=== PATIENT | male | born 1965 | race Caucasian/White ===

== ENCOUNTER 2020-08-31 09:43 | Inpatient (IN) | payer OTHER, SELFPAY ==
[2020-08-31] VITALS (8 sets, daily range): BP systolic 122–130; BP diastolic 76–91; PULSE 72–85; RESP 19–32; TEMP 35.8–36.9; O2SAT 77–97; BMI 27.8
--- NOTE | ~2020-08-31 | CT_ITS ---
EXAMINATION: CT ANGIOGRAM OF THE CHEST WITH AND WITHOUT CONTRAST (CT PULMONARY ANGIOGRAM FOR PE) CLINICAL INFORMATION: Reason for Exam likely COVID with hypoxia and elevated ddimer COMPARISON: None TECHNIQUE: Prior to contrast administration, noncontrast localization images were obtained. Subsequently, multidetector volumetric imaging was performed from the thoracic inlet to below the diaphragms following the administration of 80 mL Omnipaque 350 intravenous contrast. No contrast reaction reported Sagittal, coronal, and MIP oblique sagittal reformatted images were obtained on the CT workstation, uploaded to PACS, and reviewed. This CT examination was performed using dose optimization techniques as appropriate, variously including the following: *Automated exposure control *Adjustment of mA and/or kV according to patient size (this includes techniques or standardized protocols for targeted exams where dose is matched to indication/reason for exam; i.e. extremities or head) *Use of iterative reconstruction technique Total exam dose-length product 352 mGy-cm FINDINGS: QUALITY OF STUDY/CONTRAST BOLUS: Satisfactory. PULMONARY ARTERIES: No central or segmental pulmonary emboli. THORACIC AORTA: No aneurysm or dissection. LUNG: There is diffuse subpleural patchy groundglass opacities seen in both upper, lower, right middle lobe and lingular segments. In addition there is patchy airspace opacity in both lower lobes dependent segments. PLEURA: No pleural effusion or pneumothorax. MEDIASTINUM: Normal heart size. No pericardial effusion. No hilar or mediastinal lymphadenopathy. No evidence of septal bowing or right heart strain. CHEST WALL/AXILLA: No axillary or internal mammary lymphadenopathy. OSSEOUS STRUCTURES: No lytic or sclerotic process seen. UPPER ABDOMEN: Unremarkable. No reflux of contrast into the hepatic veins to suggest elevated right heart pressures. CT/CT angio chest PE protocol IMPRESSION: No evidence of PE. No evidence of aortic dissection. Diffuse subpleural groundglass opacity scattered throughout both lungs and all segments suggestive of Covid related inflammatory process. VTE: negative
--- NOTE | ~2020-08-31 | XR_ITS ---
EXAMINATION: XR CHEST CLINICAL INFORMATION: Covid, shortness of breath. COMPARISON: None TECHNIQUE: Frontal view of the chest was obtained. FINDINGS: The lungs are well-expanded with bilateral lower lobe patchy opacity. The upper lungs are clear. The heart size and pulmonary vascularity is normal. XR/XR chest 1V IMPRESSION: Bibasilar patchy opacity suggestive of infiltrate/atelectasis.
--- NOTE | 2020-08-31 10:06 | ED_ITS ---
HPI - SOB/Dyspnea General Chief Complaint: Dyspnea Stated Complaint: coughing Dizzy sob Time Seen by Provider: 08/31/20 10:06 Source: patient Mode of arrival: ambulatory Limitations: no limitations History of Present Illness HPI Narrative: 9 days ago patient was exposed to neighbors with covid. Presented to the ED saturating in the 70's MD elicited complaint: shortness of breath and cough Onset (ago): day(s) (9) Context: recent illness Timing: constant Severity: severe Exacerbating factors: exertion Relieving factors: nothing Associated symptoms: fever and cough Related Data Allergies Allergy/AdvReac Type Severity Reaction Status Date / Time No Known Allergies Allergy Unverified 12/04/19 15:46 Review of Systems Constitutional: Constitutional: Reports no additional constitutional complaints Eyes: Eyes: Reports no additional eye complaints ENT: Denies dizziness Cardiovascular: Cardiovascular: Reports no additional cardiovascular complaints Respiratory: Respiratory: Reports as per HPI Gastrointestinal: Gastrointestinal: Reports no additional gastrointestinal complaints Musculoskeletal: Musculoskeletal: Reports no additional musculoskeletal complaints Integumentary/Breasts: Skin/Breast: Denies rash Neurologic: Reports system reviewed and no additional complaints, except as documented, Denies dizziness and Denies Sensory deficit (Neuro) Psychiatric: Psychiatric: Denies anxiety [facility] Past Medical History Medical History (Updated 08/31/20 @ 11:06 by Alvarez Cruz MD) No known health problems Social History Social History Patient Tobacco Use Status: Never used Tobacco Use of substances other than those prescribed or required for medical reasons: No Advance Directives: No Advance Directives Information Provided: Yes Physical Exam Vital Signs: Vital Signs: Last Vital Signs Temp 98.3 F 08/31/20 11:46 Pulse 85 08/31/20 11:46 Resp 32 H 08/31/20 11:46 BP 130/91 H 08/31/20 11:46 Pulse Ox 95 08/31/20 11:46 Oxygen Flow Rate 5 08/31/20 10:02 Body Mass Index 27.8 Const: Other: male appearing pale and short of breath Nutritional Appearance: average body habitus Orientation/consciousness: oriented to person and patient oriented x3 Limitations: no limitations HENMT: Head: Yes normal to inspection Ears: external ears normal General nose exam: Normal external nose present Mouth: Normal oral and palatal mucosa present and oropharynx normal Throat: Yes posterior oropharynx normal Eyes: General: appearance normal, both eyes and all related structures Neck: Other: supple Neck: Yes normal visual inspection Chest: Chest palpation & inspection: normal inspection of the chest Resp: Other: bilateral rales Cardio: Jugular venous distension: no JVD Rate: regular rate Rhythm: regular rhythm Heart sounds: S1 normal heart sound present and S2 normal heart sound present GI: Inspection: Yes normal to inspection Palpation (GI): Soft to palpation, nontender and No hepatosplenomegaly present Auscultation: normal bowel sounds : General: Yes no CVA tenderness Back/Spine/Pelvis: Back: no CVA tenderness Skin: General skin exam: no rashes or lesions noted Neuro: General: oriented to person and patient oriented x3 Cranial nerves: Yes CN's II-XII intact bilaterally Motor exam (neuro): 5/5 motor strength present throughout Sensory Exam: No Sensory deficit (Neuro) Extrem: General: Yes normal to inspection Psych: Appearance: grossly normal MDM - SOB/Dyspnea Lab Data Result diagrams: 08/31/20 10:21 08/31/20 10:21 Labs: Lab Results 08/31/20 08/31/20 08/31/20 Range/Units 10:21 10:21 10:21 WBC 4.9 (4.8-10.8) X10*3/uL RBC 4.98 (4.60-5.80) X10*6/uL Hgb 14.1 (14.0-18.0) g/dl Hct 42.0 (42-52) % MCV 84.3 (80-98) fL MCH 28.3 (27.0-33.0) pg MCHC 33.6 (31.0-36.0) g/dl RDW 12.0 (11.0-16.0) % Plt Count 247 (160-400) X10*3/uL MPV 9.2 L (9.4-12.4) fL Immature Gran % (Auto) 0.2 (0.0-0.4) % Neut % (Auto) 43.8 L (45-73) % Lymph % (Auto) 47.1 H (20-40) % [place] % (Auto) 8.1 (2-11) % Eos % (Auto) 0.6 (0-4) % Baso % (Auto) 0.2 (0-2) % Lymph # (Auto) 2.3 (1.2-4.9) X10*3/uL [place] # (Auto) 0.4 (0.1-1.2) X10*3/uL Eos # (Auto) 0.0 (0.0-0.4) X10*3/uL Baso # (Auto) 0.0 (0.0-0.2) X10*3/uL Abs Immat Gran (auto) 0.01 (0.00-0.03) X10*3/uL Absolute Neuts (auto) 2.2 (2.0-8.3) X10*3/uL Absolute Nucleated RBC 0.000 (0.0-0.012) X10*3/uL Nucleated RBC % (auto) 0.0 (0.0-0.2) /100WBC D-Dimer 636 NG/ML Sodium (135-145) mmol/L Potassium (3.3-5.1) mmol/L Chloride (96-108) mmol/L Carbon Dioxide (22-29) mmol/L Anion Gap (12-20) BUN (9-16) mg/dL Creatinine (0.5-1.4) mg/dL Estim Creat Clear Calc Estimated GFR Random Glucose (60-115) mg/dL Calcium (8.4-10.2) mg/dL Total Bilirubin (0.0-1.0) mg/dL Direct Bilirubin (0.0-0.5) mg/dL AST (5-37) U/L ALT (0-40) U/L Alkaline Phosphatase (39-117) U/L Troponin I High Sens 22.8 (<3.5-35.0) ng/L B-Natriuretic Peptide 28 (<100) pg/mL Total Protein (6.5-8.0) g/dL Albumin (3.5-5.0) g/dL Coronavirus (PCR) (Negative) Influenza Type A (PCR) (Negative) Influenza Type B (PCR) (Negative) RSV RNA Qual (PCR) (Negative) 08/31/20 08/31/20 08/31/20 Range/Units 10:21 10:30 11:53 WBC (4.8-10.8) X10*3/uL RBC (4.60-5.80) X10*6/uL Hgb (14.0-18.0) g/dl Hct (42-52) % MCV (80-98) fL MCH (27.0-33.0) pg MCHC (31.0-36.0) g/dl RDW (11.0-16.0) % Plt Count (160-400) X10*3/uL MPV (9.4-12.4) fL Immature Gran % (Auto) (0.0-0.4) % Neut % (Auto) (45-73) % Lymph % (Auto) (20-40) % [place] % (Auto) (2-11) % Eos % (Auto) (0-4) % Baso % (Auto) (0-2) % Lymph # (Auto) (1.2-4.9) X10*3/uL [place] # (Auto) (0.1-1.2) X10*3/uL Eos # (Auto) (0.0-0.4) X10*3/uL Baso # (Auto) (0.0-0.2) X10*3/uL Abs Immat Gran (auto) (0.00-0.03) X10*3/uL Absolute Neuts (auto) (2.0-8.3) X10*3/uL Absolute Nucleated RBC (0.0-0.012) X10*3/uL Nucleated RBC % (auto) (0.0-0.2) /100WBC D-Dimer NG/ML Sodium 138 (135-145) mmol/L Potassium 4.4 (3.3-5.1) mmol/L Chloride 104 (96-108) mmol/L Carbon Dioxide 21 L (22-29) mmol/L Anion Gap 17 (12-20) BUN 13 (9-16) mg/dL Creatinine 0.83 (0.5-1.4) mg/dL Estim Creat Clear Calc 113.1 Estimated GFR > 60 Random Glucose 275 H (60-115) mg/dL Calcium 8.9 (8.4-10.2) mg/dL Total Bilirubin 0.8 (0.0-1.0) mg/dL Direct Bilirubin 0.4 (0.0-0.5) mg/dL AST 50 H (5-37) U/L ALT 34 (0-40) U/L Alkaline Phosphatase 206 H (39-117) U/L Troponin I High Sens 24.8 (<3.5-35.0) ng/L B-Natriuretic Peptide (<100) pg/mL Total Protein 7.6 (6.5-8.0) g/dL Albumin 3.5 (3.5-5.0) g/dL Coronavirus (PCR) POSITIVE A (Negative) Influenza Type A (PCR) NEGATIVE (Negative) Influenza Type B (PCR) NEGATIVE (Negative) RSV RNA Qual (PCR) NEGATIVE (Negative) Imaging Data Chest x-ray: My impression: COVID lungs ECG Data Attestation: I personally reviewed and interpreted this ECG as follows: Interpretation: sinus 80, old septal Qs, flipped ts inferiorly Critical Care Time Critical Care Time Attestation: I spent 40 minutes of critical care, with interventions, assessments, speaking to patient, consultants, and family. Discharge Plan Discharge Clinical Impression: COVID-19, Hypoxia Patient Disposition: Admitted As Inpatient
--- NOTE | 2020-08-31 10:10 | ECG_ITS ---
Test Reason : SOB Blood Pressure : / mmHG Vent. Rate : 080 BPM Atrial Rate : 080 BPM P-R Int : 182 ms QRS Dur : 078 ms QT Int : 370 ms P-R-T Axes : 012 -27 -08 degrees QTc Int : 426 ms Normal sinus rhythm Moderate voltage criteria for LVH, may be normal variant Anteroseptal infarct , age undetermined Abnormal ECG No previous ECGs available Referred By: Alvarez Cruz Electronically Signed By:XIN TANG
[2020-08-31 10:26] LABS: MANUAL DIFF FLAG NO
--- NOTE | 2020-08-31 10:28 | PC.NURSE ---
pt comes in severely sob, sating at 77% on room air, but improved with o2, sating at 92% on 5l nasal cannual, pt states about 9 days had covid exposure and last 8 days not feeling well, sob/cough/fevers/general weakness/poor po intake/lightheadedness. ls expiratory rhonchi, ns on the monitor hr 84. pt denies chest pain
[2020-08-31 10:32] LABS: Basophils Percent Auto 0.2 % (0-2); Eosinophils Percent Auto 0.6 % (0-4); Hemoglobin 14.1 g/dl (14.0-18.0); Imm Gran Abs Auto 0.01 X10*3/uL (0.00-0.03); Imm Gran Pct Auto 0.2 % (0.0-0.4); Lymphocytes Absolute Auto 2.3 X10*3/uL (1.2-4.9); Lymphocytes Percent Auto 47.1 % (20-40); Mean Corpuscular HGB Conc 33.6 g/dl (31.0-36.0); Mean Corpuscular Hemoglobin 28.3 pg (27.0-33.0); Mean Corpuscular Volume 84.3 fL (80-98); Mean Platelet Volume 9.2 fL (9.4-12.4); Monocytes Absolute Auto 0.4 X10*3/uL (0.1-1.2); Monocytes Percent Auto 8.1 % (2-11); Neutrophils Absolute Auto 2.2 X10*3/uL (2.0-8.3); Neutrophils Percent Auto 43.8 % (45-73); Platelet Count 247 X10*3/uL (160-400); Red Blood Count 4.98 X10*6/uL (4.60-5.80); White Blood Count 4.9 X10*3/uL (4.8-10.8)
[2020-08-31] MEDS: dexAMETHasone sod phosphate 4 MG/ML VIAL 6 MG IVPUSH (10:40)
[2020-08-31 10:44] LABS: D Dimer 636 NG/ML
[2020-08-31 11:04] LABS: Alanine Aminotransferase 34 U/L (0-40); Albumin Level 3.5 g/dL (3.5-5.0); Alkaline Phosphatase 206 U/L (39-117); Anion Gap 17 (12-20); Aspartate Amino Transferase 50 U/L (5-37); B Type Natriuretic Peptide 28 pg/mL (<100); Bilirubin Direct 0.4 mg/dL (0.0-0.5); Bilirubin Total 0.8 mg/dL (0.0-1.0); Blood Urea Nitrogen 13 mg/dL (9-16); Calcium 8.9 mg/dL (8.4-10.2); Carbon Dioxide 21 mmol/L (22-29); Chloride 104 mmol/L (96-108); Creatinine Clr Calc Pharmacy 113.1; Estimated Glomerular Filt Rate > 60; Glucose Random 275 mg/dL (60-115); Potassium 4.4 mmol/L (3.3-5.1); Sodium 138 mmol/L (135-145); Total Protein 7.6 g/dL (6.5-8.0); Troponin-I High Sensitivity 22.8 ng/L (<3.5-35.0)
[2020-08-31 11:20] LABS: Influenza A PCR NEGATIVE (Negative); Influenza B PCR NEGATIVE (Negative); Resp Syncy Virus RNA Qual PCR NEGATIVE (Negative); SARS COV2 PCR INHOUSE POSITIVE (Negative)
[2020-08-31 12:23] LABS: Troponin-I High Sensitivity 24.8 ng/L (<3.5-35.0)
[2020-08-31] MEDS: iohexoL 350 MG/ML 100 ML INFUS..BTL 71 ML IV (12:38)
--- NOTE | 2020-08-31 14:02 | PC.NURSE ---
UPON ENTERING ROOM, PT OBSERVED TO HAVE SPO2 AT 87% ON 3L. INFORMED THIS PT WAS WALKED TO CT SCAN WITH NO SUPPLEMENTAL O2. PT CANNOT TOLERATE EXERTION, INSTRUCTED ON IMPORTANCE OF O2.
--- NOTE | 2020-08-31 14:30 | PM.IMHP ---
History of Present Illness Date of Service: 08/31/20 Chief Complaint: sob 55M presented with sob. about 10 days ptp he was in a car with a neighbor who ended up having covid. patient did not get vaccinated for no specific reason. he started feeling ill about 7 days ptp. sob, fatigue, myalgias.now coming to hospital for worsening sob. found to be hypoxic 77 on rrom air. covid positive, CTA negative for pe, lung paranchyma typical for covid. patient noted to be hyperglycemic, no known history of DM, mother had DM. Review of Systems Review of Systems: Constitutional: Chills Eyes: denies blurry vision ENT: denies sore throat CVS: denies chest pain Respiratory: dyspnea GI: no abdominal pain : denies dysuria MSK: denies neck pain Skin: denies rash Neuro: denies specific motor weakness Psych: denies suicidal ideation Endocrine: denies heat/cold intoleratnce Hematologic: denies easy bleeding Allergy: denies hives [facility] Medical History No known health problems Pertinent family history: DM Social History Patient Tobacco Use Status: Never used Tobacco Use of substances other than those prescribed or required for medical reasons: No Advance Directives: No Advance Directives Information Provided: Yes Meds Allergies Allergy/AdvReac Type Severity Reaction Status Date / Time No Known Allergies Allergy Unverified 12/04/19 15:46 Physical Exam Vital Signs and Narrative: Vital Signs: Last Vital Signs Temp 98.3 F 08/31/20 11:46 Pulse 72 08/31/20 14:01 Resp 24 H 08/31/20 14:01 BP 129/84 08/31/20 14:01 Pulse Ox 94 08/31/20 14:23 Oxygen Flow Rate 5 08/31/20 10:02 Body Mass Index 27.8 General: diaphoretic, dyspneic HEENT: atraumatic Neck: normal to visual inspection CVS: S1, S2, RRR Resp: crackles Chest: non tender GI: soft, non tender, non distended : no CVA tenderness Skin: no rashes Extremities: no edema Neuro: Oriented X3, grossly intact Psych: cooperative Results Labs CBC and Chem 7: 08/31/20 10:21 08/31/20 10:21 Labs: Laboratory Results - last 24 hr 08/31/20 08/31/20 08/31/20 10:21 10:21 10:21 MCV 84.3 MCH 28.3 MCHC 33.6 RDW 12.0 Plt Count 247 MPV 9.2 L Immature Gran % (Auto) 0.2 Neut % (Auto) 43.8 L Lymph % (Auto) 47.1 H [place] % (Auto) 8.1 Eos % (Auto) 0.6 Baso % (Auto) 0.2 Lymph # (Auto) 2.3 [place] # (Auto) 0.4 Eos # (Auto) 0.0 Baso # (Auto) 0.0 Abs Immat Gran (auto) 0.01 Absolute Neuts (auto) 2.2 Absolute Nucleated RBC 0.000 Nucleated RBC % (auto) 0.0 D-Dimer 636 Anion Gap Estim Creat Clear Calc Estimated GFR Random Glucose Calcium Total Bilirubin Direct Bilirubin AST ALT Alkaline Phosphatase Troponin I High Sens 22.8 B-Natriuretic Peptide 28 Total Protein Albumin Coronavirus (PCR) Influenza Type A (PCR) Influenza Type B (PCR) RSV RNA Qual (PCR) 08/31/20 08/31/20 08/31/20 10:21 10:30 11:53 MCV MCH MCHC RDW Plt Count MPV Immature Gran % (Auto) Neut % (Auto) Lymph % (Auto) [place] % (Auto) Eos % (Auto) Baso % (Auto) Lymph # (Auto) [place] # (Auto) Eos # (Auto) Baso # (Auto) Abs Immat Gran (auto) Absolute Neuts (auto) Absolute Nucleated RBC Nucleated RBC % (auto) D-Dimer Anion Gap 17 Estim Creat Clear Calc 113.1 Estimated GFR > 60 Random Glucose 275 H Calcium 8.9 Total Bilirubin 0.8 Direct Bilirubin 0.4 AST 50 H ALT 34 Alkaline Phosphatase 206 H Troponin I High Sens 24.8 B-Natriuretic Peptide Total Protein 7.6 Albumin 3.5 Coronavirus (PCR) POSITIVE A Influenza Type A (PCR) NEGATIVE Influenza Type B (PCR) NEGATIVE RSV RNA Qual (PCR) NEGATIVE Imaging Radiologist's Impressions: Impressions Chest X-Ray 08/31/20 10:10 IMPRESSION: Bibasilar patchy opacity suggestive of infiltrate/atelectasis. Chest CTA 08/31/20 11:03 IMPRESSION: No evidence of PE. No evidence of aortic dissection. Diffuse subpleural groundglass opacity scattered throughout both lungs and all segments suggestive of Covid related inflammatory process. VTE: negative Assessment and Plan (1) COVID-19: Status: Acute (2) Hypoxia: Status: Acute (3) Hyperglycemia: Status: Acute 55M presented with sob found to have covid acute hypoxic respiratory failure due to covid decadron o2 hyperglcyemia likely DM check a1c insulin dvt prophylaxis - xarelto full code
[2020-08-31 15:16] LABS: Estimated Average Glucose 306 mg/dL; Hemoglobin A1c % 12.3 %
[2020-08-31 17:14] LABS: Glucose, Whole Blood 298 mg/dL (60-115)
[2020-08-31] MEDS: Insulin Lispro 100 UNIT/ML 3 ML VIAL SUBCUT ×2 (17:37→21:20)
[2020-08-31] MEDS: 0.9 % Sodium Chloride Flush 3 ML SYRINGE IVFLUSH ×2 (17:40→21:20)
[2020-08-31 21:03] LABS: Glucose, Whole Blood 282 mg/dL (60-115)
[2020-09-01] VITALS (7 sets, daily range): BP systolic 112–148; BP diastolic 69–89; PULSE 69–75; RESP 16–20; TEMP 36.6–37.2; O2SAT 90–96
[2020-09-01 07:42] LABS: Glucose, Whole Blood 202 mg/dL (60-115)
[2020-09-01] MEDS: Rivaroxaban 10 MG TABLET PO (07:55)
[2020-09-01] MEDS: dexAMETHasone sod phosphate 4 MG/ML VIAL 6 MG IVPUSH (07:55)
[2020-09-01] MEDS: 0.9 % Sodium Chloride Flush 3 ML SYRINGE IVFLUSH ×2 (07:55→20:57)
[2020-09-01] MEDS: Insulin Lispro 100 UNIT/ML 3 ML VIAL SUBCUT ×4 (07:55→20:57)
--- NOTE | 2020-09-01 08:49 | MHC.CM.PN ---
Patient is Covid (+). CM attempted to reach Patient by cell phone [phone], listed as Patient's cell #, but instead reached Patient's Daughter/Oliverio. Patient lives in an apartment with his and Son and he is functionally independent. Patient has no insurance (referral has been made to [facility] has confirmed receipt of referral), and no PCP. Home/no services is the goal for dc and CM has initiated and will follow for dc planning.
[2020-09-01 10:14] LABS: Hematocrit 40.9 % (42-52); Hemoglobin 13.6 g/dl (14.0-18.0); Mean Corpuscular HGB Conc 33.3 g/dl (31.0-36.0); Mean Corpuscular Hemoglobin 28.2 pg (27.0-33.0); Mean Corpuscular Volume 84.7 fL (80-98); Mean Platelet Volume 9.3 fL (9.4-12.4); Platelet Count 266 X10*3/uL (160-400); Red Blood Count 4.83 X10*6/uL (4.60-5.80); Red Cell Distribution Width 11.9 % (11.0-16.0); White Blood Count 4.1 X10*3/uL (4.8-10.8)
[2020-09-01 10:43] LABS: Anion Gap 15 (12-20); Blood Urea Nitrogen 17 mg/dL (9-16); Calcium 8.7 mg/dL (8.4-10.2); Carbon Dioxide 24 mmol/L (22-29); Chloride 103 mmol/L (96-108); Creatinine Clr Calc Pharmacy 126.9; Estimated Glomerular Filt Rate > 60; Glucose Random 262 mg/dL (60-115); Potassium 4.5 mmol/L (3.3-5.1); Sodium 137 mmol/L (135-145)
[2020-09-01 11:35] LABS: Glucose, Whole Blood 261 mg/dL (60-115)
[2020-09-01] MEDS: Remdesivir 200 MG in 0.9 % Sodium Chloride 210 ML 105 MG IV (12:23)
--- NOTE | 2020-09-01 14:14 | MHC.CLN ---
RECOMMEND 2200DM DIET BASED ON ESTIMATED KCAL NEEDS
[2020-09-01 16:24] LABS: Glucose, Whole Blood 277 mg/dL (60-115)
--- NOTE | 2020-09-01 16:44 | P.PNIM_ITS ---
Subjective Subjective Date of Service: 09/01/20 Interval History: the patient was seen and evaluated this morning Laying in bed, feels comfortable overall on 5 L of oxygen Denies any fever, chills but complaining of dyspnea and exertional shortness of breath No reported other overnight events. Systemic review: No fever, chills but overall weakness No chest pain, palpitation Complaining of exertional shortness of breath or coughing No abdominal pain, nausea or vomiting No urinary symptoms No any rash or wounds Physical Exam Vital Signs: Vital Signs: Last Vital Signs Temp 98.3 F 09/01/20 15:53 Pulse 70 09/01/20 15:53 Resp 18 09/01/20 15:53 BP 115/76 09/01/20 15:53 Pulse Ox 92 09/01/20 15:53 Oxygen Flow Rate 5 08/31/20 10:02 Body Mass Index 27.8 Const: Other: Constitutional : Alert, oriented, in mild respiratory distress Neck : Normal inspection, Supple Cardiovascular : RRR, S1 S2, no lower extremity edema Respiratory : Decreased bilateral air entry, no crackles, no wheezes or rhonch i Gastrointestinal: soft, lax, Normal bowel sounds, Non tender Skin : Warm/Dry, No rash Neurological : Alert & oriented x3, No focal deficit Objective Data Current Medications Generic Name Dose Route Start Last Admin Trade Name Baltazarq PRN Reason Stop Dose Admin Dexamethasone Sodium Phosphate 6 mg 09/01/20 09:00 09/01/20 07:55 Dexamethasone Sod Phosphate 4 Mg/Ml Vial IVPUSH 6 mg DAILY QUYEN Administration Remdesivir 100 mg/ Sodium 230 mls @ 115 mls/hr 09/02/20 11:00 Chloride IV 09/05/20 12:59 Q24H [facility] Insulin Human Lispro 0 unit 08/31/20 16:30 09/01/20 12:25 Insulin Lispro 100 Unit/Ml 3 Ml Vial SUBCUT 6 unit QIDACHS [facility] Administration Protocol Rivaroxaban 10 mg 09/01/20 09:00 09/01/20 07:55 Rivaroxaban 10 Mg Tablet PO 10 mg DAILY QUYEN Administration Sodium Chloride 3 ml 08/31/20 16:00 09/01/20 07:55 0.9 % Sodium Chloride Flush 3 Ml Syringe IVFLUSH 3 ml QSHIFT [facility] Administration Labs CBC & Chem 7: 09/01/20 09:33 09/01/20 09:33 Labs: Laboratory Results - last 24 hr 08/31/20 08/31/20 09/01/20 17:10 20:55 07:21 WBC RBC Hgb Hct MCV MCH MCHC RDW Plt Count MPV Absolute Nucleated RBC Nucleated RBC % (auto) Sodium Potassium Chloride Carbon Dioxide Anion Gap BUN Creatinine Estim Creat Clear Calc Estimated GFR POC Glucose 298 H 282 H 202 H Random Glucose Calcium 09/01/20 09/01/20 09/01/20 09:33 09:33 11:25 WBC 4.1 L RBC 4.83 Hgb 13.6 L Hct 40.9 L MCV 84.7 MCH 28.2 MCHC 33.3 RDW 11.9 Plt Count 266 MPV 9.3 L Absolute Nucleated RBC 0.000 Nucleated RBC % (auto) 0.0 Sodium 137 Potassium 4.5 Chloride 103 Carbon Dioxide 24 Anion Gap 15 BUN 17 H Creatinine 0.74 Estim Creat Clear Calc 126.9 Estimated GFR > 60 POC Glucose 261 H Random Glucose 262 H Calcium 8.7 09/01/20 16:17 WBC RBC Hgb Hct MCV MCH MCHC RDW Plt Count MPV Absolute Nucleated RBC Nucleated RBC % (auto) Sodium Potassium Chloride Carbon Dioxide Anion Gap BUN Creatinine Estim Creat Clear Calc Estimated GFR POC Glucose 277 H Random Glucose Calcium Microbiology Microbiology Results: Microbiology 08/31/20 10:30 Blood Culture - Preliminary Blood - Venous No growth after 24 hours. 08/31/20 10:21 Blood Culture - Preliminary Blood - Venous No growth after 24 hours. Quality Stroke Does the patient have a stroke diagnosis?: No VTE Prior VTE?: No VTE Risk Level:: Medical - moderate - high VTE Device Contraindication: Patient Refused VTE Drug Contraindication: N/A - Med Ordered Assessment and Plan (1) COVID-19: Status: Acute (2) Hypoxia: Status: Acute (3) Hyperglycemia: Status: Acute Assessment and Plan: 55M presented with sob found to have covid Acute hypoxic respiratory failure due to covid Continue on decadron Continue o2 Get ID evaluation hyperglcyemia Secondary newly diagnosed DM HbA1c, 12.3 Continue insulin dvt prophylaxis xarelto
[2020-09-01 20:16] LABS: Glucose, Whole Blood 310 mg/dL (60-115)
[2020-09-02 03:12] VITALS: BP 109/69; PULSE 60; RESP 16; TEMP 36.6; O2SAT 92
[2020-09-02 06:59] LABS: MANUAL DIFF FLAG NO
[2020-09-02 07:06] LABS: Glucose, Whole Blood 234 mg/dL (60-115)
[2020-09-02 07:07] LABS: Basophils Percent Auto 0.1 % (0-2); Eosinophils Percent Auto 0.1 % (0-4); Hematocrit 39.3 % (42-52); Hemoglobin 13.2 g/dl (14.0-18.0); Imm Gran Abs Auto 0.03 X10*3/uL (0.00-0.03); Imm Gran Pct Auto 0.4 % (0.0-0.4); Lymphocytes Absolute Auto 1.8 X10*3/uL (1.2-4.9); Mean Corpuscular HGB Conc 33.6 g/dl (31.0-36.0); Mean Corpuscular Hemoglobin 28.3 pg (27.0-33.0); Mean Corpuscular Volume 84.2 fL (80-98); Mean Platelet Volume 9.4 fL (9.4-12.4); Monocytes Absolute Auto 0.7 X10*3/uL (0.1-1.2); Neutrophils Percent Auto 66.4 % (45-73); Platelet Count 336 X10*3/uL (160-400); Red Blood Count 4.67 X10*6/uL (4.60-5.80); Red Cell Distribution Width 11.9 % (11.0-16.0); White Blood Count 7.5 X10*3/uL (4.8-10.8)
[2020-09-02 07:11] VITALS: BP 117/75; PULSE 70; RESP 18; TEMP 36.7; O2SAT 93
[2020-09-02 07:27] LABS: C Reactive Protein 2.19 mg/dL (< or = 0.50); Lactate Dehydrogenase 257 U/L (118-273)
[2020-09-02 07:35] LABS: Anion Gap 13 (12-20); Blood Urea Nitrogen 25 mg/dL (9-16); Calcium 8.5 mg/dL (8.4-10.2); Carbon Dioxide 22 mmol/L (22-29); Chloride 106 mmol/L (96-108); Creatinine Clr Calc Pharmacy 128.6; Estimated Glomerular Filt Rate > 60; Glucose Random 250 mg/dL (60-115); Potassium 4.4 mmol/L (3.3-5.1); Sodium 137 mmol/L (135-145)
[2020-09-02] MEDS: dexAMETHasone sod phosphate 4 MG/ML VIAL 6 MG IVPUSH (07:53)
[2020-09-02] MEDS: Insulin Lispro 100 UNIT/ML 3 ML VIAL SUBCUT ×4 (07:53→20:16)
[2020-09-02] MEDS: Rivaroxaban 10 MG TABLET PO (07:53)
[2020-09-02] MEDS: 0.9 % Sodium Chloride Flush 3 ML SYRINGE IVFLUSH ×3 (07:54→20:17)
[2020-09-02] MEDS: Insulin Glargine,Hum.rec.anlog 100 UNIT/ML 10 ML VIAL SUBCUT (08:04)
[2020-09-02 10:58] LABS: Glucose, Whole Blood 316 mg/dL (60-115)
[2020-09-02] MEDS: Remdesivir 100 MG in 0.9 % Sodium Chloride 230 ML 115 MG IV (11:26)
--- NOTE | 2020-09-02 11:29 | W.PM.IDCN ---
History of Present Illness Data of Consult Service Date: 09/01/20 Requesting physician: Phi Prabhakar Primary Care Provider: None Physician HPI Reason for consult: COVID,hypoxia He presents to hospital with shortness of breath for a day and cough. He has dry cough. He did not get COVID vaccine,apathetic to it. He was in car with two persons with COVID 9 days ago and developed cough and fatigue 7 days ago He was 90 on room air Review of Systems Review of Systems: Yes all other systems are reviewed and are negative [facility] Past Medical History Medical History No known health problems Family History Family history: reviewed and not pertinent Social History Social History Household Members: Spouse and Children Housing: Apartment Do you presently have visiting nurse or other home services: No Patient Tobacco Use Status: Never used Tobacco Use of substances other than those prescribed or required for medical reasons: No Currently Displaying Signs/Symptoms of Drug Intoxication Withdrawal: No Have you been hit, kicked, punched, or otherwise hurt by someone within the past year? If so, by whom?: No Do you feel safe in your current relationship?: Yes Is there a partner from a previous relationship who is making you feel unsafe now?: No Are you made to feel afraid or neglected: No Advance Directives: No Advance Directives Information Provided: Yes Do you have thoughts of harming others: None Do you have a plan to hurt others: No Plan Recently lost weight without trying: No Nutrition Risks: No Nutritional Risk service: No Current occupational status: unemployed Meds Allergies Allergy/AdvReac Type Severity Reaction Status Date / Time No Known Allergies Allergy Unverified 12/04/19 15:46 Active Medications: Current Medications Generic Name Dose Route Start Last Admin Trade Name Freq PRN Reason Stop Dose Admin Dexamethasone Sodium Phosphate 6 mg 09/01/20 09:00 09/02/20 07:53 Dexamethasone Sod Phosphate 4 Mg/Ml Vial IVPUSH 6 mg DAILY QUYEN Administration Remdesivir 100 mg/ Sodium 230 mls @ 115 mls/hr 09/02/20 11:00 09/02/20 11:26 Chloride IV 09/05/20 12:59 115 mls/hr Q24H QUYEN Administration Insulin Glargine 5 unit 09/02/20 09:00 09/02/20 08:04 Insulin Glargine,Hum.Rec.Anlog 100 Unit/Ml 10 Ml Vial SUBCUT 5 unit DAILY QUYEN Administration Insulin Human Lispro 0 unit 08/31/20 16:30 09/02/20 11:26 Insulin Lispro 100 Unit/Ml 3 Ml Vial SUBCUT 8 unit QIDACHS QUYEN Administration Protocol Rivaroxaban 10 mg 09/01/20 09:00 09/02/20 07:53 Rivaroxaban 10 Mg Tablet PO 10 mg DAILY QUYEN Administration Sodium Chloride 3 ml 08/31/20 16:00 09/02/20 07:54 0.9 % Sodium Chloride Flush 3 Ml Syringe IVFLUSH 3 ml QSHIFT QUYEN Administration Physical Exam Vital Signs: Vital Signs: Last Vital Signs Temp 98.1 F 09/02/20 07:11 Pulse 70 09/02/20 07:11 Resp 18 09/02/20 07:11 BP 117/75 09/02/20 07:11 Pulse Ox 93 09/02/20 07:11 Oxygen Flow Rate 5 08/31/20 10:02 Body Mass Index 27.8 Const: General: cooperative Eyes: General: appearance normal, both eyes and all related structures Resp: Effort & Inspection: able to speak in complete sentences Cardio: Rate: regular rate Rhythm: regular rhythm GI: Palpation (GI): nontender Skin: General skin exam: no rashes or lesions noted Results Labs CBC & Chem 7: 09/02/20 06:07 09/02/20 06:07 Labs: Short CBC 09/02/20 Range/Units 06:07 WBC 7.5 (4.8-10.8) X10*3/uL Hgb 13.2 L (14.0-18.0) g/dl Hct 39.3 L (42-52) % Plt Count 336 D (160-400) X10*3/uL BMP 09/02/20 06:07 Sodium 137 Potassium 4.4 Chloride 106 Carbon Dioxide 22 BUN 25 H Creatinine 0.73 Calcium 8.5 Microbiology Microbiology Results: Microbiology 08/31/20 10:30 Blood - Venous Blood Culture - Preliminary No growth after 24 hours. 08/31/20 10:21 Blood - Venous Blood Culture - Preliminary No growth after 24 hours. Assessment and Plan (1) COVID-19: Status: Acute He has hypoxia He has no signs of secondary bacterial infection LFT slight elevation and creatinine unremarkable Would give Dexamethasone 6 mg IV daily,po on discharge for 10 days Remdesivir still indicated per protocol with normal creatinine and LFTs (2) Hypoxia: Status: Acute
[2020-09-02 11:42] VITALS: BP 119/73; PULSE 65; RESP 19; TEMP 36.6; O2SAT 94
--- NOTE | 2020-09-02 12:28 | HO.PM.IMPN ---
Subjective Subjective Date of Service: 09/02/20 Interval History: the patient was seen and evaluated this morning Laying in bed, feels comfortable overall on 4-5 L of oxygen Denies any fever, chills complaining of dyspnea and exertional shortness of breath No reported other overnight events. Systemic review: No fever, chills but overall weakness No chest pain, palpitation Complaining of exertional shortness of breath or coughing No abdominal pain, nausea or vomiting No urinary symptoms No any rash or wounds Physical Exam Vital Signs: Vital Signs: Last Vital Signs Temp 98 F 09/02/20 11:42 Pulse 65 09/02/20 11:42 Resp 19 09/02/20 11:42 BP 119/73 09/02/20 11:42 Pulse Ox 94 09/02/20 11:42 Oxygen Flow Rate 5 08/31/20 10:02 Body Mass Index 27.8 Const: Other: Constitutional : Alert, oriented, in mild respiratory distress Neck : Normal inspection, Supple Cardiovascular : RRR, S1 S2, no lower extremity edema Respiratory : Decreased bilateral air entry, no crackles, no wheezes or rhonchi Gastrointestinal: soft, lax, Normal bowel sounds, Non tender Skin : Warm/Dry, No rash Neurological : Alert & oriented x3, No focal deficit Objective Data Current Medications Generic Name Dose Route Start Last Admin Trade Name Baltazarq PRN Reason Stop Dose Admin Dexamethasone Sodium Phosphate 6 mg 09/01/20 09:00 09/02/20 07:53 Dexamethasone Sod Phosphate 4 Mg/Ml Vial IVPUSH 6 mg DAILY QUYEN Administration Remdesivir 100 mg/ Sodium 230 mls @ 115 mls/hr 09/02/20 11:00 09/02/20 11:26 Chloride IV 09/05/20 12:59 115 mls/hr Q24H QUYEN Administration Insulin Glargine 5 unit 09/02/20 09:00 09/02/20 08:04 Insulin Glargine,Hum.Rec.Anlog 100 Unit/Ml 10 Ml Vial SUBCUT 5 unit DAILY QUYEN Administration Insulin Human Lispro 0 unit 08/31/20 16:30 09/02/20 11:26 Insulin Lispro 100 Unit/Ml 3 Ml Vial SUBCUT 8 unit QIDACHS QUYEN Administration Protocol Rivaroxaban 10 mg 09/01/20 09:00 09/02/20 07:53 Rivaroxaban 10 Mg Tablet PO 10 mg DAILY QUYEN Administration Sodium Chloride 3 ml 08/31/20 16:00 09/02/20 07:54 0.9 % Sodium Chloride Flush 3 Ml Syringe IVFLUSH 3 ml QSHIFT QUYEN Administration Labs CBC & Chem 7: 09/02/20 06:07 09/02/20 06:07 Labs: Laboratory Results - last 24 hr 09/01/20 09/01/20 09/02/20 16:17 20:11 06:07 WBC 7.5 RBC 4.67 Hgb 13.2 L Hct 39.3 L MCV 84.2 MCH 28.3 MCHC 33.6 RDW 11.9 Plt Count 336 D MPV 9.4 Immature Gran % (Auto) 0.4 Neut % (Auto) 66.4 Lymph % (Auto) 24.0 [place] % (Auto) 9.0 Eos % (Auto) 0.1 Baso % (Auto) 0.1 Lymph # (Auto) 1.8 [place] # (Auto) 0.7 Eos # (Auto) 0.0 Baso # (Auto) 0.0 Abs Immat Gran (auto) 0.03 Absolute Neuts (auto) 5.0 Absolute Nucleated RBC 0.000 Nucleated RBC % (auto) 0.0 Sodium Potassium Chloride Carbon Dioxide Anion Gap BUN Creatinine Estim Creat Clear Calc Estimated GFR POC Glucose 277 H 310 H Random Glucose Calcium Lactate Dehydrogenase C-Reactive Protein 09/02/20 09/02/20 09/02/20 06:07 06:07 06:52 WBC RBC Hgb Hct MCV MCH MCHC RDW Plt Count MPV Immature Gran % (Auto) Neut % (Auto) Lymph % (Auto) [place] % (Auto) Eos % (Auto) Baso % (Auto) Lymph # (Auto) [place] # (Auto) Eos # (Auto) Baso # (Auto) Abs Immat Gran (auto) Absolute Neuts (auto) Absolute Nucleated RBC Nucleated RBC % (auto) Sodium 137 Potassium 4.4 Chloride 106 Carbon Dioxide 22 Anion Gap 13 BUN 25 H Creatinine 0.73 Estim Creat Clear Calc 128.6 Estimated GFR > 60 POC Glucose 234 H Random Glucose 250 H Calcium 8.5 Lactate Dehydrogenase 257 C-Reactive Protein 2.19 H 09/02/20 10:51 WBC RBC Hgb Hct MCV MCH MCHC RDW Plt Count MPV Immature Gran % (Auto) Neut % (Auto) Lymph % (Auto) [place] % (Auto) Eos % (Auto) Baso % (Auto) Lymph # (Auto) [place] # (Auto) Eos # (Auto) Baso # (Auto) Abs Immat Gran (auto) Absolute Neuts (auto) Absolute Nucleated RBC Nucleated RBC % (auto) Sodium Potassium Chloride Carbon Dioxide Anion Gap BUN Creatinine Estim Creat Clear Calc Estimated GFR POC Glucose 316 H Random Glucose Calcium Lactate Dehydrogenase C-Reactive Protein Microbiology Microbiology Results: Microbiology 08/31/20 10:21 Blood Culture - Preliminary Blood - Venous No growth after 48 hours. 08/31/20 10:30 Blood Culture - Preliminary Blood - Venous No growth after 24 hours. Quality Stroke Does the patient have a stroke diagnosis?: No VTE Prior VTE?: No VTE Risk Level:: Medical - moderate - high VTE Device Contraindication: Patient Refused VTE Drug Contraindication: N/A - Med Ordered Assessment and Plan (1) COVID-19: Status: Acute (2) Hypoxia: Status: Acute (3) Hyperglycemia: Status: Acute Assessment and Plan: 55M presented with sob found to have covid Acute hypoxic respiratory failure due to covid Continue on decadron day 3 Continue o2 Continue remdesivir day 2 Infectious Disease input appreciated hyperglcyemia Secondary newly diagnosed DM HbA1c, 12.3 Continue SSI Start Lantus Will need diabetes education dvt prophylaxis xarelto
[2020-09-02 16:00] VITALS: BP 134/82; PULSE 63; RESP 18; TEMP 36.6; O2SAT 96
[2020-09-02 17:23] LABS: Glucose, Whole Blood 275 mg/dL (60-115)
[2020-09-02 20:00] VITALS: BP 122/77; PULSE 60; RESP 18; TEMP 36.7; O2SAT 91
[2020-09-02 20:11] LABS: Glucose, Whole Blood 293 mg/dL (60-115)
[2020-09-02 23:07] VITALS: BP 109/72; PULSE 63; RESP 18; TEMP 37; O2SAT 95
[2020-09-03 03:38] VITALS: BP 110/70; PULSE 71; RESP 18; TEMP 36.8; O2SAT 96
[2020-09-03 07:05] VITALS: BP 111/72; PULSE 63; RESP 19; TEMP 37.2; O2SAT 94
[2020-09-03 07:07] LABS: Glucose, Whole Blood 215 mg/dL (60-115)
[2020-09-03] MEDS: Insulin Lispro 100 UNIT/ML 3 ML VIAL SUBCUT ×4 (07:38→21:41)
[2020-09-03] MEDS: Insulin Glargine,Hum.rec.anlog 100 UNIT/ML 10 ML VIAL SUBCUT (07:39)
[2020-09-03] MEDS: dexAMETHasone sod phosphate 4 MG/ML VIAL 6 MG IVPUSH (07:39)
[2020-09-03] MEDS: Rivaroxaban 10 MG TABLET PO (07:39)
[2020-09-03] MEDS: 0.9 % Sodium Chloride Flush 3 ML SYRINGE IVFLUSH ×3 (07:39→21:41)
[2020-09-03 09:08] LABS: MANUAL DIFF FLAG NO
[2020-09-03 09:10] LABS: Basophils Percent Auto 0.1 % (0-2); Eosinophils Percent Auto 0.2 % (0-4); Hematocrit 41.4 % (42-52); Hemoglobin 13.9 g/dl (14.0-18.0); Imm Gran Abs Auto 0.05 X10*3/uL (0.00-0.03); Imm Gran Pct Auto 0.5 % (0.0-0.4); Lymphocytes Absolute Auto 1.9 X10*3/uL (1.2-4.9); Lymphocytes Percent Auto 21.2 % (20-40); Mean Corpuscular HGB Conc 33.6 g/dl (31.0-36.0); Mean Corpuscular Hemoglobin 28.6 pg (27.0-33.0); Mean Corpuscular Volume 85.2 fL (80-98); Mean Platelet Volume 9.3 fL (9.4-12.4); Monocytes Absolute Auto 0.9 X10*3/uL (0.1-1.2); Monocytes Percent Auto 9.4 % (2-11); Neutrophils Absolute Auto 6.3 X10*3/uL (2.0-8.3); Neutrophils Percent Auto 68.6 % (45-73); Platelet Count 322 X10*3/uL (160-400); Red Blood Count 4.86 X10*6/uL (4.60-5.80); Red Cell Distribution Width 11.9 % (11.0-16.0); White Blood Count 9.1 X10*3/uL (4.8-10.8)
[2020-09-03 09:18] LABS: D Dimer 883 NG/ML
[2020-09-03 09:29] LABS: C Reactive Protein 0.76 mg/dL (< or = 0.50); Lactate Dehydrogenase 302 U/L (118-273)
[2020-09-03 09:30] LABS: Anion Gap 17 (12-20); Blood Urea Nitrogen 24 mg/dL (9-16); Calcium 8.8 mg/dL (8.4-10.2); Carbon Dioxide 21 mmol/L (22-29); Chloride 106 mmol/L (96-108); Creatinine Clr Calc Pharmacy 120.4; Estimated Glomerular Filt Rate > 60; Glucose Random 224 mg/dL (60-115); Potassium 4.5 mmol/L (3.3-5.1); Sodium 139 mmol/L (135-145)
[2020-09-03 11:05] LABS: Glucose, Whole Blood 282 mg/dL (60-115)
[2020-09-03 11:30] VITALS: BP 117/75; PULSE 64; RESP 20; TEMP 37.2; O2SAT 95
--- NOTE | 2020-09-03 11:48 | MHC.CM.PN ---
Per ROUNDS discussion, Patient is not yet medically cleared for dc (IV Remdesivir & IV Decadron). Home/no services is the goal for dc and CM will follow for possible need to adjust the dc plan.
[2020-09-03] MEDS: Remdesivir 100 MG in 0.9 % Sodium Chloride 230 ML 115 MG IV (12:27)
--- NOTE | 2020-09-03 13:57 | P.PNIM_ITS ---
Subjective Subjective Date of Service: 09/03/20 Interval History: the patient was seen and evaluated this morning Improving slowly Laying in bed, feels comfortable overall on 3-4 L of oxygen Denies any fever, chills complaining of dyspnea and exertional shortness of breath but overall better No reported other overnight events. Systemic review: No fever, chills but overall weakness No chest pain, palpitation Complaining of exertional shortness of breath or coughing No abdominal pain, nausea or vomiting No urinary symptoms No any rash or wounds Physical Exam Vital Signs: Vital Signs: Last Vital Signs Temp 98.9 F 09/03/20 11:30 Pulse 64 09/03/20 11:30 Resp 20 09/03/20 11:30 BP 117/75 09/03/20 11:30 Pulse Ox 95 09/03/20 11:30 Oxygen Flow Rate 5 08/31/20 10:02 Body Mass Index 27.8 Const: Other: Constitutional : Alert, oriented, in mild respiratory distress Neck : Normal inspection, Supple Cardiovascular : RRR, S1 S2, no lower extremity edema Respiratory : Decreased bilateral air entry, no crackles, no wheezes or rhonchi Gastrointestinal: soft, lax, Normal bowel sounds, Non tender Skin : Warm/Dry, No rash Neurological : Alert & oriented x3, No focal deficit Objective Data Current Medications Generic Name Dose Route Start Last Admin Trade Name Baltazarq PRN Reason Stop Dose Admin Dexamethasone Sodium Phosphate 6 mg 09/01/20 09:00 09/03/20 07:39 Dexamethasone Sod Phosphate 4 Mg/Ml Vial IVPUSH 6 mg DAILY QUYEN Administration Remdesivir 100 mg/ Sodium 230 mls @ 115 mls/hr 09/02/20 11:00 09/03/20 12:27 Chloride IV 09/05/20 12:59 115 mls/hr Q24H QUYEN Administration Insulin Glargine 5 unit 09/02/20 09:00 09/03/20 07:39 Insulin Glargine,Hum.Rec.Anlog 100 Unit/Ml 10 Ml Vial SUBCUT 5 unit DAILY QUYEN Administration Insulin Human Lispro 0 unit 08/31/20 16:30 09/03/20 11:47 Insulin Lispro 100 Unit/Ml 3 Ml Vial SUBCUT 6 unit QIDACHS QUYEN Administration Protocol Rivaroxaban 10 mg 09/01/20 09:00 09/03/20 07:39 Rivaroxaban 10 Mg Tablet PO 10 mg DAILY QUYEN Administration Sodium Chloride 3 ml 08/31/20 16:00 09/03/20 07:39 0.9 % Sodium Chloride Flush 3 Ml Syringe IVFLUSH 3 ml QSHIFT [facility] Administration Labs CBC & Chem 7: 09/03/20 09:01 09/03/20 08:37 Labs: Laboratory Results - last 24 hr 09/02/20 09/02/20 09/03/20 17:20 20:03 06:50 WBC RBC Hgb Hct MCV MCH MCHC RDW Plt Count MPV Immature Gran % (Auto) Neut % (Auto) Lymph % (Auto) [place] % (Auto) Eos % (Auto) Baso % (Auto) Lymph # (Auto) [place] # (Auto) Eos # (Auto) Baso # (Auto) Abs Immat Gran (auto) Absolute Neuts (auto) Absolute Nucleated RBC Nucleated RBC % (auto) D-Dimer Sodium Potassium Chloride Carbon Dioxide Anion Gap BUN Creatinine Estim Creat Clear Calc Estimated GFR POC Glucose 275 H 293 H 215 H Random Glucose Calcium Lactate Dehydrogenase C-Reactive Protein 09/03/20 09/03/20 09/03/20 08:37 08:37 09:01 WBC 9.1 RBC 4.86 Hgb 13.9 L Hct 41.4 L MCV 85.2 MCH 28.6 MCHC 33.6 RDW 11.9 Plt Count 322 MPV 9.3 L Immature Gran % (Auto) 0.5 H Neut % (Auto) 68.6 Lymph % (Auto) 21.2 [place] % (Auto) 9.4 Eos % (Auto) 0.2 Baso % (Auto) 0.1 Lymph # (Auto) 1.9 [place] # (Auto) 0.9 Eos # (Auto) 0.0 Baso # (Auto) 0.0 Abs Immat Gran (auto) 0.05 H Absolute Neuts (auto) 6.3 Absolute Nucleated RBC 0.000 Nucleated RBC % (auto) 0.0 D-Dimer Sodium 139 Potassium 4.5 Chloride 106 Carbon Dioxide 21 L Anion Gap 17 BUN 24 H Creatinine 0.78 Estim Creat Clear Calc 120.4 Estimated GFR > 60 POC Glucose Random Glucose 224 H Calcium 8.8 Lactate Dehydrogenase 302 H C-Reactive Protein 0.76 H 09/03/20 09/03/20 09:01 10:50 WBC RBC Hgb Hct MCV MCH MCHC RDW Plt Count MPV Immature Gran % (Auto) Neut % (Auto) Lymph % (Auto) [place] % (Auto) Eos % (Auto) Baso % (Auto) Lymph # (Auto) [place] # (Auto) Eos # (Auto) Baso # (Auto) Abs Immat Gran (auto) Absolute Neuts (auto) Absolute Nucleated RBC Nucleated RBC % (auto) D-Dimer 883 Sodium Potassium Chloride Carbon Dioxide Anion Gap BUN Creatinine Estim Creat Clear Calc Estimated GFR POC Glucose 282 H Random Glucose Calcium Lactate Dehydrogenase C-Reactive Protein Microbiology Microbiology Results: Microbiology 08/31/20 10:30 Blood Culture - Preliminary Blood - Venous No growth after 48 hours. 08/31/20 10:21 Blood Culture - Preliminary Blood - Venous No growth after 48 hours. Quality Stroke Does the patient have a stroke diagnosis?: No VTE Prior VTE?: No VTE Risk Level:: Medical - moderate - high VTE Device Contraindication: Patient Refused VTE Drug Contraindication: N/A - Med Ordered Assessment and Plan (1) COVID-19: Status: Acute (2) Hypoxia: Status: Acute (3) Hyperglycemia: Status: Acute Assessment and Plan: 55M presented with sob found to have covid Acute hypoxic respiratory failure due to covid Continue on decadron day 4 Continue o2 Continue remdesivir day 3 Infectious Disease input appreciated hyperglcyemia Secondary newly diagnosed DM HbA1c, 12.3 Continue SSI Increase Lantus to 10 units Will need diabetes education dvt prophylaxis xarelto
[2020-09-03 16:00] VITALS: BP 115/70; PULSE 62; RESP 14; TEMP 36.6; O2SAT 94
[2020-09-03 16:05] LABS: Glucose, Whole Blood 324 mg/dL (60-115)
[2020-09-03 19:43] VITALS: BP 124/75; PULSE 70; RESP 18; TEMP 37; O2SAT 91
[2020-09-03 20:17] LABS: Glucose, Whole Blood 340 mg/dL (60-115)
[2020-09-03 23:01] VITALS: BP 114/72; PULSE 59; RESP 18; TEMP 36.9; O2SAT 93
[2020-09-04 03:58] VITALS: BP 103/66; PULSE 49; RESP 20; TEMP 37; O2SAT 98
[2020-09-04 07:20] LABS: Glucose, Whole Blood 164 mg/dL (60-115)
[2020-09-04 07:31] VITALS: BP 142/74; PULSE 59; RESP 22; TEMP 36.6; O2SAT 92
--- NOTE | 2020-09-04 08:07 | PC.NURSE ---
no insulin given pt sleeping through breakfast.
[2020-09-04] MEDS: 0.9 % Sodium Chloride Flush 3 ML SYRINGE IVFLUSH ×3 (09:15→21:11)
[2020-09-04] MEDS: dexAMETHasone sod phosphate 4 MG/ML VIAL 6 MG IVPUSH (09:55)
[2020-09-04] MEDS: Insulin Glargine,Hum.rec.anlog 100 UNIT/ML 10 ML VIAL 10 UNIT SUBCUT (09:55)
[2020-09-04] MEDS: Rivaroxaban 10 MG TABLET PO (09:56)
[2020-09-04 11:17] VITALS: BP 111/69; PULSE 59; RESP 18; TEMP 36.6; O2SAT 96
[2020-09-04 11:22] LABS: Glucose, Whole Blood 276 mg/dL (60-115)
--- NOTE | 2020-09-04 11:35 | HO.PM.IMPN ---
Subjective Subjective Date of Service: 09/04/20 Interval History: the patient was seen and evaluated this morning Laying in bed, feels Better overall on 3-4 L of oxygen with sats late 80s and early 90s Denies any fever, chills complaining of dyspnea and exertional shortness of breath but overall better No reported other overnight events. Systemic review: No fever, chills but overall weakness No chest pain, palpitation Complaining of exertional shortness of breath or coughing No abdominal pain, nausea or vomiting No urinary symptoms No any rash or wounds Physical Exam Vital Signs: Vital Signs: Last Vital Signs Temp 98 F 09/04/20 11:17 Pulse 59 09/04/20 11:17 Resp 18 09/04/20 11:17 BP 111/69 09/04/20 11:17 Pulse Ox 96 09/04/20 11:17 Oxygen Flow Rate 5 08/31/20 10:02 Body Mass Index 27.8 Const: Other: Constitutional : Alert, oriented, in mild respiratory distress Neck : Normal inspection, Supple Cardiovascular : RRR, S1 S2, no lower extremity edema Respiratory : Decreased bilateral air entry, no crackles, no wheezes or rhonchi Gastrointestinal: soft, lax, Normal bowel sounds, Non tender Skin : Warm/Dry, No rash Neurological : Alert & oriented x3, No focal deficit Objective Data Current Medications Generic Name Dose Route Start Last Admin Trade Name Freq PRN Reason Stop Dose Admin Dexamethasone Sodium Phosphate 6 mg 09/01/20 09:00 09/04/20 09:55 Dexamethasone Sod Phosphate 4 Mg/Ml Vial IVPUSH 6 mg DAILY QUYEN Administration Remdesivir 100 mg/ Sodium 230 mls @ 115 mls/hr 09/02/20 11:00 09/03/20 15:12 Chloride IV 09/05/20 12:59 Infused Q24H QUYEN Infusion Insulin Glargine 10 unit 09/04/20 09:00 09/04/20 09:55 Insulin Glargine,Hum.Rec.Anlog 100 Unit/Ml 10 Ml Vial SUBCUT 10 unit DAILY QUYEN Administration Insulin Human Lispro 0 unit 08/31/20 16:30 09/04/20 08:06 Insulin Lispro 100 Unit/Ml 3 Ml Vial SUBCUT Not Given QIDACHS [facility] Protocol Rivaroxaban 10 mg 09/01/20 09:00 06/19/21 09:56 Rivaroxaban 10 Mg Tablet PO 10 mg DAILY QUYEN Administration Sodium Chloride 3 ml 08/31/20 16:00 09/04/20 09:15 0.9 % Sodium Chloride Flush 3 Ml Syringe IVFLUSH 3 ml QSHIFT QUYEN Administration Labs CBC & Chem 7: 09/03/20 09:01 09/03/20 08:37 Labs: Laboratory Results - last 24 hr 09/03/20 09/03/20 09/04/20 16:00 20:12 07:14 POC Glucose 324 H 340 H 164 H 09/04/20 11:16 POC Glucose 276 H Quality Stroke Does the patient have a stroke diagnosis?: No VTE Prior VTE?: No VTE Risk Level:: Medical - moderate - high VTE Device Contraindication: Patient Refused VTE Drug Contraindication: N/A - Med Ordered Assessment and Plan (1) COVID-19: Status: Acute (2) Hypoxia: Status: Acute (3) Hyperglycemia: Status: Acute Assessment and Plan: 55M presented with sob found to have covid Acute hypoxic respiratory failure due to covid Continue on decadron day 5 Continue o2 Continue remdesivir day 4 Infectious Disease input appreciated hyperglcyemia Secondary newly diagnosed DM HbA1c, 12.3 Continue SSI Increase Lantus to 15 units Will need diabetes education dvt prophylaxis xarelto
[2020-09-04] MEDS: Remdesivir 100 MG in 0.9 % Sodium Chloride 230 ML 115 MG IV (11:57)
[2020-09-04] MEDS: Insulin Lispro 100 UNIT/ML 3 ML VIAL SUBCUT ×3 (11:57→21:11)
[2020-09-04 15:33] VITALS: BP 107/64; PULSE 72; RESP 16; TEMP 36.2; O2SAT 93
[2020-09-04 15:56] LABS: Glucose, Whole Blood 301 mg/dL (60-115)
[2020-09-04 19:37] VITALS: BP 110/70; PULSE 70; RESP 18; TEMP 36.4; O2SAT 92
[2020-09-04 20:49] LABS: Glucose, Whole Blood 353 mg/dL (60-115)
[2020-09-04 23:11] VITALS: BP 117/70; PULSE 79; RESP 18; TEMP 36.6; O2SAT 97
[2020-09-05 02:52] VITALS: BP 106/65; PULSE 77; RESP 18; TEMP 36.6; O2SAT 96
[2020-09-05 06:30] LABS: Hematocrit 43.1 % (42-52); Hemoglobin 14.5 g/dl (14.0-18.0); Mean Corpuscular HGB Conc 33.6 g/dl (31.0-36.0); Mean Corpuscular Hemoglobin 28.5 pg (27.0-33.0); Mean Corpuscular Volume 84.7 fL (80-98); Mean Platelet Volume 9.5 fL (9.4-12.4); Platelet Count 336 X10*3/uL (160-400); Red Blood Count 5.09 X10*6/uL (4.60-5.80); Red Cell Distribution Width 11.7 % (11.0-16.0); White Blood Count 8.2 X10*3/uL (4.8-10.8)
[2020-09-05 06:44] LABS: D Dimer 718 NG/ML
[2020-09-05 06:57] LABS: C Reactive Protein 0.58 mg/dL (< or = 0.50)
[2020-09-05 07:00] LABS: Anion Gap 14 (12-20); Blood Urea Nitrogen 22 mg/dL (9-16); Calcium 8.7 mg/dL (8.4-10.2); Carbon Dioxide 25 mmol/L (22-29); Chloride 103 mmol/L (96-108); Creatinine Clr Calc Pharmacy 120.4; Estimated Glomerular Filt Rate > 60; Glucose Random 240 mg/dL (60-115); Potassium 4.7 mmol/L (3.3-5.1); Sodium 137 mmol/L (135-145)
[2020-09-05 07:35] LABS: Glucose, Whole Blood 203 mg/dL (60-115)
[2020-09-05 07:43] VITALS: BP 101/68; PULSE 62; RESP 23; TEMP 36.6; O2SAT 94
[2020-09-05] MEDS: dexAMETHasone sod phosphate 4 MG/ML VIAL 6 MG IVPUSH (07:43)
[2020-09-05] MEDS: Rivaroxaban 10 MG TABLET PO (07:44)
[2020-09-05] MEDS: Insulin Glargine,Hum.rec.anlog 100 UNIT/ML 10 ML VIAL 15 UNIT SUBCUT (07:44)
[2020-09-05] MEDS: Insulin Lispro 100 UNIT/ML 3 ML VIAL SUBCUT ×4 (07:44→20:46)
[2020-09-05] MEDS: 0.9 % Sodium Chloride Flush 3 ML SYRINGE IVFLUSH ×3 (07:44→20:46)
[2020-09-05 11:32] LABS: Glucose, Whole Blood 280 mg/dL (60-115)
[2020-09-05 11:33] VITALS: BP 108/66; PULSE 61; RESP 23; TEMP 36.9; O2SAT 96
[2020-09-05] MEDS: Remdesivir 100 MG in 0.9 % Sodium Chloride 230 ML 115 MG IV (12:07)
[2020-09-05 12:23] VITALS: O2SAT 93
--- NOTE | 2020-09-05 13:49 | P.PNIM_ITS ---
Subjective Subjective Date of Service: 09/05/20 Interval History: the patient was seen and evaluated this morning Laying in bed, improving steadily but slowly, decrease oxygen requirement to 2 L Denies any fever, chills No reported other overnight events. Systemic review: No fever, chills but overall weakness No chest pain, palpitation Complaining of exertional shortness of breath which is overall improving No abdominal pain, nausea or vomiting No urinary symptoms No any rash or wounds Physical Exam Vital Signs: Vital Signs: Last Vital Signs Temp 98.4 F 09/05/20 11:33 Pulse 61 09/05/20 11:33 Resp 23 H 09/05/20 11:33 BP 108/66 09/05/20 11:33 Pulse Ox 93 09/05/20 12:23 Oxygen Flow Rate 5 08/31/20 10:02 Body Mass Index 27.8 Const: Other: Constitutional : Alert, oriented, in mild respiratory distress Neck : Normal inspection, Supple Cardiovascular : RRR, S1 S2, no lower extremity edema Respiratory : Decreased bilateral air entry, no crackles, no wheezes or rhonchi Gastrointestinal: soft, lax, Normal bowel sounds, Non tender Skin : Warm/Dry, No rash Neurological : Alert & oriented x3, No focal deficit Objective Data Current Medications Generic Name Dose Route Start Last Admin Trade Name Freq PRN Reason Stop Dose Admin Dexamethasone Sodium Phosphate 6 mg 09/01/20 09:00 09/05/20 07:43 Dexamethasone Sod Phosphate 4 Mg/Ml Vial IVPUSH 6 mg DAILY QUYEN Administration Insulin Glargine 15 unit 09/05/20 09:00 09/05/20 07:44 Insulin Glargine,Hum.Rec.Anlog 100 Unit/Ml 10 Ml Vial SUBCUT 15 unit DAILY QUYEN Administration Insulin Human Lispro 0 unit 08/31/20 16:30 09/05/20 12:06 Insulin Lispro 100 Unit/Ml 3 Ml Vial SUBCUT 6 unit QIDACHS QUYEN Administration Protocol Rivaroxaban 10 mg 09/01/20 09:00 09/05/20 07:44 Rivaroxaban 10 Mg Tablet PO 10 mg DAILY QUYEN Administration Sodium Chloride 3 ml 08/31/20 16:00 09/05/20 12:06 0.9 % Sodium Chloride Flush 3 Ml Syringe IVFLUSH 3 ml QSHIFT [facility] Administration Labs CBC & Chem 7: 09/05/20 05:42 09/05/20 05:42 Labs: Laboratory Results - last 24 hr 09/04/20 09/04/20 09/05/20 15:44 20:41 05:42 WBC 8.2 RBC 5.09 Hgb 14.5 Hct 43.1 MCV 84.7 MCH 28.5 MCHC 33.6 RDW 11.7 Plt Count 336 MPV 9.5 Absolute Nucleated RBC 0.000 Nucleated RBC % (auto) 0.0 D-Dimer Sodium Potassium Chloride Carbon Dioxide Anion Gap BUN Creatinine Estim Creat Clear Calc Estimated GFR POC Glucose 301 H 353 H* Random Glucose Calcium C-Reactive Protein 09/05/20 09/05/20 09/05/20 05:42 05:42 05:42 WBC RBC Hgb Hct MCV MCH MCHC RDW Plt Count MPV Absolute Nucleated RBC Nucleated RBC % (auto) D-Dimer 718 Sodium 137 Potassium 4.7 Chloride 103 Carbon Dioxide 25 Anion Gap 14 BUN 22 H Creatinine 0.78 Estim Creat Clear Calc 120.4 Estimated GFR > 60 POC Glucose Random Glucose 240 H Calcium 8.7 C-Reactive Protein 0.58 H 09/05/20 09/05/20 07:25 11:17 WBC RBC Hgb Hct MCV MCH MCHC RDW Plt Count MPV Absolute Nucleated RBC Nucleated RBC % (auto) D-Dimer Sodium Potassium Chloride Carbon Dioxide Anion Gap BUN Creatinine Estim Creat Clear Calc Estimated GFR POC Glucose 203 H 280 H Random Glucose Calcium C-Reactive Protein Microbiology Microbiology Results: Microbiology 08/31/20 10:30 Blood Culture - Final Blood - Venous No growth after 5 days. 08/31/20 10:21 Blood Culture - Final Blood - Venous No growth after 5 days. Quality Stroke Does the patient have a stroke diagnosis?: No VTE Prior VTE?: No VTE Risk Level:: Medical - moderate - high VTE Device Contraindication: Patient Refused VTE Drug Contraindication: N/A - Med Ordered Assessment and Plan (1) COVID-19: Status: Acute (2) Hypoxia: Status: Acute (3) Hyperglycemia: Status: Acute Assessment and Plan: 55M presented with sob found to have covid Acute hypoxic respiratory failure due to covid Continue on decadron day 6 Wean oxygen down as tolerated Finished remdesivir 5 days Infectious Disease input appreciated hyperglcyemia Secondary newly diagnosed DM HbA1c, 12.3 Continue SSI Increase Lantus to 15 units Will need diabetes education dvt prophylaxis xarelto
[2020-09-05 16:00] VITALS: BP 111/69; PULSE 63; RESP 18; TEMP 37.2; O2SAT 94
[2020-09-05 16:08] LABS: Glucose, Whole Blood 359 mg/dL (60-115)
[2020-09-05 19:24] VITALS: BP 120/82; PULSE 65; RESP 18; TEMP 36.7; O2SAT 95
[2020-09-05 19:26] LABS: Glucose, Whole Blood 338 mg/dL (60-115)
[2020-09-06] VITALS: BP 107/69; PULSE 62; RESP 18; TEMP 36.8; O2SAT 95
[2020-09-06 03:24] VITALS: BP 105/61; PULSE 64; RESP 16; TEMP 36.7; O2SAT 95
[2020-09-06 07:44] LABS: Glucose, Whole Blood 166 mg/dL (60-115)
[2020-09-06 07:45] VITALS: BP 97/66; PULSE 61; RESP 20; TEMP 36.8; O2SAT 94
[2020-09-06] MEDS: Insulin Glargine,Hum.rec.anlog 100 UNIT/ML 10 ML VIAL 15 UNIT SUBCUT (08:00)
[2020-09-06] MEDS: Insulin Lispro 100 UNIT/ML 3 ML VIAL SUBCUT ×2 (08:00→12:16)
[2020-09-06] MEDS: dexAMETHasone sod phosphate 4 MG/ML VIAL 6 MG IVPUSH (08:00)
[2020-09-06] MEDS: Rivaroxaban 10 MG TABLET PO (08:00)
[2020-09-06] MEDS: 0.9 % Sodium Chloride Flush 3 ML SYRINGE IVFLUSH (08:01)
[2020-09-06 11:11] VITALS: BP 100/62; PULSE 66; RESP 20; TEMP 37.1; O2SAT 96
[2020-09-06 11:27] LABS: Glucose, Whole Blood 270 mg/dL (60-115)
--- NOTE | 2020-09-06 11:49 | MHC.CM.PN ---
Male 55 DX Covid. He is discharged to home today no services.
--- NOTE | 2020-09-06 12:07 | P.DS_ITS ---
DS: Providers Provider Date of Service: 09/06/20 Date of admission: 08/31/20 14:29 Primary care physician: None Physician Consults: 09/01/20 08:41 Consult to Infectious Diseases Routine Consulting Provider: Norma Holley Reason for consultation: Covid 19 infx w Hypoxia for your kind eval and rec. DS: Diagnosis Discharge Diagnosis (1) COVID-19: Status: Acute (2) Hypoxia: Status: Acute (3) Hyperglycemia: Status: Acute (4) Newly diagnosed diabetes: Status: Acute DS: Medications Discharge Medications Home Medications: Previous Rx's Medication Instructions Recorded dexamethasone 4 mg PO DAILY #4 tab 09/06/20 glipizide 5 mg PO DAILY #30 tab 09/06/20 metformin 500 mg PO BID #60 tab 09/06/20 DS: Summary Hospital Course Hospital Course: Admission note HPI 55M presented with sob. about 10 days ptp he was in a car with a neighbor who ended up having covid. patient did not get vaccinated for no specific reason. he started feeling ill about 7 days ptp. sob, fatigue, myalgias.now coming to hospital for worsening sob. found to be hypoxic 77 on rrom air. covid positive, CTA negative for pe, lung paranchyma typical for covid. patient noted to be hyperglycemic, no known history of DM, mother had DM. Hospital course The patient was admitted for treatment of Acute hypoxic respiratory failure due to covid 19 infection. The patient was treated with IV dexamethasone, oxygen supplement. Evaluated by infectious disease specialist and started on remdesivir for total 5 days . He was weaned off the oxygen and was able to ambulate freely on room air. Evaluated as well for hyperglcyemia which was noticed at time of admission. Believed to be Secondary to newly diagnosed DM as HbA1c 12.3. Controlled mainly with insulin during the hospital stay. To be discharged Hold metformin and glipizide with plan to follow-up with Endocrinology as a referral has been made for outpatient follow-up. He was asked to follow-up with his primary care for better monitoring and adjustments of the medications. Time Spent with Patient Time attestation: Total time spent providing and/or coordinating discharge services: Discharge coordination time: Greater than 30 minutes Quality: Stroke Does the patient have a stroke diagnosis?: No Physical Exam Vital Signs: Vital Signs: Last Vital Signs Temp 98.8 F 09/06/20 11:11 Pulse 66 09/06/20 11:11 Resp 20 09/06/20 11:11 BP 100/62 09/06/20 11:11 Pulse Ox 96 09/06/20 11:11 Oxygen Flow Rate 5 08/31/20 10:02 Body Mass Index 27.8 Const: Other: Constitutional : Alert, oriented, in mild respiratory distress Neck : Normal inspection, Supple Cardiovascular : RRR, S1 S2, no lower extremity edema Respiratory : Decreased bilateral air entry, no crackles, no wheezes or rhonchi Gastrointestinal: soft, lax, Normal bowel sounds, Non tender Skin : Warm/Dry, No rash Neurological : Alert & oriented x3, No focal deficit DS: Data Data Completed and Pending Labs on day of discharge: Laboratory Results - last 24 hr 09/05/20 09/05/20 09/06/20 16:01 19:18 07:19 POC Glucose 359 H* 338 H 166 H 09/06/20 11:05 POC Glucose 270 H Imaging Chest x-ray: Radiologist's impression: ITS Impressions Chest X-Ray 08/31/20 10:10 IMPRESSION: Bibasilar patchy opacity suggestive of infiltrate/atelectasis. Chest CTA 08/31/20 11:03 IMPRESSION: No evidence of PE. No evidence of aortic dissection. Diffuse subpleural groundglass opacity scattered throughout both lungs and all segments suggestive of Covid related inflammatory process. VTE: negative Discharge Plan Discharge Patient Disposition: Home, Self-Care Discharge Diagnosis: New onset Diabetes type 2 Covid 19 infection Referrals: Physician,None [Primary Care Provider] - 1 Week Dash Perez MD [Physician] - 2 Weeks (New diagnosed diabetes type 2. HbA1c of 12. for your kind eval. ) Discharge Medications: New metformin 500 mg tablet 500 mg PO BID Qty: 60 RF: 2 glipizide 5 mg tablet 5 mg PO DAILY Qty: 30 RF: 1 dexamethasone 4 mg tablet 4 mg PO DAILY Qty: 4 RF: 0 Discharge Orders: Discharge Order (Routine); Ordered 09/06/20 Ordered By: Phi Prabhakar Diet: advance to usual diet Activity on Discharge: As tolerated Stand Alone Forms: Patient Portal Discharge page Care Plan Goals: Read below Health Concerns: Read below Plan of Treatment: You were admitted to the hospital for treatment difficulty breathing. Found to have COVID-19 infection. Treated with IV steroids, antiviral medications and evaluated by infectious disease specialist. You have improved significantly during the hospital stay and weaned off the oxygen. You were noted to have significantly elevated blood sugar levels. Diagnosed as you diabetes mellitus type 2. Started on insulin with fair response. 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 please call to confirm appointment. You will need to sign up for primary care at follow-up with him as soon as possible.
== END 2020-09-06 14:43 | disposition home or self-care (01) | DRG 177 ==
LOC: HO.ED 11:06 → HO.EDOVER 14:42 → HO.IMC 15:45
PROVIDERS: Admitting Provider Internal Medicine; Emergency Provider Emergency Medicine; Visit Provider Student in an Organized Health Care Education/Training Program
DX: U07.1 COVID-19 (principal); J96.01 Acute respiratory failure with hypoxia; E11.65 Type 2 diabetes mellitus with hyperglycemia; Z79.899 Other long term (current) drug therapy
CPT/HCPCS: 0241U; 36415; 71045; 71275; 80048; 80076; 82947; 83036; 83615; 83880; 84484; 85025; 85027; 85379; 86140; 87040; 93005; 99285; J1100; J3490; Q9967

== ENCOUNTER 2021-06-06 07:52 | Emergency (ER) | payer MEDICAID, SELFPAY ==
--- NOTE | ~2021-06-06 | XR_ITS ---
EXAMINATION: LEFT FEMUR AND LEFT LOWER LEG X-RAY CLINICAL INFORMATION: Pain COMPARISON: None TECHNIQUE: 2 views of the left femur and 2 views of the left lower leg FINDINGS: Left femur: Bone alignment is normal. No fracture or dislocation is seen. Joint spaces are normal. Soft tissues are normal. Left lower leg: Bone alignment is normal. No fracture or dislocation is seen. Joint spaces are normal. There is a small calcaneal spur at the Achilles tendon insertion. Soft tissues are otherwise normal. XR/XR tibia fibula LT 2V IMPRESSION: Small calcaneal spur at the Achilles tendon insertion. Otherwise unremarkable exam.
--- NOTE | ~2021-06-06 | XR_ITS ---
EXAMINATION: XR CHEST CLINICAL INFORMATION: Weakness and cough COMPARISON: Previous chest x-ray and chest CTA August 2020 TECHNIQUE: 2 views of the chest were obtained. FINDINGS: The cardiac and mediastinal contours are stable. The previously identified bilateral infiltrates appear improved. There may be residual linear scarring seen in the left mid lung. There is a 9 mm nodular density at the left lung base. This may represent a nipple shadow. The lungs are otherwise clear. There is no pleural effusion or pneumothorax. Bony structures are unremarkable. XR/XR chest 2V IMPRESSION: Improved infiltrates from August 2020 exam. Increased markings in the left lateral midlung, question representing scarring. 9 mm nodule at the left lung base that may represent a nipple shadow. Follow-up chest x-ray with nipple markers recommended.
--- NOTE | ~2021-06-06 | XR_ITS ---
EXAMINATION: LEFT FEMUR AND LEFT LOWER LEG X-RAY CLINICAL INFORMATION: Pain COMPARISON: None TECHNIQUE: 2 views of the left femur and 2 views of the left lower leg FINDINGS: Left femur: Bone alignment is normal. No fracture or dislocation is seen. Joint spaces are normal. Soft tissues are normal. Left lower leg: Bone alignment is normal. No fracture or dislocation is seen. Joint spaces are normal. There is a small calcaneal spur at the Achilles tendon insertion. Soft tissues are otherwise normal. XR/XR femur LT 2V IMPRESSION: Small calcaneal spur at the Achilles tendon insertion. Otherwise unremarkable exam.
[2021-06-06 08:36] VITALS: BP 125/83; PULSE 88; RESP 16; TEMP 36.2; O2SAT 98; BMI 27.4
--- NOTE | 2021-06-06 15:42 | ED_ITS ---
HPI - General Adult General Chief complaint: Extremity Problem Stated complaint: Leg pain Time Seen by Provider: 06/06/21 10:16 Source: patient Mode of arrival: ambulatory Limitations: no limitations History of Present Illness HPI narrative: 56-year-old male who states that he was diagnosed with diabetes 6 months when he was admitted to the hospital with COVID-19 pneumonia, hypoxic and hyperglycemia. During the admission on 08/31/2020 , his glucose was in the 250- 350 range with a hemoglobin A1c of 12.3. The patient was supposed to follow-up an certified neurodiagnostic technologist and get started on oral medications however he states that he did not have insurance and was unable to get follow-up. He states that over the last 6 months he has lost approximately 55 lb. He states that he has increased thirst and has to drink water all day long. He also has urinary frequency and urinates every 10-15 minutes. He states that both of his lower extremities are numb from the knee down with the left leg leg and foot being worse than the right leg. He states that he has no energy, he feels weak, lightheaded and dizzy. He states that occasionally gets chest pain. He has had an occasional cough. He denied fever, chills, abdominal pain, nausea, vomiting or diarrhea. The patient states that he does have [facility] however he has not been able to see a provider to get any help. Patient states he has not been vaccinated for COVID-19. Related Data Previous Rx's Medication Instructions Recorded dexamethasone 4 mg tablet 4 mg PO DAILY #4 tab 09/06/20 glipizide 5 mg tablet 5 mg PO DAILY #30 tab 09/06/20 metformin 500 mg tablet 500 mg PO BID #60 tab 09/06/20 Allergies Allergy/AdvReac Type Severity Reaction Status Date / Time No Known Allergies Allergy Verified 06/06/21 08:35 Review of Systems Review of Systems: Yes all other systems are reviewed and are negative [facility] Past Medical History [facility] Narrative: Past medical history: Diabetes mellitus, untreated, COVID-19 pneumonia with hypoxia 08/31/2020. Past surgical history: None. Social history: He denies tobacco, alcohol and drug use. Medical History Hyperglycemia No known health problems Social History Social History Household Members: Spouse and Children Housing: Apartment Do you presently have visiting nurse or other home services: No Patient Tobacco Use Status: Never used Tobacco Advance Directives: No Advance Directives Information Provided: No service: No Current occupational status: unemployed Physical Exam ED Vital Signs: Vital Signs - 24 hr 06/06/21 08:36 Temperature 97.1 F Pulse Rate 88 Respiratory Rate 16 Blood Pressure 125/83 Pulse Oximetry 98 BMI result Body Mass Index 27.4 Const General: cooperative and no acute distress Orientation/consciousness: oriented to person and oriented to place Limitations: no limitations HENMT Head: Yes normal to inspection, Yes normocephalic and Yes atraumatic Ears: external ears normal General nose exam: Normal external nose present Face and sinus: Yes normal facial exam Mouth: Normal oral and palatal mucosa present Throat: Yes posterior oropharynx normal Eyes General: appearance normal, both eyes and all related structures Pupils: Equal, round and reactive pupils present Neck Neck: Yes normal visual inspection, Yes no lymphadenopathy, Yes trachea midline and Yes supple Chest Chest palpation & inspection: normal inspection of the chest and normal palpation of entire chest wall Resp Effort & Inspection: normal respiratory effort and able to speak in complete sentences Auscultation: clear to auscultation bilaterally Cardio Rate: regular rate Rhythm: regular rhythm Heart sounds: S1 normal heart sound present, S2 normal heart sound present and no murmurs GI Inspection: Yes normal to inspection Palpation (GI): Soft to palpation, nontender and no guarding Auscultation: normal bowel sounds General: Yes no CVA tenderness Back/Spine/Pelvis Back: no CVA tenderness Skin General skin exam: no rashes or lesions noted Neuro General: oriented to person and oriented to place Cranial nerves: Yes CN's II-XII intact bilaterally and Yes Equal, round and reactive pupils present Cognition (Neuro): normal cognition Motor exam (neuro): 5/5 motor strength present throughout Extrem General: Yes normal to inspection Psych Appearance: grossly normal Speech and movement: Normal speech and movement present Affect: normal affect Attitude: cooperative Thought process: Normal thought process present Thought content: Normal thought content present Course Course Course Narrative: 56-year-old male with a history of diabetes diagnosed 08/31/2020 when he was admitted to the hospital for COVID-19 pneumonia and hypoxia who states that he has not been able to get medications or care since he did not have health insurance therefore he does not take any medications for his diabetes. The patient presents with 6 months of increased thirst, urinary frequency, and numbness to his lower extremities. He states that he now has [facility] insurance but has not been able to get in to see a provider. He concerned about the numbness in his lower extremities therefore he came to the emergency department for evaluation. Initial vital signs were unremarkable. Physical examination was unremarkable. X-ray of the left lower extremity did not reveal any acute abnormality. I ordered CBC, CMP, lipase, troponin, urinalysis, venous blood gas, COVID-19, EKG and chest x-ray. Point of care glucose will also be checked. Patient was ordered to get normal saline IV x2 L. 16 16: At the end of my shift, the patient's workup still pending. The patient's care was turned over to my colleague, Dr. Dutton. Discharge Plan Discharge Clinical Impression: Diabetes, Acute dehydration, Diabetic neuropathy Patient Disposition: Still a Patient Prescriptions: No Action metformin 500 mg tablet 500 mg PO BID Qty: 60 2RF glipizide 5 mg tablet 5 mg PO DAILY Qty: 30 1RF dexamethasone 4 mg tablet 4 mg PO DAILY Qty: 4 0RF
--- NOTE | 2021-06-06 15:44 | ECG_ITS ---
Test Reason : chest pain Blood Pressure : / mmHG Vent. Rate : 080 BPM Atrial Rate : 080 BPM P-R Int : 202 ms QRS Dur : 084 ms QT Int : 364 ms P-R-T Axes : 032 -30 002 degrees QTc Int : 419 ms Normal sinus rhythm Left axis deviation Minimal voltage criteria for LVH, may be normal variant ( R in aVL ) Possible Anterior infarct (cited on or before 31-AUG-2020) Abnormal ECG When compared with ECG of 31-AUG-2020 10:29, No significant change was found Referred By: Kamran Smith Electronically Signed By:Conor Loera
[2021-06-06 16:23] LABS: Glucose, Whole Blood 492 mg/dL (60-115)
[2021-06-06] MEDS: 0.9 % Sodium Chloride 1,000 ML 999 ML IV ×2 (16:30)
[2021-06-06 16:36] LABS: MANUAL DIFF FLAG NO
[2021-06-06] MEDS: Insulin Lispro 100 UNIT/ML 3 ML VIAL 14 UNIT SUBCUT (16:37)
[2021-06-06 16:38] LABS: Basophils Percent Auto 0.6 % (0-2); Eosinophils Absolute Auto 0.2 X10*3/uL (0.0-0.4); Eosinophils Percent Auto 2.6 % (0-4); Hematocrit 41.9 % (42.0-52.0); Hemoglobin 14.5 g/dl (14.0-18.0); Imm Gran Abs Auto 0.01 X10*3/uL (0.00-0.03); Imm Gran Pct Auto 0.1 % (0.0-0.4); Lymphocytes Absolute Auto 3.7 X10*3/uL (1.2-4.9); Lymphocytes Percent Auto 51.5 % (20-40); Mean Corpuscular HGB Conc 34.6 g/dl (31.0-36.0); Mean Corpuscular Hemoglobin 29.4 pg (27.0-33.0); Monocytes Absolute Auto 0.6 X10*3/uL (0.1-1.2); Monocytes Percent Auto 7.8 % (2-11); Neutrophils Absolute Auto 2.7 x10*3/uL (2.0-8.3); Neutrophils Percent Auto 37.4 % (45-73); Platelet Count 178 X10*3/uL (160-400); Red Blood Count 4.93 X10*6/uL (4.60-5.80); Red Cell Distribution Width 11.8 % (11.0-16.0); White Blood Count 7.2 X10*3/uL (4.8-10.8)
[2021-06-06 16:39] LABS: Venous Blood Gas Refer to POC result
[2021-06-06 16:40] VITALS: BP 120/70; PULSE 80; RESP 16; O2SAT 98
[2021-06-06 16:40] LABS: VBG Base Excess -0.5 mmol/L; VBG HCO3 24 mmol/L (22-26); VBG pCO2 41 mmHg; VBG pH 7.37 (7.32-7.43); VBG pO2 61 mmHg
[2021-06-06 16:52] LABS: COVID-19 Test Negative (Negative); IDNOW Serial# 55D5AD1C
[2021-06-06 16:56] LABS: Troponin-I High Sensitivity 13.7 ng/L (<3.5-35.0)
[2021-06-06 18:42] LABS: Appearance Urine CLEAR; Color Urine STRAW; Glucose Urine UA >=1000 MG/DL (NEG); Leukocyte Esterase Urine NEG (NEG); Nitrite Urine NEG (NEG); PH 6.5 (5.0-8.0); Urine Blood NEG (NEG); Urine Ketones NEG (NEG); Urine Protein NEG (NEG-TRACE)
[2021-06-06 18:57] LABS: Mucus Urine TRACE /LPF; RBC Urine 0 /HPF (0); Squamous Epithelial Cell Urine TRACE /LPF; WBC Urine 0 /HPF (0-4)
[2021-06-06 18:59] LABS: Alanine Aminotransferase 34 U/L (0-40); Albumin Level 3.7 g/dL (3.5-5.0); Alkaline Phosphatase 86 U/L (39-117); Anion Gap 11 (12-20); Aspartate Amino Transferase 26 U/L (5-37); Bilirubin Total 0.4 mg/dL (0.0-1.0); Blood Urea Nitrogen 9 mg/dL (9-16); Calcium 8.8 mg/dL (8.4-10.2); Carbon Dioxide 25 mmol/L (22-29); Chloride 106 mmol/L (96-108); Creatinine Clr Calc Pharmacy 93.2; Estimated Glomerular Filt Rate > 60; Glucose Random 325 mg/dL (60-115); Lipase 45 U/L (8-78); Potassium 4.8 mmol/L (3.3-5.1); Sodium 137 mmol/L (135-145); Total Protein 7.2 g/dL (6.5-8.0)
[2021-06-06] MEDS: glipiZIDE 5 MG TABLET PO (20:48)
[2021-06-06] MEDS: metFORMIN HCl 850 MG TABLET PO (20:48)
[2021-06-07 00:38] LABS: Glucose, Whole Blood 341 mg/dL (60-115)
== END 2021-06-06 20:51 | disposition home or self-care (01) ==
PROVIDERS: Emergency Medicine Emergency Medical Services; Emergency Provider Internal Medicine
DX: E11.40 Type 2 diabetes mellitus with diabetic neuropathy, unspecified (principal); E86.0 Dehydration; Z20.822 Contact with and (suspected) exposure to COVID-19
CPT/HCPCS: 36415; 71046; 73552; 73590; 80053; 81001; 82803; 82947; 83690; 84484; 85025; 87635; 93005; 96360; 99284; 99285

== ENCOUNTER 2021-07-22 14:17 | Outpatient (REF) | payer OTHER, SELFPAY ==
[2021-07-22 15:59] LABS: Estimated Average Glucose 269 mg/dL
[2021-07-22 16:12] LABS: Appearance Urine CLEAR; Color Urine YELLOW; Glucose Urine UA 100 MG/DL (NEG); Leukocyte Esterase Urine NEG (NEG); Nitrite Urine NEG (NEG); Specific Gravity - Urine 1.025 (1.005-1.025); Urine Blood NEG (NEG); Urine Ketones NEG (NEG); Urine Protein NEG (NEG-TRACE)
[2021-07-22 16:23] LABS: Anion Gap 16 (12-20); Blood Urea Nitrogen 12 mg/dL (9-16); Carbon Dioxide 26 mmol/L (22-29); Chloride 102 mmol/L (96-108); Cholesterol 251 mg/dL; Estimated Glomerular Filt Rate > 60; Glucose Fasting 155 mg/dL (60-99); HDL Cholesterol 45 mg/dL; LDL Cholesterol Calculated 150 mg/dl; Potassium 4.7 mmol/L (3.3-5.1); Sodium 139 mmol/L (135-145); Triglycerides 284 mg/dL
[2021-07-22 16:30] LABS: Creatinine Urine 148.33 mg/dL; Microalbum/Creatinine Ratio Ur 48.5 ug/mg cr
[2021-07-22 16:45] LABS: Prostate Specific Antigen Scr 0.65 ng/mL (<0.05-4.0)
== END 2021-07-22 14:18 | disposition home or self-care (01) ==
LOC: HO.LAB 14:17
PROVIDERS: PCP Nurse Practitioner Family; Visit Provider Nurse Practitioner Family
DX: E11.40 Type 2 diabetes mellitus with diabetic neuropathy, unspecified (principal); I10 Essential (primary) hypertension; E78.00 Pure hypercholesterolemia, unspecified; Z12.5 Encounter for screening for malignant neoplasm of prostate; Z76.89 Persons encountering health services in other specified circumstances
CPT/HCPCS: 36415; 80048; 80061; 81003; 82043; 83036; 84153

== ENCOUNTER 2021-10-13 09:37 | Outpatient (REF) | payer OTHER, SELFPAY ==
--- NOTE | 2021-10-13 09:41 | EMG_ITS ---
Left tibial and peroneal motor studies were performed, left superficial peroneal and sural sensory studies were performed. Tibial H-reflex was obtained and paraspinal muscles were tested with a needle. IMPRESSION: Mild sensory and motor peripheral neuropathy, demyelination and axonal loss. MD MARIANN Miller/RACHELEL / [id number]
== END 2021-10-13 09:38 | disposition home or self-care (01) ==
LOC: HO.NEURO 09:37
PROVIDERS: PCP Nurse Practitioner Family; Visit Provider Nurse Practitioner Family
DX: M79.601 Pain in right arm (principal); M79.602 Pain in left arm; R20.2 Paresthesia of skin
CPT/HCPCS: 95886; 95909

== ENCOUNTER 2022-01-12 10:38 | Emergency (ER) | payer OTHER, SELFPAY ==
[2022-01-12 11:10] VITALS: BP 112/73; PULSE 85; RESP 18; TEMP 37.2; O2SAT 96; BMI 29.2
--- NOTE | 2022-01-12 11:37 | ED.SKABFB ---
HPI - Skin/Abscess/Foreign Bdy General Chief complaint: Skin/Abscess/Foreign Body Stated complaint: Lump near breast Time Seen by Provider: 01/12/22 11:24 Source: patient Mode of arrival: ambulatory Limitations: language barrier History of Present Illness HPI narrative: 56 year old male with a PMHx of type 2 diabetes and PAD, presents to the ED c/o painful, red lump to right breast that appeared 2 weeks ago. He reports tenderness with palpation. Denies drainage, fever, sick contact or recent infection, tick or insect bite. MD complaint: abscess/boil and lesion Onset (ago): week(s) (2) Location: chest (right breast) Severity: moderate Related Data Previous Rx's Medication Instructions Recorded blood-glucose meter (FreeStyle #1 ea 07/08/21 Leupp Lite kit) atorvastatin 10 mg tablet 10 mg PO BEDTIME #90 tabs 12/20/21 blood sugar diagnostic (FreeStyle #100 strips 12/20/21 Lite Strips) enalapril maleate 10 mg tablet 10 mg PO DAILY #90 tabs 12/20/21 gabapentin 300 mg capsule 300 mg PO BID #180 caps 12/20/21 glipizide 10 mg tablet 10 mg PO BID #180 tabs 12/20/21 insulin glargine 100 unit/mL (3 12 unit (0.12 mL) subcut QPM #15 mL 12/20/21 mL) subcutaneous pen (Lantus Solostar U-100 Insulin) lancets 28 gauge (FreeStyle #100 ea 12/20/21 Lancets) pen needle, diabetic 32 gauge x #100 ea 12/20/2103/22 (BD Ultra-Fine Micro Pen Needle) metformin 1,000 mg tablet 1,000 mg PO BID #180 tabs 12/23/21 cephalexin 500 mg capsule 500 mg PO QID 7 days #28 caps 01/12/22 doxycycline hyclate 100 mg tablet 100 mg PO BID 7 days #14 tabs 01/12/22 Allergies Allergy/AdvReac Type Severity Reaction Status Date / Time glipizide AdvReac Mild Dizziness Verified 01/12/22 11:12 metformin AdvReac Mild Dizziness Verified 01/12/22 11:12 Review of Systems Review of Systems: Constitutional: , No Fever, No Chills ENT/Mouth: No Ear Pain, No Nasal Congestion, No sore throat, No Rhinorrhea, No Swallowing Difficulty Cardiovascular: No Chest Pain, No SOB Respiratory: No Cough, No Sputum, No Wheezing Gastrointestinal: No Nausea, No Vomiting, No Diarrhea, No Constipation, No Abdominal pain Genitourinary: No Dysuria, No Urinary Frequency, No Hematuria, No Flank Pain Musculoskeletal: No joint pain, No Myalgias, No Joint Swelling Skin:+ Skin Lesions, No rash, No fluctuance, No drainage Neuro: No Weakness, No Numbness Yes all other systems are reviewed and are negative Constitutional: Constitutional: Reports as per [facility] Past Medical History Attestation statement: The following information was validated with the patient. Medical History Hyperglycemia Newly diagnosed diabetes No known health problems Peripheral vascular disease due to secondary diabetes Surgical History No pertinent past surgical history Social History Social History Household Members: Spouse and Children Housing: Apartment Do you presently have visiting nurse or other home services: No Alcohol intake: never Patient Tobacco Use Status: Never used Tobacco e-Cigarette/Vaping Use: Never Used Second Hand Smoke Exposure: No Advance Directives: No service: No Current occupational status: unemployed Cognitive needs: No Hearing needs: No Vision needs: Yes (reading reading) Physical Exam Vital Signs: Vital Signs: Last Vital Signs Temp 98.9 F 01/12/22 11:10 Pulse 85 01/12/22 11:10 Resp 18 01/12/22 11:10 BP 112/73 01/12/22 11:10 Pulse Ox 96 01/12/22 11:10 O2 Del Method 01/12/22 11:10 BMI result Body Mass Index 29.2 Const: General: cooperative, healthy appearing, comfortable, no acute distress, alert, awake and Physically active Orientation/consciousness: patient oriented x3 Limitations: no limitations HEENT: Head: Yes normal to inspection and Yes atraumatic Ears: hearing grossly normal bilaterally General nose exam: Normal external nose present Face and sinus: Yes normal facial exam Eyes: General: appearance normal, both eyes and all related structures EOM: EOMs intact bilaterally Neck: Neck: Yes normal visual inspection and Yes no meningeal signs Chest: Other: +superficial indurated erythematous abscess noted to 5 o' clock region of the right breast/chest wall. Small area of fluctuance centrally. no drainage, no streaking. No axillary lymphadenopathy. No breast skin changes/dimpling or nipple discharge Chest palpation & inspection: no crepitus and tenderness Resp: Effort & Inspection: normal respiratory effort, able to speak in complete sentences, no cough and respiratory distress Auscultation: clear to auscultation bilaterally, no crackles, no rales and no rhonchi Cardio: Rate: regular rate Rhythm: regular rhythm Heart sounds: S1 normal heart sound present and S2 normal heart sound present GI: Inspection: Yes normal to inspection Palpation (GI): Soft to palpation and nontender : General: Yes no CVA tenderness Back/Spine/Pelvis: Back: no CVA tenderness Skin: Rashes: no rashes Wounds: no wounds Neuro: General: patient oriented x3, tone normal and no meningeal signs Gait exam (Neuro): Normal gait present Extrem: General: Yes normal to inspection MDM - Skin/Abscess/Foreign Bdy MDM Narrative Medical decision making narrative: 56 year old male with a PMHx of type 2 diabetes and PAD, presents to the ED c/o painful, red lump to right breast that appeared 2 weeks ago. On examination VSS, + indurated abscess noted to right breast/chest wall with erythema and fluctuance. No drainage, no lymphadenopathy, no other skin changes/nipple discharge. Concern for abscess vs cyst. Low suspicion for mastitis/ breast cancer Plan: I&D , Antibiotics Differential Diagnosis Differential diagnosis: Likely abscess of skin or subcutaneous tissue Medical Records Attestation: I reviewed the patient's medical records. Lab Data Attestation: I reviewed the patient's lab results. Discharge Plan Discharge Clinical Impression: Abscess of skin or subcutaneous tissue, Cyst Patient Disposition: Home, Self-Care Instructions: Abscess Incision and Drainage (DC) Additional Instructions: You had a infected cyst in the 5 o' clock region of right breast. We did incision and drainage Take the Keflex and Doxycycline as prescribed. Please follow up with dermatology and PCP. If symptoms worsen or a white pimple appear , please call and come back. Ten?a un quiste infectado en la rosi?n de las 5 en punto del seno derecho. Hicimos incisi?n y drenaje. Fair Play el Keflex y la doxiciclina seg?n lo prescrito. Por favor, bhargavi un seguimiento con dermatolog?a y PCP. Si los s?ntomas empeoran o aparece un grano mckeon, llame y regrese Prescriptions: New cephalexin 500 mg capsule 500 mg PO QID 7 Days Qty: 28 0RF doxycycline hyclate 100 mg tablet 100 mg PO BID 7 Days Qty: 14 0RF No Action metformin 1,000 mg tablet 1,000 mg PO BID Qty: 180 1RF (DME) blood-glucose meter [FreeStyle Leupp Lite] Kit See Rx Instructions .Route Qty: 1 0RF Rx Instructions: check BS 1-2x/day gabapentin 300 mg capsule 300 mg PO BID Qty: 180 1RF (DME) FreeStyle Lite Strips Strip See Rx Instructions .ROUTE .COMPLEX Qty: 100 3RF Dose Instruction: CHECK BLOOD SUGAR 3-4X/DAY Rx Instructions: CHECK BLOOD SUGAR 3-4X/DAY glipizide 10 mg tablet 10 mg PO BID Qty: 180 0RF insulin glargine [Lantus Solostar U-100 Insulin] 100 unit/mL (3 mL) insulin pen 12 unit subcut QPM Qty: 15 0RF (DME) lancets [FreeStyle Lancets] 28 gauge misc See Rx Instructions .Route Qty: 100 0RF Rx Instructions: check BS 3-4x/day enalapril maleate 10 mg tablet 10 mg PO DAILY Qty: 90 1RF (DME) pen needle, diabetic [BD Ultra-Fine Micro Pen Needle] 32 gauge x 1/4 needle See Rx Instructions .Route Qty: 100 0RF Rx Instructions: As directed atorvastatin 10 mg tablet 10 mg PO BEDTIME Qty: 90 1RF Referrals: Dana Rush PA [Physician Compensation Analyst] - Claire Elaine PA [Physician Compensation Analyst] - Yuri Valenzuela MD [Physician] - Everardo Mohan MD [Primary Care Provider] - Interventions: ED Discharge Assessment Last Done: 01/12/22 13:53 Discharge Date/Time: 01/12/22 13:54 Print Language: Czech
[2022-01-12] MEDS: Lidocaine HCl 1 % MPF 2 ML VIAL INFILTRATI ×2 (12:57)
== END 2022-01-12 13:54 | disposition home or self-care (01) ==
PROVIDERS: Emergency Provider Emergency Medicine; PCP Internal Medicine
DX: N61.1 Abscess of the breast and nipple (principal); E11.9 Type 2 diabetes mellitus without complications; Z79.899 Other long term (current) drug therapy
CPT/HCPCS: 99282; 99284

== ENCOUNTER 2022-05-04 08:33 | Outpatient (REF) | payer OTHER, SELFPAY ==
[2022-05-04 09:25] LABS: Hematocrit 44.8 % (42.0-52.0); Hemoglobin 14.6 g/dl (14.0-18.0); Mean Corpuscular HGB Conc 32.6 g/dl (31.0-36.0); Mean Corpuscular Hemoglobin 28.6 pg (27.0-33.0); Mean Corpuscular Volume 87.8 fL (80.0-98.0); Mean Platelet Volume 9.8 fL (9.4-12.4); Platelet Count 237 X10*3/uL (160-400); Red Cell Distribution Width 12.1 % (11.0-16.0); White Blood Count 9.1 X10*3/uL (4.8-10.8)
[2022-05-04 09:58] LABS: Estimated Average Glucose 151 mg/dL; Hemoglobin A1c % 6.9 %
[2022-05-04 10:01] LABS: Alanine Aminotransferase 38 U/L (0-40); Albumin Level 4.2 g/dL (3.5-5.0); Alkaline Phosphatase 90 U/L (39-117); Anion Gap 16 (12-20); Aspartate Amino Transferase 42 U/L (5-37); Bilirubin Direct 0.2 mg/dL (0.0-0.5); Bilirubin Total 0.5 mg/dL (0.0-1.0); Blood Urea Nitrogen 15 mg/dL (9-16); Carbon Dioxide 25 mmol/L (22-29); Chloride 105 mmol/L (96-108); Cholesterol 166 mg/dL; Estimated Glomerular Filt Rate > 60; Glucose Random 153 mg/dL (60-115); HDL Cholesterol 39 mg/dL; LDL Cholesterol Calculated 93 mg/dl; Potassium 4.8 mmol/L (3.3-5.1); Sodium 141 mmol/L (135-145); Total Protein 8.1 g/dL (6.5-8.0); Triglycerides 172 mg/dL
[2022-05-04 10:17] LABS: Thyroid Stimulating Hormone 2.35 uIU/mL (0.32-4.0)
[2022-05-04 11:38] LABS: Appearance Urine Clear; Color Urine Yellow; Glucose Urine UA Negative (Negative); Leukocyte Esterase Urine Negative (Negative); Nitrite Urine Negative (Negative); PH 5.5 (5.0-9.0); Specific Gravity - Urine 1.025 (1.005-1.025); Urine Blood Negative (Negative); Urine Ketones Negative (Negative); Urine Protein Negative (Neg-Trace)
[2022-05-04 12:43] LABS: Creatinine Urine 214.02 mg/dL; Microalbum/Creatinine Ratio Ur 16.8 ug/mg cr
== END 2022-05-04 08:34 | disposition home or self-care (01) ==
LOC: HO.LAB 08:33
PROVIDERS: PCP Internal Medicine; Visit Provider Internal Medicine
DX: E11.40 Type 2 diabetes mellitus with diabetic neuropathy, unspecified (principal)
CPT/HCPCS: 36415; 80048; 80061; 80076; 81003; 82043; 83036; 84443; 85027

== ENCOUNTER 2022-11-02 13:09 | Outpatient (AMB) | payer OTHER, SELFPAY ==
--- NOTE | 2022-11-02 13:11 | A.OFFPC_ITS ---
Vital Signs 11/02/22 13:12 Height 5 ft 11 in Weight 200 lb BMI 27.9 BP 110/66 Blood Pressure Location Lt brachial Position Sitting Pulse 87 Pulse Source Pulse Oximeter Pulse Oximetry (%) 97 Oxygen Delivery Method Room Air Intake Visit Reasons: 3mth f/u DM Intake Note: Patient is here to follow up on DM. Complaint of numbness, pain and weakness in left foot and arm. Aleve sometimes help with the pain. 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 per policy Accompanied by: Self / Same As Patient Allergies glipizide Adverse Reaction (Mild, Verified 11/02/22 13:47) Dizziness Medication List - Last Reconciled 11/02/22 by Everardo Mohan MD atorvastatin 10 mg PO BEDTIME blood sugar diagnostic (FreeStyle Lite Strips) CHECK BLOOD SUGAR 3-4X/DAY blood-glucose meter (FreeStyle [place] Lite kit) check BS 1-2x/day enalapril maleate 10 mg PO DAILY gabapentin 300 mg PO BID insulin glargine (Lantus Solostar U-100 Insulin) 12 units (0.12 mL) subcut QPM lancets (FreeStyle Lancets) check BS 3-4x/day metformin 1,000 mg PO BID pen needle, diabetic (BD Ultra-Fine Micro Pen Needle) As directed Tobacco use date assessed: 11/02/22 Dental Screening Dental Screen Date: 11/02/22 Did you have a dental visit in the last 12 months?: Yes Did you have a dental problem in the last 6 months where you did not have access to dental care?: No Was dental information given to patient?: Patient has dentist HPI 3mth f/u DM HPI Details 57 yr old male presents to the office to discuss his chronic medical issues. Patient has been homeless for some time and recently is now staying in the basement of his ex-'s home. He had stopped taking medications and has just started taking them again. Not checking his blood sugars that often. Complaining of numbness in his feet and weakness in the left shoulder. Does not recall any fall or injury. Patient is not working currently. Has limitation in movements in the left arm. Unable to bring it up over his shoulder level. FORMERLY [facility], [facility] Medical History Endogenous depression Essential hypertension Hyperglycemia Newly diagnosed diabetes No known health problems Peripheral vascular disease due to secondary diabetes Surgical History No pertinent past surgical history Social History Household Members: Spouse and Children Housing: Apartment Do you presently have visiting nurse or other home services: No Alcohol intake: never Patient Tobacco Use Status: Never used Tobacco e-Cigarette/Vaping Use: Never Used Second Hand Smoke Exposure: No service: No Current occupational status: unemployed Cognitive needs: No Hearing needs: No Vision needs: Yes (reading reading) Questionnaire PHQ-9 Over the last 2 weeks, how often have you been bothered by any of the following problems? Depression Screening Interpretation: Positive Depression Screening Follow-up: Existing condition Source: Developed by Drs. Balaji Lockwood, Bere Mann, Nirmal Marin and colleagues, with an educational osmel from [employer]. Thrive Questionnaire Date Thrive assessed: 05/04/22 JOHN-7 AMB Questionnaire JOHN-7 Date JOHN - 7 assessed: 05/04/22 Source: Developed by Drs. Balaji Lockwood, Bere Mann, Nirmal Marin and colleagues, with an educational osmel from [employer]. Physical exam (Primary Care) Vital Signs: Last Vital Signs Pulse 87 11/02/22 13:12 BP 110/66 11/02/22 13:12 Pulse Ox 97 11/02/22 13:12 Oxygen Delivery Method Room Air 11/02/22 13:12 Care Plan Goal for BP management: Blood pressure is in range. BMI result Body Mass Index 27.9 Tobacco/Smoking Status: Tobacco use Status Tobacco use date assessed 11/02/22 11/02/22 13:23 Patient Tobacco Use Status Never used Tobacco 11/02/22 13:23 e-Cigarette/Vaping Use Never Used 11/02/22 13:23 Depression Screening Interpretation: Positive Depression Screening Follow-up: Existing condition Thrive Assessment: Date of Thrive Assessment Date Thrive assessed 05/04/22 11/02/22 13:23 Const General: cooperative, healthy appearing and comfortable HENMA Head: Yes normal to inspection and Yes atraumatic Eyes General: appearance normal, both eyes and all related structures Neck Neck: Yes normal visual inspection and Yes full ROM Chest Chest palpation & inspection: normal inspection of the chest Resp Effort & Inspection: normal respiratory effort Auscultation: clear to auscultation bilaterally Cardio Jugular venous distension: no JVD Palpation: normal PMI Rate: regular rate Heart sounds: S1 normal heart sound present and S2 normal heart sound present GI Palpation (GI): Soft to palpation and No hepatosplenomegaly present Extrem Other: Left shoulder: No AC joint tenderness. Unable to abduct the arm greater than 90 degrees. Full adduction. Full internal and external rotation. General: Yes normal to inspection and Yes full ROM Results AMB Hemoglobin A1c AMB Hemoglobin A1c 10.0 % Last Edit by ALIZE Marcus on 11/02/22 13:3 2 Results Reviewed Results Reviewed: Laboratory Last Values Hgb A1c (Clinic) 10.0 % (4.0-6.0) H 11/02/22 13:11 Assessment and Plan Assessment & Plan (1) Essential hypertension: Code(s): I10 - Essential (primary) hypertension Plan: Blood pressure is in range. Continue medications at same dosage. (2) Endogenous depression: Code(s): F33.2 - Major depressive disorder, recurrent severe without psychotic features Plan: Patient has not been compliant seeing the psychiatrist or mental health care. I am encouraging him to keep the appointments. (3) Diabetes mellitus with neuropathy: Code(s): E11.40 - Type 2 diabetes mellitus with diabetic neuropathy, unspecified Plan: A1c is 10.0. Lantus insulin was increased to 20 units a day. Patient was encouraged to be compliant with medications and check blood sugars regularly. Follow-up appointment in 3 weeks. (4) Injury of left rotator cuff: Code(s): S46.002A - Unspecified injury of muscle(s) and tendon(s) of the rotator cuff of left shoulder, initial encounter Plan: X-ray of the shoulder has been ordered. An orthopedic appointment has been requested. Orders: Orders AMB Hemoglobin A1c Today E11.40 - Type 2 diabetes mellitus with diabetic neuropathy, unspecified Coding Level of Care Code Est Pt Level 4 (76633) Diagnoses Essential hypertension I10 Endogenous depression F33.2 Diabetes mellitus with neuropathy E11.40 Injury of left rotator cuff S46.002A
[2022-11-02 13:12] VITALS: BP 110/66; PULSE 87; O2SAT 97; BMI 27.9
== END 2022-11-02 13:38 | disposition home or self-care (01) ==
PROVIDERS: PCP Internal Medicine; Visit Provider Internal Medicine
DX: I10 Essential (primary) hypertension (principal); F33.2 Major depressive disorder, recurrent severe without psychotic features; E11.40 Type 2 diabetes mellitus with diabetic neuropathy, unspecified; S46.002A Unspecified injury of muscle(s) and tendon(s) of the rotator cuff of left shoulder, initial encounter
CPT/HCPCS: 83036; 99214

== ENCOUNTER 2022-12-14 13:34 | Outpatient (AMB) | payer OTHER, SELFPAY ==
--- NOTE | 2022-12-14 13:39 | A.OFFPC_ITS ---
Vital Signs 12/14/22 13:41 Height 5 ft 11 in Weight 200 lb BMI 27.9 BP 110/70 Blood Pressure Location Lt brachial Position Sitting Pulse 105 H Pulse Source Pulse Oximeter Pulse Oximetry (%) 97 Oxygen Delivery Method Room Air Intake Visit Reasons: Follow Up Intake Note: Patient is here to follow up on HTN, DM. 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: Not Required per policy Accompanied by: Self / Same As Patient Allergies glipizide Adverse Reaction (Mild, Verified 12/15/22 15:54) Dizziness Medication List - Last Reconciled 12/15/22 by Everardo Mohan MD atorvastatin 10 mg PO BEDTIME blood sugar diagnostic (FreeStyle Lite Strips) CHECK BLOOD SUGAR 3-4X/DAY blood-glucose meter (FreeStyle [place] Lite kit) check BS 1-2x/day enalapril maleate 10 mg PO DAILY gabapentin 300 mg PO BID insulin glargine (Lantus Solostar U-100 Insulin) 30 units (0.3 mL) subcut QPM insulin lispro (Admelog SoloStar U-100 Insulin lispro) 10 units (0.1 mL) subcut TID lancets (FreeStyle Lancets) check BS 3-4x/day metformin 1,000 mg PO BID pen needle, diabetic (BD Ultra-Fine Micro Pen Needle) As directed Tobacco use date assessed: 12/14/22 HPI Follow Up HPI Details 57-year-old male presents to the office to discuss his chronic medical conditions. Patient continues to have elevated blood sugars. He is taking the Lantus at 20 units once a day. He brings in his blood sugar machine for review. Consistently his blood sugars are greater than 200. [facility] Medical History Endogenous depression Essential hypertension Hyperglycemia Newly diagnosed diabetes No known health problems Peripheral vascular disease due to secondary diabetes Surgical History No pertinent past surgical history Social History Household Members: Spouse and Children Housing: Apartment Do you presently have visiting nurse or other home services: No Alcohol intake: never Patient Tobacco Use Status: Never used Tobacco e-Cigarette/Vaping Use: Never Used Second Hand Smoke Exposure: No service: No Current occupational status: unemployed Cognitive needs: No Hearing needs: No Vision needs: Yes (reading reading) Questionnaire Thrive Questionnaire Date Thrive assessed: 05/04/22 JOHN-7 AMB Questionnaire JOHN-7 Date JOHN - 7 assessed: 05/04/22 Source: Developed by Drs. Balaji Lockwood, Bere Mann, Nirmal Marin and colleagues, with an educational osmel from [employer]. Physical exam (Primary Care) Vital Signs: Last Vital Signs Pulse 105 H 12/14/22 13:41 BP 110/70 12/14/22 13:41 Pulse Ox 97 12/14/22 13:41 Oxygen Delivery Method Room Air 12/14/22 13:41 BMI result Body Mass Index 27.9 Tobacco/Smoking Status: Tobacco use Status Tobacco use date assessed 12/14/22 12/14/22 13:44 Patient Tobacco Use Status Never used Tobacco 12/14/22 13:44 e-Cigarette/Vaping Use Never Used 12/14/22 13:44 Thrive Assessment: Date of Thrive Assessment Date Thrive assessed 05/04/22 12/14/22 13:44 Const General: cooperative and healthy appearing Nutritional Appearance: well nourished Orientation/consciousness: patient oriented x3 Limitations: no limitations HENMT Head: Yes normal to inspection Eyes General: appearance normal, both eyes and all related structures Neck Neck: Yes normal visual inspection Chest Chest palpation & inspection: normal palpation of entire chest wall Resp Effort & Inspection: normal respiratory effort Neuro General: patient oriented x3 Results AMB Hemoglobin A1c AMB Hemoglobin A1c 9.1 % Last Edit by ALIZE Marcus on 12/14/22 14:15 Results Reviewed Results Reviewed: Laboratory Last Values Hgb A1c (Clinic) 9.1 % (4.0-6.0) H 12/14/22 14:07 Assessment and Plan Assessment & Plan (1) Diabetes mellitus with neuropathy: Code(s): E11.40 - Type 2 diabetes mellitus with diabetic neuropathy, unspecified Plan: Short-acting insulin has been added to the regimen. I advised him to take it 3 times a day. Orders: Orders AMB Hemoglobin A1c 12/14/22 E11.40 - Type 2 diabetes mellitus with diabetic neuropathy, unspecified Medications: New insulin lispro (Admelog SoloStar U-100 Insulin lispro) 10 units (0.1 mL) subcut TID 15 mL 0RF Changed From insulin glargine (Lantus Solostar U-100 Insulin) 20 units (0.2 mL) subcut QPM 15 mL 3RF E11.40 - Type 2 diabetes mellitus with diabetic neuropathy, unspecified To insulin glargine (Lantus Solostar U-100 Insulin) 30 units (0.3 mL) subcut QPM 15 mL 3RF E11.40 - Type 2 diabetes mellitus with diabetic neuropathy, unspecified Refilled pen needle, diabetic (BD Ultra-Fine Micro Pen Needle) As directed 100 ea 0RF Coding Level of Care Code Est Pt Level 4 (38348) Diagnoses Diabetes mellitus with neuropathy E11.40
[2022-12-14 13:41] VITALS: BP 110/70; PULSE 105; O2SAT 97; BMI 27.9
== END 2022-12-14 14:41 | disposition home or self-care (01) ==
PROVIDERS: PCP Internal Medicine; Visit Provider Internal Medicine
DX: E11.40 Type 2 diabetes mellitus with diabetic neuropathy, unspecified (principal)
CPT/HCPCS: 83036; 99214

== ENCOUNTER 2022-12-18 09:45 | Outpatient (AMB) | payer OTHER, SELFPAY ==
--- NOTE | 2022-12-18 09:47 | A.OFFPC_ITS ---
Vital Signs 12/18/22 09:48 Height 5 ft 11 in Weight 198 lb 6 oz BMI 27.7 BP 120/62 Blood Pressure Location Lt brachial Position Sitting Pulse 91 Pulse Source Pulse Oximeter Pulse Oximetry (%) 97 Oxygen Delivery Method Room Air Intake Visit Reasons: PE/PPD Implant Intake Note: Patient is here today for a physical. 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: Present Accompanied by: Daughter Allergies glipizide Adverse Reaction (Mild, Verified 12/18/22 10:08) Dizziness Medication List - Last Reconciled 12/18/22 by AZAM Subramanian atorvastatin 10 mg PO BEDTIME blood sugar diagnostic (FreeStyle Lite Strips) CHECK BLOOD SUGAR 3-4X/DAY blood-glucose meter (FreeStyle [place] Lite kit) check BS 1-2x/day enalapril maleate 10 mg PO DAILY gabapentin 300 mg PO BID insulin glargine (Lantus Solostar U-100 Insulin) 30 units (0.3 mL) subcut QPM insulin lispro (Admelog SoloStar U-100 Insulin lispro) 10 units (0.1 mL) subcut TID lancets (FreeStyle Lancets) check BS 3-4x/day metformin 1,000 mg PO BID pen needle, diabetic (BD Ultra-Fine Micro Pen Needle) As directed Tobacco use date assessed: 12/14/22 HPI HPI Comments 2 History of Present Illness Details 57-year-old male past medical history si gnificant for type 2 diabetes mellitus with neuropathy, PVD, depression, hypertension. Patient of Dr. Gandhi presents today for physical exam and ppd implant completed. Denies chest pain palpitations, shortness of and syncope. Patient reports occasionally gets slightly dizzy when she changes positions quickly. Patient advised to change physicians slowly increase water intake and recommended to previously ordered labs completed to further evaluate. Last hemoglobin A1c 9 point 9.1%, insulin lispro 10 units t.i.d. was added at that time. Eye exam:November 2022 Colonoscopy: Patient declined. Cologuard screening discussed with patient: Patient declined Recommended: Tdap and flu shot, patient agreeable to get Tdap vaccine, declines flu vaccine at this time. [facility] Medical History Essential hypertension Endogenous depression Peripheral vascular disease due to secondary diabetes Newly diagnosed diabetes Hyperglycemia No known health problems Surgical History No pertinent past surgical history Social History Household Members: Spouse and Children Housing: Apartment Do you presently have visiting nurse or other home services: No Alcohol intake: never Patient Tobacco Use Status: Never used Tobacco e-Cigarette/Vaping Use: Never Used Second Hand Smoke Exposure: No service: No Current occupational status: unemployed Cognitive needs: No Hearing needs: No Vision needs: Yes (reading reading) Questionnaire Thrive Questionnaire Date Thrive assessed: 05/04/22 JOHN-7 AMB Questionnaire JOHN-7 Date JOHN - 7 assessed: 05/04/22 Source: Developed by Drs. Balaji Lockwood, Bere Mann, Nirmal Marin and colleagues, with an educational osmel from [employer] Review of Systems Const Denies chills, Denies fatigue, Denies fever(s) and Denies poor appetite Eyes Denies no additional complaints ENT Reports Normal hearing present Card Denies chest pain, Denies syncope, Denies rapid heart rate and Denies dyspnea Resp Denies cough and Denies dyspnea GI Denies change in stool character, Denies constipation, Denies diarrhea, Denies nausea and Denies vomiting Denies dysuria, Denies urinary frequency and Denies urinary urgency Neuro Reports Normal hearing present, Denies confusion and Denies syncope Psych Denies confusion Endo Denies fatigue Physical exam (Primary Care) Vital Signs: Last Vital Signs Pulse 91 12/18/22 09:48 BP 120/62 12/18/22 09:48 Pulse Ox 97 12/18/22 09:48 Oxygen Delivery Method Room Air 12/18/22 09:48 BMI result Body Mass Index 27.7 Tobacco/Smoking Status: Tobacco use Status Tobacco use date assessed 12/14/22 12/18/22 09:54 Patient Tobacco Use Status Never used Tobacco 12/18/22 09:54 e-Cigarette/Vaping Use Never Used 12/18/22 09:54 Thrive Assessment: Date of Thrive Assessment Date Thrive assessed 05/04/22 12/18/22 09:54 Const General: No confusion Orientation/consciousness: No confusion HENMT Head: Yes normocephalic and Yes atraumatic Ears: external ears normal and TM's normal bilaterally General nose exam: Normal external nose present and Normal nasal mucous membranes and turbinates present Face and sinus: Yes normal facial exam and Yes sinuses nontender Mouth: moist mucous membranes Throat: Yes tonsils normal Eyes Conjunctivae: conjunctivae normal Sclerae: sclerae normal Pupils: Equal, round and reactive pupils present and Pupils normal by confrontation EOM: EOMs intact bilaterally Direct Ophthalmoscopy: normal light reflex Neck Neck: Yes no lymphadenopathy and Yes supple Thyroid: Thyroid normal Chest Chest palpation & inspection: normal inspection of the chest Resp Effort & Inspection: normal respiratory effort Auscultation: clear to auscultation bilaterally, no crackles, no rhonchi and no wheezes Cardio Rate: regular rate Rhythm: regular rhythm Peripheral pulses: radial pulses present and dorsalis pedis present GI Inspection: Yes normal to inspection Palpation (GI): Soft to palpation, nontender and No hepatosplenomegaly present Auscultation: normoactive bowel sounds Skin General skin exam: no rashes or lesions noted Neuro General: No confusion Cranial nerves: Yes Equal, round and reactive pupils present and Yes Normal hearing present Cognition (Neuro): normal cognition Gait exam (Neuro): Normal gait present Motor exam (neuro): 5/5 motor strength present throughout Deep tendon reflexes (DTR's): Right brachioradialis reflex intensity grade: 2+, Left brachioradialis reflex intensity grade: 2+, Right patellar reflex intensity grade: 2+ and Left patellar reflex intensity grade: 2+ Extrem General: No edema Office Procedures Flu Questionnaire Does the patient have a severe egg allergy?: No Does the patient have severe life threatening allergies?: No Does the patient have a fever or illness today?: No Has the patient ever had Guillain-Stella Syndrome?: No Has the patient ever had any past reaction to a flu shot?: No Office Meds tuberculin PPD 5 tub. unit/0.1 mL intradermal injection solution Performing Provider: AZAM Subramanian Performing Location: [facility] Administered by: Grisel Bueno RN on 12/18/22 10:07 Dose Route Admin Location Dispensed Lot Number Expiration Date [facility] Reproduction Specialist 0.1 mL intradermal right forearm 0.1 mL [id number] 01/16/26 [id number] [employer] Immunizations flu vacc [id number] 6mos up(PF) 60 mcg(15 mcgx4)/0.5 mL IM syringe Performing Provider: AZAM Subramanian Performing Location: [facility] Documented (not given) by: ALIZE Marcus on 12/18/22 09:58 Reason Not Given: Patient Refused Adacel(Tdap Adolesn/Adult)(PF) 2 Lf-(2.5-5-3-5)-5 Lf/0.5 mL IM syringe Performing Provider: AZAM Subramanian Performing Location: [facility] Adult Primary [facility] Administered by: rGisel Bueno RN on 12/18/22 10:37 Dose Route Admin Location Dispensed Lot Number Expiration Date [employer] Reproduction Specialist 0.5 mL IM Right Deltoid 0.5 mL [id number] 02/21/25 [id number] [employer] VIS Given Date VIS Provided VIS Publication Date 12/18/22 Single Vaccine 20 Eligibility Eligibility Date Funding Source Not [facility] Eligible 12/18/22 Private Assessment and Plan Assessment & Plan (1) Endogenous depression: Code(s): F33.2 - Major depressive disorder, recurrent severe without psychotic features Plan: Referral entered to counseling. Patient requesting New Zealander-speaking counselor, noted in referral. (2) Diabetes mellitus with neuropathy: Code(s): E11.40 - Type 2 diabetes mellitus with diabetic neuropathy, unspecified Plan: Continue on insulin lispro Lantus and metformin a 1000 mg b.i.d.. Patient educated to decrease the amount of carbohydrate intake such as pasta, bread, rice and potatoes are all sugar in addition to the sweet stuff. Remember that fruits are good but they also have sugar. (3) Essential hypertension: Code(s): I10 - Essential (primary) hypertension Plan: Continue on enalapril 10 mg daily. Blood pressure below goal in office today. Follow low-salt diet exercise. (4) Injury of left rotator cuff: Code(s): S46.002A - Unspecified injury of muscle(s) and tendon(s) of the rotator cuff of left shoulder, initial encounter Plan: Patient has upcoming appointment scheduled with orthopedic this month. (5) Physical exam, annual: Code(s): Z00.00 - Encounter for general adult medical examination without abnormal findings Plan: Reminded to get previously ordered fasting blood work completed. Follow-up in 1 year. Plan Follow-up in 3 months. Orders: Orders Influenza [id number] Immunization Today Z23 - Encounter for immunization Prostate Specific Antigen Scr Today Z12.5 - Encounter for screening for malignant neoplasm of prostate AMB PPD Planted Today Z11.1 - Encounter for screening for respiratory tuberculosis TDaP State Immunization Today Z23 - Encounter for immunization Referrals Counseling Referral F33.2 - Major depressive disorder, recurrent severe without psychotic features Coding Level of Care Code Est Pt Prev Care 40-64y(93053) Diagnoses Endogenous depression F33.2 Diabetes mellitus with neuropathy E11.40 Essential hypertension I10 Injury of left rotator cuff S46.002A Physical exam, annual Z00.00
[2022-12-18 09:48] VITALS: BP 120/62; PULSE 91; O2SAT 97; BMI 27.7
== END 2022-12-18 10:37 | disposition home or self-care (01) ==
PROVIDERS: PCP Internal Medicine; Visit Provider Nurse Practitioner Family
DX: Z00.00 Encounter for general adult medical examination without abnormal findings (principal); F33.2 Major depressive disorder, recurrent severe without psychotic features; E11.40 Type 2 diabetes mellitus with diabetic neuropathy, unspecified; I10 Essential (primary) hypertension; Z23 Encounter for immunization; S46.002A Unspecified injury of muscle(s) and tendon(s) of the rotator cuff of left shoulder, initial encounter; Z11.1 Encounter for screening for respiratory tuberculosis
CPT/HCPCS: 86580; 90471; 90715; 99396

== ENCOUNTER 2022-12-21 08:53 | Outpatient (REF) | payer OTHER, SELFPAY | END 2022-12-21 08:54 | disposition home or self-care (01) | LOC: HO.HOSX 08:53 | PROVIDERS: Visit Provider Physician Assistant | DX: M25.512 Pain in left shoulder (principal); M75.82 Other shoulder lesions, left shoulder | CPT/HCPCS: 20610; 73030; J1020 ==

== ENCOUNTER 2022-12-21 10:07 | Outpatient (AMB) | payer OTHER, SELFPAY ==
--- NOTE | 2022-12-21 10:16 | MHC.OFFVIS ---
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 Patient reports pain came on suddenly about 3-4 months. Denies injury. He has occasional numbness and tingling in his palm. Limited ROM. No other tx. 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 He states he has intermittent pain and limited ROM in his shoulder which is aggravated with overhead reaching and lifting heavy objects. He also c/o occasional numbness and tingling in his palm. He takes Advil as needed at night for his pain but his pain comes back in the morning. He denies any recent injury and has not had any treatment in the past. He has a history of diabetes. His sugar level is 115 today. COUNT INCLUDES THE [facility] Medical History Essential hypertension Endogenous depression Peripheral vascular disease due to secondary diabetes Newly diagnosed diabetes Hyperglycemia No known health problems Surgical History No pertinent past surgical history Social History (Updated 12/21/22 @ 10:29 by ALIZE Trevino) Household Members: Spouse and Children Housing: Apartment Do you presently have visiting nurse or other home services: No Alcohol intake: never Patient Tobacco Use Status: Never used Tobacco e-Cigarette/Vaping Use: Never Used Second Hand Smoke Exposure: No service: No Current occupational status: unemployed Current occupation: right hand dominant Cognitive needs: No Hearing needs: No Vision needs: Yes (reading reading) Review of Systems Const All systems reviewed & are unremarkable except as noted in HPI and below Physical Exam Vital Signs: BMI result Body Mass Index 27.6 Const General: cooperative, healthy appearing, comfortable, no acute distress, well developed and alert Orientation/consciousness: patient oriented x3 HEENT Head: Yes normal to inspection, Yes normocephalic and Yes atraumatic Eyes General: appearance normal, both eyes and all related structures Resp Effort & Inspection: normal respiratory effort and able to speak in complete sentences Cardio Rate: regular rate Peripheral pulses: Peripheral pulses 2+ throughout GI Palpation (GI): Soft to palpation Skin Lesions: no lesions Rashes: no rashes Neuro General: patient oriented x3 Extrem Other: Left shoulder normal to inspection. Tenderness over the bicipital groove and along the deltoid region of the shoulder. Forward flexion to 175, external rotation to 90, internal rotation to S1. 5/5 RTC strength. Positive [place] and cross body abduction. NVI. Office Procedures Joint Injection/Drain Joint Injection/Drain Primary Site: left shoulder Prep: site was prepped using aseptic technique, ethochloride spray was applied and injection warnings given Injected: 40 mg of, DepoMedrol, with 8 mL of, 1% plain lidocaine and in the subcromial space Approach Used: posterolateral Procedure: The patient tolerated the procedure well and there was some relief with the local anesthesia Coding 48373 - Glenohumeral/Tronchanteric Bursa/Intraarticular Procedure code (CPT) selection complete Results Reviewed Results Reviewed: 12/21/22 10:55 Lidocaine HCl 2 % MPF [Xylocaine 2 % MPF] 5 ml .ROUTE .STK-MED ONE methylPREDNISolone acetate [DEPO-MedroL] 40 mg .ROUTE .STK-MED ONE Xrays were obtained in the office today and personally reviewed by me of the left shoulder show mild acj oa Assessment & Plan Assessment & Plan (1) Tendonitis of left rotator cuff: Code(s): M75.82 - Other shoulder lesions, left shoulder Plan We discussed options today which include steroid injection. They did consent to move forward with the injection, which was tolerated well. I did put in a referral for physical therapy in the office today. I also recommended rest, ice and elevation and OTC anti-inflammatories PRN for discomfort. We discussed their diabetes and the effect the steroid can have on their blood glucose levels; therefore, they will continue to monitor these very closely over the next 72 hours. If there are any concerns, they should report to the ED immediately. Orders: Orders XR shoulder LT min 2V Today M25.512 - Pain in left shoulder PT Evaluation and Treatment Today M75.82 - Other shoulder lesions, left shoulder Patient Instructions: Scribed for Ta-Pili Meuse, PA-C, by Devon Andrade medical lead, on 12/21/2022 at 10:15 AM ZARA. Angely Trotter PA-C, have personally reviewed and agree with the information entered by the scribe. Coding Level of Care Code New Pt Level 3 (84444) Diagnoses Tendonitis of left rotator cuff M75.82 CPT Codes Coding - Joint 7: 78765 - Glenohumeral/Tronchanteric Bursa/Intraarticular ([id number])
[2022-12-21 10:27] VITALS: BMI 27.6
== END 2022-12-21 11:14 | disposition home or self-care (01) ==
PROVIDERS: PCP Internal Medicine; Visit Provider Physician Assistant
DX: M75.82 Other shoulder lesions, left shoulder (principal)
CPT/HCPCS: 20610; 99204

== ENCOUNTER 2023-02-20 14:00 | Outpatient (RCR) | payer OTHER, SELFPAY ==
--- NOTE | 2023-01-24 10:19 | MHC.PT.EP ---
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 male with PMHx of DMT2 and HTN who is referred to PT by Angely Spicer PA-C, with Dx of LEFT shoulder other shoulder lesions. 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 Patient impairments include poor posture, limited ROM, and left shoulder weakness Patient current functional limitations are reaching overhead, behind back, difficulty sleeping on L side, lifting anything heavy. Patient will benefit from skilled PT to address aforementioned impairments and functional limitations to meet established goals. Frequency and Duration: The patient will be seen 2x/week for 4 weeks Short Term Goals: 2 weeks Patient demonstrates consistency and independence with HEP to self manage symptoms. Patient demonstrates neutral neck and shoulder posture in sitting without cues to correct. Ladle Watcher Goals: 4 weeks Patient presents with increased L shoulder flexion 150 degrees to be able to reach overhead to cabinet. Patient presents with increased L shoulder ER 50 degrees to be able to reach to back pocket to dress. Treatment Plan: Modalities to reduce pain, spasms and effusion. Manual therapy to restore motion and function. Therapeutic exercise to improve strength and flexibility. Neuromuscular re-education for posture and balance. Therapeutic activities to return to functional activities of daily living. Electronically signed by: Abisai Hernandez, PT, DPT Please sign and return to therapist. Thank you for your referral.
--- NOTE | 2023-04-24 12:52 | MHC.PT.DC ---
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 He demonstrated consistency with HEP as well. He ceased attending PT on his own accord, did not show to his last scheduled PT visit. Therefore he is discharged from PT at this time. Electronically signed by: Abisai Hernandez, PT, DPT Please sign and return to therapist. Thank you for your referral.
== END 2023-04-24 12:52 | disposition home or self-care (01) ==
LOC: HO.PT 14:00
PROVIDERS: PCP Internal Medicine; Visit Provider Physician Assistant
DX: M75.82 Other shoulder lesions, left shoulder (principal)
CPT/HCPCS: 97110; 97140; 97161

== ENCOUNTER 2023-03-22 10:11 | Outpatient (AMB) | payer OTHER, SELFPAY ==
--- NOTE | 2023-03-22 10:35 | MHC.PC.OV ---
Vital Signs 03/22/23 10:38 Height 5 ft 11 in Weight 201 lb 6 oz BMI 28.1 BP 130/70 Blood Pressure Location Lt brachial Position Sitting Pulse 113 H Pulse Source Pulse Oximeter Temp 98.6 F Temp Source Oral Pulse Oximetry (%) 94 Oxygen Delivery Method Room Air Intake Visit Reasons: DM, HTN,depression Intake Note: Patient is here to follow up on DM, HTN, Depression. Complaint of sore throat and possible fever. 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 Machine Operator: Not Required per policy Accompanied by: Self / Same As Patient Allergies glipizide Adverse Reaction (Mild, Verified 03/25/23 10:25) Dizziness Medication List - Last Reconciled 03/25/23 by Everardo Mohan MD atorvastatin 10 mg PO BEDTIME blood sugar diagnostic (FreeStyle Lite Strips) CHECK BLOOD SUGAR 3-4X/DAY blood-glucose meter (FreeStyle [place] Lite kit) check BS 1-2x/day enalapril maleate 10 mg PO DAILY gabapentin 300 mg PO BID insulin glargine (Lantus Solostar U-100 Insulin) 30 units (0.3 mL) subcut QPM insulin lispro (Humalog KwikPen (U-100) Insulin) 10 units (0.1 mL) subcut TID lancets (FreeStyle Lancets) check BS 3-4x/day metformin 1,000 mg PO BID pen needle, diabetic (BD Ultra-Fine Micro Pen Needle) As directed Tobacco use date assessed: 03/22/23 Dental Screening Dental Screen Date: 03/22/23 Did you have a dental visit in the last 12 months?: No Did you have a dental problem in the last 6 months where you did not have access to dental care?: No Was dental information given to patient?: No HPI DM, HTN,depression HPI Details 57-year-old male presents to the office for a follow-up visit. Since last office visit patient has been paying more attention to his blood sugars. He has been eating better and exercising. Compliant with his medications but is now ran out of a short-acting insulin. Continues to take the long-acting insulin at the dosage prescribed. Compliant with other medications. In the past few days, he has been developing symptoms of postnasal drip and congestion. No fevers or chills. No nausea or vomiting. [facility] Medical History Essential hypertension Endogenous depression Peripheral vascular disease due to secondary diabetes Newly diagnosed diabetes Hyperglycemia No known health problems Surgical History No pertinent past surgical history Social History Household Members: Spouse and Children Housing: Apartment Do you presently have visiting nurse or other home services: No Alcohol intake: never Patient Tobacco Use Status: Never used Tobacco e-Cigarette/Vaping Use: Never Used Second Hand Smoke Exposure: No service: No Current occupational status: unemployed Current occupation: right hand dominant Cognitive needs: No Hearing needs: No Vision needs: Yes (reading reading) Questionnaire PHQ-9 Over the last 2 weeks, how often have you been bothered by any of the following problems? 1. Little interest or pleasure in doing things: not at all 2. Feeling down, depressed, or hopeless: not at all 3. Trouble falling or staying asleep, or sleeping too much: not at all 4. Feeling tired or having little energy: not at all 5. Poor appetite or overeating: not at all 6. Feeling bad about yourself - or that you are a failure or have let yourself or your family down: not at all 7. Trouble concentrating on things, such as reading the newspaper or watching television: not at all 8. Moving or speaking so slowly that other people could have noticed. Or the opposite - being so fidgety or restless that you have been moving around a lot more than usual: not at all 9. Thoughts that you would be better off or of hurting yourself in some way: not at all Total score: 0 Source: Developed by Drs. Balaji Lockwood, Bere Mann, Nirmal Marin and colleagues, with an educational osmel from [employer]. Thrive Questionnaire Date Thrive assessed: 03/22/23 I am a: Patient What is your living situation today?: I have a steady place to live Within the past 12 months, did the food you bought not last and you didn't have the money to get more?: Never true Within the past 12 months, did you worry whether your food would run out before you got money to buy more?: Never true Do you have trouble paying for medicines?: No Do you have trouble getting transportation to medical appointments?: No Do you have trouble paying your heating and electricity bill?: No Do you have trouble taking care of your child, family member or friend?: No Do you have trouble with day-to-day activities such as bathing, preparing meals, shopping, managing finances, etc.?: No Are you currently unemployed and looking for a job?: No Are you interested in more education?: No AUDIT C Alcohol Use Questionnaire (AUDIT-C) 1. How often do you have a drink containing alcohol?: Never Total Score: 0 JOHN-7 AMB Questionnaire JOHN-7 Date JOHN - 7 assessed: 03/22/23 Feeling nervous, anxious, or on edge: 0 = Not at all Not being able to stop or control worryin = Not at all Worrying too much about different things: 0 = Not at all Trouble relaxin = Not at all Being so restless that it is hard to sit still: 0 = Not at all Becoming easily annoyed or irritable: 0 = Not at all Feeling afraid as if something awful might happen: 0 = Not at all Total JOHN-7 score (0-4 normal; 5-9 mild; 10-14 moderate; 15-21 severe): 0 Source: Developed by Drs. Balaji Lockwood, Bere Mann, Nirmal Marin and colleagues, with an educational osmel from [employer]. Physical exam (Primary Care) Vital Signs: Last Vital Signs Temp 98.6 F 03/22/23 10:38 Pulse 113 H 03/22/23 10:38 BP 130/70 03/22/23 10:38 Pulse Ox 94 03/22/23 10:38 Oxygen Delivery Method Room Air 03/22/23 10:38 BMI result Body Mass Index 28.1 Tobacco/Smoking Status: Tobacco use Status Tobacco use date assessed 03/22/23 03/22/23 10:39 Patient Tobacco Use Status Never used Tobacco 03/22/23 10:39 e-Cigarette/Vaping Use Never Used 03/22/23 10:39 PHQ-9: PHQ-9 Score PHQ-9: Total score 0 03/22/23 11:09 Thrive Assessment: Date of Thrive Assessment Date Thrive assessed 03/22/23 03/22/23 10:39 Const General: cooperative and healthy appearing Nutritional Appearance: well nourished Orientation/consciousness: patient oriented x3 Limitations: no limitations HENMT Head: Yes normal to inspection Eyes General: appearance normal, both eyes and all related structures Neck Neck: Yes normal visual inspection Chest Chest palpation & inspection: normal palpation of entire chest wall Resp Effort & Inspection: normal respiratory effort Neuro General: patient oriented x3 Results AMB Hemoglobin A1c AMB Hemoglobin A1c 7.2 % Last Edit by ALIZE Marcus on 03/22/23 11:09 Results Reviewed Results Reviewed: Laboratory Last Values Hgb A1c (Clinic) 7.2 % (4.0-6.0) H 03/22/23 10:39 Assessment and Plan Assessment & Plan (1) Diabetes mellitus with neuropathy: Code(s): E11.40 - Type 2 diabetes mellitus with diabetic neuropathy, unspecified Plan: His A1c has improved. I encouraged him to continue paying attention to his diabetes. Counseling done for 20 minutes. Short-acting insulin has been changed to a pen format. Most likely he has viral upper respiratory tract infection. No antibiotics are needed. If symptoms do not improve to follow-up here. Orders: Orders AMB Hemoglobin A1c 03/22/23 E11.40 - Type 2 diabetes mellitus with diabetic neuropathy, unspecified Medications: New insulin lispro (Humalog KwikPen (U-100) Insulin) 10 units (0.1 mL) subcut TID 15 mL 0RF Refilled lancets (FreeStyle Lancets) check BS 3-4x/day 100 ea 0RF E11.9 - Type 2 diabetes mellitus without complications Discontinued insulin lispro (Humalog U-100 Insulin) Discontinued Reason: Doctor's Order 10 units (0.1 mL) subcut TID 10 mL 1RF Coding Level of Care Code Est Pt Level 4 (59144) Diagnoses Diabetes mellitus with neuropathy E11.40
[2023-03-22 10:38] VITALS: BP 130/70; PULSE 113; TEMP 37; O2SAT 94; BMI 28.1
== END 2023-03-22 11:18 | disposition home or self-care (01) ==
PROVIDERS: PCP Internal Medicine; Visit Provider Internal Medicine
DX: E11.40 Type 2 diabetes mellitus with diabetic neuropathy, unspecified (principal)
CPT/HCPCS: 83036; 99214

== ENCOUNTER 2023-03-31 23:54 | Emergency (ER) | payer OTHER, SELFPAY ==
[2023-03-31 23:58] VITALS: BP 126/80; PULSE 86; RESP 18; TEMP 36.7; O2SAT 96; BMI 27.6
[2023-04-01 00:51] LABS: COVID-19 Test Negative (Negative); IDNOW Serial# 08D9AD1C; IDNOW Serial# 152EDE1D; Influenza A Negative (Negative); Influenza B2 Negative (Negative)
[2023-04-01 04:42] VITALS: BP 118/69; PULSE 82; RESP 18; TEMP 36.8; O2SAT 98
--- NOTE | 2023-04-01 04:44 | MHC.EDTECH ---
Hourly rounds and vitals completed, patient is resting comfortably at this time and call evans at bedside
[2023-04-01 06:00] VITALS: BP 122/70; PULSE 76; RESP 18; TEMP 36.9; O2SAT 98
--- NOTE | 2023-04-01 06:17 | MHC.EDTECH ---
Hourly rounds and vitals completed, patient is resting at this time and call evans at bedside.
== END 2023-04-01 08:05 | disposition left against medical advice (07) ==
PROVIDERS: Emergency Medicine; Emergency Provider Emergency Medicine; PCP Internal Medicine
DX: R06.02 Shortness of breath (principal); R05.9 Cough, unspecified; Z11.52 Encounter for screening for COVID-19
CPT/HCPCS: 87502; 87635; 99283

== ENCOUNTER 2023-06-28 09:44 | Outpatient (AMB) | payer OTHER, SELFPAY ==
--- NOTE | 2023-06-18 13:06 | A.OFFPC_ITS ---
Intake Visit Reasons: 3mth f/u Allergies glipizide Adverse Reaction (Mild, Verified 03/31/23 23:58) Dizziness Tobacco use date assessed: 03/22/23 Dental Screening Dental Screen Date: 03/22/23 [facility] Medical History Essential hypertension Endogenous depression Peripheral vascular disease due to secondary diabetes Newly diagnosed diabetes Hyperglycemia No known health problems Surgical History No pertinent past surgical history Social History Household Members: Spouse and Children Housing: Apartment Do you presently have visiting nurse or other home services: No Alcohol intake: never Patient Tobacco Use Status: Never used Tobacco e-Cigarette/Vaping Use: Never Used Second Hand Smoke Exposure: No service: No Current occupational status: unemployed Current occupation: right hand dominant Cognitive needs: No Hearing needs: No Vision needs: Yes (reading reading) Questionnaire Thrive Questionnaire Date Thrive assessed: 03/22/23 JOHN-7 AMB Questionnaire JOHN-7 Date JOHN - 7 assessed: 03/22/23 Source: Developed by Drs. Balaji Lockwood, Bere Mann, Nirmal Marin and colleagues, with an educational osmel from [employer]. Physical exam (Primary Care) Tobacco/Smoking Status: Tobacco use Status Tobacco use date assessed 03/22/23 03/22/23 10:39 Patient Tobacco Use Status Never used Tobacco 03/22/23 10:39 e-Cigarette/Vaping Use Never Used 03/22/23 10:39 Thrive Assessment: Date of Thrive Assessment Date Thrive assessed 03/22/23 03/22/23 10:39 Assessment and Plan Assessment & Plan Patient Instructions: Goals: Barriers: Coding
--- NOTE | 2023-06-28 09:48 | A.OFFPC_ITS ---
Vital Signs 06/28/23 09:49 Height 5 ft 11 in Weight 197 lb BMI 27.5 BP 100/70 Blood Pressure Location Lt brachial Position Sitting Pulse 109 H Pulse Source Pulse Oximeter Pulse Oximetry (%) 95 Oxygen Delivery Method Room Air Intake Visit Reasons: 3mth f/u Intake Note: Patient is here to follow up on DM, HTN. 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: Not Required per policy Accompanied by: Self / Same As Patient Allergies glipizide Adverse Reaction (Mild, Verified 07/01/23 07:45) Dizziness Medication List - Last Reconciled 07/01/23 by Everardo Mohan MD atorvastatin 10 mg PO BEDTIME blood sugar diagnostic (FreeStyle Lite Strips) CHECK BLOOD SUGAR 3-4X/DAY blood-glucose meter (FreeStyle [place] Lite kit) check BS 1-2x/day enalapril maleate 10 mg PO DAILY gabapentin 300 mg PO BID insulin glargine (Lantus Solostar U-100 Insulin) 30 units (0.3 mL) subcut QPM insulin lispro (Humalog KwikPen (U-100) Insulin) 10 units (0.1 mL) subcut TID lancets (FreeStyle Lancets) check BS 3-4x/day metformin 1,000 mg PO BID pen needle, diabetic (BD Ultra-Fine Micro Pen Needle) As directed Tobacco use date assessed: 06/28/23 Dental Screening Dental Screen Date: 03/22/23 HPI 3mth f/u HPI Details 58-year-old male presents to the office to discuss his chronic medical conditions. Patient's blood sugars have improved after the dose in the insulin was increased. Continues to have discomfort in both his feet. He is able to function and do activities of daily living. Patient reports he is disabled due to mental illness. However he is not on any medications for the same. Has been checking his blood sugars once to twice a week. [facility] Medical History Essential hypertension Endogenous depression Peripheral vascular disease due to secondary diabetes Newly diagnosed diabetes Hyperglycemia No known health problems Surgical History No pertinent past surgical history Social History Household Members: Spouse and Children Housing: Apartment Do you presently have visiting nurse or other home services: No Alcohol intake: never Patient Tobacco Use Status: Never used Tobacco e-Cigarette/Vaping Use: Never Used Second Hand Smoke Exposure: No service: No Current occupational status: unemployed Current occupation: right hand dominant Cognitive needs: No Hearing needs: No Vision needs: Yes (reading reading) Questionnaire Thrive Questionnaire Date Thrive assessed: 03/22/23 JOHN-7 AMB Questionnaire JOHN-7 Date JOHN - 7 assessed: 03/22/23 Source: Developed by Drs. Balaji Lockwood, Bere Mann, Nirmal Marin and colleagues, with an educational osmel from [employer]. Physical exam (Primary Care) Vital Signs: Last Vital Signs Pulse 109 H 06/28/23 09:49 BP 100/70 06/28/23 09:49 Pulse Ox 95 06/28/23 09:49 Oxygen Delivery Method Room Air 06/28/23 09:49 Care Plan Goal for BP management: Blood pressure is well controlled BMI result Body Mass Index 27.5 Tobacco/Smoking Status: Tobacco use Status Tobacco use date assessed 06/28/23 06/28/23 09:58 Patient Tobacco Use Status Never used Tobacco 06/28/23 09:58 e-Cigarette/Vaping Use Never Used 06/28/23 09:58 Thrive Assessment: Date of Thrive Assessment Date Thrive assessed 03/22/23 06/28/23 09:58 Const General: cooperative and healthy appearing Nutritional Appearance: well nourished Orientation/consciousness: patient oriented x3 Limitations: no limitations HENMT Head: Yes normal to inspection Eyes General: appearance normal, both eyes and all related structures Neck Neck: Yes normal visual inspection Chest Chest palpation & inspection: normal palpation of entire chest wall Resp Effort & Inspection: normal respiratory effort Neuro General: patient oriented x3 Results AMB Hemoglobin A1c AMB Hemoglobin A1c 6.7 % Last Edit by ALIZE Marcus on 06/28/23 10:06 Results Reviewed Results Reviewed: Laboratory Last Values Hgb A1c (Clinic) 6.7 % (4.0-6.0) H 06/28/23 09:48 Assessment and Plan Assessment & Plan (1) Endogenous depression: 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 Is currently not seeing any mental health worker (2) Diabetes mellitus with neuropathy: Code(s): E11.40 - Type 2 diabetes mellitus with diabetic neuropathy, unspecified Plan: Gabapentin dosage has been increased to twice a day. A1c is in range. Continue using insulin at the same dosage. Importance of diet and exercise explained to patient (3) Essential hypertension: Code(s): I10 - Essential (primary) hypertension Plan: Blood pressure is in range. Continue medications at same dosage Orders: Orders AMB Hemoglobin A1c 06/28/23 E11.40 - Type 2 diabetes mellitus with diabetic neuropathy, unspecified Coding Level of Care Code Est Pt Level 4 (69039) Diagnoses Endogenous depression F33.2 Diabetes mellitus with neuropathy E11.40 Essential hypertension I10
[2023-06-28 09:49] VITALS: BP 100/70; PULSE 109; O2SAT 95; BMI 27.5
== END 2023-06-28 12:20 | disposition home or self-care (01) ==
PROVIDERS: PCP Internal Medicine; Visit Provider Internal Medicine
DX: E11.40 Type 2 diabetes mellitus with diabetic neuropathy, unspecified (principal); F33.2 Major depressive disorder, recurrent severe without psychotic features; I10 Essential (primary) hypertension; Z79.4 Long term (current) use of insulin
CPT/HCPCS: 83036; 99214

== ENCOUNTER 2023-07-27 16:34 | Emergency (ER) | payer OTHER, SELFPAY ==
[2023-07-27] VITALS (7 sets, daily range): BP systolic 66–128; BP diastolic 36–105; PULSE 57–110; RESP 21–22; TEMP -17.7–36.5; O2SAT 95–96; BMI 32.9
--- NOTE | 2023-07-27 | ECG_ITS ---
Test Reason : chest pain Blood Pressure : / mmHG Vent. Rate : 121 BPM Atrial Rate : 121 BPM P-R Int : 216 ms QRS Dur : 094 ms QT Int : 264 ms P-R-T Axes : 053 -14 088 degrees QTc Int : 374 ms Sinus tachycardia with 1st degree A-V block Possible Left atrial enlargement Left ventricular hypertrophy with repolarization abnormality ( R in aVL , [place] product ) Inferior infarct , possibly acute Anterior infarct , age undetermined ACUTE DE / STEMI Consider right ventricular involvement in acute inferior infarct Abnormal ECG When compared to the previous EKG of inferior ST elevations present Referred By: Generic ED Physician Electronically Signed By:Conor Loera
--- NOTE | ~2023-07-27 | XR_ITS ---
EXAMINATION: PORTABLE CHEST 1 VIEW CLINICAL INFORMATION: chest pain. COMPARISON: 06/06/2021. TECHNIQUE: Portable frontal view of the chest was obtained. FINDINGS: Lungs are hypoexpanded with basilar markings more likely due to atelectasis with this degree of hypoexpansion. Overlying EKG leads and pacing pads are present. No significant effusion or pneumothorax. Cardiac and mediastinal silhouettes are within upper normal limits for size for this hypoexpanded portable technique. XR/XR chest 1V IMPRESSION: Hypoexpanded with basilar markings more likely due to atelectasis.
[2023-07-27 16:59] LABS: MANUAL DIFF FLAG NO
[2023-07-27] MEDS: Heparin Sodium,Porcine 5,000 UNIT/ML VIAL 4000 UNIT IVPUSH (17:01)
[2023-07-27 17:05] LABS: Basophils Percent Auto 0.3 % (0-2); Eosinophils Percent Auto 0.2 % (0-4); Hematocrit 37.8 % (42.0-52.0); Hemoglobin 12.8 g/dl (14.0-18.0); Imm Gran Abs Auto 0.04 X10*3/uL (0.00-0.03); Imm Gran Pct Auto 0.3 % (0.0-0.4); Lymphocytes Absolute Auto 2.5 X10*3/uL (1.2-4.9); Lymphocytes Percent Auto 21.8 % (20-40); Mean Corpuscular HGB Conc 33.9 g/dl (31.0-36.0); Mean Corpuscular Hemoglobin 28.8 pg (27.0-33.0); Mean Corpuscular Volume 85.1 fL (80.0-98.0); Mean Platelet Volume 9.9 fL (9.4-12.4); Monocytes Percent Auto 8.6 % (2-11); Neutrophils Absolute Auto 7.9 x10*3/uL (2.0-8.3); Neutrophils Percent Auto 68.8 % (45-73); Platelet Count 187 X10*3/uL (160-400); Red Blood Count 4.44 X10*6/uL (4.60-5.80); Red Cell Distribution Width 13.1 % (11.0-16.0); White Blood Count 11.5 X10*3/uL (4.8-10.8)
--- NOTE | 2023-07-27 17:12 | ED_ITS ---
HPI - Chest Pain General Chief Complaint: Chest Pain Stated Complaint: Chest pain Time Seen by Provider: 07/27/23 16:48 Source: patient, family and old records reviewed Mode of arrival: ambulatory Limitations: no limitations History of Present Illness HPI narrative: 58 yo male with PAD, HTN, DM here with daughter they note two days of intermittent chest pain and trouble breathing about 1 hour it worsened so he took his enalapril 10mg and an advil but no relief. Came to the ED. Has never had heart attack before. Daughter notes has had this before but not to this degree and they chalked it up to his history of anxiety MD complaint: chest pain Onset (ago): day(s) (2) Timing of current episode: episodic Prior episodes: Yes Onset: during rest Pain location: substernal Pain radiation: left arm Severity: moderate Quality: crushing Relieving factors: nothing Exacerbating factors: other (any exertion or movement) Associated symptoms: nausea, dyspnea and other (dizziness) Treatment prior to arrival: other (enalapril, advil) Related Data Previous Rx's ?Medication ?Instructions ?Recorded blood-glucose meter (FreeStyle #1 ea 07/08/21 [place] Lite kit) gabapentin 300 mg capsule 300 mg PO BID #180 caps 05/04/22 blood sugar diagnostic (FreeStyle #100 strips 11/08/22 Lite Strips) pen needle, diabetic 32 gauge x #100 ea 12/14/2203/22 (BD Ultra-Fine Micro Pen Needle) insulin lispro 100 unit/mL 10 unit (0.1 mL) subcut TID #15 mL 03/22/23 subcutaneous pen (Humalog KwikPen (U-100) Insulin) insulin glargine 100 unit/mL (3 30 unit (0.3 mL) subcut QPM #15 mL 03/29/23 mL) subcutaneous pen (Lantus Solostar U-100 Insulin) lancets 28 gauge (FreeStyle #100 ea 03/29/23 Lancets) atorvastatin 10 mg tablet 10 mg PO BEDTIME #90 tabs 06/25/23 metformin 1,000 mg tablet 1,000 mg PO BID #180 tabs 06/25/23 enalapril maleate 10 mg tablet 10 mg PO DAILY #90 tabs 06/30/23 Allergies Allergy/AdvReac Type Severity Reaction Status Date / Time glipizide AdvReac Mild Dizziness Verified 07/27/23 17:06 Review of Systems 2 Review of Systems: Constitutional : No Weight loss, No Fever, No Chills ENT/Mouth : No sore throat, No Rhinorrhea Eyes: No Eye Pain, No Swelling Cardiovascular : pos Chest Pain, pos SOB, no Dyspnea on Exertion, No Orthopnea, No Edema, No Palpitations Respiratory : No Cough, No Sputum Gastrointestinal : pos Nausea, No Vomiting, No Diarrhea, No abdominal Pain, No Hematochezia, No Melena Genitourinary : No Dysuria, No Urinary Frequency Musculoskeletal : No joint pain, No Myalgias, No Joint Swelling Skin : No Skin Lesions, No rash Neuro : No Weakness, No Numbness, pos Dizziness, No Headache Psych : No Anxiety/Panic, No Depression Heme/Lymph: No Bruising, No Lymphadenopathy Endocrine : No Polyuria, No Polydipsia All other systems reviewed and are negative [facility] Past Medical History Attestation statement: The following information was validated with the patient. Source: old records reviewed Medical History Essential hypertension Endogenous depression Peripheral vascular disease due to secondary diabetes Newly diagnosed diabetes Hyperglycemia No known health problems Surgical History No pertinent past surgical history Social History Social History Household Members: Spouse and Children Housing: Apartment Do you presently have visiting nurse or other home services: No Alcohol intake: never Patient Tobacco Use Status: Never used Tobacco e-Cigarette/Vaping Use: Never Used Second Hand Smoke Exposure: No Advance Directives: No Advance Directives Information Provided: No service: No Current occupational status: unemployed Current occupation: right hand dominant Cognitive needs: No Hearing needs: No Vision needs: Yes (reading reading) Physical Exam 2 Vital Signs: Vital Signs: Last Vital Signs Temp 97.7 F 07/27/23 17:04 Pulse 59 07/27/23 17:07 Resp 22 H 07/27/23 17:07 BP 66/36 L 07/27/23 17:07 Pulse Ox 95 07/27/23 17:07 O2 Del Method Nasal Cannula 07/27/23 17:07 O2 Flow Rate 2 07/27/23 17:07 Oxygen Flow Rate 2 07/27/23 16:59 BMI result Body Mass Index 32.9 Appearance: Alert. Oriented X3. moderate acute distress. anxious appears in pain Eyes: Pupils equal, round and reactive to light. ENT: Pharynx dry MM Neck: Normal inspection. Neck supple. CVS: Normal heart rate and rhythm. Pulses normal. Respiratory: No respiratory distress. Breath sounds normal. Abdomen: Soft and nontender. Skin: Skin warm and dry. pale skin color. Normal skin turgor. Extremities: No lower extremity edema. Neuro: Oriented X 3. No motor deficit. No sensory deficit. Course Course Course Narrative: transport has been called for since he arrived. repeat calls to [facility] for transport initial 1651 repeat call again 1714 patient remains hypotensive after 1st liter only see 1st degree block still pending repeat call back HR in 50s will consider adding levophed at this time if he does not bring his pressure up 516pm call to Dr. Loera to see if he is inspector clip on sunglasses or if he can reach someone. I am going to start pressors he is also going to try to reach interventionalist for me. 523pm I myself have called the STEMI transfer line to try to reach the interventionalist they are trying to patch me through to the seed analysis laboratory assistant no answer 525pm Dr. Rodriguez to call us on back line 528pm accepted by Dr. Rodriguez sent to ER out of ER at 1732 Medications Administered Discontinued Medications Generic Name Dose Route Start Last Admin Trade Name Freq PRN Reason Stop Dose Admin Heparin Sodium (Porcine) 4,000 unit 07/27/23 16:49 07/27/23 17:01 Heparin Sodium,Porcine 5,000 Unit/Ml Vial IVPUSH 07/27/23 16:50 4,000 unit ONCE ONE Administration Medical Decision Making Medical Decision Making MDM Narrative: 58 yo male with PAD, HTN, DM here with c/o chest pain on and off for 2 days now with worsening pain x 1 hour decided to take enalapril 10mg prior to coming in but that did not help he denies any risk factors for bleeding or GIB history at this time - EKG concerning for inf wall AL and hypotensive - IVF x 2L, aspirin, heparing, brilinta 180, atorvastatin ordered. STEMI transfer line and transport notified at 1651 on arrival to room. Will monitor pressure closely. Pads on patient on arrival. Plan to recheck EKG for any signs of heart block. Differential Diagnosis Differential Diagnoses: The differential diagnosis associated with the presentation includes has INF wall STEMI with likely R ventricular involvement and hypotension Admission/Observation Consideration of admission/observation: Escalation of care including admission/observation considered on arrival call STEMI transfer line for rapid transfer and le[place] transfer in our ED to transfer patient - pending repeat call back from [facility] - I involved our cardiology team started fluids and pressors to maintain pressure and considered lysis if we did not hear back from cardiology within the next 20 minutes given his presentation. repeat EKG done to make sure he was not in heart block and did not need pacer or atropine. Consult Healthcare Provider Management of the patient was discussed with: Head Of Talent Management (cardiology x 2 at [facility] and [facility]) Lab Data MDM Lab Attestation statement: I reviewed the patient's lab results. 07/27/23 16:56 07/27/23 16:56 Labs: Lab Results 07/27/23 07/27/23 Range/Units 16:56 16:58 WBC 11.5 H (4.8-10.8) X10*3/uL RBC 4.44 L (4.60-5.80) X10*6/uL Hgb 12.8 L (14.0-18.0) g/dl Hct 37.8 L (42.0-52.0) % MCV 85.1 (80.0-98.0) fL MCH 28.8 (27.0-33.0) pg MCHC 33.9 (31.0-36.0) g/dl RDW 13.1 (11.0-16.0) % Plt Count 187 (160-400) X10*3/uL MPV 9.9 (9.4-12.4) fL Immature Gran % (Auto) 0.3 (0.0-0.4) % Neut % (Auto) 68.8 (45-73) % Lymph % (Auto) 21.8 (20-40) % [place] % (Auto) 8.6 (2-11) % Eos % (Auto) 0.2 (0-4) % Baso % (Auto) 0.3 (0-2) % Lymph # (Auto) 2.5 (1.2-4.9) X10*3/uL [place] # (Auto) 1.0 (0.1-1.2) X10*3/uL Eos # (Auto) 0.0 (0.0-0.4) X10*3/uL Baso # (Auto) 0.0 (0.0-0.2) X10*3/uL Abs Immat Gran (auto) 0.04 H (0.00-0.03) X10*3/uL Absolute Neuts (auto) 7.9 (2.0-8.3) x10*3/uL Absolute Nucleated RBC 0.000 (0.0-0.012) X10*3/uL Nucleated RBC % (auto) 0.0 (0.0-0.2) /100WBC Hold Purple Top SEE NOTE Hold Blue Top SEE NOTE Independent Interpretation I performed an independent interpretation of an: EKG and Plain X-Ray Interpretation: Rate: 121 Rhythm: sinus tachycardia [place]: left Normal P waves. Normal TAB. Normal QRS complex. ST T wave : DEMETRIS inf leads, ST depression lateral leads qTC: 374 prior studies: acute inf STEMI The study has been interpreted contemporaneously by me. EKG #2 Rate: 59 Rhythm: sinus bradycardia [place]: normal Normal P waves. 1st degree AV block Normal QRS complex. ST T wave : DEMETRIS inf leads, ST depressions lateral leads, ST depressions V1-V2 qTC: 399 prior studies: inf wall STEMI with likely R ventricular involvement The study has been interpreted contemporaneously by me. . Radiology Impression Discussion of test interpretation with radiology: I have reviewed the radiologist's reading. Critical Care Time Critical Care Time Critical Care Time: Yes Total Critical Care Time: 60 Attestation: repeat EKG, consult x2, repeat assessments, 2L of IVF, STEMI transfer, family discussion I attest to this time spent taking care of the patient Discharge Plan Discharge Clinical Impression: Acute AL, inferior wall Patient Disposition: Xfer Acute Care Hospital Transfer Details: [facility] Prescriptions: No Action (DME) FreeStyle Lite Strips Strip See Rx Instructions .ROUTE .COMPLEX Qty: 100 3RF Dose Instruction: CHECK BLOOD SUGAR 3-4X/DAY Rx Instructions: CHECK BLOOD SUGAR 3-4X/DAY insulin glargine [Lantus Solostar U-100 Insulin] 100 unit/mL (3 mL) insulin pen 30 unit subcut QPM Qty: 15 3RF (DME) lancets [FreeStyle Lancets] 28 gauge misc See Rx Instructions .Route Qty: 100 0RF Rx Instructions: check BS 3-4x/day atorvastatin 10 mg tablet 10 mg PO BEDTIME Qty: 90 1RF metformin 1,000 mg tablet 1,000 mg PO BID Qty: 180 1RF enalapril maleate 10 mg tablet 10 mg PO DAILY Qty: 90 1RF (DME) pen needle, diabetic [BD Ultra-Fine Micro Pen Needle] 32 gauge x 1/4 needle See Rx Instructions .Route Qty: 100 0RF Rx Instructions: As directed insulin lispro [Humalog KwikPen Insulin] 100 unit/mL insulin pen 10 unit subcut TID Qty: 15 0RF (DME) blood-glucose meter [FreeStyle [place] Lite] Kit See Rx Instructions .Route Qty: 1 0RF Rx Instructions: check BS 1-2x/day gabapentin 300 mg capsule 300 mg PO BID Qty: 180 1RF Print Language: Amharic
--- NOTE | 2023-07-27 17:15 | MHC.EDTECH ---
repeat EKG performed 1709
[2023-07-27 17:16] LABS: Alanine Aminotransferase 60 U/L (0-40); Albumin Level 3.5 g/dL (3.5-5.0); Alkaline Phosphatase 72 U/L (39-117); Anion Gap 19 (12-20); Aspartate Amino Transferase 280 U/L (5-37); Bilirubin Direct 0.3 mg/dL (0.0-0.5); Bilirubin Total 0.9 mg/dL (0.0-1.0); Blood Urea Nitrogen 28 mg/dL (9-16); Calcium 9.8 mg/dL (8.4-10.2); Carbon Dioxide 16 mmol/L (22-29); Chloride 107 mmol/L (96-108); Creatinine Clr Calc Pharmacy 56.8; Estimated Glomerular Filt Rate 47; Glucose Random 185 mg/dL (60-115); Magnesium 1.7 mg/dL (1.6-2.6); Potassium 4.7 mmol/L (3.3-5.1); Sodium 137 mmol/L (135-145); Total Protein 7.6 g/dL (6.5-8.0)
[2023-07-27] MEDS: 0.9 % Sodium Chloride 1,000 ML 999 ML IV ×2 (17:21)
[2023-07-27 17:25] LABS: Glucose, Whole Blood 179 mg/dL (60-115)
--- NOTE | 2023-07-27 17:38 | PC.NURSE ---
pt brought in by daughter for chest pain x2 days. pt appears to be unresponsive needing sternal rub to stay awake. pt is pale, cool, clammy, with high respirations belly breathing. 2 IV accesses obtained, labs drawn and sent. repeat EKG obtained. 20G IV to RAC and 18G IV to L wrist/hand. pt hypotensive, given 2L fluid bolus, and placed in trendelenberg with little effect. both manual and automated BPs obtained and documented in worklist. pt medicated per mar with heparin. able to take 1 sip of water, however unable to stay awake/tolerate po medications. pt stating my mouth feels heavy . pt daughter at bedside stating pt took an unmeasured abount of liquid tylenol cold and flu, as he does this when he starts to feel unwell like this . STEMI line at [facility] called, EMS on standby outside pt room. levophed drip prepared for pt. EMS to administer on route to [facility]. pt en route to [facility] ED to be evaluated by cath team.
--- NOTE | 2023-07-30 07:52 | ECG_ITS ---
Test Reason : REPEAT/NSTEMI Blood Pressure : / mmHG Vent. Rate : 059 BPM Atrial Rate : 059 BPM P-R Int : 220 ms QRS Dur : 106 ms QT Int : 404 ms P-R-T Axes : 017 092 -09 degrees QTc Int : 399 ms Sinus bradycardia with 1st degree A-V block Rightward axis Inferior infarct , possibly acute Possible Anterior infarct , age undetermined ACUTE NV / STEMI Consider right ventricular involvement in acute inferior infarct Abnormal ECG Referred By: Susan Harrison Electronically Signed By:JACK BOWMAN MD
== END 2023-07-27 18:07 | disposition short-term general hospital (02) ==
PROVIDERS: Emergency Provider Emergency Medicine; PCP Internal Medicine
DX: R07.89 Other chest pain (principal); R11.2 Nausea with vomiting, unspecified; I10 Essential (primary) hypertension; M79.602 Pain in left arm; R06.02 Shortness of breath; R42 Dizziness and giddiness; Z79.899 Other long term (current) drug therapy
CPT/HCPCS: 36415; 71045; 80048; 80076; 82947; 83735; 84484; 85025; 93005; 96361; 96374; 99285; J1644

== ENCOUNTER → 2023-07-27 16:43 | Outpatient (BNV) | payer OTHER, SELFPAY | PROVIDERS: Emergency Provider Emergency Medicine; PCP Internal Medicine; Visit Provider Internal Medicine Cardiovascular Disease | DX: I44.0 Atrioventricular block, first degree (principal); R00.0 Tachycardia, unspecified | CPT/HCPCS: 93010 ==

== ENCOUNTER → 2023-07-30 07:52 | Outpatient (BNV) | payer OTHER, SELFPAY | PROVIDERS: Emergency Provider Emergency Medicine; PCP Internal Medicine; Visit Provider Internal Medicine Cardiovascular Disease | DX: I44.0 Atrioventricular block, first degree (principal) | CPT/HCPCS: 93010 ==

== ENCOUNTER 2023-08-29 15:26 | Outpatient (AMB) | payer OTHER, SELFPAY ==
--- NOTE | 2023-08-29 15:32 | MHC.PC.OV ---
Vital Signs 08/29/23 15:33 Height 5 ft 7 in Weight 201 lb 6 oz BMI 31.5 BP 90/50 L Blood Pressure Location Rt brachial Position Sitting Pulse 99 Pulse Source Pulse Oximeter Pulse Oximetry (%) 94 Oxygen Delivery Method Room Air Intake Visit Reasons: [facility] 08/06 heart attack Intake Note: Patient is here for hospital discharge follow up. Patient was discharged from [facility] ER to [facility] on 07/26 to 08/06. Rotary Surface Grinder Required: Yes Rotary Surface Grinder Language: Rubber Belt Splicer Name: Oliverio (daughter) Information Interpreted: non-clinical & clinical Legal Counsel: Present Accompanied by: Daughter Allergies glipizide Adverse Reaction (Mild, Verified 08/29/23 15:33) Dizziness Tobacco use date assessed: 08/29/23 Dental Screening Dental Screen Date: 03/22/23 HPI [facility] 08/06 heart attack HPI Details 58 yr old male presents to the office for a hospital discharge follow up. He is accompanied by his daughter. Pt had a STEMI event in July and was transferred to [facility]. He does not bring his discharge papers. Patient reports shortness of breath on exertion. Walking to the office from the parking lot made him breathless. Swelling in the lower extremity. Taking medications regularly. Gained 5 pounds in the past few days. [facility] Medical History (Updated 07/28/23 @ 00:01 by Sheryl Hubbard) Essential hypertension Endogenous depression Peripheral vascular disease due to secondary diabetes Newly diagnosed diabetes Hyperglycemia No known health problems Surgical History (Updated 08/29/23 @ 15:42 by ALIZE Marcus) History of heart artery stent Social History Household Members: Spouse and Children Housing: Apartment Do you presently have visiting nurse or other home services: No Alcohol intake: never Patient Tobacco Use Status: Never used Tobacco e-Cigarette/Vaping Use: Never Used Second Hand Smoke Exposure: No service: No Current occupational status: unemployed Current occupation: right hand dominant Cognitive needs: No Hearing needs: No Vision needs: Yes (reading reading) Questionnaire Thrive Questionnaire Date Thrive assessed: 03/22/23 JOHN-7 AMB Questionnaire JOHN-7 Date JOHN - 7 assessed: 03/22/23 Source: Developed by Drs. Balaji Lockwood, Bere Mann, Nirmal Marin and colleagues, with an educational somel from [employer] Physical exam (Primary Care) Vital Signs: Last Vital Signs Pulse 99 08/29/23 15:33 BP 90/50 L 08/29/23 15:33 Pulse Ox 94 08/29/23 15:33 Oxygen Delivery Method Room Air 08/29/23 15:33 BMI result Body Mass Index 31.5 Tobacco/Smoking Status: Tobacco use Status Tobacco use date assessed 08/29/23 08/29/23 15:43 Patient Tobacco Use Status Never used Tobacco 08/29/23 15:43 e-Cigarette/Vaping Use Never Used 08/29/23 15:43 Thrive Assessment: Date of Thrive Assessment Date Thrive assessed 03/22/23 08/29/23 15:43 Const General: cooperative and healthy appearing Nutritional Appearance: well nourished Orientation/consciousness: patient oriented x3 Limitations: no limitations HENMT Head: Yes normal to inspection Eyes Other: Pale sclera General: appearance normal, both eyes and all related structures Neck Other: JVD distention Neck: Yes normal visual inspection Chest Chest palpation & inspection: normal palpation of entire chest wall Resp Other: Diminished breath sounds in the bases Effort & Inspection: normal respiratory effort Cardio Rate: tachycardic Skin Other: Lower ext bilaterally: Pitting edema. Neuro General: patient oriented x3 Office Procedures EKG Details: Anteroseptal infarct, Sinus Tachycardia [id number], Complete Assessment and Plan Assessment & Plan (1) Congestive heart failure: Code(s): I50.9 - Heart failure, unspecified Plan: EKG shows anteroseptal infarct. Edema feet, hypotension and shortness of breath indicate right ventricular dysfunction. ER notified of patient's arrival via ambulance. Orders: Orders AMB EKG-In Office Today R07.9 - Chest pain, unspecified Coding Level of Care Code Est Pt Level 4 (86418) Complex EM visit Add On G2211 Diagnoses Congestive heart failure I50.9 CPT Codes EKG - CPT: 89576-[id number], Complete ([id number])
[2023-08-29 15:33] VITALS: BP 90/50; PULSE 99; O2SAT 94; BMI 31.5
== END 2023-08-29 16:51 | disposition home or self-care (01) ==
PROVIDERS: PCP Internal Medicine; Visit Provider Internal Medicine
DX: I50.9 Heart failure, unspecified (principal)
CPT/HCPCS: 93000; 99214; G2211

== ENCOUNTER 2023-08-29 16:51 | Inpatient (IN) | payer OTHER, SELFPAY ==
--- NOTE | 2023-08-29 | ECG_ITS ---
Test Reason : SOB Blood Pressure : / mmHG Vent. Rate : 095 BPM Atrial Rate : 095 BPM P-R Int : 196 ms QRS Dur : 084 ms QT Int : 346 ms P-R-T Axes : 042 -09 -50 degrees QTc Int : 434 ms Normal sinus rhythm Nonspecific T wave abnormality Abnormal ECG When compared with ECG of 27-JUL-2023 17:10, Vent. rate has increased BY 36 BPM Nonspecific T wave abnormality, worse in Lateral leads Referred By: Adrian Benson Electronically Signed By:XIN TANG
--- NOTE | 2023-08-29 | ECG_ITS ---
Test Reason : SOB Blood Pressure : / mmHG Vent. Rate : 101 BPM Atrial Rate : 101 BPM P-R Int : 182 ms QRS Dur : 082 ms QT Int : 334 ms P-R-T Axes : 034 -11 -11 degrees QTc Int : 433 ms Sinus tachycardia Inferior infarct (cited on or before 27-JUL-2023) Cannot rule out Anterior infarct (cited on or before 31-AUG-2020) Abnormal ECG When compared with ECG of 27-JUL-2023 17:10, NM interval has decreased Vent. rate has increased BY 42 BPM QRS duration has decreased Serial changes of Inferior infarct Present Referred By: Adrian Benson Electronically Signed By:XIN TANG
--- NOTE | ~2023-08-29 | XR_ITS ---
EXAMINATION: XR CHEST CLINICAL INFORMATION: Shortness of breath COMPARISON: Previous chest x-ray most recent 07/27/2023 TECHNIQUE: Frontal view of the chest was obtained. FINDINGS: The cardiac silhouette is is slightly enlarged but stable. The lung volumes are low. There are increased central bronchovascular markings and bilateral perihilar and lower lung airspace disease, left greater than right. No significant pleural effusion. No pneumothorax. Bony structures are unremarkable. XR/XR chest 1V IMPRESSION: Increased central bronchovascular markings and bilateral airspace disease. Differential would include pulmonary edema and pneumonia.
[2023-08-29 17:21] VITALS: BP 101/67; PULSE 108; O2SAT 98
--- NOTE | 2023-08-29 17:21 | ED_ITS ---
HPI - SOB/Dyspnea General Chief Complaint: Dyspnea Stated Complaint: sob Time Seen by Provider: 08/29/23 17:21 Source: patient Mode of arrival: EMS Limitations: no limitations History of Present Illness ED Provider: xin HPI Narrative: Patient's history of hypertension diabetes PAD recent inferior wall OK 07/27/23 comes here for increased shortness of breath for last 2 3 days got worse today with increased leg swelling no chest pain no palpitation no fever or chills no cough Related Data Home Medications ?Medication ?Instructions ?Recorded ?Confirmed aspirin 81 mg tablet,delayed 81 mg PO DAILY 08/29/23 08/29/23 release atorvastatin 80 mg tablet 80 mg PO BEDTIME 08/29/23 08/29/23 ferrous sulfate 325 mg (65 mg 325 mg PO DAILY 08/29/23 08/29/23 iron) tablet,delayed release insulin glargine 100 unit/mL (3 20 unit subcut QPM 08/29/23 08/29/23 mL) subcutaneous pen (Lantus Solostar U-100 Insulin) metformin 1,000 mg tablet 1,000 mg PO BID 08/29/23 08/29/23 metoprolol succinate 25 mg 25 mg PO DAILY 08/29/23 08/29/23 tablet,extended release 24 hr sacubitril 24 mg-valsartan 26 mg 1 tab PO BID 08/29/23 08/29/23 tablet (Entresto) ticagrelor 90 mg tablet (Brilinta) 90 mg PO BID 08/29/23 08/29/23 Previous Rx's ?Medication ?Instructions ?Recorded blood-glucose meter (FreeStyle #1 ea 07/08/21 [place] Lite kit) blood sugar diagnostic (FreeStyle #100 strips 11/08/22 Lite Strips) pen needle, diabetic 32 gauge x #100 ea 12/14/2203/22 (BD Ultra-Fine Micro Pen Needle) lancets 28 gauge (FreeStyle #100 ea 03/29/23 Lancets) Allergies Allergy/AdvReac Type Severity Reaction Status Date / Time glipizide AdvReac Mild Dizziness Verified 08/29/23 17:30 Review of Systems 2 Review of Systems: Yes all other systems are reviewed and are negative PMFSH Past Medical History Medical History (Updated 08/30/23 @ 01:27 by Edson Lilly MD) Essential hypertension Endogenous depression Peripheral vascular disease due to secondary diabetes Newly diagnosed diabetes Hyperglycemia No known health problems Surgical History (Updated 08/29/23 @ 15:42 by ALIZE Marcus) History of heart artery stent Social History Social History Household Members: Spouse and Children Housing: Apartment Do you presently have visiting nurse or other home services: No Alcohol intake: never Patient Tobacco Use Status: Never used Tobacco e-Cigarette/Vaping Use: Never Used Second Hand Smoke Exposure: No Advance Directives: Yes Advance Directives Information Provided: No Advance Directives on File: No Do you have a plan to hurt others: No Plan service: No Current occupational status: unemployed Current occupation: right hand dominant Cognitive needs: No Hearing needs: No Vision needs: Yes (reading reading) Physical Exam 2 Vital Signs: Vital Signs: Last Vital Signs Temp 98.8 F 08/29/23 23:04 Pulse 95 08/29/23 23:04 Resp 20 08/29/23 23:04 BP 92/47 L 08/29/23 23:04 Pulse Ox 97 08/29/23 23:04 O2 Del Method Nasal Cannula 08/29/23 23:04 O2 Flow Rate 3 08/29/23 23:04 Oxygen Flow Rate 3 08/29/23 17:28 BMI result Body Mass Index 31.5 Appearance: Alert. Oriented X3. In moderate distress Eyes: PERRLA, No Nystagmus ENT: Pharynx normal. Oral Mucosa moist Neck: Normal inspection. Neck supple. CVS: Normal heart rate and rhythm. Pulses normal. Respiratory: No respiratory distress. Equal air entry bilateral, bilateral crackles at bases Abdomen: Soft and nontender. Bowel sounds are present, no mass palpable, no CVA tenderness Skin: Skin warm and dry. Normal skin color. Normal skin turgor. Extremities: 2+lower extremity edema. No calf tenderness Neuro: Oriented X 3. No motor deficit. No sensory deficit.No cerebellar signs , cranial nerves II-XII intact Medications Administered Generic Name Dose Route Start Last Admin Trade Name Freq PRN Reason Stop Dose Admin Insulin Human Lispro 0 unit 08/29/23 22:25 08/30/23 00:37 Insulin Lispro 100 Unit/Ml 3 Ml Vial SUBCUT Not Given QIDACHS [facility] Protocol Discontinued Medications Generic Name Dose Route Start Last Admin Trade Name Freq PRN Reason Stop Dose Admin Furosemide 20 mg 08/29/23 17:33 08/29/23 18:21 Furosemide 20 Mg/2 Ml Vial IVPUSH 08/29/23 17:34 20 mg ONCE ONE Administration Protocol Medical Decision Making Medical Decision Making [facility] Narrative: Patient has acute shortness of breath with CHF admit patient for IV diuresis Differential Diagnosis Differential Diagnoses: The differential diagnosis associated with the presentation includes Admission/Observation Consideration of admission/observation: Escalation of care including admission/observation considered Consult Healthcare Provider Management of the patient was discussed with: Hospitalist Lab Data [facility] Lab Attestation statement: I reviewed the patient's lab results. 08/29/23 17:58 08/29/23 17:58 Labs: Lab Results 08/29/23 Range/Units 17:58 WBC 5.6 (4.8-10.8) X10*3/uL RBC 3.47 L D (4.60-5.80) X10*6/uL Hgb 9.5 L D (14.0-18.0) g/dl Hct 30.6 L (42.0-52.0) % MCV 88.2 (80.0-98.0) fL MCH 27.4 (27.0-33.0) pg MCHC 31.0 (31.0-36.0) g/dl RDW 15.6 (11.0-16.0) % Plt Count 221 (160-400) X10*3/uL MPV 9.4 (9.4-12.4) fL Immature Gran % (Auto) 0.2 (0.0-0.4) % Neut % (Auto) 48.0 (45-73) % Lymph % (Auto) 35.7 (20-40) % [place] % (Auto) 11.1 H (2-11) % Eos % (Auto) 4.3 H (0-4) % Baso % (Auto) 0.7 (0-2) % Lymph # (Auto) 2.0 (1.2-4.9) X10*3/uL [place] # (Auto) 0.6 (0.1-1.2) X10*3/uL Eos # (Auto) 0.2 (0.0-0.4) X10*3/uL Baso # (Auto) 0.0 (0.0-0.2) X10*3/uL Abs Immat Gran (auto) 0.01 (0.00-0.03) X10*3/uL Absolute Neuts (auto) 2.7 (2.0-8.3) x10*3/uL Absolute Nucleated RBC 0.000 (0.0-0.012) X10*3/uL Nucleated RBC % (auto) 0.0 (0.0-0.2) /100WBC PT 13.1 (11.1-13.3) SEC INR 1.1 (0.9-1.1) Sodium 141 (135-145) mmol/L Potassium 3.5 D (3.3-5.1) mmol/L Chloride 111 H (96-108) mmol/L Carbon Dioxide 23 (22-29) mmol/L Anion Gap 11 L (12-20) BUN 9 (9-16) mg/dL Creatinine 0.85 (0.5-1.4) mg/dL Estim Creat Clear Calc 99.5 Estimated GFR > 60 Random Glucose 123 H (60-115) mg/dL Calcium 9.0 D (8.4-10.2) mg/dL Total Bilirubin 0.4 (0.0-1.0) mg/dL AST 33 (5-37) U/L ALT 21 (0-40) U/L Alkaline Phosphatase 90 (39-117) U/L Troponin I High Sens 37.5 H D (<3.5-35.0) ng/L B-Natriuretic Peptide 808 H (<100) pg/mL Total Protein 6.9 (6.5-8.0) g/dL Albumin 3.2 L (3.5-5.0) g/dL Independent Interpretation I performed an independent interpretation of an: EKG and Plain X-Ray Interpretation: Normal sinus rhythm heart rate of 101 beats per minute normal interval normal axis Q-waves in inferior leads no acute ST elevation no acute ischemia Radiology Impression Discussion of test interpretation with radiology: I have reviewed the radiologist's reading. Discharge Plan Discharge Clinical Impression: Acute CHF (congestive heart failure) Patient Disposition: Admitted As Inpatient
[2023-08-29 17:28] VITALS: BP 97/65; PULSE 103; RESP 24; TEMP 36.8; O2SAT 98; BMI 31.5
[2023-08-29 18:14] LABS: MANUAL DIFF FLAG NO
[2023-08-29 18:21] VITALS: BP 99/59
[2023-08-29] MEDS: Furosemide 20 MG/2 ML VIAL IVPUSH (18:21)
[2023-08-29 18:23] LABS: Basophils Percent Auto 0.7 % (0-2); Eosinophils Absolute Auto 0.2 X10*3/uL (0.0-0.4); Eosinophils Percent Auto 4.3 % (0-4); Hematocrit 30.6 % (42.0-52.0); Hemoglobin 9.5 g/dl (14.0-18.0); Imm Gran Abs Auto 0.01 X10*3/uL (0.00-0.03); Imm Gran Pct Auto 0.2 % (0.0-0.4); Lymphocytes Percent Auto 35.7 % (20-40); Mean Corpuscular Hemoglobin 27.4 pg (27.0-33.0); Mean Corpuscular Volume 88.2 fL (80.0-98.0); Mean Platelet Volume 9.4 fL (9.4-12.4); Monocytes Absolute Auto 0.6 X10*3/uL (0.1-1.2); Monocytes Percent Auto 11.1 % (2-11); Neutrophils Absolute Auto 2.7 x10*3/uL (2.0-8.3); Platelet Count 221 X10*3/uL (160-400); Red Blood Count 3.47 X10*6/uL (4.60-5.80); Red Cell Distribution Width 15.6 % (11.0-16.0); White Blood Count 5.6 X10*3/uL (4.8-10.8)
[2023-08-29 18:25] LABS: INTERNATIONAL NORM RATIO 1.1 (0.9-1.1); Prothrombin Time 13.1 SEC (11.1-13.3)
[2023-08-29 18:31] VITALS: BP 99/59; PULSE 101; RESP 20; TEMP 36.7; O2SAT 100
[2023-08-29 18:41] LABS: Troponin-I High Sensitivity 37.5 ng/L (<3.5-35.0)
[2023-08-29 18:46] LABS: B Type Natriuretic Peptide 808 pg/mL (<100)
[2023-08-29 18:49] LABS: Alanine Aminotransferase 21 U/L (0-40); Albumin Level 3.2 g/dL (3.5-5.0); Alkaline Phosphatase 90 U/L (39-117); Anion Gap 11 (12-20); Aspartate Amino Transferase 33 U/L (5-37); Bilirubin Total 0.4 mg/dL (0.0-1.0); Blood Urea Nitrogen 9 mg/dL (9-16); Carbon Dioxide 23 mmol/L (22-29); Chloride 111 mmol/L (96-108); Creatinine Clr Calc Pharmacy 99.5; Estimated Glomerular Filt Rate > 60; Glucose Random 123 mg/dL (60-115); Potassium 3.5 mmol/L (3.3-5.1); Sodium 141 mmol/L (135-145); Total Protein 6.9 g/dL (6.5-8.0)
--- NOTE | 2023-08-29 21:42 | PHA.MEDREC ---
Pharmacy Consult ? Medication Reconciliation Pharmacy has completed the medication reconciliation. Spoke to patient daughter Olievrio to confirm med list. She states the Dr has discontinued a few meds. Farxiga 10 mg daily, Enalapril 10 mg daily, Fluoxetine 20 mg daily, Gabapentin 300 mg tid, Hydroxyzine [place] 25 mg tid, Trazadone 50 mg at bedtime, and Zolpidem 10 mg at bedtime have all been stopped. She also stated he hasn't started the Metoprolol succ 25 mg daily because caps aren't covered they are waiting on the Dr. to call in tablets.
[2023-08-29 23:04] VITALS: BP 92/47; PULSE 95; RESP 20; TEMP 37.1; O2SAT 97
--- NOTE | 2023-08-29 23:17 | P.HPHOSP_ITS ---
History of Present Illness Date of Service: 08/29/23 Attending physician on admission: Adrian Benson Chief Complaint: Shortness of breaths Jhoan Manriquez is a 58 years old man with past medical history significant for CHF (has not been started on beta peyman yet due to insurance issues), coronary artery disease (STEMI July 2023 s/p cardiac stenting on Brilinta), type 2 diabetes mellitus on insulin, essential hypertension and hyperlipidemia presents to the emergency department complaining of worsening shortness of breath over the last 3 days associated with significant edema to the lower extremities. He stated that his shortness on breath is worse with activity or lying down. He does have some occasional dry cough and denies chest pain. Denies headache, dizziness, nausea, vomiting, fevers or chills. He denies history of tobacco smoking, alcohol abuse or illicit drug use. He mentioned that he has been drinking lots of water recently. In the ED, he was found to have stable vital signs. His blood pressure is low normal 92/47. There is mild tachycardia. There is no fever. He was placed on nasal cannula, oxygen saturation is normal on room air. Blood workup showed no leukocytosis. Hemoglobin is 9.5 (it was 12.8 in July of this year). Platelets and INR are normal. There are no significant electrolyte imbalances. Creatinine is 0.85. LFTs are normal. Troponin is 37.5 and BNP 108. CXR is consistent with pulmonary edema. ED tx: Furosemide 20 mg IV Review of Systems 2 Review of Systems: All 12 systems were reviewed and normal except as noted in HPI. [facility] Medical History (Updated 08/29/23 @ 23:46 by Adrian Benson MD) Essential hypertension Endogenous depression Peripheral vascular disease due to secondary diabetes Newly diagnosed diabetes Hyperglycemia No known health problems Surgical History (Updated 08/29/23 @ 15:42 by ALIZE Marcus) History of heart artery stent Social History Household Members: Spouse and Children Housing: Apartment Do you presently have visiting nurse or other home services: No Alcohol intake: never Patient Tobacco Use Status: Never used Tobacco e-Cigarette/Vaping Use: Never Used Second Hand Smoke Exposure: No Advance Directives: Yes Advance Directives Information Provided: No Advance Directives on File: No Do you have a plan to hurt others: No Plan service: No Current occupational status: unemployed Current occupation: right hand dominant Cognitive needs: No Hearing needs: No Vision needs: Yes (reading reading) Meds Allergies Allergy/AdvReac Type Severity Reaction Status Date / Time glipizide AdvReac Mild Dizziness Verified 08/29/23 17:30 Active Medications: Current Medications Acetaminophen (Acetaminophen 325 Mg Tablet) 650 mg PO Q6H PRN PRN Reason: Pain, Mild (Pain Scale 1-3) Aspirin (Aspirin Enteric Coated 81 Mg Tablet.) 81 mg PO DAILY [facility] Atorvastatin Calcium (Atorvastatin Calcium 80 Mg Tablet) 80 mg PO BEDTIME QUYEN Ferrous Sulfate (Ferrous Sulfate 324 Mg Tablet.) 324 mg PO DAILY [facility] Furosemide (Furosemide 40 Mg/4 Ml Vial) 40 mg IVPUSH DAILY [facility]; Protocol Glucose (Glucose Gel 15 Gm Gel..Gram.) 15 gm PO Q15M PRN; Protocol PRN Reason: per Hypoglycemia Standing Ord. Dextrose (D10) 250 mls @ 750 mls/hr IV Q15M PRN; Protocol PRN Reason: per Hypoglycemia Standing Ord. Insulin Glargine (Insulin Glargine,Hum.Rec.Anlog 100 Unit/Ml 10 Ml Vial) 20 unit SUBCUT BEDTIME [facility] Insulin Human Lispro (Insulin Lispro 100 Unit/Ml 3 Ml Vial) 0 unit SUBCUT QIDACHS [facility]; Protocol Sacubitril/Valsartan (Sacubitril/Valsartan 1 Tab Tablet) 1 tab PO BID [facility]; Protocol Sodium Chloride (0.9 % Sodium Chloride Flush 3 Ml Syringe) 3 ml IVFLUSH QSHIFT [facility] Ticagrelor (Ticagrelor 90 Mg Tablet) 90 mg PO BID [facility] Home Medications ?Medication ?Instructions ?Recorded ?Confirmed ?Last Taken ?Type aspirin 81 mg tablet,delayed 81 mg PO DAILY 08/29/23 08/29/23 08/29/23 History release atorvastatin 80 mg tablet 80 mg PO BEDTIME 08/29/23 08/29/23 08/29/23 History ferrous sulfate 325 mg (65 mg 325 mg PO DAILY 08/29/23 08/29/23 08/29/23 History iron) tablet,delayed release insulin glargine 100 unit/mL (3 20 unit subcut QPM 08/29/23 08/29/2324 History mL) subcutaneous pen (Lantus Solostar U-100 Insulin) metformin 1,000 mg tablet 1,000 mg PO BID 08/29/23 08/29/23 08/29/23 History metoprolol succinate 25 mg 25 mg PO DAILY 08/29/23 08/29/23 08/29/23 History tablet,extended release 24 hr sacubitril 24 mg-valsartan 26 mg 1 tab PO BID 08/29/23 08/29/23 08/29/23 History tablet (Entresto) ticagrelor 90 mg tablet (Brilinta) 90 mg PO BID 08/29/23 08/29/23 08/29/23 History Physical Exam 2 Vital Signs and Narrative: Vital Signs: Last Vital Signs Temp 98.8 F 08/29/23 23:04 Pulse 95 08/29/23 23:04 Resp 20 08/29/23 23:04 BP 92/47 L 08/29/23 23:04 Pulse Ox 97 08/29/23 23:04 O2 Del Method Nasal Cannula 08/29/23 23:04 O2 Flow Rate 3 08/29/23 23:04 Oxygen Flow Rate 3 08/29/23 17:28 BMI result Body Mass Index 31.5 Constitutional - Awake and Alert, No apparent distress. Pleasant. Cooperative. Nasal cannula in place HEENT - Pupils equally round reactive to light. Normal sclerae. Dry oral mucosa. Heart - S1S2, RRR. Lungs- Normal lung expansion, Normal respiratory effort, No respiratory distress. Bibasilar crackles. No wheezing. No rhonchi Abdomen - NT / ND; +BS; No rebound or guarding Extremities - severe pitting edema to the lower extremities. No erythema on. No tenderness. Musculoskeletal - Normal inspection, normal ROM Skin - Warm/Dry Neurological - Alert & oriented x3. No focal weakness grossly noted. Normal speech. Psychological - Appropriate affect Results Labs 08/29/23 17:58 08/29/23 17:58 Labs: Laboratory Results - last 24 hr 08/29/23 17:58 MCV 88.2 MCH 27.4 MCHC 31.0 RDW 15.6 Plt Count 221 MPV 9.4 Immature Gran % (Auto) 0.2 Neut % (Auto) 48.0 Lymph % (Auto) 35.7 [place] % (Auto) 11.1 H Eos % (Auto) 4.3 H Baso % (Auto) 0.7 Lymph # (Auto) 2.0 [place] # (Auto) 0.6 Eos # (Auto) 0.2 Baso # (Auto) 0.0 Abs Immat Gran (auto) 0.01 Absolute Neuts (auto) 2.7 Absolute Nucleated RBC 0.000 Nucleated RBC % (auto) 0.0 PT 13.1 INR 1.1 Anion Gap 11 L Estim Creat Clear Calc 99.5 Estimated GFR > 60 Random Glucose 123 H Calcium 9.0 D Total Bilirubin 0.4 AST 33 ALT 21 Alkaline Phosphatase 90 Troponin I High Sens 37.5 H D B-Natriuretic Peptide 808 H Total Protein 6.9 Albumin 3.2 L Imaging Radiologist's Impressions: Impressions Chest X-Ray 08/29/23 17:50 IMPRESSION: Increased central bronchovascular markings and bilateral airspace disease. Differential would include pulmonary edema and pneumonia. Assessment and Plan (1) Acute on chronic congestive heart failure: Qualifiers: Heart failure type: systolic Qualified Code(s): I50.23 - Acute on chronic systolic (congestive) heart failure Status: Acute (2) Coronary artery disease: Qualifiers: Coronary Disease-Associated Artery/Lesion type: [place] artery [place] vs. transplanted heart: [place] heart Associated angina: without angina Q ualified Code(s): I25.10 - Atherosclerotic heart disease of [place] coronary artery without angina pectoris Status: Acute Plan Jhoan Manriquez is 58 y/o man admitted with: * Acute on chronic systolic congestive heart failure. Admit to hospitalist service. Telemetry. Pulse oximetry. Supplemental oxygen to keep O2 sats > 90%. Continue treatment with furosemide 40 mg IV daily. Patient is supposed to take metoprolol but he has not been taking it due to insurance issues. Continue Entresto. Check echocardiogram. Check ECG. Cardiology consult. * CAD. Continue aspirin, statin and Brilinta. * Type 2 diabetes mellitus. Hold metformin due to CHF. BG checks before midnight at bedtime. Continue treatment with Lantus and insulin sliding scale. Check AIc. * Essential hypertension. Continue home meds if BP allows. * Anemia (Hgb 12.8 --> 9.5 over the last mo). Continue ferrous sulfate. Continue to monitor H&H. Code status: Full. DVT prophylaxis: We will avoid heparin/Lovenox as patient takes Brilinta and aspirin. Patient will need hospitalization for at least 2 midnights acute on chronic systolic congestive failure treatment with IV diuresis, continuous cardiac monitoring and evaluation by subspecialty. Quality Stroke Does the patient have a stroke diagnosis?: No VTE Prior VTE?: No VTE Risk Level:: Medical - moderate - high VTE Device Contraindication: Treatment Not Indicated VTE Drug Contraindication: N/A - Med Ordered
[2023-08-29 23:43] LABS: Glucose, Whole Blood 105 mg/dL (60-115)
[2023-08-30] VITALS (7 sets, daily range): BP systolic 97–109; BP diastolic 54–67; PULSE 93–103; RESP 17–20; TEMP 36.2–37.3; O2SAT 96–99
[2023-08-30 04:34] LABS: MANUAL DIFF FLAG NO
[2023-08-30 04:35] LABS: Basophils Percent Auto 0.8 % (0-2); Eosinophils Absolute Auto 0.3 X10*3/uL (0.0-0.4); Eosinophils Percent Auto 6.4 % (0-4); Hematocrit 29.9 % (42.0-52.0); Hemoglobin 9.4 g/dl (14.0-18.0); Imm Gran Abs Auto 0.01 X10*3/uL (0.00-0.03); Imm Gran Pct Auto 0.2 % (0.0-0.4); Lymphocytes Absolute Auto 1.9 X10*3/uL (1.2-4.9); Lymphocytes Percent Auto 36.9 % (20-40); Mean Corpuscular HGB Conc 31.4 g/dl (31.0-36.0); Mean Corpuscular Hemoglobin 27.9 pg (27.0-33.0); Mean Corpuscular Volume 88.7 fL (80.0-98.0); Mean Platelet Volume 9.1 fL (9.4-12.4); Monocytes Absolute Auto 0.6 X10*3/uL (0.1-1.2); Monocytes Percent Auto 11.6 % (2-11); Neutrophils Absolute Auto 2.2 x10*3/uL (2.0-8.3); Neutrophils Percent Auto 44.1 % (45-73); Platelet Count 193 X10*3/uL (160-400); Red Blood Count 3.37 X10*6/uL (4.60-5.80); Red Cell Distribution Width 15.6 % (11.0-16.0)
[2023-08-30 04:48] LABS: Anion Gap 11 (12-20); Blood Urea Nitrogen 10 mg/dL (9-16); Calcium 8.5 mg/dL (8.4-10.2); Carbon Dioxide 25 mmol/L (22-29); Chloride 110 mmol/L (96-108); Creatinine Clr Calc Pharmacy 109.8; Estimated Glomerular Filt Rate > 60; Glucose Random 111 mg/dL (60-115); Potassium 3.7 mmol/L (3.3-5.1); Sodium 142 mmol/L (135-145)
[2023-08-30] MEDS: 0.9 % Sodium Chloride Flush 3 ML SYRINGE IVFLUSH ×3 (06:37→18:08)
[2023-08-30 07:12] LABS: Glucose, Whole Blood 81 mg/dL (60-115)
[2023-08-30 07:19] LABS: Estimated Average Glucose 108 mg/dL; Hemoglobin A1c % 5.4 % (<6.0)
[2023-08-30] MEDS: Ticagrelor 90 MG TABLET PO ×2 (08:58→21:37)
[2023-08-30] MEDS: Aspirin Enteric Coated 81 MG TABLET.DR PO (08:58)
[2023-08-30] MEDS: Furosemide 40 MG/4 ML VIAL IVPUSH (08:59)
[2023-08-30] MEDS: Ferrous Sulfate 324 MG TABLET.DR PO (08:59)
--- NOTE | 2023-08-30 10:04 | P.CONCA_ITS ---
History of Present Illness History of Present Illness Date of Service: 08/30/23 Chief complaint: Acute on chronic CHF exacerbation Narrative: This is a cardiology consultation regarding congestive heart failure. [facility] records reviewed. Patient apparently had inferior posterior STEMI about a month ago. Then had cardiac catheterization that showed triple-vessel disease with culprit in the circumflex. Status post PCI. Then apparently developed cardiogenic shock requiring hemodynamic support with IABP/Levophed. Right heart catheterization then showed severely elevated right-sided pressures and thought to be all from left-sided heart failure. On the echocardiogram, LVEF was 20 25%. Based on the last office note from [facility], it seems that he also has low blood pressure issues and hence titrating GDMT has been limited. Current admissions because of increasing shortness of breath over the last few days and he also has some leg swelling. No angina. Review of Systems 2 Review of Systems: Yes all other systems are reviewed and are negative Constitutional: Constitutional: Reports as per HPI and Reports no additional constitutional complaints Eyes: Eyes: Reports as per HPI and Denies no additional eye complaints ENT: Denies system reviewed and no additional complaints, except as documented and Reports as per HPI Cardiovascular: Cardiovascular: Reports as per HPI, Reports no additional cardiovascular complaints, Denies acrocyanosis, Denies cool extremities, Denies chest pain, Denies leg edema, Denies lightheadedness, Denies palpitations and Reports dyspnea Respiratory: Respiratory: Reports as per HPI, Denies no additional respiratory complaints and Reports dyspnea Gastrointestinal: Gastrointestinal: Reports as per HPI and Denies no additional gastrointestinal complaints Genitourinary: Genitourinary: Reports no additional male genitourinary complaints and Reports as per HPI Musculoskeletal: Musculoskeletal: Reports no additional musculoskeletal complaints and Reports as per HPI Integumentary/Breasts: Skin/Breast: Reports system reviewed and no additional complaints, except as docu Neurologic: Reports system reviewed and no additional complaints, except as documented and Reports as per HPI Psychiatric: Psychiatric: Reports no additional psychiatric complaints and Reports as per HPI Endocrine: Endocrine: Reports no additional endocrine complaints, Reports as per HPI and Denies palpitations Hematologic/Lymphatic: Hematologic/Lymphatic: Reports no additional hematologic/lymphatic complaints and Reports as per HPI Allergic/Immunologic: Allergic/Immunologic: Reports no additional allergic/immunologic complaints and Reports as per HPI [facility] Past Medical History Medical History (Updated 08/30/23 @ 10:12 by Erasmo Gilliam MD) Essential hypertension Endogenous depression Peripheral vascular disease due to secondary diabetes Newly diagnosed diabetes Hyperglycemia No known health problems Surgical History Surgical History (Updated 08/29/23 @ 15:42 by ALIZE Marcus) History of heart artery stent Social History Social History Household Members: Spouse and Children Housing: Apartment Do you presently have visiting nurse or other home services: No Alcohol intake: never Patient Tobacco Use Status: Never used Tobacco Smoked in Last 30 Days: No e-Cigarette/Vaping Use: Never Used Second Hand Smoke Exposure: No Use of substances other than those prescribed or required for medical reasons: No Advance Directives: Yes Advance Directives Information Provided: No Advance Directives on File: No Do you have a plan to hurt others: No Plan service: No Current occupational status: unemployed Current occupation: right hand dominant Cognitive needs: No Hearing needs: No Vision needs: Yes (reading reading) Meds Allergies Allergy/AdvReac Type Severity Reaction Status Date / Time glipizide AdvReac Mild Dizziness Verified 08/29/23 17:30 Active Medications: Current Medications Acetaminophen (Acetaminophen 325 Mg Tablet) 650 mg PO Q6H PRN PRN Reason: Pain, Mild (Pain Scale 1-3) Aspirin (Aspirin Enteric Coated 81 Mg Tablet.) 81 mg PO DAILY [facility] Last Admin: 08/30/23 08:58 Dose: 81 mg Atorvastatin Calcium (Atorvastatin Calcium 80 Mg Tablet) 80 mg PO BEDTIME [facility] Ferrous Sulfate (Ferrous Sulfate 324 Mg Tablet.) 324 mg PO DAILY [facility] Last Admin: 08/30/23 08:59 Dose: 324 mg Furosemide (Furosemide 40 Mg/4 Ml Vial) 40 mg IVPUSH DAILY [facility]; Protocol Last Admin: 08/30/23 08:59 Dose: 40 mg Glucose (Glucose Gel 15 Gm Gel..Gram.) 15 gm PO Q15M PRN; Protocol PRN Reason: per Hypoglycemia Standing Ord. Dextrose (D10) 250 mls @ 750 mls/hr IV Q15M PRN; Protocol PRN Reason: per Hypoglycemia Standing Ord. Insulin Human Lispro (Insulin Lispro 100 Unit/Ml 3 Ml Vial) 0 unit SUBCUT QIDACHS [facility]; Protocol Last Admin: 08/30/23 07:14 Dose: Not Given Sacubitril/Valsartan (Sacubitril/Valsartan 1 Tab Tablet) 1 tab PO BID [facility]; Protocol Sodium Chloride (0.9 % Sodium Chloride Flush 3 Ml Syringe) 3 ml IVFLUSH QSHIFT [facility] Last Admin: 08/30/23 08:59 Dose: 3 ml Ticagrelor (Ticagrelor 90 Mg Tablet) 90 mg PO BID [facility] Last Admin: 08/30/23 08:58 Dose: 90 mg Home Medications ?Medication ?Instructions ?Recorded ?Confirmed ?Last Taken ?Type aspirin 81 mg tablet,delayed 81 mg PO DAILY 08/29/23 08/29/23 08/29/23 History release atorvastatin 80 mg tablet 80 mg PO BEDTIME 08/29/23 08/29/23 08/29/23 History ferrous sulfate 325 mg (65 mg 325 mg PO DAILY 08/29/23 08/29/23 08/29/23 History iron) tablet,delayed release insulin glargine 100 unit/mL (3 20 unit subcut QPM 08/29/23 08/29/23 08/28/23 History mL) subcutaneous pen (Lantus Solostar U-100 Insulin) metformin 1,000 mg tablet 1,000 mg PO BID 08/29/23 08/29/23 08/29/23 History metoprolol succinate 25 mg 25 mg PO DAILY 08/29/23 08/29/23 08/29/23 History tablet,extended release 24 hr sacubitril 24 mg-valsartan 26 mg 1 tab PO BID 08/29/23 08/29/23 08/29/23 History tablet (Entresto) ticagrelor 90 mg tablet (Brilinta) 90 mg PO BID 08/29/23 08/29/23 08/29/23 History Physical Exam 2 Vital Signs: Vital Signs: Last Vital Signs Temp 98.1 F 08/30/23 02:56 Pulse 94 08/30/23 02:56 Resp 17 08/30/23 02:56 BP 97/61 08/30/23 02:56 Pulse Ox 97 08/30/23 02:56 O2 Del Method Nasal Cannula 08/30/23 02:56 O2 Flow Rate 3 08/30/23 02:56 Oxygen Flow Rate 3 08/29/23 17:28 BMI result Body Mass Index 31.5 Const: General: comfortable and no acute distress O rientation/consciousness: patient oriented x3 HEENT: Other: Unremarkable Head: Yes normal to inspection Neck: Neck: Yes normal visual inspection Chest: Chest palpation & inspection: normal inspection of the chest Resp: Other: lower zone crackles Cardio: Palpation: normal PMI Heart sounds: S1 normal heart sound present, S2 normal heart sound present, no gallops, no murmurs and no rubs GI: Palpation (GI): Soft to palpation Back/Spine/Pelvis: Other: unremarkable Skin: General skin exam: no rashes or lesions noted Neuro: General: patient oriented x3 Extrem: Other: 1+ edema, B/L General: Yes normal to inspection Psych: Mental Status: mental status grossly normal Objective Labs and Meds 08/30/23 04:22 08/30/23 04:22 Lab results: Laboratory Results - last 24 hr 08/29/23 08/29/23 08/30/23 17:58 23:39 04:22 WBC 5.6 5.0 RBC 3.47 L D 3.37 L Hgb 9.5 L D 9.4 L Hct 30.6 L 29.9 L MCV 88.2 88.7 MCH 27.4 27.9 MCHC 31.0 31.4 RDW 15.6 15.6 Plt Count 221 193 MPV 9.4 9.1 L Immature Gran % (Auto) 0.2 0.2 Neut % (Auto) 48.0 44.1 L Lymph % (Auto) 35.7 36.9 [place] % (Auto) 11.1 H 11.6 H Eos % (Auto) 4.3 H 6.4 H Baso % (Auto) 0.7 0.8 Lymph # (Auto) 2.0 1.9 [place] # (Auto) 0.6 0.6 Eos # (Auto) 0.2 0.3 Baso # (Auto) 0.0 0.0 Abs Immat Gran (auto) 0.01 0.01 Absolute Neuts (auto) 2.7 2.2 Absolute Nucleated RBC 0.000 0.000 Nucleated RBC % (auto) 0.0 0.0 PT 13.1 INR 1.1 Sodium 141 142 Potassium 3.5 D 3.7 Chloride 111 H 110 H Carbon Dioxide 23 25 Anion Gap 11 L 11 L BUN 9 10 Creatinine 0.85 0.77 Estim Creat Clear Calc 99.5 109.8 Estimated GFR > 60 > 60 POC Glucose 105 Random Glucose 123 H 111 Estimat Average Glucose 108 Hemoglobin A1c % 5.4 Calcium 9.0 D 8.5 Total Bilirubin 0.4 AST 33 ALT 21 Alkaline Phosphatase 90 Troponin I High Sens 37.5 H D B-Natriuretic Peptide 808 H Total Protein 6.9 Albumin 3.2 L 08/30/23 07:08 WBC RBC Hgb Hct MCV MCH MCHC RDW Plt Count MPV Immature Gran % (Auto) Neut % (Auto) Lymph % (Auto) [place] % (Auto) Eos % (Auto) Baso % (Auto) Lymph # (Auto) [place] # (Auto) Eos # (Auto) Baso # (Auto) Abs Immat Gran (auto) Absolute Neuts (auto) Absolute Nucleated RBC Nucleated RBC % (auto) PT INR Sodium Potassium Chloride Carbon Dioxide Anion Gap BUN Creatinine Estim Creat Clear Calc Estimated GFR POC Glucose 81 Random Glucose Estimat Average Glucose Hemoglobin A1c % Calcium Total Bilirubin AST ALT Alkaline Phosphatase Troponin I High Sens B-Natriuretic Peptide Total Protein Albumin ECG Interpretation: EKG with underlying sinus rhythm at 95/Min; old anteroseptal infarct and inferior infarct and lateral nonspecific ST-T changes. Imaging Radiologist's impression: Impressions Chest X-Ray 08/29/23 17:50 IMPRESSION: Increased central bronchovascular markings and bilateral airspace disease. Differential would include pulmonary edema and pneumonia. Assessment and Plan (1) Acute on chronic systolic (congestive) heart failure: Status: Acute (2) Ischemic cardiomyopathy: Status: Acute (3) Coronary artery disease: Qualifiers: Coronary Disease-Associated Artery/Lesion type: [place] artery [place] vs. transplanted heart: [place] heart Associated angina: without angina Q ualified Code(s): I25.10 - Atherosclerotic heart disease of [place] coronary artery without angina pectoris Status: Acute Plan Recent echocardiogram from [facility] [place] dilated; LVEF 20-25%; inferoseptal/anteroseptal/inferior/apical akinesis and mid to distal anterior hypokinesis. Mild diastolic dysfunction. No significant valvular findings. Per cardiac catheterization, PCI to mid circumflex. Otherwise, severe triple- vessel disease. Per office notes, it seems that low blood pressure has been an issue and hence could not get guideline based medical therapy optimally. At home, he is only on Entresto and do not see any diuretics listed. Clinically, he does look fluid overloaded hence IV diuretics for now. Will follow. Procedures Date of Service Date of Service: 08/30/23
[2023-08-30] MEDS: Sacubitril/Valsartan 24/26 1 TAB TABLET PO ×2 (10:33→21:47)
--- NOTE | 2023-08-30 12:27 | PC.NURSE ---
POC BGL 81, afternoon insulin held per sliding scale
[2023-08-30 12:28] LABS: Glucose, Whole Blood 81 mg/dL (60-115)
--- NOTE | 2023-08-30 13:24 | HO.PM.IMPN ---
Subjective Subjective Date of Service: 08/30/23 Interval History: dyspnea improving still edematous no chest pain negative 900mL thus far Review of Systems Review of Systems: Yes all other systems are reviewed and are negative Physical Exam Vital Signs: Vital Signs: Last Vital Signs Temp 98.1 F 08/30/23 02:56 Pulse 94 08/30/23 02:56 Resp 17 08/30/23 02:56 BP 109/67 08/30/23 10:33 Pulse Ox 97 08/30/23 02:56 O2 Del Method Nasal Cannula 08/30/23 02:56 O2 Flow Rate 3 08/30/23 02:56 Oxygen Flow Rate 3 08/29/23 17:28 BMI result Body Mass Index 31.5 Gen: in no acute distress HEENT: sclera anicteric, moist mucus membranes Neck: supple, JVD Lungs diminished bilaterally Heart: regular rate and rhythm, no murmurs Abd: soft, non-tender, non-distended Ext: bilateral 1+ leg edema Skin: warm/well-perfused Neuro: alert and oriented x3, no focal findings Psych: appropriate affect Objective Data Active Medications Acetaminophen (Acetaminophen 325 Mg Tablet) 650 mg PO Q6H PRN PRN Reason: Pain, Mild (Pain Scale 1-3) Aspirin (Aspirin Enteric Coated 81 Mg Tablet.) 81 mg PO DAILY [facility] Last Admin: 08/30/23 08:58 Dose: 81 mg Documented By: TAL Atorvastatin Calcium (Atorvastatin Calcium 80 Mg Tablet) 80 mg PO BEDTIME [facility] Ferrous Sulfate (Ferrous Sulfate 324 Mg Tablet.) 324 mg PO DAILY [facility] Last Admin: 08/30/23 08:59 Dose: 324 mg Documented By: TAL Furosemide (Furosemide 40 Mg/4 Ml Vial) 40 mg IVPUSH DAILY [facility]; Protocol Last Admin: 08/30/23 08:59 Dose: 40 mg Documented By: TAL Glucose (Glucose Gel 15 Gm Gel..Gram.) 15 gm PO Q15M PRN; Protocol PRN Reason: per Hypoglycemia Standing Ord. Dextrose (D10) 250 mls @ 750 mls/hr IV Q15M PRN; Protocol PRN Reason: per Hypoglycemia Standing Ord. Insulin Human Lispro (Insulin Lispro 100 Unit/Ml 3 Ml Vial) 0 unit SUBCUT QIDACHS [facility]; Protocol Last Admin: 06/13/24 12:25 Dose: Not Given Documented By: LAWRENCE Non-Admin Reason: See Note Comments: POC BGL 81 Sacubitril/Valsartan (Sacubitril/Valsartan 1 Tab Tablet) 1 tab PO BID [facility]; Protocol Last Admin: 08/30/23 10:33 Dose: 1 tab Documented By: TAL Sodium Chloride (0.9 % Sodium Chloride Flush 3 Ml Syringe) 3 ml IVFLUSH QSHIFT [facility] Last Admin: 08/30/23 08:59 Dose: 3 ml Documented By: TAL Ticagrelor (Ticagrelor 90 Mg Tablet) 90 mg PO BID [facility] Last Admin: 08/30/23 08:58 Dose: 90 mg Documented By: TAL Labs 08/30/23 04:22 08/30/23 04:22 Labs: Laboratory Results - last 24 hr 08/29/23 08/29/23 08/30/23 17:58 23:39 04:22 MCV 88.2 88.7 MCH 27.4 27.9 MCHC 31.0 31.4 RDW 15.6 15.6 Plt Count 221 193 MPV 9.4 9.1 L Immature Gran % (Auto) 0.2 0.2 Neut % (Auto) 48.0 44.1 L Lymph % (Auto) 35.7 36.9 [place] % (Auto) 11.1 H 11.6 H Eos % (Auto) 4.3 H 6.4 H Baso % (Auto) 0.7 0.8 Lymph # (Auto) 2.0 1.9 [place] # (Auto) 0.6 0.6 Eos # (Auto) 0.2 0.3 Baso # (Auto) 0.0 0.0 Abs Immat Gran (auto) 0.01 0.01 Absolute Neuts (auto) 2.7 2.2 Absolute Nucleated RBC 0.000 0.000 Nucleated RBC % (auto) 0.0 0.0 PT 13.1 INR 1.1 Anion Gap 11 L 11 L Estim Creat Clear Calc 99.5 109.8 Estimated GFR > 60 > 60 POC Glucose 105 Random Glucose 123 H 111 Estimat Average Glucose 108 Hemoglobin A1c % 5.4 Calcium 9.0 D 8.5 Total Bilirubin 0.4 AST 33 ALT 21 Alkaline Phosphatase 90 Troponin I High Sens 37.5 H D B-Natriuretic Peptide 808 H Total Protein 6.9 Albumin 3.2 L 08/30/23 08/30/23 07:08 12:24 MCV MCH MCHC RDW Plt Count MPV Immature Gran % (Auto) Neut % (Auto) Lymph % (Auto) [place] % (Auto) Eos % (Auto) Baso % (Auto) Lymph # (Auto) [place] # (Auto) Eos # (Auto) Baso # (Auto) Abs Immat Gran (auto) Absolute Neuts (auto) Absolute Nucleated RBC Nucleated RBC % (auto) PT INR Anion Gap Estim Creat Clear Calc Estimated GFR POC Glucose 81 81 Random Glucose Estimat Average Glucose Hemoglobin A1c % Calcium Total Bilirubin AST ALT Alkaline Phosphatase Troponin I High Sens B-Natriuretic Peptide Total Protein Albumin Assessment and Plan (1) Acute on chronic systolic (congestive) heart failure: Status: Acute (2) Ischemic cardiomyopathy: Status: Acute Plan d2 58yo M with recent inferior/posterior STEMI in July, s/p cardiac cath and found to have 3V CAD with culprit LCX lesion s/p PCI; complicated by cardiogenic shock requiring pressors + IABP. Developed ischemic cardiomyopathy with LVEF 20-25%. Presenting with dyspnea/edema concerning for ADHF acute/chronic HFrEF - [place] [facility] [place]; LVEF 20-25%; inferoseptal/anteroseptal/inferior/apical akinesis and mid to distal anterior hypokinesis. Mild diastolic dysfunction. No significant valvular findings. - continue IV diuresis with furosemide, monitor I/O, daily weights, BNP, BMP, and Mg with diuresis; Cardiology consultation - continue Entresto. Try to add beta-peyman once euvolemic but apparently had low BP as outpt CAD - continue ASA, ticagrelor, atorvastatin DM2 - A1c only 5.4. Hold Lantus. Give correction-dose lispro normocytic anemia - could be ACD but check iron studies, B12/FA, LDH/retics VTE ppx - LMWH dispo - TBD In my clinical judgment, the patient requires continued inpatient hospitalization for the following reasons: IV diuresis Total time managing care of this patient today: 35 minutes. Quality Stroke Does the patient have a stroke diagnosis?: No VTE Prior VTE?: No VTE Risk Level:: Medical - moderate - high VTE Device Contraindication: Treatment Not Indicated VTE Drug Contraindication: N/A - Med Ordered
[2023-08-30 13:50] LABS: Immature Retic Fraction 16.7 % (2.3-13.4); Retic HGB Equivalent 26.2 pg (30.0-35.0); Reticulocyte Percent 1.8 % (0.5-1.8); Reticulocytes Absolute 0.062 X10*6/uL (0.026-0.095)
[2023-08-30 13:58] LABS: Iron 21 mcg/dL (45-160); Lactate Dehydrogenase 141 U/L (118-273); Percent Iron Saturation 9 % (15-50); Total Iron Binding Capacity 243 mcg/dL (228-428); Unsaturated Iron Binding 222 ug/dL
--- NOTE | 2023-08-30 14:08 | MHC.CM.PN ---
Pt lives with his dtr, she and his other dtr assist in his care, he does not have any home health services. CM spoke to pt.s dtr on the phone, asked about health insurance, she explained that the insurance would cover his Metroprolol, in capsule form, not tablet. She tried to reach pt.s PCP to ask him to change script, but was not able to reach him. Pt did have a visiting nurse, he said his last day on service was yesterday, he could not recall the agency. He does not use DME. Dtr will transport home at [place]. HCP was completed and added to chart, naming Radha Martinez. DCP: home with services, CM to follow and assist with DCP.
[2023-08-30 14:18] LABS: Ferritin 34 ng/mL (20-250)
[2023-08-30] MEDS: Insulin Lispro 100 UNIT/ML 3 ML VIAL SUBCUT (18:07)
[2023-08-30 18:16] LABS: Glucose, Whole Blood 223 mg/dL (60-115)
[2023-08-30 20:56] LABS: Glucose, Whole Blood 101 mg/dL (60-115)
[2023-08-30] MEDS: Atorvastatin Calcium 80 MG TABLET PO (21:37)
[2023-08-31] VITALS: BP 109/67; PULSE 100; RESP 20; TEMP 36.2; O2SAT 99
[2023-08-31 03:54] VITALS: BP 88/54; PULSE 84; RESP 20; TEMP 36.3; O2SAT 96
[2023-08-31 03:56] VITALS: BP 88/54; PULSE 84; RESP 20; TEMP 36.3; O2SAT 96
[2023-08-31] MEDS: 0.9 % Sodium Chloride Flush 3 ML SYRINGE IVFLUSH ×2 (06:14→09:54)
--- NOTE | 2023-08-31 06:17 | PC.NURSE ---
Patient arrived to the unit via wheel chair and was assisted to bed, student teaching coordinator utilized for admission. Patient is A/O x3 speech is clear patient follows all commands.Patient on 1 L nc lung sounds are clear , abdomen is soft non tender. Patient mmoves all extremities moderate strength equal he has +3 edema to his lower extremities pitting. Patient denies pain , neuro deficits and SOB at this time. Patient educated on using the call evans and safety while in the hospital .Overnight Patient BP was 88/50s MD made aware patient asymptomatic . No intervention at this time BP is being monitored.Patient in bed at this time , call evans present .
[2023-08-31 08:00] VITALS: BP 104/65; PULSE 87; RESP 18; TEMP 36.4; O2SAT 100
[2023-08-31 08:15] LABS: Glucose, Whole Blood 85 mg/dL (60-115)
[2023-08-31 08:27] LABS: B Type Natriuretic Peptide 724 pg/mL (<100)
[2023-08-31 08:36] LABS: Anion Gap 10 (12-20); Blood Urea Nitrogen 11 mg/dL (9-16); Carbon Dioxide 30 mmol/L (22-29); Chloride 106 mmol/L (96-108); Creatinine Clr Calc Pharmacy 122.5; Estimated Glomerular Filt Rate > 60; Glucose Random 96 mg/dL (60-115); Magnesium 1.6 mg/dL (1.6-2.6); Potassium 3.9 mmol/L (3.3-5.1); Sodium 142 mmol/L (135-145)
[2023-08-31 09:08] LABS: Folate 9.9 ng/mL (> or = 4.0); Vitamin B12 273 pg/mL (200-900)
--- NOTE | 2023-08-31 09:14 | P.PNCA_ITS ---
Subjective Subjective Date of Service: 08/31/23 Interval history: Seen and examined. He states he feels okay. He would like to go home. Review of Systems Review of Systems Yes all other systems are reviewed and are negative Constitutional: Reports as per HPI and Reports no additional constitutional complaints Eyes: Reports as per HPI and Denies no additional eye complaints Denies system reviewed and no additional complaints, except as documented and Reports as per HPI Cardiovascular: Reports as per HPI, Reports no additional cardiovascular complaints, Denies acrocyanosis, Denies cool extremities, Denies chest pain, Denies leg edema, Denies lightheadedness, Denies palpitations and Denies dyspnea Respiratory: Reports as per HPI, Denies no additional respiratory complaints and Denies dyspnea Gastrointestinal: Reports as per HPI and Denies no additional gastrointestinal complaints Genitourinary: Reports no additional male genitourinary complaints and Reports as per HPI Musculoskeletal: Reports no additional musculoskeletal complaints and Reports as per HPI Skin/Breast: Reports system reviewed and no additional complaints, except as docu Reports system reviewed and no additional complaints, except as documented and Reports as per HPI Psychiatric: Reports no additional psychiatric complaints and Reports as per HPI Endocrine: Reports no additional endocrine complaints, Reports as per HPI and Denies palpitations Hematologic/Lymphatic: Reports no additional hematologic/lymphatic complaints and Reports as per HPI Allergic/Immunologic: Reports no additional allergic/immunologic complaints and Reports as per HPI Physical Exam Vital Signs: Last Vital Signs Temp 97.6 F 08/31/23 08:00 Pulse 87 08/31/23 08:00 Resp 18 08/31/23 08:00 BP 104/65 08/31/23 08:00 Pulse Ox 100 08/31/23 08:00 O2 Del Method Nasal Cannula 08/31/23 08:00 O2 Flow Rate 2 08/31/23 08:00 Oxygen Flow Rate 3 08/29/23 17:28 BMI result Body Mass Index 31.5 Const General: comfortable and no acute distress Orientation/consciousness: patient oriented x3 HEENT Other: Unremarkable Head: Yes normal to inspection Neck Neck: Yes normal visual inspection Chest Chest palpation & inspection: normal inspection of the chest Resp Auscultation: clear to auscultation bilaterally Cardio Palpation: normal PMI Heart sounds: S1 normal heart sound present, S2 normal heart sound present, no gallops, no murmurs and no rubs GI Palpation (GI): Soft to palpation Back/Spine/Pelvis Other: unremarkable Skin General skin exam: no rashes or lesions noted Neuro General: patient oriented x3 Extrem Other: 1+ leg swelling General: Yes normal to inspection Psych Mental Status: mental status grossly normal Objective Labs and Meds 08/30/23 04:22 08/31/23 06:58 Lab results: Laboratory Results - last 24 hr 08/30/23 08/30/23 08/30/23 04:22 12:24 18:01 Absolute Retic 0.062 Percent Retic 1.8 Immature Retic Fraction 16.7 H Retic Hgb Equivalent 26.2 L Sodium Potassium Chloride Carbon Dioxide Anion Gap BUN Creatinine Estim Creat Clear Calc Estimated GFR POC Glucose 81 223 H Random Glucose Calcium Magnesium Iron 21 L TIBC 243 % Saturation 9 L Unsat Iron Binding 222 Ferritin 34 Lactate Dehydrogenase 141 B-Natriuretic Peptide Vitamin B12 Folate 08/30/23 08/31/23 08/31/23 20:53 06:58 08:03 Absolute Retic Percent Retic Immature Retic Fraction Retic Hgb Equivalent Sodium 142 Potassium 3.9 Chloride 106 Carbon Dioxide 30 H Anion Gap 10 L BUN 11 Creatinine 0.69 Estim Creat Clear Calc 122.5 Estimated GFR > 60 POC Glucose 101 85 Random Glucose 96 Calcium 9.0 Magnesium 1.6 Iron TIBC % Saturation Unsat Iron Binding Ferritin Lactate Dehydrogenase B-Natriuretic Peptide 724 H Vitamin B12 273 Folate 9.9 Progress Note: A&P Assessment and plan (1) Acute on chronic systolic (congestive) heart failure: Status: Acute (2) Ischemic cardiomyopathy: Status: Acute (3) Coronary artery disease: Status: Acute Plan Recent echocardiogram from [facility] [place]-LV dilated; LVEF 20-25%; inferoseptal/anteroseptal/inferior/apical akinesis and mid to distal anterior hypokinesis. Mild diastolic dysfunction. No significant valvular findings. Per cardiac catheterization, PCI to mid circumflex. Otherwise, severe triple- vessel disease. Per office notes, it seems that low blood pressure has been an issue and hence could not get guideline based medical therapy optimally. It seems that he is improved quite well since admission. However, low blood pressure continues to be an issue. Some blood pressures are in the 80s but most recently 104/65 mm Hg. He has mild ankle edema but otherwise improved. Keep him on oral diuretics. Med optimization as guided by his blood pressure and most likely will need to do as an outpatient. Discharge planning. Follow-up with congestive heart failure team at [facility]. Discussed with Dr. Jaimes. Time Spent With Patient Time: Total time managing care of this patient today ____ minutes. Progress Note: Quality Stroke Does the patient have a stroke diagnosis?: No Procedures Date of Service Date of Service: 08/31/23
[2023-08-31 09:55] VITALS: BP 104/65
[2023-08-31] MEDS: Aspirin Enteric Coated 81 MG TABLET.DR PO (09:55)
[2023-08-31] MEDS: Furosemide 40 MG/4 ML VIAL 20 MG IVPUSH (09:55)
[2023-08-31] MEDS: Ticagrelor 90 MG TABLET PO (09:55)
[2023-08-31] MEDS: Ferrous Sulfate 324 MG TABLET.DR PO (09:55)
--- NOTE | 2023-08-31 10:33 | MHC.CM.PN ---
Addendum entered by Neema Leonard RN 08/31/23 10:36: CM RECEIVED MESSAGE FROM [facility], PT IS ACTIVE WITH SN Original Note: PT MEDICALLY CLEARED FOR DC HOME W/[facility] FOR SN, CM MET W/PT AND DTR AT BEDSIDE, PT AGREEABLE TO DC AND DTR REPORTS HE WAS ACTIVE W/[facility] EARLIER IN WEEK AND THEY ARE PREFERRED [facility], DTR AT BEDSIDE AND WILL TRANSPORT.
--- NOTE | 2023-08-31 11:41 | P.DS_ITS ---
DS: Providers Provider Date of Service: 08/31/23 Date of admission: 08/29/23 21:46 Date of discharge: 08/31/23 Primary care physician: Everardo Mohan MD Consults: 08/29/23 23:40 Consult to Cardiology Routine Consulting Provider: [facility] Reason for consultation: Acute CHF Has provider been notified: Yes DS: Diagnosis Discharge Diagnosis (1) Acute on chronic systolic (congestive) heart failure: Status: Acute (2) Ischemic cardiomyopathy: Status: Acute DS: Summary Hospital Course Hospital Course: From the history and physical by the admitting hospitalist, Adrian Huang, 08/29/23: Jhoan Manriquez is a 58 years old man with past medical history significant for CHF (has not been started on beta peyman yet due to insurance issues), coronary artery disease (STEMI July 2023 s/p cardiac stenting on Brilinta), type 2 diabetes mellitus on insulin, essential hypertension and hyperlipidemia presents to the emergency department complaining of worsening shortness of breath over the last 3 days associated with significant edema to the lower extremities. He stated that his shortness on breath is worse with activity or lying down. He does have some occasional dry cough and denies chest pain. Denies headache, dizziness, nausea, vomiting, fevers or chills. He denies history of tobacco smoking, alcohol abuse or illicit drug use. He mentioned that he has been drinking lots of water recently. In the ED, he was found to have stable vital signs. His blood pressure is low normal 92/47. There is mild tachycardia. There is no fever. He was placed on nasal cannula, oxygen saturation is normal on room air. Blood workup showed no leukocytosis. Hemoglobin is 9.5 (it was 12.8 in July of this year). Platelets and INR are normal. There are no significant electrolyte imbalances. Creatinine is 0.85. LFTs are normal. Troponin is 37.5 and BNP 108. CXR is consistent with pulmonary edema. ED tx: Furosemide 20 mg IV 58yo M with recent inferior/posterior STEMI in July, s/p cardiac cath at [facility] and found to have 3V CAD with culprit LCX lesion s/p PCI; complicated by cardiogenic shock requiring pressors + IABP. Developed ischemic cardiomyopathy with LVEF 20-25%; TTE there also showed inferoseptal/anteroseptal/inferior/apical akinesis and mid to distal anterior hypokinesis; mild diastolic dysfunction; no significant valvular findings. He presented to the [facility] ED with dyspnea/edema concerning for ADHF. He was admitted to the telemetry unit and diuresed with IV furosemide, net negative 900 mL. Cardiology was consulted. Dyspnea and edema resolved. Due to hypotension, Entresto and metoprolol succinate were held. He was discharged home on furosemide 20 mg daily with CHF teaching/precautions and should follow up closely with his barrel bander at [facility] in 1-2 weeks. Time Attestation Discharge Coordination Time (in mins): 35 Quality: Safe Use of Opioids Does Pt have an Active Cancer Diagnosis on the Problem List?: No Quality: Stroke Does the patient have a stroke diagnosis?: No Physical Exam Vital Signs: Vital Signs: Last Vital Signs Temp 97.6 F 08/31/23 08:00 Pulse 87 08/31/23 08:00 Resp 18 08/31/23 08:00 BP 104/65 08/31/23 09:55 Pulse Ox 100 08/31/23 08:00 O2 Del Method Nasal Cannula 08/31/23 08:00 O2 Flow Rate 2 08/31/23 08:00 Oxygen Flow Rate 3 08/29/23 17:28 BMI result Body Mass Index 31.5 Gen: in no acute distress HEENT: sclera anicteric, moist mucus membranes Neck: supple Lungs: clear to auscultation bilaterally Heart: regular rate and rhythm, no murmurs Abd: soft, non-tender, non-distended Ext: trace BLE edema Skin: warm/well-perfused Neuro: alert and oriented x3, no focal findings Psych: appropriate affect DS: Data Data Completed and Pending Completed studies during hospitalization [Text1]: Laboratory Results WBC 5.0 X10*3/uL (4.8-10.8) 08/30/23 04:22 RBC 3.37 X10*6/uL (4.60-5.80) L 08/30/23 04:22 Hgb 9.4 g/dl (14.0-18.0) L 08/30/23 04:22 Hct 29.9 % (42.0-52.0) L 08/30/23 04:22 MCV 88.7 fL (80.0-98.0) 08/30/23 04:22 MCH 27.9 pg (27.0-33.0) 08/30/23 04:22 MCHC 31.4 g/dl (31.0-36.0) 08/30/23 04:22 RDW 15.6 % (11.0-16.0) 08/30/23 04:22 Plt Count 193 X10*3/uL (160-400) 08/30/23 04:22 MPV 9.1 fL (9.4-12.4) L 08/30/23 04:22 Immature Gran % (Auto) 0.2 % (0.0-0.4) 08/30/23 04:22 Neut % (Auto) 44.1 % (45-73) L 08/30/23 04:22 Lymph % (Auto) 36.9 % (20-40) 08/30/23 04:22 Stokes % (Auto) 11.6 % (2-11) H 08/30/23 04:22 Eos % (Auto) 6.4 % (0-4) H 08/30/23 04:22 Baso % (Auto) 0.8 % (0-2) 08/30/23 04:22 Lymph # (Auto) 1.9 X10*3/uL (1.2-4.9) 08/30/23 04:22 Stokes # (Auto) 0.6 X10*3/uL (0.1-1.2) 08/30/23 04:22 Eos # (Auto) 0.3 X10*3/uL (0.0-0.4) 08/30/23 04:22 Baso # (Auto) 0.0 X10*3/uL (0.0-0.2) 08/30/23 04:22 Abs Immat Gran (auto) 0.01 X10*3/uL (0.00-0.03) 08/30/23 04:22 Absolute Neuts (auto) 2.2 x10*3/uL (2.0-8.3) 08/30/23 04:22 Absolute Nucleated RBC 0.000 X10*3/uL (0.0-0.012) 08/30/23 04:22 Nucleated RBC % (auto) 0.0 /100WBC (0.0-0.2) 08/30/23 04:22 Absolute Retic 0.062 X10*6/uL (0.026-0.095) 08/30/23 04:22 Percent Retic 1.8 % (0.5-1.8) 08/30/23 04:22 Immature Retic Fraction 16.7 % (2.3-13.4) H 08/30/23 04:22 Retic Hgb Equivalent 26.2 pg (30.0-35.0) L 08/30/23 04:22 PT 13.1 SEC (11.1-13.3) 08/29/23 17:58 INR 1.1 (0.9-1.1) 08/29/23 17:58 Sodium 142 mmol/L (135-145) 08/31/23 06:58 Potassium 3.9 mmol/L (3.3-5.1) 08/31/23 06:58 Chloride 106 mmol/L (96-108) 08/31/23 06:58 Carbon Dioxide 30 mmol/L (22-29) H 08/31/23 06:58 Anion Gap 10 (12-20) L 08/31/23 06:58 BUN 11 mg/dL (9-16) 08/31/23 06:58 Creatinine 0.69 mg/dL (0.5-1.4) 08/31/23 06:58 Estim Creat Clear Calc 122.5 08/31/23 06:58 Estimated GFR > 60 08/31/23 06:58 POC Glucose 85 mg/dL (60-115) 08/31/23 08:03 Random Glucose 96 mg/dL (60-115) 08/31/23 06:58 Estimat Average Glucose 108 mg/dL 08/30/23 04:22 Hemoglobin A1c % 5.4 % (<6.0) 08/30/23 04:22 Calcium 9.0 mg/dL (8.4-10.2) 08/31/23 06:58 Magnesium 1.6 mg/dL (1.6-2.6) 08/31/23 06:58 Iron 21 mcg/dL (45-160) L 08/30/23 04:22 TIBC 243 mcg/dL (228-428) 08/30/23 04:22 % Saturation 9 % (15-50) L 08/30/23 04:22 Unsat Iron Binding 222 ug/dL 08/30/23 04:22 Ferritin 34 ng/mL (20-250) 08/30/23 04:22 Total Bilirubin 0.4 mg/dL (0.0-1.0) 08/29/23 17:58 AST 33 U/L (5-37) 08/29/23 17:58 ALT 21 U/L (0-40) 08/29/23 17:58 Alkaline Phosphatase 90 U/L (39-117) 08/29/23 17:58 Lactate Dehydrogenase 141 U/L (118-273) 08/30/23 04:22 Troponin I High Sens 37.5 ng/L (<3.5-35.0) H D 08/29/23 17:58 B-Natriuretic Peptide 724 pg/mL (<100) H 08/31/23 06:58 Total Protein 6.9 g/dL (6.5-8.0) 08/29/23 17:58 Albumin 3.2 g/dL (3.5-5.0) L 08/29/23 17:58 Vitamin B12 273 pg/mL (200-900) 08/31/23 06:58 Folate 9.9 ng/mL (> or = 4.0) 08/31/23 06:58 Impressions Chest X-Ray 08/29/23 17:50 IMPRESSION: Increased central bronchovascular markings and bilateral airspace disease. Differential would include pulmonary edema and pneumonia. Discharge Plan Discharge Anticipated Discharge Date/Time: 08/31/23 11:38 Patient Disposition: Home Health Service Discharge Diagnosis: CHF due to ischemic cardiomyopathy Referrals: [facility] [Outside] - 1 Day (RESUMPTION OF INTERMEDIATE) Everardo oMhan MD [Primary Care Provider] - 1 Week Discharge Medications: New furosemide 20 mg tablet 20 mg PO DAILY Qty: 30 0RF Continued (DME) FreeStyle Lite Strips Strip See Rx Instructions .ROUTE .COMPLEX Qty: 100 3RF Dose Instruction: CHECK BLOOD SUGAR 3-4X/DAY Rx Instructions: CHECK BLOOD SUGAR 3-4X/DAY (DME) lancets [FreeStyle Lancets] 28 gauge misc See Rx Instructions .Route Qty: 100 0RF Rx Instructions: check BS 3-4x/day metformin 1,000 mg tablet 1,000 mg PO BID insulin glargine [Lantus Solostar U-100 Insulin] 100 unit/mL (3 mL) insulin pen 20 unit subcut QPM (DME) pen needle, diabetic [BD Ultra-Fine Micro Pen Needle] 32 gauge x 1/4 needle See Rx Instructions .Route Qty: 100 0RF Rx Instructions: As directed Brilinta 90 mg tablet 90 mg PO BID ferrous sulfate 325 mg (65 mg iron) tablet,delayed release (DR/EC) 325 mg PO DAILY aspirin 81 mg tablet,delayed release (DR/EC) 81 mg PO DAILY atorvastatin 80 mg tablet 80 mg PO BEDTIME (DME) blood-glucose meter [FreeStyle [place] Lite] Kit See Rx Instructions .Route Qty: 1 0RF Rx Instructions: check BS 1-2x/day Held metoprolol succinate 25 mg tablet extended release 24 hr 25 mg PO DAILY Hold Instructions: Resume on 09/14/23. Entresto 24-26 mg tablet 1 tab PO BID Hold Instructions: Resume on 09/14/23. Discharge Orders: Discharge Order (Routine); Ordered 08/31/23 Ordered By: April Jaimes Diet: Low salt diet Activity on Discharge: As tolerated Stand Alone Forms: Patient Portal Discharge page Print Language: Danish Care Plan Goals: heart health Health Concerns: CHF due to ischemic cardiomyopathy Plan of Treatment: HOLD metoprolol succinate and Entresto due to low blood pressure; resume as directed by your barrel bander take furosemide 20 mg daily Low-sodium diet: less than 2000 mg of sodium daily. Weigh yourself daily and call your doctor if your weight goes up by more than 3 lb/day or 5 lb/week. follow up with [facility] in 1 week resume VNA services Please follow up with your primary care doctor within 1 week. Return to the hospital if you experience recurrent or worsening symptoms. Assessment: See Discharge Summary.
[2023-08-31 11:43] VITALS: BP 93/59; PULSE 91; RESP 17; TEMP 36.3; O2SAT 99
== END 2023-08-31 12:31 | disposition home health service (06) | DRG 194 ==
LOC: HO.ED 17:49 → HO.EDOVER 21:53 → HO.IMC 08-30 20:47
PROVIDERS: Admitting Provider Internal Medicine; Emergency Provider Internal Medicine; PCP Internal Medicine; Visit Provider Family Medicine
DX: I11.0 Hypertensive heart disease with heart failure (principal); E11.51 Type 2 diabetes mellitus with diabetic peripheral angiopathy without gangrene; I25.10 Atherosclerotic heart disease of native coronary artery without angina pectoris; E11.9 Type 2 diabetes mellitus without complications; D64.9 Anemia, unspecified; I50.23 Acute on chronic systolic (congestive) heart failure; I25.2 Old myocardial infarction; I25.5 Ischemic cardiomyopathy; Z95.5 Presence of coronary angioplasty implant and graft; Z79.4 Long term (current) use of insulin; Z79.82 Long term (current) use of aspirin; Z79.84 Long term (current) use of oral hypoglycemic drugs; Z79.899 Other long term (current) drug therapy
CPT/HCPCS: 36415; 71045; 80048; 80053; 82607; 82728; 82746; 82947; 83036; 83540; 83615; 83735; 83880; 84484; 85025; 85045; 85610; 93005; 99285; J1940

== ENCOUNTER → 2023-08-29 21:46 | Outpatient (BNV) | payer OTHER, SELFPAY | PROVIDERS: Admitting Provider Internal Medicine; Emergency Provider Internal Medicine; PCP Internal Medicine; Visit Provider Internal Medicine | DX: I50.23 Acute on chronic systolic (congestive) heart failure (principal); I25.5 Ischemic cardiomyopathy | CPT/HCPCS: 99223; 99232; 99239 ==

== ENCOUNTER → 2023-08-29 21:46 | Outpatient (BNV) | payer OTHER, SELFPAY | PROVIDERS: Admitting Provider Internal Medicine; Emergency Provider Internal Medicine; PCP Internal Medicine; Visit Provider Internal Medicine | DX: I50.23 Acute on chronic systolic (congestive) heart failure (principal); I25.5 Ischemic cardiomyopathy; I25.10 Atherosclerotic heart disease of native coronary artery without angina pectoris; R06.02 Shortness of breath; R00.0 Tachycardia, unspecified; R94.31 Abnormal electrocardiogram [ECG] [EKG] | CPT/HCPCS: 93010; 99223; 99233 ==

== ENCOUNTER 2023-09-05 08:39 | Outpatient (AMB) | payer OTHER, SELFPAY ==
--- NOTE | 2023-09-05 08:44 | MHC.PC.OV ---
Vital Signs 09/05/23 08:48 Height 5 ft 7 in Weight 196 lb 4 oz BMI 30.7 BP 110/70 Blood Pressure Location Lt brachial Position Sitting Pulse 9 L Pulse Source Pulse Oximeter Pulse Oximetry (%) 97 Oxygen Delivery Method Room Air Intake Visit Reasons: [facility] [place] [facility] 08/30 CHF Intake Note: Patient is here for hospital discharge follow up. Patient was discharged from [facility] on 08/31/23. Requesting for Cardiac Rehab and oxygen us eat home during night time. Dna Sequencing Associate Required: Yes Dna Sequencing Associate Language: [place] Information Interpreted: non-clinical & clinical Stock And Station Agent: Not Required per policy Accompanied by: Self / Same As Patient Allergies glipizide Adverse Reaction (Mild, Verified 09/05/23 09:06) Dizziness Medication List - Last Reconciled 09/05/23 by Everardo Mohan MD aspirin 81 mg PO DAILY atorvastatin 80 mg PO BEDTIME blood sugar diagnostic (FreeStyle Lite Strips) CHECK BLOOD SUGAR 3-4X/DAY blood-glucose meter (FreeStyle [place] Lite kit) check BS 1-2x/day ferrous sulfate 325 mg PO DAILY furosemide 40 mg PO DAILY insulin glargine (Lantus Solostar U-100 Insulin) 20 units subcut QPM lancets (FreeStyle Lancets) check BS 3-4x/day metformin 1,000 mg PO BID pen needle, diabetic (BD Ultra-Fine Micro Pen Needle) As directed ticagrelor (Brilinta) 90 mg PO BID Tobacco use date assessed: 09/05/23 Dental Screening Dental Screen Date: 03/22/23 HPI [facility] [place] 08/30 CHF HPI Details 58-year-old male presents to the office to discuss his medical condition. At the end of last visit, patient was transferred to the emergency room via ambulance for evaluation and treatment of his shortness of breath. He was found to be in pulmonary edema and was aggressively diuresed. Patient has been started on p.o. Lasix and the metoprolol has been discontinued. Patient has returned for a follow-up visit. Continues to have exertional shortness of breath and paroxysmal nocturnal dyspnea. Continues to have edema in feet. Has not started cardiac rehab yet. [facility]LY [facility] Medical History (Updated 09/05/23 @ 09:12 by Everardo Mohan MD) Acute CHF (congestive heart failure) Acute on chronic systolic (congestive) heart failure Essential hypertension Endogenous depression Peripheral vascular disease due to secondary diabetes Newly diagnosed diabetes Hyperglycemia No known health problems Surgical History History of heart artery stent Social History Household Members: Family Housing: House Do you presently have visiting nurse or other home services: No Alcohol intake: never Patient Tobacco Use Status: Never used Tobacco e-Cigarette/Vaping Use: Never Used Second Hand Smoke Exposure: No Advance Directives Date on File: 08/31/23 service: No Current occupational status: unemployed Current occupation: right hand dominant Cognitive needs: No Hearing needs: No Vision needs: Yes (reading reading) Questionnaire Thrive Questionnaire Date Thrive assessed: 08/30/23 JOHN-7 AMB Questionnaire JOHN-7 Date JOHN - 7 assessed: 03/22/23 Source: Developed by Drs. Balaji Lockwood, Bere Mann, Nirmal Marin and colleagues, with an educational osmel from [employer]. Physical exam (Primary Care) Vital Signs: Last Vital Signs Pulse 9 L 09/05/23 08:48 BP 110/70 09/05/23 08:48 Pulse Ox 97 09/05/23 08:48 Oxygen Delivery Method Room Air 09/05/23 08:48 BMI result Body Mass Index 30.7 Tobacco/Smoking Status: Tobacco use Status Tobacco use date assessed 09/05/23 09/05/23 08:49 Patient Tobacco Use Status Never used Tobacco 09/05/23 08:49 e-Cigarette/Vaping Use Never Used 09/05/23 08:49 Thrive Assessment: Date of Thrive Assessment Date Thrive assessed 08/30/23 09/05/23 08:49 Const General: cooperative, healthy appearing and comfortable Nutritional Appearance: average body habitus Orientation/consciousness: patient oriented x3 Limitations: no limitations HENMT Head: Yes normal to inspection Eyes General: appearance normal, both eyes and all related structures Neck Neck: Yes normal visual inspection Chest Chest palpation & inspection: normal inspection of the chest and normal palpation of entire chest wall Resp Effort & Inspection: normal respiratory effort Auscultation: crackles bilateral (More prominent in the right lower base.) Cardio Palpation: normal PMI Rate: regular rate Rhythm: regular rhythm Heart sounds: S1 normal heart sound present and S2 normal heart sound present GI Inspection: Yes normal to inspection Neuro General: patient oriented x3 Extrem Other: 2+ pitting edema. Assessment and Plan Assessment & Plan (1) Acute CHF (congestive heart failure): Code(s): I50.9 - Heart failure, unspecified Plan: Patient is having ischemic cardiomyopathy and the medications have not been optimized. Furosemide 40 mg has been started today. Enalapril 10 mg has been started today. Patient was set up with a spectrographic analyst at [facility] at the time of his discharge from [facility]. However he has still not seen him. Patient is now willing to see a spectrographic analyst from [place]. A referral for the same will be made. (2) Acute on chronic systolic (congestive) heart failure: Code(s): I50.23 - Acute on chronic systolic (congestive) heart failure (3) Essential hypertension: Code(s): I10 - Essential (primary) hypertension Coding Level of Care Code Est Pt Level 4 (93404) Complex EM visit Add On G2211 Diagnoses Acute CHF (congestive heart failure) I50.9 Acute on chronic systolic (congestive) heart failure I50.23 Essential hypertension I10
[2023-09-05 08:48] VITALS: BP 110/70; PULSE 9; O2SAT 97; BMI 30.7
== END 2023-09-05 09:01 | disposition home or self-care (01) ==
LOC: HO.HMGH 08:39
PROVIDERS: PCP Internal Medicine; Visit Provider Internal Medicine
DX: I11.0 Hypertensive heart disease with heart failure (principal); I50.23 Acute on chronic systolic (congestive) heart failure
CPT/HCPCS: 99214; G2211

== ENCOUNTER 2023-09-13 14:35 | Outpatient (AMB) | payer OTHER, SELFPAY ==
--- NOTE | 2023-09-13 14:58 | A.OFFPC_ITS ---
Vital Signs 09/13/23 14:59 Height 5 ft 7 in Weight 191 lb 8 oz BMI 30.0 BP 98/62 Blood Pressure Location Lt brachial Position Sitting Pulse 95 Pulse Source Pulse Oximeter Pulse Oximetry (%) 93 Oxygen Delivery Method Room Air Intake Visit Reasons: 1 week f/u Intake Note: Patient is here for one week follow up on CHF Casino Assistant Manager Required: Yes Casino Assistant Manager Language: Dutch Equine Manager: Present Accompanied by: Daughter Allergies glipizide Adverse Reaction (Mild, Verified 09/13/23 17:35) Dizziness Medication List - Last Reconciled 09/13/23 by Everardo Mohan MD aspirin 81 mg PO DAILY atorvastatin 80 mg PO BEDTIME blood sugar diagnostic (FreeStyle Lite Strips) CHECK BLOOD SUGAR 3-4X/DAY blood-glucose meter (FreeStyle [place] Lite kit) check BS 1-2x/day enalapril maleate 10 mg PO DAILY ferrous sulfate 325 mg PO DAILY furosemide 40 mg PO DAILY insulin glargine (Lantus Solostar U-100 Insulin) 20 units subcut QPM lancets (FreeStyle Lancets) check BS 3-4x/day metformin 1,000 mg PO BID pen needle, diabetic (BD Ultra-Fine Micro Pen Needle) As directed ticagrelor (Brilinta) 90 mg PO BID Tobacco use date assessed: 09/13/23 Dental Screening Dental Screen Date: 03/22/23 HPI 1 week f/u HPI Details 58-year-old male presents to the office to discuss his medical condition. He is accompanied by a female. The last office visit, an GÉNESIS-inhibitor was started. Patient reports improvement in symptoms. He is still unable to lie flat in bed. Wakes up with a dry cough. He has lost some weight. Able to function and do some activities of daily living. His cardiac rehab has not started. [facility] Medical History Acute CHF (congestive heart failure) Acute on chronic systolic (congestive) heart failure Essential hypertension Endogenous depression Peripheral vascular disease due to secondary diabetes Newly diagnosed diabetes Hyperglycemia No known health problems Surgical History History of heart artery stent Social History Household Members: Family Housing: House Do you presently have visiting nurse or other home services: No Alcohol intake: never Patient Tobacco Use Status: Never used Tobacco e-Cigarette/Vaping Use: Never Used Second Hand Smoke Exposure: No Advance Directives Date on File: 08/31/23 service: No Current occupational status: unemployed Current occupation: right hand dominant Cognitive needs: No Hearing needs: No Vision needs: Yes (reading reading) Questionnaire Thrive Questionnaire Date Thrive assessed: 08/30/23 JOHN-7 AMB Questionnaire JOHN-7 Date JOHN - 7 assessed: 03/22/23 Source: Developed by Drs. Balaji Lockwood, Bere Mann, Nirmal Marin and colleagues, with an educational osmel from [employer]. Physical exam (Primary Care) Vital Signs: Last Vital Signs Pulse 95 09/13/23 14:59 BP 98/62 09/13/23 14:59 Pulse Ox 93 09/13/23 14:59 Oxygen Delivery Method Room Air 09/13/23 14:59 BMI result Body Mass Index 30.0 Tobacco/Smoking Status: Tobacco use Status Tobacco use date assessed 09/13/23 09/13/23 14:59 Patient Tobacco Use Status Never used Tobacco 09/13/23 14:59 e-Cigarette/Vaping Use Never Used 09/13/23 14:59 Thrive Assessment: Date of Thrive Assessment Date Thrive assessed 08/30/23 09/13/23 14:59 Const General: cooperative and healthy appearing Nutritional Appearance: well nourished Orientation/consciousness: patient oriented x3 Limitations: no limitations HENMT Head: Yes normal to inspection Eyes General: appearance normal, both eyes and all related structures Neck Neck: Yes normal visual inspection Chest Chest palpation & inspection: normal palpation of entire chest wall Resp Effort & Inspection: normal respiratory effort Neuro General: patient oriented x3 Assessment and Plan Assessment & Plan (1) Ischemic cardiomyopathy: Code(s): I25.5 - Ischemic cardiomyopathy Plan: Cardiology appointment was made. Continue the GÉNESIS inhibitor at the same dosage. Will add Jardiance to the regimen soon. Medications: Refilled pen needle, diabetic (BD Ultra-Fine Micro Pen Needle) As directed 100 ea 0RF Coding Level of Care Code Est Pt Level 3 (49625) Complex EM visit Add On G2211 Diagnoses Ischemic cardiomyopathy I25.5
[2023-09-13 14:59] VITALS: BP 98/62; PULSE 95; O2SAT 93
== END 2023-09-13 16:26 | disposition home or self-care (01) ==
PROVIDERS: PCP Internal Medicine; Visit Provider Internal Medicine
DX: I25.5 Ischemic cardiomyopathy (principal)
CPT/HCPCS: 99213; G2211

== ENCOUNTER 2023-09-18 14:15 | Outpatient (AMB) | payer OTHER, SELFPAY ==
[2023-09-18 14:23] VITALS: BP 98/58; PULSE 96; BMI 29.6
--- NOTE | 2023-09-18 14:23 | A.OFFVIS_ITS ---
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 Having some SOB with walking. Per daughter pt had coughed up blood clots for 1 day. Sunday until Sunday. Head Insulation Board Saw Operator Services: Head Insulation Board Saw Operator Present Head Insulation Board Saw Operator Name: Radha (daughter) New Vehicle Sales Consultant: New Vehicle Sales Consultant Present Accompanied by: Daughter Allergies No Known Allergies Allergy (Verified 09/18/23 15:29) Medication List - Last Reconciled 09/18/23 by Toni Triana MD aspirin 81 mg PO DAILY atorvastatin 80 mg PO BEDTIME blood sugar diagnostic (FreeStyle Lite Strips) CHECK BLOOD SUGAR 3-4X/DAY blood-glucose meter (FreeStyle [place] Lite kit) check BS 1-2x/day enalapril maleate 10 mg PO DAILY ferrous sulfate 325 mg PO DAILY furosemide 40 mg PO DAILY insulin glargine (Lantus Solostar U-100 Insulin) 20 units subcut QPM lancets (FreeStyle Lancets) check BS 3-4x/day metformin 1,000 mg PO BID pen needle, diabetic (BD Ultra-Fine Micro Pen Needle) As directed ticagrelor (Brilinta) 90 mg PO BID HPI Comments Details: Thank you for referring Titus moctezuma in cardiology consultation today for management of recent myocardial infarction and ischemic cardiomyopathy with heart failure syndrome. Patient is 58-year-old male with prior history of diabetes and hypertension. Patient developed significant myocardial infarction event with inferoposterior STEMI in July and was emergently transferred to [facility] very underwent emergent cardiac catheterization. This revealed culprit stenosis in dominant circumflex artery with a 99% stenosis although was also noted to have chronic total occlusion of the LAD as well as the RCA with collaterals from the circumflex system. Patient post intervention developed cardiogenic shock and required intra-aortic balloon pump as well as vasopressor therapy. Patient pull through and subsequently had an echocardiogram which showed LVEF of 20-25% with predominantly wall motion abnormality in the LAD and RCA territory noted. Patient was then managed for heart failure and was followed up by [facility] for 1 post hospitalization visit although could not continue to follow with them due to his insurance. He was admitted here couple weeks ago with decompensated congestive heart failure was diuresed and discharged home. That is confusion about Entresto and add lisinopril therapy. Patient was on Entresto therapy as per the daughter who accompanied him and was present in the room however they were not able to acquire due to lack of insurance approval and was switch to enalapril therapy without any clear stopping Entresto therapy. Patient currently supposedly he is taking enalapril therapy. Beta-peyman therapy has been withheld due to low blood pressure. His Farxiga was withheld due to suspicion of low blood pressure and dehydration. Although patient has significant symptoms of orthopnea and can not lay flat. His short of breath even being at 60 degree angle. Patient also has very significant shortness of breath with minimal exertion and clinically appears to be short of breath talking to me. Denies any arm pain or chest pain. Says his arm pain went away after the stenting and has not recurred. Denies any lightheadedness, syncope. Last admission was noted to be significantly anemic although no repeats have been performed. His last BNP on 08/28 was 808 and on discharge was 724 without much reduction. He has been taking his Lasix on a regular basis. He complains of bilateral lower extremity swelling and also abdominal distension. No significant weight gain. Denies any overt bleeding issues since then [facility] Medical History Acute CHF (congestive heart failure) Acute on chronic systolic (congestive) heart failure Essential hypertension Endogenous depression Peripheral vascular disease due to secondary diabetes Newly diagnosed diabetes Hyperglycemia No known health problems Surgical History History of heart artery stent Family History Sister History of artificial heart valve Brother Myocardial infarct Social History Household Members: Family Housing: House Do you presently have visiting nurse or other home services: No Alcohol intake: never Patient Tobacco Use Status: Never used Tobacco e-Cigarette/Vaping Use: Never Used Second Hand Smoke Exposure: No Advance Directives Date on File: 08/31/23 Do you have a plan to hurt others: No Plan service: No Current occupational status: unemployed Current occupation: right hand dominant Cognitive needs: No Hearing needs: No Vision needs: Yes (reading reading) Review of Systems Const Denies chills, Denies daytime sleepiness, Denies fatigue, Denies fever(s), Denies lethargy, Denies snoring, Denies stops breathing during sleep, Denies weight gain, Denies weight loss and Denies other Eyes Denies loss of vision ENT Reports hearing loss Card Denies chest pain, Denies irregular heart rhythm, Denies claudication, Denies leg edema, Denies lightheadedness, Denies palpitations, Denies dyspnea, Denies dyspnea on exertion, Denies orthopnea and Reports other Resp Denies cough, Denies excessive phlegm production, Denies dyspnea, Denies dyspnea on exertion and Denies snoring GI Denies abdominal pain, Denies hematochezia, Denies change in bowel habits, Denies nausea and Denies vomiting Denies dysuria Musc Denies arthralgias, Denies muscle weakness and Denies numbness Skin/Breast Reports as per HPI, Denies nail changes and Denies rash Neuro Denies loss of vision, Denies memory loss and Denies numbness Psych Reports anxiety, Denies depression and Denies memory loss Endo Denies fatigue and Denies palpitations Hayder/Lymph Denies easy bruising Physical Exam Vital Signs: Last Vital Signs Pulse 96 09/18/23 14:23 BP 98/58 L 09/18/23 14:23 BMI result Body Mass Index 29.6 Const General: cooperative, alert, awake and in distress moderate and respiratory Nutritional Appearance: average body habitus Orientation/consciousness: patient oriented x3 Limitations: no limitations HEENT Head: Yes normocephalic and Yes atraumatic Neck Neck: Yes trachea midline, Yes supple and Yes JVD Resp Auscultation: no rales, no wheezes and breath sounds absent bilateral (bases) Cardio Jugular venous distension: JVD Palpation: abnormal PMI displaced PMI Rate: regular rate Rhythm: regular rhythm Heart sounds: S1 normal heart sound present, S2 normal heart sound present, no click, Gallop heart sound present S3 gallop, no murmurs and no rubs GI Auscultation: normal bowel sounds Skin General skin exam: no rashes or lesions noted and ecchymosis Neuro General: patient oriented x3 and no focal motor deficits Extrem General: No clubbing, No cyanosis and Yes edema Psych Appearance: grossly normal Office Procedures EKG Details: EKG shows sinus rhythm at 89 beats per minute with QS pattern in lead V1 V2 with diffuse ST T wave changes in inferior inferolateral leads [id number], Complete Assessment & Plan Assessment & Plan (1) Acute CHF (congestive heart failure): Code(s): I50.9 - Heart failure, unspecified Category: Medical Plan: Patient appears to be in acute decompensated congestive heart failure with significantly increased symptoms and symptoms at rest with evidence of mild fluid overload although it appears to be more related to LV failure and mostly pulmonary edema. I think he requires inpatient admission for IV diuresis. There has been difficulty up titrating his neurohormonal modulation due to blood pressure as well as of the liberty of medications. At this point time I would focus on diuresing him and start him on Lasix drip at 5 mg an hour. Advise to present himself to the ED and I have placed a call to the ED triage for the same. For now will hold off on enalapril therapy and maybe add valsartan therapy and try to get approval for Entresto therapy. Outpatient. Once he is more euvolemic will pursue beta-peyman therapy. Hold off on SGLT2 inhibitor therapy for now as well as mineral corticoid inhibitor therapy. Will add them once able tolerate other neurohormonal modulators. Given lack of Q-waves in anterior inferior leads, should pursue viability workup to see if he could be revascularized in those territories. Will need to follow-up closely. Will repeat echocardiogram while hospitalized to assess for LV systolic function. Overall prognosis is guarded. (2) Coronary artery disease: Code(s): I25.10 - Atherosclerotic heart disease of [place] coronary artery without angina pectoris Category: Medical Qualifiers: Coronary Disease-Associated Artery/Lesion type: [place] artery [place] vs. transplanted heart: [place] heart Associated angina: without angina Qualified Code(s): I25.10 - Atherosclerotic heart disease of [place] coronary artery without angina pectoris Plan: CAD with severe three-vessel disease with culprit in the circumflex which was stented but has chronic total occlusion of the LAD and RCA with collaterals dependent in the circumflex artery. Clinically currently not having any clear symptoms of angina. Continue dual antiplatelet therapy uninterrupted. Continue high-intensity statin therapy. His current significant issue appears to be related to heart failure and will manage that as inpatient. Greater than 40 minutes was spent in managing and coordinating his care. Coding Level of Care Code New Pt Level 5 (05090) Diagnoses Acute CHF (congestive heart failure) I50.9 Coronary artery disease involving [place] coronary artery of [place] heart without angina pectoris I25.10 Coronary Disease-Associated Artery/Lesion type: [place] artery [place] vs. transplanted heart: [place] heart Associated angina: without angina CPT Codes EKG - CPT: 90820-[id number], Complete ([id number])
== END 2023-09-18 15:42 | disposition home or self-care (01) ==
PROVIDERS: PCP Internal Medicine; Visit Provider Internal Medicine Cardiovascular Disease
DX: I50.9 Heart failure, unspecified (principal); I25.10 Atherosclerotic heart disease of native coronary artery without angina pectoris; R94.31 Abnormal electrocardiogram [ECG] [EKG]
CPT/HCPCS: 93010; 99215

== ENCOUNTER → 2023-09-18 14:15 | Outpatient (BNVA) | payer OTHER, SELFPAY | PROVIDERS: PCP Internal Medicine; Visit Provider Internal Medicine Cardiovascular Disease ==

== ENCOUNTER 2023-09-18 15:16 | Inpatient (IN) | payer OTHER, SELFPAY ==
--- NOTE | ~2023-09-18 | XR_ITS ---
EXAMINATION: XR CHEST CLINICAL INFORMATION: Shortness of breath. COMPARISON: 08/29/2023. TECHNIQUE: 2 views of the chest were obtained. FINDINGS: Heart size normal to borderline with slight distention of the pulmonary vessels. Aeration however is improved from 08/29/2023 thus the appearance may be chronic. High-resolution chest CT may be helpful in this case. There are no pleural effusions. XR/XR chest 2V IMPRESSION: Probable underlying chronic interstitial change.
--- NOTE | 2023-09-18 15:19 | ECG_ITS ---
Test Reason : chf Blood Pressure : / mmHG Vent. Rate : 097 BPM Atrial Rate : 097 BPM P-R Int : 186 ms QRS Dur : 084 ms QT Int : 344 ms P-R-T Axes : 024 -11 -30 degrees QTc Int : 436 ms Sinus rhythm with occasional Premature ventricular complexes Possible Left atrial enlargement Inferior infarct , age undetermined Abnormal ECG When compared with ECG of 30-AUG-2023 02:48, Premature ventricular complexes are now Present Referred By: Estrella Vilchis Electronically Signed By:XIN TANG
[2023-09-18 15:25] VITALS: BP 90/61; PULSE 89; RESP 19; TEMP 36.3; O2SAT 98; BMI 26.4
--- NOTE | 2023-09-18 15:25 | ED.GENADULT ---
HPI - General Adult General Chief complaint: Dyspnea Stated complaint: CHF Time Seen by Provider: 09/18/23 15:56 Source: patient Mode of arrival: ambulatory Limitations: no limitations History of Present Illness HPI narrative: This is a 58-year-old man with a past medical history of HFrEF, CAD (STEMI in July 2023 s/p stenting), T2DM, HTN and HLD who presents from Cardiology office for evaluation of dyspnea. History obtained with daughter providing interpretation at the bedside. Patient offered formal delimer, but declines. Patient reports dyspnea on exertion and orthopnea. He states no chest pain. He states seeing his rn informatics today and was recommended to come to the emergency room due to fluid accumulation in his lungs. He states taking his medications as prescribed. He states recently developing myalgias. He states no fevers, chills or cough. He states no abdominal pain, nausea or vomiting. He states no recent trauma or falls. Related Data Home Medications ?Medication ?Instructions ?Recorded ?Confirmed aspirin 81 mg tablet,delayed 81 mg PO DAILY 08/29/23 09/18/23 release atorvastatin 80 mg tablet 80 mg PO BEDTIME 08/29/23 09/18/23 ferrous sulfate 325 mg (65 mg 325 mg PO DAILY 08/29/23 09/18/23 iron) tablet,delayed release insulin glargine 100 unit/mL (3 20 unit subcut QPM 08/29/23 09/18/23 mL) subcutaneous pen (Lantus Solostar U-100 Insulin) metformin 1,000 mg tablet 1,000 mg PO BID 08/29/23 09/18/23 ticagrelor 90 mg tablet (Brilinta) 90 mg PO BID 08/29/23 09/18/23 furosemide 40 mg tablet 40 mg PO DAILY 09/05/23 09/18/23 Previous Rx's ?Medication ?Instructions ?Recorded blood-glucose meter (FreeStyle #1 ea 07/08/21 [place] Lite kit) blood sugar diagnostic (FreeStyle #100 strips 11/08/22 Lite Strips) lancets 28 gauge (FreeStyle #100 ea 03/29/23 Lancets) enalapril maleate 10 mg tablet 10 mg PO DAILY #90 tabs 09/05/23 pen needle, diabetic 32 gauge x #100 ea 09/13/2303/22 (BD Ultra-Fine Micro Pen Needle) Allergies Allergy/AdvReac Type Severity Reaction Status Date / Time No Known Allergies Allergy Verified 09/18/23 15:29 Review of Systems Review of Systems: ROS as per HPI PMFSH Past Medical History Medical History Acute CHF (congestive heart failure) Acute on chronic systolic (congestive) heart failure Essential hypertension Endogenous depression Peripheral vascular disease due to secondary diabetes Newly diagnosed diabetes Hyperglycemia No known health problems Surgical History History of heart artery stent Family History Family History Sister History of artificial heart valve Brother Myocardial infarct Social History Social History Household Members: Family Housing: House Do you presently have visiting nurse or other home services: No Alcohol intake: never Patient Tobacco Use Status: Never used Tobacco e-Cigarette/Vaping Use: Never Used Second Hand Smoke Exposure: No Advance Directives: Yes Advance Directives on File: Yes Advance Directives Date on File: 09/03/23 Do you have a plan to hurt others: No Plan service: No Current occupational status: unemployed Current occupation: right hand dominant Cognitive needs: No Hearing needs: No Vision needs: Yes (reading reading) Physical Exam ED Vital Signs: Vital Signs - 24 hr 09/18/23 15:25 09/18/23 17:55 09/18/23 18:19 Temperature 97.3 F 98.2 F Pulse Rate 89 60 Respiratory Rate 19 18 Blood Pressure 90/61 100/68 98/69 Pulse Oximetry 98 97 Oxygen Delivery Method Room Air Room Air BMI result Body Mass Index 26.4 Gen: NAD, AOx3 HEENT: NCAT, EOMI, normal conjunctiva CV: RRR, distal bilateral lower extremity pitting edema Pulm: + rales at bilateral posterior lower lung ang, no wheezes or rhonchi, no increased work of breathing at rest GI: Soft, NTND, no rebound, guarding or rigidity Neuro: Grossly non focal Course Course Course Narrative: This is a rapid medical exam performed by Helga Vilchis NP: Additional HPI, ROS, PE not included below will be deferred to primary provider. Patient is a 58-year-old male with recent DE 6 weeks ago, circumflex stent placed, recently admitted for decompensated HF, ischemic cardiomyopathy, CAD, HTN, DM presenting to ED from Dr. Triana's office. Dr. Triana called in expect, feels patient is again experiencing decompensated HF and would like patient admitted for IV diuresis. Patient complains of dyspnea and body aches. Plan: EKG, labs, CXR Medications Administered Discontinued Medications Generic Name Dose Route Start Last Admin Trade Name Charles PRN Reason Stop Dose Admin Furosemide 40 mg 09/18/23 17:35 09/18/23 17:55 Furosemide 40 Mg/4 Ml Vial IVPUSH 09/18/23 17:36 40 mg STAT STA Administration Protocol Medical Decision Making Medical Decision Making [facility] Narrative: Differential diagnosis includes, but is not limited to acute decompensated heart failure, electrolyte abnormalities, acute kidney injury, viral syndrome, rhabdomyolysis, anemia. Patient is afebrile and hemodynamically stable on room air. I reviewed and interpreted labs. Labs were notable for stable chronic anemia with hemoglobin 10.8 (previous 9.4). Venous blood gas is reassuring with no acute acid-base disturbance. Metabolic panel is reassuring. Creatinine kinase is not elevated. BNP elevated at 666 albeit improved previous 724. Troponin mildly elevated at 17.9 although patient does not complain of any chest pain or have any ischemic changes on EKG to suggest acute coronary syndrome and so this is thought to be less likely at this time. Urinalysis is noncontributory. Patient has negative for COVID-19, influenza and RSV. I reviewed and interpreted the patient's chest x-ray. Radiology interpretation reveals probable underlying chronic interstitial change. Reviewing Dr. Triana's note from the patient's cardiology visit today. There is concern for acute decompensated heart failure and need for inpateitn admission for IV diuresis and repeat echocardiogram. Patient is provided 40mg IV Lasix. Patient's case and management are discussed with admitting hospitalist Dr. Prabhakar. Patient is admitted in stable condition. Admission/Observation Consideration of admission/observation: Escalation of care including admission/observation considered Consult Healthcare Provider Management of the patient was discussed with: Hospitalist Lab Data [facility] Lab Attestation statement: I reviewed the patient's lab results. 09/18/23 15:48 09/18/23 16:30 Labs: Lab Results 09/18/23 09/18/23 09/18/23 Range/Units 15:48 15:56 16:30 WBC 7.1 (4.8-10.8) X10*3/uL RBC 4.05 L D (4.60-5.80) X10*6/uL Hgb 10.8 L (14.0-18.0) g/dl Hct 34.3 L (42.0-52.0) % MCV 84.7 (80.0-98.0) fL MCH 26.7 L (27.0-33.0) pg MCHC 31.5 (31.0-36.0) g/dl RDW 15.0 (11.0-16.0) % Plt Count 221 (160-400) X10*3/uL MPV 9.6 (9.4-12.4) fL Immature Gran % (Auto) 0.3 (0.0-0.4) % Neut % (Auto) 49.2 (45-73) % Lymph % (Auto) 34.1 (20-40) % Saline % (Auto) 12.3 H (2-11) % Eos % (Auto) 3.5 (0-4) % Baso % (Auto) 0.6 (0-2) % Lymph # (Auto) 2.4 (1.2-4.9) X10*3/uL Saline # (Auto) 0.9 (0.1-1.2) X10*3/uL Eos # (Auto) 0.3 (0.0-0.4) X10*3/uL Baso # (Auto) 0.0 (0.0-0.2) X10*3/uL Abs Immat Gran (auto) 0.02 (0.00-0.03) X10*3/uL Absolute Neuts (auto) 3.5 (2.0-8.3) x10*3/uL Absolute Nucleated RBC 0.000 (0.0-0.012) X10*3/uL Nucleated RBC % (auto) 0.0 (0.0-0.2) /100WBC PT 11.7 (11.1-13.3) SEC INR 1.0 (0.9-1.1) VBG pH 7.43 (7.32-7.43) VBG pCO2 42 mmHg VBG pO2 52 mmHg VBG HCO3 28 H (22-26) mmol/L VBG O2 Saturation 76.0 % VBG Base Excess 3.5 mmol/L Sodium 140 (135-145) mmol/L Potassium 3.7 (3.3-5.1) mmol/L Chloride 106 (96-108) mmol/L Carbon Dioxide 23 (22-29) mmol/L Anion Gap 15 (12-20) BUN 11 (9-16) mg/dL Creatinine 0.78 (0.5-1.4) mg/dL Estim Creat Clear Calc 107.2 Estimated GFR > 60 Random Glucose 110 (60-115) mg/dL Calcium 9.3 (8.4-10.2) mg/dL Total Bilirubin 0.4 (0.0-1.0) mg/dL AST 38 H (5-37) U/L ALT 26 (0-40) U/L Alkaline Phosphatase 102 (39-117) U/L Total Creatine Kinase 112 (38-174) U/L Troponin I High Sens 17.9 D (<3.5-35.0) ng/L B-Natriuretic Peptide 666 H (<100) pg/mL Total Protein 7.8 (6.5-8.0) g/dL Albumin 3.6 (3.5-5.0) g/dL Urine Color Urine Appearance Urine pH (5.0-9.0) Ur Specific [place] (1.005-1.025) Urine Protein (Neg-Trace) mg/dL Urine Glucose (UA) (Negative) mg/dL Urine Ketones (Negative) mg/dL Urine Blood (Negative) Urine Nitrite (Negative) Ur Leukocyte Esterase (Negative) Influenza Type A (PCR) NEGATIVE (Negative) Influenza Type B (PCR) NEGATIVE (Negative) RSV RNA Qual (PCR) NEGATIVE (Negative) SARS-CoV-2 RNA (RT-PCR) NEGATIVE (Negative) 09/18/23 Range/Units 16:51 WBC (4.8-10.8) X10*3/uL RBC (4.60-5.80) X10*6/uL Hgb (14.0-18.0) g/dl Hct (42.0-52.0) % MCV (80.0-98.0) fL MCH (27.0-33.0) pg MCHC (31.0-36.0) g/dl RDW (11.0-16.0) % Plt Count (160-400) X10*3/uL MPV (9.4-12.4) fL Immature Gran % (Auto) (0.0-0.4) % Neut % (Auto) (45-73) % Lymph % (Auto) (20-40) % Saline % (Auto) (2-11) % Eos % (Auto) (0-4) % Baso % (Auto) (0-2) % Lymph # (Auto) (1.2-4.9) X10*3/uL Saline # (Auto) (0.1-1.2) X10*3/uL Eos # (Auto) (0.0-0.4) X10*3/uL Baso # (Auto) (0.0-0.2) X10*3/uL Abs Immat Gran (auto) (0.00-0.03) X10*3/uL Absolute Neuts (auto) (2.0-8.3) x10*3/uL Absolute Nucleated RBC (0.0-0.012) X10*3/uL Nucleated RBC % (auto) (0.0-0.2) /100WBC PT (11.1-13.3) SEC INR (0.9-1.1) VBG pH (7.32-7.43) VBG pCO2 mmHg VBG pO2 mmHg VBG HCO3 (22-26) mmol/L VBG O2 Saturation % VBG Base Excess mmol/L Sodium (135-145) mmol/L Potassium (3.3-5.1) mmol/L Chloride (96-108) mmol/L Carbon Dioxide (22-29) mmol/L Anion Gap (12-20) BUN (9-16) mg/dL Creatinine (0.5-1.4) mg/dL Estim Creat Clear Calc Estimated GFR Random Glucose (60-115) mg/dL Calcium (8.4-10.2) mg/dL Total Bilirubin (0.0-1.0) mg/dL AST (5-37) U/L ALT (0-40) U/L Alkaline Phosphatase (39-117) U/L Total Creatine Kinase (38-174) U/L Troponin I High Sens (<3.5-35.0) ng/L B-Natriuretic Peptide (<100) pg/mL Total Protein (6.5-8.0) g/dL Albumin (3.5-5.0) g/dL Urine Color Yellow Urine Appearance Clear Urine pH 5.5 (5.0-9.0) Ur Specific [place] 1.015 (1.005-1.025) Urine Protein Negative (Neg-Trace) mg/dL Urine Glucose (UA) Negative (Negative) mg/dL Urine Ketones Negative (Negative) mg/dL Urine Blood Negative (Negative) Urine Nitrite Negative (Negative) Ur Leukocyte Esterase Negative (Negative) Influenza Type A (PCR) (Negative) Influenza Type B (PCR) (Negative) RSV RNA Qual (PCR) (Negative) SARS-CoV-2 RNA (RT-PCR) (Negative) Independent Interpretation I performed an independent interpretation of an: EKG and Plain X-Ray Interpretation: Chest x-ray reveals no pneumothorax or pleural effusion EKG shows sinus rhythm at 97 beats per minute, AL 186, QRS 84, QTC 436, no STEMI (compared to previous EKG August 30, 2023 there are no diagnostic ischemic changes) Radiology Impression Discussion of test interpretation with radiology: I have reviewed the radiologist's reading. Radiologist Impression: IMPRESSION: Probable underlying chronic interstitial change. Dictated By: Maykel Garcia MD Signed By: <Electronically signed by Maykel Garcia MD in OV> 09/18/23 0125 Discharge Plan Discharge Clinical Impression: Dyspnea on exertion, CHF (congestive heart failure), Orthopnea, Elevated brain natriuretic peptide (BNP) level Patient Disposition: Admitted As Inpatient Prescriptions: No Action (DME) FreeStyle Lite Strips Strip See Rx Instructions .ROUTE .COMPLEX Qty: 100 3RF Dose Instruction: CHECK BLOOD SUGAR 3-4X/DAY Rx Instructions: CHECK BLOOD SUGAR 3-4X/DAY (DME) lancets [FreeStyle Lancets] 28 gauge misc See Rx Instructions .Route Qty: 100 0RF Rx Instructions: check BS 3-4x/day metformin 1,000 mg tablet 1,000 mg PO BID insulin glargine [Lantus Solostar U-100 Insulin] 100 unit/mL (3 mL) insulin pen 20 unit subcut QPM Brilinta 90 mg tablet 90 mg PO BID ferrous sulfate 325 mg (65 mg iron) tablet,delayed release (DR/EC) 325 mg PO DAILY aspirin 81 mg tablet,delayed release (DR/EC) 81 mg PO DAILY atorvastatin 80 mg tablet 80 mg PO BEDTIME furosemide 40 mg tablet 40 mg PO DAILY enalapril maleate 10 mg tablet 10 mg PO DAILY Qty: 90 1RF (DME) blood-glucose meter [FreeStyle [place] Lite] Kit See Rx Instructions .Route Qty: 1 0RF Rx Instructions: check BS 1-2x/day (DME) pen needle, diabetic [BD Ultra-Fine Micro Pen Needle] 32 gauge x 1/4 needle See Rx Instructions .Route Qty: 100 0RF Rx Instructions: As directed Print Language: Monegasque
[2023-09-18 15:55] LABS: MANUAL DIFF FLAG NO
[2023-09-18 15:57] LABS: Basophils Percent Auto 0.6 % (0-2); Eosinophils Absolute Auto 0.3 X10*3/uL (0.0-0.4); Eosinophils Percent Auto 3.5 % (0-4); Hematocrit 34.3 % (42.0-52.0); Hemoglobin 10.8 g/dl (14.0-18.0); Imm Gran Abs Auto 0.02 X10*3/uL (0.00-0.03); Imm Gran Pct Auto 0.3 % (0.0-0.4); Lymphocytes Absolute Auto 2.4 X10*3/uL (1.2-4.9); Lymphocytes Percent Auto 34.1 % (20-40); Mean Corpuscular HGB Conc 31.5 g/dl (31.0-36.0); Mean Corpuscular Hemoglobin 26.7 pg (27.0-33.0); Mean Corpuscular Volume 84.7 fL (80.0-98.0); Mean Platelet Volume 9.6 fL (9.4-12.4); Monocytes Absolute Auto 0.9 X10*3/uL (0.1-1.2); Monocytes Percent Auto 12.3 % (2-11); Neutrophils Absolute Auto 3.5 x10*3/uL (2.0-8.3); Neutrophils Percent Auto 49.2 % (45-73); Platelet Count 221 X10*3/uL (160-400); Red Blood Count 4.05 X10*6/uL (4.60-5.80); White Blood Count 7.1 X10*3/uL (4.8-10.8)
[2023-09-18 16:01] LABS: Venous Blood Gas Refer to POC result
[2023-09-18 16:03] LABS: VBG Base Excess 3.5 mmol/L; VBG HCO3 28 mmol/L (22-26); VBG pCO2 42 mmHg; VBG pH 7.43 (7.32-7.43); VBG pO2 52 mmHg
[2023-09-18 16:09] LABS: Prothrombin Time 11.7 SEC (11.1-13.3)
--- NOTE | 2023-09-18 16:18 | ED_ITS ---
HPI - General Adult General Chief complaint: Dyspnea Stated complaint: CHF Time Seen by Provider: 09/18/23 15:56 Related Data Home Medications ?Medication ?Instructions ?Recorded ?Confirmed aspirin 81 mg tablet,delayed 81 mg PO DAILY 08/29/23 09/18/23 release atorvastatin 80 mg tablet 80 mg PO DAILY 08/29/23 09/18/23 ferrous sulfate 325 mg (65 mg 325 mg PO DAILY 08/29/23 09/18/23 iron) tablet,delayed release insulin glargine 100 unit/mL (3 21 unit subcut BEDTIME 08/29/23 09/18/23 mL) subcutaneous pen (Lantus Solostar U-100 Insulin) metformin 1,000 mg tablet 1,000 mg PO BID 08/29/23 09/18/23 ticagrelor 90 mg tablet (Brilinta) 90 mg PO BID 08/29/23 09/18/23 furosemide 40 mg tablet 40 mg PO DAILY 09/05/23 09/18/23 Previous Rx's ?Medication ?Instructions ?Recorded blood-glucose meter (FreeStyle #1 ea 07/08/21 Cook Sta Lite kit) blood sugar diagnostic (FreeStyle #100 strips 11/08/22 Lite Strips) lancets 28 gauge (FreeStyle #100 ea 03/29/23 Lancets) enalapril maleate 10 mg tablet 10 mg PO DAILY #90 tabs 09/05/23 pen needle, diabetic 32 gauge x #100 ea 09/13/2303/22 (BD Ultra-Fine Micro Pen Needle) Allergies Allergy/AdvReac Type Severity Reaction Status Date / Time No Known Allergies Allergy Verified 09/18/23 15:29 [facility] Past Medical History Medical History Acute CHF (congestive heart failure) Acute on chronic systolic (congestive) heart failure Essential hypertension Endogenous depression Peripheral vascular disease due to secondary diabetes Newly diagnosed diabetes Hyperglycemia No known health problems Surgical History History of heart artery stent Family History Family History Sister History of artificial heart valve Brother Myocardial infarct Social History Social History Household Members: Family Housing: House Do you presently have visiting nurse or other home services: No Alcohol intake: never Patient Tobacco Use Status: Never used Tobacco e-Cigarette/Vaping Use: Never Used Second Hand Smoke Exposure: No Advance Directives: Yes Advance Directives on File: Yes Advance Directives Date on File: 09/03/23 Do you have a plan to hurt others: No Plan service: No Current occupational status: unemployed Current occupation: right hand dominant Cognitive needs: No Hearing needs: No Vision needs: Yes (reading reading) Physical Exam ED Vital Signs: Vital Signs - 24 hr 09/18/23 15:25 09/18/23 17:55 09/18/23 18:19 Temperature 97.3 F 98.2 F Pulse Rate 89 60 Respiratory Rate 19 18 Blood Pressure 90/61 100/68 98/69 Pulse Oximetry 98 97 Oxygen Delivery Method Room Air Room Air 09/18/23 19:00 Temperature 98.1 F Pulse Rate 95 Respiratory Rate 18 Blood Pressure 95/63 Pulse Oximetry 98 Oxygen Delivery Method Room Air BMI result Body Mass Index 26.4 Medications Administered Discontinued Medications Generic Name Dose Route Start Last Admin Trade Name Freq PRN Reason Stop Dose Admin Furosemide 40 mg 09/18/23 17:35 09/18/23 17:55 Furosemide 40 Mg/4 Ml Vial IVPUSH 09/18/23 17:36 40 mg STAT STA Administration Protocol Medical Decision Making Admission/Observation Consideration of admission/observation: Escalation of care including admission/observation considered Lab Data MDM Lab Attestation statement: I reviewed the patient's lab results. 09/18/23 15:48 09/18/23 16:30 Labs: Lab Results 09/18/23 09/18/23 09/18/23 Range/Units 15:48 15:56 16:30 WBC 7.1 (4.8-10.8) X10*3/uL RBC 4.05 L D (4.60-5.80) X10*6/uL Hgb 10.8 L (14.0-18.0) g/dl Hct 34.3 L (42.0-52.0) % MCV 84.7 (80.0-98.0) fL MCH 26.7 L (27.0-33.0) pg MCHC 31.5 (31.0-36.0) g/dl RDW 15.0 (11.0-16.0) % Plt Count 221 (160-400) X10*3/uL MPV 9.6 (9.4-12.4) fL Immature Gran % (Auto) 0.3 (0.0-0.4) % Neut % (Auto) 49.2 (45-73) % Lymph % (Auto) 34.1 (20-40) % [place] % (Auto) 12.3 H (2-11) % Eos % (Auto) 3.5 (0-4) % Baso % (Auto) 0.6 (0-2) % Lymph # (Auto) 2.4 (1.2-4.9) X10*3/uL [place] # (Auto) 0.9 (0.1-1.2) X10*3/uL Eos # (Auto) 0.3 (0.0-0.4) X10*3/uL Baso # (Auto) 0.0 (0.0-0.2) X10*3/uL Abs Immat Gran (auto) 0.02 (0.00-0.03) X10*3/uL Absolute Neuts (auto) 3.5 (2.0-8.3) x10*3/uL Absolute Nucleated RBC 0.000 (0.0-0.012) X10*3/uL Nucleated RBC % (auto) 0.0 (0.0-0.2) /100WBC PT 11.7 (11.1-13.3) SEC INR 1.0 (0.9-1.1) VBG pH 7.43 (7.32-7.43) VBG pCO2 42 mmHg VBG pO2 52 mmHg VBG HCO3 28 H (22-26) mmol/L VBG O2 Saturation 76.0 % VBG Base Excess 3.5 mmol/L Sodium 140 (135-145) mmol/L Potassium 3.7 (3.3-5.1) mmol/L Chloride 106 (96-108) mmol/L Carbon Dioxide 23 (22-29) mmol/L Anion Gap 15 (12-20) BUN 11 (9-16) mg/dL Creatinine 0.78 (0.5-1.4) mg/dL Estim Creat Clear Calc 107.2 Estimated GFR > 60 Random Glucose 110 (60-115) mg/dL Calcium 9.3 (8.4-10.2) mg/dL Total Bilirubin 0.4 (0.0-1.0) mg/dL AST 38 H (5-37) U/L ALT 26 (0-40) U/L Alkaline Phosphatase 102 (39-117) U/L Total Creatine Kinase 112 (38-174) U/L Troponin I High Sens 17.9 D (<3.5-35.0) ng/L B-Natriuretic Peptide 666 H (<100) pg/mL Total Protein 7.8 (6.5-8.0) g/dL Albumin 3.6 (3.5-5.0) g/dL Urine Color Urine Appearance Urine pH (5.0-9.0) Ur Specific [place] (1.005-1.025) Urine Protein (Neg-Trace) mg/dL Urine Glucose (UA) (Negative) mg/dL Urine Ketones (Negative) mg/dL Urine Blood (Negative) Urine Nitrite (Negative) Ur Leukocyte Esterase (Negative) Influenza Type A (PCR) NEGATIVE (Negative) Influenza Type B (PCR) NEGATIVE (Negative) RSV RNA Qual (PCR) NEGATIVE (Negative) SARS-CoV-2 RNA (RT-PCR) NEGATIVE (Negative) 09/18/23 Range/Units 16:51 WBC (4.8-10.8) X10*3/uL RBC (4.60-5.80) X10*6/uL Hgb (14.0-18.0) g/dl Hct (42.0-52.0) % MCV (80.0-98.0) fL MCH (27.0-33.0) pg MCHC (31.0-36.0) g/dl RDW (11.0-16.0) % Plt Count (160-400) X10*3/uL MPV (9.4-12.4) fL Immature Gran % (Auto) (0.0-0.4) % Neut % (Auto) (45-73) % Lymph % (Auto) (20-40) % [place] % (Auto) (2-11) % Eos % (Auto) (0-4) % Baso % (Auto) (0-2) % Lymph # (Auto) (1.2-4.9) X10*3/uL [place] # (Auto) (0.1-1.2) X10*3/uL Eos # (Auto) (0.0-0.4) X10*3/uL Baso # (Auto) (0.0-0.2) X10*3/uL Abs Immat Gran (auto) (0.00-0.03) X10*3/uL Absolute Neuts (auto) (2.0-8.3) x10*3/uL Absolute Nucleated RBC (0.0-0.012) X10*3/uL Nucleated RBC % (auto) (0.0-0.2) /100WBC PT (11.1-13.3) SEC INR (0.9-1.1) VBG pH (7.32-7.43) VBG pCO2 mmHg VBG pO2 mmHg VBG HCO3 (22-26) mmol/L VBG O2 Saturation % VBG Base Excess mmol/L Sodium (135-145) mmol/L Potassium (3.3-5.1) mmol/L Chloride (96-108) mmol/L Carbon Dioxide (22-29) mmol/L Anion Gap (12-20) BUN (9-16) mg/dL Creatinine (0.5-1.4) mg/dL Estim Creat Clear Calc Estimated GFR Random Glucose (60-115) mg/dL Calcium (8.4-10.2) mg/dL Total Bilirubin (0.0-1.0) mg/dL AST (5-37) U/L ALT (0-40) U/L Alkaline Phosphatase (39-117) U/L Total Creatine Kinase (38-174) U/L Troponin I High Sens (<3.5-35.0) ng/L B-Natriuretic Peptide (<100) pg/mL Total Protein (6.5-8.0) g/dL Albumin (3.5-5.0) g/dL Urine Color Yellow Urine Appearance Clear Urine pH 5.5 (5.0-9.0) Ur Specific [place] 1.015 (1.005-1.025) Urine Protein Negative (Neg-Trace) mg/dL Urine Glucose (UA) Negative (Negative) mg/dL Urine Ketones Negative (Negative) mg/dL Urine Blood Negative (Negative) Urine Nitrite Negative (Negative) Ur Leukocyte Esterase Negative (Negative) Influenza Type A (PCR) (Negative) Influenza Type B (PCR) (Negative) RSV RNA Qual (PCR) (Negative) SARS-CoV-2 RNA (RT-PCR) (Negative) Independent Interpretation I performed an independent interpretation of an: EKG Interpretation: EKG shows sinus rhythm at 87 beats per minute, MA 186, QRS 84, QTC 436, no STEMI, PVC noted (compared to previous EKG August 30, 2023 there are no diagnostic ischemic changes) Discharge Plan Discharge Clinical Impression: Dyspnea on exertion, CHF (congestive heart failure), Orthopnea, Elevated brain natriuretic peptide (BNP) level Patient Disposition: Admitted As Inpatient
[2023-09-18 16:31] LABS: B Type Natriuretic Peptide 666 pg/mL (<100)
[2023-09-18 16:36] LABS: Influenza A PCR NEGATIVE (Negative); Influenza B PCR NEGATIVE (Negative); Resp Syncy Virus RNA Qual PCR NEGATIVE (Negative); SARS COV2 PCR INHOUSE NEGATIVE (Negative)
[2023-09-18 16:58] LABS: Appearance Urine Clear; Color Urine Yellow; Glucose Urine UA Negative (Negative); Leukocyte Esterase Urine Negative (Negative); Nitrite Urine Negative (Negative); PH 5.5 (5.0-9.0); Specific Gravity - Urine 1.015 (1.005-1.025); Urine Blood Negative (Negative); Urine Ketones Negative (Negative); Urine Protein Negative (Neg-Trace)
[2023-09-18 17:20] LABS: Alanine Aminotransferase 26 U/L (0-40); Albumin Level 3.6 g/dL (3.5-5.0); Alkaline Phosphatase 102 U/L (39-117); Anion Gap 15 (12-20); Aspartate Amino Transferase 38 U/L (5-37); Bilirubin Total 0.4 mg/dL (0.0-1.0); Blood Urea Nitrogen 11 mg/dL (9-16); Calcium 9.3 mg/dL (8.4-10.2); Carbon Dioxide 23 mmol/L (22-29); Chloride 106 mmol/L (96-108); Creatinine Clr Calc Pharmacy 107.2; Estimated Glomerular Filt Rate > 60; Glucose Random 110 mg/dL (60-115); Potassium 3.7 mmol/L (3.3-5.1); Sodium 140 mmol/L (135-145); Total Protein 7.8 g/dL (6.5-8.0); Troponin-I High Sensitivity 17.9 ng/L (<3.5-35.0)
[2023-09-18 17:55] VITALS: BP 100/68
[2023-09-18] MEDS: Furosemide 40 MG/4 ML VIAL IVPUSH (17:55)
[2023-09-18 18:19] VITALS: BP 98/69; PULSE 60; RESP 18; TEMP 36.8; O2SAT 97
[2023-09-18 19:00] VITALS: BP 95/63; PULSE 95; RESP 18; TEMP 36.7; O2SAT 98
--- NOTE | 2023-09-18 19:04 | PM.IMHP ---
History of Present Illness Date of Service: 09/18/23 Attending physician on admission: Frances Kumar Chief Complaint: renteria, orthopnea 58-year-old male with history of insulin-dependent type 2 diabetes, hypertension, congestive heart failure, peripheral vascular disease, coronary artery disease s/p STEMI 07/2023 on DAPT, and ischemic cardiomyopathy presented to the ED earlier today from Cardiology office for evaluation of worsening dyspnea on exertion and orthopnea. He states he has been symptomatic with dyspnea on exertion orthopnea since his STEMI in July but has been progressively worse over the last few days. He also states this weekend has had myalgias and intermittent epistaxis but denies any fevers, chills, sore throat, congestion, rhinorrhea, abdominal pain, nausea, vomiting, diarrhea, urinary symptoms, shortness of breath at rest, wheezing, lightheadedness, palpitations, or chest pains. Since arrival, blood pressure soft, on admission blood pressure 95/63, vitals otherwise stable. He has a stable normocytic anemia with H/H 10.8/34.3%. Renal function electrolytes normal. Troponin within normal limits. BNP 666. Urinalysis unremarkable. Negative for COVID-19, RSV. Chest x-ray shows chronic interstitial changes but no acute edema or effusions. EKG shows sinus rhythm with occasional PVCs but no acute ST/T-wave abnormality. In the ED, has been given 40 mg IV Lasix. He will be admitted for further management of CHF exacerbation. Review of Systems Review of Systems: Yes all other systems are reviewed and are negative [facility] Medical History Acute CHF (congestive heart failure) Acute on chronic systolic (congestive) heart failure Essential hypertension Endogenous depression Peripheral vascular disease due to secondary diabetes Newly diagnosed diabetes Hyperglycemia No known health problems Family History Sister History of artificial heart valve Brother Myocardial infarct Surgical History History of heart artery stent Social History Household Members: Family Housing: House Do you presently have visiting nurse or other home services: No Alcohol intake: never Patient Tobacco Use Status: Never used Tobacco e-Cigarette/Vaping Use: Never Used Second Hand Smoke Exposure: No Advance Directives: Yes Advance Directives on File: Yes Advance Directives Date on File: 09/03/23 Do you have a plan to hurt others: No Plan service: No Current occupational status: unemployed Current occupation: right hand dominant Cognitive needs: No Hearing needs: No Vision needs: Yes (reading reading) Meds Allergies Allergy/AdvReac Type Severity Reaction Status Date / Time No Known Allergies Allergy Verified 09/18/23 15:29 Home Medications ?Medication ?Instructions ?Recorded ?Confirmed ?Last Taken ?Type aspirin 81 mg tablet,delayed 81 mg PO DAILY 08/29/23 09/18/23 09/18/23 07:00 History release atorvastatin 80 mg tablet 80 mg PO DAILY 08/29/23 09/18/23 09/18/23 07:00 History ferrous sulfate 325 mg (65 mg 325 mg PO DAILY 08/29/23 09/18/23 09/18/23 07:00 History iron) tablet,delayed release insulin glargine 100 unit/mL (3 21 unit subcut BEDTIME 08/29/23 09/18/23 09/17/23 19:00 History mL) subcutaneous pen (Lantus Solostar U-100 Insulin) metformin 1,000 mg tablet 1,000 mg PO BID 08/29/23 09/18/23 09/18/23 07:00 History ticagrelor 90 mg tablet (Brilinta) 90 mg PO BID 08/29/23 09/18/23 09/18/23 07:00 History furosemide 40 mg tablet 40 mg PO DAILY 09/05/23 09/18/23 09/18/23 07:00 History Physical Exam Vital Signs and Narrative: Vital Signs: Last Vital Signs Temp 98.1 F 09/18/23 19:00 Pulse 95 09/18/23 19:00 Resp 18 09/18/23 19:00 BP 95/63 09/18/23 19:00 Pulse Ox 98 09/18/23 19:00 O2 Del Method Room Air 09/18/23 19:00 BMI result Body Mass Index 26.4 Constitutional - Awake and Alert, No apparent distress Eyes - PERRLA, EOMI Cardiovascular - S1S2, RRR, 1+ ble edema. No JVD Respiratory - Normal lung expansion, Normal respiratory effort, No respiratory distress, CTA bilaterally Gastrointestinal - NT / ND; +BS; No rebound or guarding - No CVA tenderness Extremities - no calf tenderness bilaterally, no swelling Musculoskeletal - Normal inspection, normal ROM Skin - Warm/Dry Neurological - Alert & oriented x3, CN II-XII in tact, 5/5 strength BUE and BLE Psychological - Appropriate affect Results Labs 09/18/23 15:48 09/18/23 16:30 Labs: Laboratory Results - last 24 hr 09/18/23 09/18/23 09/18/23 15:48 15:56 16:30 MCV 84.7 MCH 26.7 L MCHC 31.5 RDW 15.0 Plt Count 221 MPV 9.6 Immature Gran % (Auto) 0.3 Neut % (Auto) 49.2 Lymph % (Auto) 34.1 [place] % (Auto) 12.3 H Eos % (Auto) 3.5 Baso % (Auto) 0.6 Lymph # (Auto) 2.4 [place] # (Auto) 0.9 Eos # (Auto) 0.3 Baso # (Auto) 0.0 Abs Immat Gran (auto) 0.02 Absolute Neuts (auto) 3.5 Absolute Nucleated RBC 0.000 Nucleated RBC % (auto) 0.0 PT 11.7 INR 1.0 VBG pH 7.43 VBG pCO2 42 VBG pO2 52 VBG HCO3 28 H VBG O2 Saturation 76.0 VBG Base Excess 3.5 Anion Gap 15 Estim Creat Clear Calc 107.2 Estimated GFR > 60 Random Glucose 110 Calcium 9.3 Total Bilirubin 0.4 AST 38 H ALT 26 Alkaline Phosphatase 102 Total Creatine Kinase 112 Troponin I High Sens 17.9 D B-Natriuretic Peptide 666 H Total Protein 7.8 Albumin 3.6 Urine Color Urine Appearance Urine pH Ur Specific [place] Urine Protein Urine Glucose (UA) Urine Ketones Urine Blood Urine Nitrite Ur Leukocyte Esterase Influenza Type A (PCR) NEGATIVE Influenza Type B (PCR) NEGATIVE RSV RNA Qual (PCR) NEGATIVE SARS-CoV-2 RNA (RT-PCR) NEGATIVE 09/18/23 16:51 MCV MCH MCHC RDW Plt Count MPV Immature Gran % (Auto) Neut % (Auto) Lymph % (Auto) [place] % (Auto) Eos % (Auto) Baso % (Auto) Lymph # (Auto) [place] # (Auto) Eos # (Auto) Baso # (Auto) Abs Immat Gran (auto) Absolute Neuts (auto) Absolute Nucleated RBC Nucleated RBC % (auto) PT INR VBG pH VBG pCO2 VBG pO2 VBG HCO3 VBG O2 Saturation VBG Base Excess Anion Gap Estim Creat Clear Calc Estimated GFR Random Glucose Calcium Total Bilirubin AST ALT Alkaline Phosphatase Total Creatine Kinase Troponin I High Sens B-Natriuretic Peptide Total Protein Albumin Urine Color Yellow Urine Appearance Clear Urine pH 5.5 Ur Specific [place] 1.015 Urine Protein Negative Urine Glucose (UA) Negative Urine Ketones Negative Urine Blood Negative Urine Nitrite Negative Ur Leukocyte Esterase Negative Influenza Type A (PCR) Influenza Type B (PCR) RSV RNA Qual (PCR) SARS-CoV-2 RNA (RT-PCR) Imaging Radiologist's Impressions: Impressions Chest X-Ray 09/18/23 16:00 IMPRESSION: Probable underlying chronic interstitial change. Assessment and Plan (1) CHF (congestive heart failure): Status: Acute Plan 58-year-old male with history of insulin-dependent type 2 diabetes, hypertension, congestive heart failure, peripheral vascular disease, coronary artery disease s/p STEMI 07/2023 on DAPT, and ischemic cardiomyopathy admitted for management of CHF exacerbation #Acute exacerbation of heart failure reduced ejection fraction and diastolic dysfunction -echo 07/29/2023 from [facility]: Reduced LV systolic function with EF 20-25% with left ventricular dilatation. There is inferoseptal, anteroseptal, inferior and apical akinesis with mid to distal anterior wall hypokinesis. There is also grade 1, mild diastolic function with impaired LV relaxation, trace to mild aortic regurgitation, mild mitral insufficiency. -cardiology recommending Lasix drip. However given soft blood pressures, we will continue 40 mg IV Lasix daily -strict I&O -daily weights -cardiac diet. Suspect noncompliance with low-sodium diet at home -consider cardiology consult if no improvements -follow renal function lytes, trend BNP # CAD/ischemic cardiomyopathy -continue DAPT (recent stents s/p STEMI 07/2023) -not on beta peyman, continue statin # hypertension -continue enalapril # PVD -aspirin, Brilinta # insulin-dependent type 2 diabetes -dose adjusted basal insulin -Humalog on sliding scale, POC glucose, diabetic diet -hold metformin DVT prophylaxis-Lovenox Full code Patient requires inpatient stay at least 2 midnights for management of acute exacerbation of congestive heart failure requiring IV diuresis, close monitoring of intake and output as well as monitoring of renal function and electrolyte levels with possible need for expert consultation Quality Stroke Does the patient have a stroke diagnosis?: No VTE Prior VTE?: No VTE Risk Level:: Medical - moderate - high VTE Device Contraindication: Treatment Not Indicated VTE Drug Contraindication: N/A - Med Ordered
--- NOTE | 2023-09-18 19:22 | PHA.MEDREC ---
Pharmacy Consult ? Medication Reconciliation Pharmacy has completed the medication reconciliation. Confirmed medications with patient daughter over the Patients phone. The daughter was able to confirm with me that he is taking his Lantus insulin, 21 units nightly and he took it last night around 7-8pm. His daughter also confirmed with me that his doctor had previously the patient start Entresto 24mg-26mg BID, DR decided to change and have the patient start taking Enalapril 10mg daily now instead.
--- NOTE | 2023-09-18 20:16 | MHC.EDTECH ---
This tech gave patient his dinner tray,sitting on the side of the bed eating at this time.Emptied 400MLS of clear yellow urine from urinal.call evans in reach
[2023-09-18 20:54] VITALS: BP 100/71; PULSE 96; RESP 20; TEMP 36.9; O2SAT 99
--- NOTE | 2023-09-18 20:56 | PC.NURSE ---
poc 168, pt did not eat dinner and refusing drinks/snacks at this time. MD aware. to administer half scheduled lantus insulin and lispro per sliding scale.
[2023-09-18] MEDS: Insulin Lispro 100 UNIT/ML 3 ML VIAL SUBCUT (21:09)
[2023-09-18] MEDS: Ticagrelor 90 MG TABLET PO (21:09)
[2023-09-18] MEDS: Insulin Glargine,Hum.rec.anlog 100 UNIT/ML 10 ML VIAL 8 UNIT SUBCUT (21:09)
[2023-09-18] MEDS: Enoxaparin Sodium 40 MG/0.4 ML SYRINGE SUBCUT (21:09)
--- NOTE | 2023-09-18 21:15 | PC.NURSE ---
pt placed in hospital bed. nsr on heart monitor. vss. pt medicated per may. denies cp/sob/n/v/d. pt able to lie with HOB at approx 30 degree elevation, denies sob. axox4 ambulatory with steady gait. pt is resting comfortably watching tv at this time. lucrecia evans within reach.
[2023-09-18 21:20] LABS: Glucose, Whole Blood 168 mg/dL (60-115)
[2023-09-19 01:46] VITALS: BP 94/59; PULSE 81; RESP 22; TEMP 37.1; O2SAT 98
[2023-09-19 04:56] LABS: MANUAL DIFF FLAG NO
[2023-09-19 04:59] LABS: Basophils Percent Auto 0.6 % (0-2); Eosinophils Percent Auto 3.6 % (0-4); Hematocrit 34.1 % (42.0-52.0); Hemoglobin 10.8 g/dl (14.0-18.0); Imm Gran Abs Auto 0.02 X10*3/uL (0.00-0.03); Imm Gran Pct Auto 0.3 % (0.0-0.4); Lymphocytes Absolute Auto 2.6 X10*3/uL (1.2-4.9); Lymphocytes Percent Auto 41.2 % (20-40); Mean Corpuscular HGB Conc 31.7 g/dl (31.0-36.0); Mean Corpuscular Hemoglobin 26.5 pg (27.0-33.0); Mean Corpuscular Volume 83.6 fL (80.0-98.0); Monocytes Percent Auto 10.8 % (2-11); Neutrophils Absolute Auto 2.8 x10*3/uL (2.0-8.3); Neutrophils Percent Auto 43.5 % (45-73); Platelet Count 206 X10*3/uL (160-400); Red Blood Count 4.08 X10*6/uL (4.60-5.80); Red Cell Distribution Width 14.8 % (11.0-16.0); White Blood Count 6.4 X10*3/uL (4.8-10.8)
[2023-09-19 05:00] LABS: Eosinophils Absolute Auto 0.2 X10*3/uL (0.0-0.4); Monocytes Absolute Auto 0.7 X10*3/uL (0.1-1.2)
[2023-09-19 05:12] LABS: Anion Gap 13 (12-20); Blood Urea Nitrogen 10 mg/dL (9-16); Calcium 8.9 mg/dL (8.4-10.2); Carbon Dioxide 25 mmol/L (22-29); Chloride 106 mmol/L (96-108); Estimated Glomerular Filt Rate > 60; Glucose Random 87 mg/dL (60-115); Potassium 3.5 mmol/L (3.3-5.1); Sodium 140 mmol/L (135-145)
[2023-09-19 06:00] VITALS: BP 96/61; PULSE 89; RESP 16; TEMP 36.7; O2SAT 96
--- NOTE | 2023-09-19 07:27 | P.PNIM_ITS ---
Subjective Subjective Date of Service: 09/19/23 Interval History: f/u on acute on chronic heart failure interval history: he feels fine, has no sob, no chest pain Vitals good Physical Exam 2 Vital Signs: Vital Signs: Last Vital Signs Temp 98.1 F 09/19/23 06:00 Pulse 89 09/19/23 06:00 Resp 16 09/19/23 06:00 BP 96/61 09/19/23 06:00 Pulse Ox 96 09/19/23 06:00 O2 Del Method Room Air 09/19/23 06:00 BMI result Body Mass Index 26.4 Const: Other: General: AO X 3, no acute distress Resp: CTA bilateral, nl wob CVS: S1,S2,RRR,trace blas leg [place], no jvd GI: +BS, NT, no distention Skin: No rash Neuro: motor grossly intact Psych: appropriate affect Objective Data Active Medications Acetaminophen (Acetaminophen 325 Mg Tablet) 650 mg PO Q6H PRN PRN Reason: Pain, Mild (Pain Scale 1-3), fever or headache Aspirin (Aspirin Enteric Coated 81 Mg Tablet.) 81 mg PO DAILY [facility] Atorvastatin Calcium (Atorvastatin Calcium 80 Mg Tablet) 80 mg PO DAILY [facility] Calcium Carbonate (Calcium Carbonate 750 Mg Tab.Chew) 750 mg PO Q4H PRN PRN Reason: Heartburn Enalapril Maleate (Enalapril Maleate 10 Mg Tablet) 10 mg PO DAILY [facility]; Protocol Enoxaparin Sodium (Enoxaparin Sodium 40 Mg/0.4 Ml Syringe) 40 mg SUBCUT Q24H [facility] Last Admin: 09/18/23 21:09 Dose: 40 mg Documented By: AMANDA Ferrous Sulfate (Ferrous Sulfate 324 Mg Tablet.) 324 mg PO DAILY [facility] Furosemide (Furosemide 40 Mg/4 Ml Vial) 40 mg IVPUSH DAILY [facility]; Protocol Glucose (Glucose Gel 15 Gm Gel..Gram.) 15 gm PO Q15M PRN; Protocol PRN Reason: per Hypoglycemia Standing Ord. Dextrose (D10) 250 mls @ 750 mls/hr IV Q15M PRN; Protocol PRN Reason: per Hypoglycemia Standing Ord. Insulin Glargine (Insulin Glargine,Hum.Rec.Anlog 100 Unit/Ml 10 Ml Vial) 15 unit SUBCUT BEDTIME [facility] Last Admin: 09/18/23 21:15 Dose: Not Given Documented By: AMANDA Non-Admin Reason: Physician Held Med Insulin Human Lispro (Insulin Lispro 100 Unit/Ml 3 Ml Vial) 0 unit SUBCUT QIDACHJacinto [facility]; Protocol Last Admin: 09/18/23 21:09 Dose: 2 unit Documented By: AMANDA Magnesium Hydroxide (Milk Of Magnesia 30 Ml Oral.Susp) 30 ml PO DAILY PRN PRN Reason: Constipation Melatonin (Melatonin 3 Mg Tablet) 6 mg PO BEDTIME PRN PRN Reason: Insomnia Sodium Chloride (0.9 % Sodium Chloride Flush 3 Ml Syringe) 3 ml IVFLUSH QSHIFT [facility] Last Admin: 09/19/23 00:00 Dose: Not Given Documented By: AMANDA Non-Admin Reason: Patient Asleep Ticagrelor (Ticagrelor 90 Mg Tablet) 90 mg PO BID [facility] Last Admin: 09/18/23 21:09 Dose: 90 mg Documented By: AMANDA Labs 09/19/23 04:45 09/19/23 04:45 Labs: Laboratory Results - last 24 hr 09/18/23 09/18/23 09/18/23 15:48 15:56 16:30 MCV 84.7 MCH 26.7 L MCHC 31.5 RDW 15.0 Plt Count 221 MPV 9.6 Immature Gran % (Auto) 0.3 Neut % (Auto) 49.2 Lymph % (Auto) 34.1 [place] % (Auto) 12.3 H Eos % (Auto) 3.5 Baso % (Auto) 0.6 Lymph # (Auto) 2.4 [place] # (Auto) 0.9 Eos # (Auto) 0.3 Baso # (Auto) 0.0 Abs Immat Gran (auto) 0.02 Absolute Neuts (auto) 3.5 Absolute Nucleated RBC 0.000 Nucleated RBC % (auto) 0.0 PT 11.7 INR 1.0 VBG pH 7.43 VBG pCO2 42 VBG pO2 52 VBG HCO3 28 H VBG O2 Saturation 76.0 VBG Base Excess 3.5 Anion Gap 15 Estim Creat Clear Calc 107.2 Estimated GFR > 60 POC Glucose Random Glucose 110 Calcium 9.3 Total Bilirubin 0.4 AST 38 H ALT 26 Alkaline Phosphatase 102 Total Creatine Kinase 112 Troponin I High Sens 17.9 D B-Natriuretic Peptide 666 H Total Protein 7.8 Albumin 3.6 Urine Color Urine Appearance Urine pH Ur Specific [place] Urine Protein Urine Glucose (UA) Urine Ketones Urine Blood Urine Nitrite Ur Leukocyte Esterase Influenza Type A (PCR) NEGATIVE Influenza Type B (PCR) NEGATIVE RSV RNA Qual (PCR) NEGATIVE SARS-CoV-2 RNA (RT-PCR) NEGATIVE 09/18/23 09/18/23 09/19/23 16:51 20:53 04:45 MCV 83.6 MCH 26.5 L MCHC 31.7 RDW 14.8 Plt Count 206 MPV 10.0 Immature Gran % (Auto) 0.3 Neut % (Auto) 43.5 L Lymph % (Auto) 41.2 H [place] % (Auto) 10.8 Eos % (Auto) 3.6 Baso % (Auto) 0.6 Lymph # (Auto) 2.6 [place] # (Auto) 0.7 Eos # (Auto) 0.2 Baso # (Auto) 0.0 Abs Immat Gran (auto) 0.02 Absolute Neuts (auto) 2.8 Absolute Nucleated RBC 0.000 Nucleated RBC % (auto) 0.0 PT INR VBG pH VBG pCO2 VBG pO2 VBG HCO3 VBG O2 Saturation VBG Base Excess Anion Gap 13 Estim Creat Clear Calc 123.0 Estimated GFR > 60 POC Glucose 168 H Random Glucose 87 Calcium 8.9 Total Bilirubin AST ALT Alkaline Phosphatase Total Creatine Kinase Troponin I High Sens B-Natriuretic Peptide Total Protein Albumin Urine Color Yellow Urine Appearance Clear Urine pH 5.5 Ur Specific [place] 1.015 Urine Protein Negative Urine Glucose (UA) Negative Urine Ketones Negative Urine Blood Negative Urine Nitrite Negative Ur Leukocyte Esterase Negative Influenza Type A (PCR) Influenza Type B (PCR) RSV RNA Qual (PCR) SARS-CoV-2 RNA (RT-PCR) Assessment and Plan (1) CHF (congestive heart failure): Status: Acute (2) Orthopnea: Status: Acute Plan 58-year-old male with history of insulin-dependent type 2 diabetes, HTN, HFrEF, peripheral vascular disease, CAD s/p STEMI 07/2023 on DAPT, and ischemic cardiomyopathy admitted for management of CHF exacerbation #Acute exacerbation HFrEF and diastolic dysfunction [place]20[place] [facility] 20-25% with left ventricular dilatation -continue IV Lasix, hold drip due to low BPs -continue Vasotec.. Add BB, aldactone and Jardiance when BP improves -strict I&O -daily weights -cardiac diet. Suspect noncompliance with low-sodium diet at home -cardiology consultation to guide further management -follow renal function lytes, trend BNP # CAD/ischemic cardiomyopathy -continue DAPT ASA and Brilanta for recent stents s/p STEMI 07/2023 -not on beta peyman, continue statin # hypertension -continue Vasotec # PVD -aspirin, Brilinta # insulin-dependent type 2 diabetes -dose adjusted basal insulin -Humalog on sliding scale, POC glucose, diabetic diet -hold metformin DVT prophylaxis-Lovenox Full code inpatient management of acute exacerbation of congestive heart failure requiring IV diuresis, close monitoring of intake and output as well as monitoring of renal function and electrolyte levels with possible need for expert consultation Quality Stroke Does the patient have a stroke diagnosis?: No VTE Prior VTE?: No VTE Risk Level:: Medical - moderate - high VTE Device Contraindication: Treatment Not Indicated VTE Drug Contraindication: N/A - Med Ordered
[2023-09-19 07:36] LABS: Glucose, Whole Blood 89 mg/dL (60-115)
--- NOTE | 2023-09-19 08:39 | MHC.CM.PN ---
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
[2023-09-19] MEDS: Atorvastatin Calcium 80 MG TABLET PO (08:47)
[2023-09-19] MEDS: Ferrous Sulfate 324 MG TABLET.DR PO (08:47)
[2023-09-19] MEDS: Aspirin Enteric Coated 81 MG TABLET.DR PO (08:47)
[2023-09-19 08:48] VITALS: BP 116/80
[2023-09-19] MEDS: Ticagrelor 90 MG TABLET PO (08:48)
[2023-09-19] MEDS: Furosemide 40 MG/4 ML VIAL IVPUSH (08:48)
[2023-09-19] MEDS: 0.9 % Sodium Chloride Flush 3 ML SYRINGE IVFLUSH (08:49)
--- NOTE | 2023-09-19 08:50 | P.DS_ITS ---
DS: Providers Provider Date of Service: 09/19/23 Date of admission: 09/18/23 19:02 Primary care physician: Everardo Mohan MD Consults: 09/19/23 07:31 Consult to Cardiology Routine Consulting Provider: [facility] Reason for consultation: Acute heart failure Has provider been notified: Yes DS: Diagnosis Discharge Diagnosis (1) CHF (congestive heart failure): Status: Acute (2) Orthopnea: Status: Acute DS: Summary Hospital Course Hospital Course: admission hpi Chief Complaint: renteria, orthopnea 58-year-old male with history of insulin-dependent type 2 diabetes, hypertension, congestive heart failure, peripheral vascular disease, coronary artery disease s/p STEMI 07/2023 on DAPT, and ischemic cardiomyopathy presented to the ED earlier today from Cardiology office for evaluation of worsening dyspnea on exertion and orthopnea. He states he has been symptomatic with dyspnea on exertion orthopnea since his STEMI in July but has been progressively worse over the last few days. He also states this weekend has had myalgias and intermittent epistaxis but denies any fevers, chills, sore throat, congestion, rhinorrhea, abdominal pain, nausea, vomiting, diarrhea, urinary symptoms, shortness of breath at rest, wheezing, lightheadedness, palpitations, or chest pains. Since arrival, blood pressure soft, on admission blood pressure 95/63, vitals otherwise stable. He has a stable normocytic anemia with H/H 10.8/34.3%. Renal function electrolytes normal. Troponin within normal limits. BNP 666. Urinalysis unremarkable. Negative for COVID-19, RSV. Chest x-ray shows chronic interstitial changes but no acute edema or effusions. EKG shows sinus rhythm with occasional PVCs but no acute ST/T-wave abnormality. In the ED, has been given 40 mg IV Lasix. He will be admitted for further management of CHF exacerbation. Hospital course: Patient was admitted overnight for exacerbation of HFrEF and treated with IV Lasix with rapid improvement in his symptoms. He was evaluated by medical center representative the next day with recommendation to increase double baseline Lasix to 40 bid, we are stopping Enalapril and starting Entresto in 2 days. He will be evaluated on outpatient basis for beta blockers, Aldactone and Jardiance dependent on his blood pressure. Will get BMP level in 1 week. Time Attestation Discharge Coordination Time (in mins): 35 Quality: Safe Use of Opioids Does Pt have an Active Cancer Diagnosis on the Problem List?: No Quality: Stroke Does the patient have a stroke diagnosis?: No Physical Exam Vital Signs: Vital Signs: Last Vital Signs Temp 98.1 F 09/19/23 06:00 Pulse 89 09/19/23 06:00 Resp 16 09/19/23 06:00 BP 116/80 09/19/23 08:48 Pulse Ox 96 09/19/23 06:00 O2 Del Method Room Air 09/19/23 06:00 BMI result Body Mass Index 26.4 Const: Other: General: AO X 3, no acute distress Resp: CTA bilateral, nl wob CVS: S1,S2,RRR,trace blas leg [place], no jvd GI: +BS, NT, no distention Skin: No rash Neuro: motor grossly intact Psych: appropriate affect DS: Data Data Completed and Pending Completed studies during hospitalization [Text1]: Procedures Introduction of Remdesivir Anti-infective into Peripheral Vein, Percutaneous Approach, [employer] 5 (08/31/20) Labs on day of discharge: Laboratory Results - last 24 hr 09/18/23 09/18/23 09/18/23 15:48 15:56 16:30 WBC 7.1 RBC 4.05 L D Hgb 10.8 L Hct 34.3 L MCV 84.7 MCH 26.7 L MCHC 31.5 RDW 15.0 Plt Count 221 MPV 9.6 Immature Gran % (Auto) 0.3 Neut % (Auto) 49.2 Lymph % (Auto) 34.1 [place] % (Auto) 12.3 H Eos % (Auto) 3.5 Baso % (Auto) 0.6 Lymph # (Auto) 2.4 [place] # (Auto) 0.9 Eos # (Auto) 0.3 Baso # (Auto) 0.0 Abs Immat Gran (auto) 0.02 Absolute Neuts (auto) 3.5 Absolute Nucleated RBC 0.000 Nucleated RBC % (auto) 0.0 PT 11.7 INR 1.0 VBG pH 7.43 VBG pCO2 42 VBG pO2 52 VBG HCO3 28 H VBG O2 Saturation 76.0 VBG Base Excess 3.5 Sodium 140 Potassium 3.7 Chloride 106 Carbon Dioxide 23 Anion Gap 15 BUN 11 Creatinine 0.78 Estim Creat Clear Calc 107.2 Estimated GFR > 60 POC Glucose Random Glucose 110 Calcium 9.3 Total Bilirubin 0.4 AST 38 H ALT 26 Alkaline Phosphatase 102 Total Creatine Kinase 112 Troponin I High Sens 17.9 D B-Natriuretic Peptide 666 H Total Protein 7.8 Albumin 3.6 Urine Color Urine Appearance Urine pH Ur Specific [place] Urine Protein Urine Glucose (UA) Urine Ketones Urine Blood Urine Nitrite Ur Leukocyte Esterase Influenza Type A (PCR) NEGATIVE Influenza Type B (PCR) NEGATIVE RSV RNA Qual (PCR) NEGATIVE SARS-CoV-2 RNA (RT-PCR) NEGATIVE 09/18/23 09/18/23 09/19/23 16:51 20:53 04:45 WBC 6.4 RBC 4.08 L Hgb 10.8 L Hct 34.1 L MCV 83.6 MCH 26.5 L MCHC 31.7 RDW 14.8 Plt Count 206 MPV 10.0 Immature Gran % (Auto) 0.3 Neut % (Auto) 43.5 L Lymph % (Auto) 41.2 H [place] % (Auto) 10.8 Eos % (Auto) 3.6 Baso % (Auto) 0.6 Lymph # (Auto) 2.6 [place] # (Auto) 0.7 Eos # (Auto) 0.2 Baso # (Auto) 0.0 Abs Immat Gran (auto) 0.02 Absolute Neuts (auto) 2.8 Absolute Nucleated RBC 0.000 Nucleated RBC % (auto) 0.0 PT INR VBG pH VBG pCO2 VBG pO2 VBG HCO3 VBG O2 Saturation VBG Base Excess Sodium 140 Potassium 3.5 Chloride 106 Carbon Dioxide 25 Anion Gap 13 BUN 10 Creatinine 0.68 Estim Creat Clear Calc 123.0 Estimated GFR > 60 POC Glucose 168 H Random Glucose 87 Calcium 8.9 Total Bilirubin AST ALT Alkaline Phosphatase Total Creatine Kinase Troponin I High Sens B-Natriuretic Peptide Total Protein Albumin Urine Color Yellow Urine Appearance Clear Urine pH 5.5 Ur Specific [place] 1.015 Urine Protein Negative Urine Glucose (UA) Negative Urine Ketones Negative Urine Blood Negative Urine Nitrite Negative Ur Leukocyte Esterase Negative Influenza Type A (PCR) Influenza Type B (PCR) RSV RNA Qual (PCR) SARS-CoV-2 RNA (RT-PCR) 09/19/23 07:32 WBC RBC Hgb Hct MCV MCH MCHC RDW Plt Count MPV Immature Gran % (Auto) Neut % (Auto) Lymph % (Auto) [place] % (Auto) Eos % (Auto) Baso % (Auto) Lymph # (Auto) [place] # (Auto) Eos # (Auto) Baso # (Auto) Abs Immat Gran (auto) Absolute Neuts (auto) Absolute Nucleated RBC Nucleated RBC % (auto) PT INR VBG pH VBG pCO2 VBG pO2 VBG HCO3 VBG O2 Saturation VBG Base Excess Sodium Potassium Chloride Carbon Dioxide Anion Gap BUN Creatinine Estim Creat Clear Calc Estimated GFR POC Glucose 89 Random Glucose Calcium Total Bilirubin AST ALT Alkaline Phosphatase Total Creatine Kinase Troponin I High Sens B-Natriuretic Peptide Total Protein Albumin Urine Color Urine Appearance Urine pH Ur Specific [place] Urine Protein Urine Glucose (UA) Urine Ketones Urine Blood Urine Nitrite Ur Leukocyte Esterase Influenza Type A (PCR) Influenza Type B (PCR) RSV RNA Qual (PCR) SARS-CoV-2 RNA (RT-PCR) Discharge Plan Discharge Anticipated Discharge Date/Time: 09/19/23 08:50 Patient Disposition: Home, Self-Care Discharge Diagnosis: Acute HFrEF Referrals: Everardo Mohan MD [Primary Care Provider] - 1 Week Discharge Medications: New furosemide [Lasix] 40 mg tablet 40 mg PO BID Qty: 180 0RF Entresto 24-26 mg tablet 1 tab PO BID Qty: 180 0RF Rx Instructions: TO Start taking this on SundaySeptember 21 Continued (DME) FreeStyle Lite Strips Strip See Rx Instructions .ROUTE .COMPLEX Qty: 100 3RF Dose Instruction: CHECK BLOOD SUGAR 3-4X/DAY Rx Instructions: CHECK BLOOD SUGAR 3-4X/DAY (DME) lancets [FreeStyle Lancets] 28 gauge misc See Rx Instructions .Route Qty: 100 0RF Rx Instructions: check BS 3-4x/day metformin 1,000 mg tablet 1,000 mg PO BID insulin glargine [Lantus Solostar U-100 Insulin] 100 unit/mL (3 mL) insulin pen 21 unit subcut BEDTIME Brilinta 90 mg tablet 90 mg PO BID ferrous sulfate 325 mg (65 mg iron) tablet,delayed release (DR/EC) 325 mg PO DAILY aspirin 81 mg tablet,delayed release (DR/EC) 81 mg PO DAILY atorvastatin 80 mg tablet 80 mg PO DAILY (DME) blood-glucose meter [FreeStyle [place] Lite] Kit See Rx Instructions .Route Qty: 1 0RF Rx Instructions: check BS 1-2x/day (DME) pen needle, diabetic [BD Ultra-Fine Micro Pen Needle] 32 gauge x 1/4 needle See Rx Instructions .Route Qty: 100 0RF Rx Instructions: As directed Discontinued furosemide 40 mg tablet 40 mg PO DAILY enalapril maleate 10 mg tablet 10 mg PO DAILY Qty: 90 1RF Discharge Orders: Discharge Order (Routine); Ordered 09/19/23 Ordered By: Cesar Mckeon Diet: Diabetic diet Activity on Discharge: As tolerated Stand Alone Forms: Patient Portal Discharge page Print Language: Citizen Of [place] Other Ambulatory Orders: Basic Metabolic Panel Fasting (Routine) Timeframe: 1 Week Facility: [facility] - Location: Laboratory Ordered By: Cesar Mckeon Care Plan Goals: Manage heart failure symptoms and enhance quality of life. Health Concerns: Heart failure Plan of Treatment: take Lasix as recommended and follow up with your Doctor and PCP Lasix dose has been doubled to 40 mg twice daily Stop taking Enalapril Start taking Entresto but wait until SundaySeptember 21 morning to take the first dose You need labs check in one week Assessment: see above
[2023-09-19 09:08] VITALS: BP 109/78; PULSE 91; RESP 20; TEMP 36.6; O2SAT 97
[2023-09-19 09:36] VITALS: BP 103/77
[2023-09-19] MEDS: Enalapril Maleate 10 MG TABLET PO (09:36)
--- NOTE | 2023-09-19 10:29 | P.CONCA_ITS ---
History of Present Illness History of Present Illness Date of Service: 09/19/23 Chief complaint: CHF exacerbation Narrative: This is a cardiology consultation regarding congestive heart failure. Patient was seen by Dr. Triana in the clinic as today. History of recent myocardial infarction and ischemic cardiomyopathy. It appears that he had inferior posterior STEMI in July. He underwent cardiac catheterization and found to have culprit lesion and dominant circumflex. He underwent intervention for that but he also had chronic total occlusion of the LAD/RCA with collaterals from circumflex. He was quite ill but recovered. Yesterday when he was seen in the clinic, he was having increased shortness of breath as well as fluid retention and that led to sending him to the ER. Today, he states that he is much better. It seems that he did get IV Lasix but can not say how much fluid he put out. Today anyway, he states that he is significantly improved and does not have any symptoms. Not much of leg swelling either. No angina or anything else. Review of Systems 2 Review of Systems: Yes all other systems are reviewed and are negative Constitutional: Constitutional: Reports as per HPI and Reports no additional constitutional complaints Eyes: Eyes: Reports as per HPI and Denies no additional eye complaints ENT: Denies system reviewed and no additional complaints, except as documented and Reports as per HPI Cardiovascular: Cardiovascular: Reports as per HPI, Reports no additional cardiovascular complaints, Denies acrocyanosis, Denies cool extremities, Denies chest pain, Denies leg edema, Denies lightheadedness, Denies palpitations and Reports dyspnea Respiratory: Respiratory: Reports as per HPI, Denies no additional respiratory complaints and Reports dyspnea Gastrointestinal: Gastrointestinal: Reports as per HPI and Denies no additional gastrointestinal complaints Genitourinary: Genitourinary: Reports no additional male genitourinary complaints and Reports as per HPI Musculoskeletal: Musculoskeletal: Reports no additional musculoskeletal complaints and Reports as per HPI Integumentary/Breasts: Skin/Breast: Reports system reviewed and no additional complaints, except as docu Neurologic: Reports system reviewed and no additional complaints, except as documented and Reports as per HPI Psychiatric: Psychiatric: Reports no additional psychiatric complaints and Reports as per HPI Endocrine: Endocrine: Reports no additional endocrine complaints, Reports as per HPI and Denies palpitations Hematologic/Lymphatic: Hematologic/Lymphatic: Reports no additional hematologic/lymphatic complaints and Reports as per HPI Allergic/Immunologic: Allergic/Immunologic: Reports no additional allergic/immunologic complaints and Reports as per HPI COUNT INCLUDES THE [facility] Past Medical History Medical History Acute CHF (congestive heart failure) Acute on chronic systolic (congestive) heart failure Essential hypertension Endogenous depression Peripheral vascular disease due to secondary diabetes Newly diagnosed diabetes Hyperglycemia No known health problems Family History Family History Sister History of artificial heart valve Brother Myocardial infarct Surgical History Surgical History History of heart artery stent Social History Social History Household Members: Family Housing: House Do you presently have visiting nurse or other home services: No Alcohol intake: never Patient Tobacco Use Status: Never used Tobacco e-Cigarette/Vaping Use: Never Used Second Hand Smoke Exposure: No Advance Directives: Yes Advance Directives on File: Yes Advance Directives Date on File: 09/03/23 Do you have a plan to hurt others: No Plan service: No Current occupational status: unemployed Current occupation: right hand dominant Cognitive needs: No Hearing needs: No Vision needs: Yes (reading reading) Meds Allergies Allergy/AdvReac Type Severity Reaction Status Date / Time No Known Allergies Allergy Verified 09/18/23 15:29 Active Medications: Current Medications Acetaminophen (Acetaminophen 325 Mg Tablet) 650 mg PO Q6H PRN PRN Reason: Pain, Mild (Pain Scale 1-3), fever or headache Aspirin (Aspirin Enteric Coated 81 Mg Tablet.) 81 mg PO DAILY [facility] Last Admin: 09/19/23 08:47 Dose: 81 mg Atorvastatin Calcium (Atorvastatin Calcium 80 Mg Tablet) 80 mg PO DAILY [facility] Last Admin: 09/19/23 08:47 Dose: 80 mg Calcium Carbonate (Calcium Carbonate 750 Mg Tab.Chew) 750 mg PO Q4H PRN PRN Reason: Heartburn Enalapril Maleate (Enalapril Maleate 10 Mg Tablet) 10 mg PO DAILY [facility]; Protocol Last Admin: 09/19/23 09:36 Dose: 10 mg Enoxaparin Sodium (Enoxaparin Sodium 40 Mg/0.4 Ml Syringe) 40 mg SUBCUT Q24H [facility] Last Admin: 09/18/23 21:09 Dose: 40 mg Ferrous Sulfate (Ferrous Sulfate 324 Mg Tablet.) 324 mg PO DAILY [facility] Last Admin: 09/19/23 08:47 Dose: 324 mg Furosemide (Furosemide 40 Mg/4 Ml Vial) 40 mg IVPUSH DAILY [facility]; Protocol Last Admin: 09/19/23 08:48 Dose: 40 mg Glucose (Glucose Gel 15 Gm Gel..Gram.) 15 gm PO Q15M PRN; Protocol PRN Reason: per Hypoglycemia Standing Ord. Dextrose (D10) 250 mls @ 750 mls/hr IV Q15M PRN; Protocol PRN Reason: per Hypoglycemia Standing Ord. Insulin Glargine (Insulin Glargine,Hum.Rec.Anlog 100 Unit/Ml 10 Ml Vial) 15 unit SUBCUT BEDTIME [facility] Last Admin: 09/18/23 21:15 Dose: Not Given Insulin Human Lispro (Insulin Lispro 100 Unit/Ml 3 Ml Vial) 0 unit SUBCUT QIDACHS [facility]; Protocol Last Admin: 09/19/23 07:35 Dose: Not Given Magnesium Hydroxide (Milk Of Magnesia 30 Ml Oral.Susp) 30 ml PO DAILY PRN PRN Reason: Constipation Melatonin (Melatonin 3 Mg Tablet) 6 mg PO BEDTIME PRN PRN Reason: Insomnia Sodium Chloride (0.9 % Sodium Chloride Flush 3 Ml Syringe) [facility] Last Admin: 09/19/23 08:49 Dose: 3 ml Ticagrelor (Ticagrelor 90 Mg Tablet) 90 mg PO BID [facility] Last Admin: 09/19/23 08:48 Dose: 90 mg Home Medications ?Medication ?Instructions ?Recorded ?Confirmed ?Last Taken ?Type aspirin 81 mg tablet,delayed 81 mg PO DAILY 08/29/23 09/18/23 09/18/23 07:00 History release atorvastatin 80 mg tablet 80 mg PO DAILY 08/29/23 09/18/23 09/18/23 07:00 History ferrous sulfate 325 mg (65 mg 325 mg PO DAILY 08/29/23 09/18/23 09/18/23 07:00 History iron) tablet,delayed release insulin glargine 100 unit/mL (3 21 unit subcut BEDTIME 08/29/23 09/18/23 09/17/23 19:00 History mL) subcutaneous pen (Lantus Solostar U-100 Insulin) metformin 1,000 mg tablet 1,000 mg PO BID 08/29/23 09/18/23 09/18/23 07:00 History ticagrelor 90 mg tablet (Brilinta) 90 mg PO BID 08/29/23 09/18/23 09/18/23 07:00 History furosemide 40 mg tablet 40 mg PO DAILY 09/05/23 09/18/23 09/18/23 07:00 History Physical Exam 2 Vital Signs: Vital Signs: Last Vital Signs Temp 97.9 F 09/19/23 09:08 Pulse 91 09/19/23 09:08 Resp 20 09/19/23 09:08 BP 103/77 09/19/23 09:36 Pulse Ox 97 09/19/23 09:08 O2 Del Method Room Air 09/19/23 09:08 BMI result Body Mass Index 26.4 Const: General: comfortable and no acute distress O rientation/consciousness: patient oriented x3 HEENT: Other: Unremarkable Head: Yes normal to inspection Neck: Neck: Yes normal visual inspection Chest: Chest palpation & inspection: normal inspection of the chest Resp: Auscultation: clear to auscultation bilaterally and crackles (basal) Cardio: Palpation: normal PMI Heart sounds: S1 normal heart sound present, S2 normal heart sound present, no gallops, no murmurs and no rubs GI: Palpation (GI): Soft to palpation Back/Spine/Pelvis: Other: unremarkable Skin: General skin exam: no rashes or lesions noted Neuro: General: patient oriented x3 Extrem: Other: Trace to 1+ edema bilateral. General: Yes normal to inspection Psych: Mental Status: mental status grossly normal Objective Labs and Meds 09/19/23 04:45 09/19/23 04:45 Lab results: Laboratory Results - last 24 hr 09/18/23 09/18/23 09/18/23 15:48 15:56 16:30 WBC 7.1 RBC 4.05 L D Hgb 10.8 L Hct 34.3 L MCV 84.7 MCH 26.7 L MCHC 31.5 RDW 15.0 Plt Count 221 MPV 9.6 Immature Gran % (Auto) 0.3 Neut % (Auto) 49.2 Lymph % (Auto) 34.1 [place] % (Auto) 12.3 H Eos % (Auto) 3.5 Baso % (Auto) 0.6 Lymph # (Auto) 2.4 [place] # (Auto) 0.9 Eos # (Auto) 0.3 Baso # (Auto) 0.0 Abs Immat Gran (auto) 0.02 Absolute Neuts (auto) 3.5 Absolute Nucleated RBC 0.000 Nucleated RBC % (auto) 0.0 PT 11.7 INR 1.0 VBG pH 7.43 VBG pCO2 42 VBG pO2 52 VBG HCO3 28 H VBG O2 Saturation 76.0 VBG Base Excess 3.5 Sodium 140 Potassium 3.7 Chloride 106 Carbon Dioxide 23 Anion Gap 15 BUN 11 Creatinine 0.78 Estim Creat Clear Calc 107.2 Estimated GFR > 60 POC Glucose Random Glucose 110 Calcium 9.3 Total Bilirubin 0.4 AST 38 H ALT 26 Alkaline Phosphatase 102 Total Creatine Kinase 112 Troponin I High Sens 17.9 D B-Natriuretic Peptide 666 H Total Protein 7.8 Albumin 3.6 Urine Color Urine Appearance Urine pH Ur Specific [place] Urine Protein Urine Glucose (UA) Urine Ketones Urine Blood Urine Nitrite Ur Leukocyte Esterase Influenza Type A (PCR) NEGATIVE Influenza Type B (PCR) NEGATIVE RSV RNA Qual (PCR) NEGATIVE SARS-CoV-2 RNA (RT-PCR) NEGATIVE 09/18/23 09/18/23 09/19/23 16:51 20:53 04:45 WBC 6.4 RBC 4.08 L Hgb 10.8 L Hct 34.1 L MCV 83.6 MCH 26.5 L MCHC 31.7 RDW 14.8 Plt Count 206 MPV 10.0 Immature Gran % (Auto) 0.3 Neut % (Auto) 43.5 L Lymph % (Auto) 41.2 H [place] % (Auto) 10.8 Eos % (Auto) 3.6 Baso % (Auto) 0.6 Lymph # (Auto) 2.6 [place] # (Auto) 0.7 Eos # (Auto) 0.2 Baso # (Auto) 0.0 Abs Immat Gran (auto) 0.02 Absolute Neuts (auto) 2.8 Absolute Nucleated RBC 0.000 Nucleated RBC % (auto) 0.0 PT INR VBG pH VBG pCO2 VBG pO2 VBG HCO3 VBG O2 Saturation VBG Base Excess Sodium 140 Potassium 3.5 Chloride 106 Carbon Dioxide 25 Anion Gap 13 BUN 10 Creatinine 0.68 Estim Creat Clear Calc 123.0 Estimated GFR > 60 POC Glucose 168 H Random Glucose 87 Calcium 8.9 Total Bilirubin AST ALT Alkaline Phosphatase Total Creatine Kinase Troponin I High Sens B-Natriuretic Peptide Total Protein Albumin Urine Color Yellow Urine Appearance Clear Urine pH 5.5 Ur Specific [place] 1.015 Urine Protein Negative Urine Glucose (UA) Negative Urine Ketones Negative Urine Blood Negative Urine Nitrite Negative Ur Leukocyte Esterase Negative Influenza Type A (PCR) Influenza Type B (PCR) RSV RNA Qual (PCR) SARS-CoV-2 RNA (RT-PCR) 09/19/23 07:32 WBC RBC Hgb Hct MCV MCH MCHC RDW Plt Count MPV Immature Gran % (Auto) Neut % (Auto) Lymph % (Auto) [place] % (Auto) Eos % (Auto) Baso % (Auto) Lymph # (Auto) [place] # (Auto) Eos # (Auto) Baso # (Auto) Abs Immat Gran (auto) Absolute Neuts (auto) Absolute Nucleated RBC Nucleated RBC % (auto) PT INR VBG pH VBG pCO2 VBG pO2 VBG HCO3 VBG O2 Saturation VBG Base Excess Sodium Potassium Chloride Carbon Dioxide Anion Gap BUN Creatinine Estim Creat Clear Calc Estimated GFR POC Glucose 89 Random Glucose Calcium Total Bilirubin AST ALT Alkaline Phosphatase Total Creatine Kinase Troponin I High Sens B-Natriuretic Peptide Total Protein Albumin Urine Color Urine Appearance Urine pH Ur Specific [place] Urine Protein Urine Glucose (UA) Urine Ketones Urine Blood Urine Nitrite Ur Leukocyte Esterase Influenza Type A (PCR) Influenza Type B (PCR) RSV RNA Qual (PCR) SARS-CoV-2 RNA (RT-PCR) ECG Interpretation: EKG with sinus rhythm at 97/Min; old inferior infarct can not exclude old anterior infarct left atrial enlargement. Imaging Radiologist's impression: Impressions Chest X-Ray 09/18/23 16:00 IMPRESSION: Probable underlying chronic interstitial change. Assessment and Plan (1) Ischemic cardiomyopathy: Status: Acute (2) Acute on chronic systolic (congestive) heart failure: Status: Acute Plan Per [facility] echocardiogram, LVEF is 20 25% with extensive wall motion abnormalities. High sensitivity troponin level within normal limits. Cardiac BNP levels elevated at 666 but slightly improved from before. Clinically, mildly euvolemic but otherwise seems fairly compensated. For Meds, listed to be on enalapril 10 mg daily but not entirely clear if he is actually taking that or not. Ideally, Entresto if insurance can improve. Can be resolved as an outpatient. Eventually, will need some combination beta- blockers/SGLT2 and spironolactone but depends on how his blood pressure behaves. We can give him some more IV Lasix today. Then probably follow-up in the clinic. Procedures Date of Service Date of Service: 09/19/23
[2023-09-19 14:01] VITALS: BP 105/76; PULSE 60; RESP 18; TEMP 36.6; O2SAT 98
== END 2023-09-19 13:59 | disposition home or self-care (01) | DRG 194 ==
LOC: HO.ED 18:40 → HO.EDOVER 19:10
PROVIDERS: Registered Nurse Emergency; Student in an Organized Health Care Education/Training Program; Admitting Provider Physician Assistant; Emergency Provider Emergency Medicine; PCP Internal Medicine; Visit Provider Internal Medicine
DX: I11.0 Hypertensive heart disease with heart failure (principal); E11.51 Type 2 diabetes mellitus with diabetic peripheral angiopathy without gangrene; I50.23 Acute on chronic systolic (congestive) heart failure; I25.10 Atherosclerotic heart disease of native coronary artery without angina pectoris; I25.5 Ischemic cardiomyopathy; I08.0 Rheumatic disorders of both mitral and aortic valves; Z20.822 Contact with and (suspected) exposure to COVID-19; Z95.5 Presence of coronary angioplasty implant and graft; Z79.4 Long term (current) use of insulin; Z79.82 Long term (current) use of aspirin; Z79.84 Long term (current) use of oral hypoglycemic drugs; Z79.899 Other long term (current) drug therapy
CPT/HCPCS: 0241U; 36415; 71046; 80048; 80053; 81003; 82550; 82803; 82947; 83880; 84484; 85025; 85610; 93005; 99212; 99285; J1650; J1940

== ENCOUNTER → 2023-09-18 19:02 | Outpatient (BNV) | payer OTHER, SELFPAY | PROVIDERS: Admitting Provider Physician Assistant; Emergency Provider Emergency Medicine; PCP Internal Medicine; Visit Provider Physician Assistant | DX: I50.9 Heart failure, unspecified (principal); R06.01 Orthopnea | CPT/HCPCS: 99223; 99239; 99499 ==

== ENCOUNTER → 2023-09-18 19:02 | Outpatient (BNV) | payer OTHER, SELFPAY | PROVIDERS: Admitting Provider Physician Assistant; Emergency Provider Emergency Medicine; PCP Internal Medicine; Visit Provider Internal Medicine | DX: I25.5 Ischemic cardiomyopathy (principal); I50.23 Acute on chronic systolic (congestive) heart failure | CPT/HCPCS: 99223 ==

== ENCOUNTER 2023-09-26 07:23 | Outpatient (REF) | payer OTHER, SELFPAY ==
[2023-09-26 08:07] LABS: Anion Gap 11 (12-20); Blood Urea Nitrogen 13 mg/dL (9-16); Calcium 9.5 mg/dL (8.4-10.2); Carbon Dioxide 24 mmol/L (22-29); Chloride 110 mmol/L (96-108); Estimated Glomerular Filt Rate > 60; Glucose Fasting 119 mg/dL (60-99); Potassium 3.9 mmol/L (3.3-5.1); Sodium 141 mmol/L (135-145)
== END 2023-09-26 07:24 | disposition home or self-care (01) ==
LOC: HO.LAB 07:23
PROVIDERS: PCP Internal Medicine; Visit Provider Internal Medicine
DX: I50.9 Heart failure, unspecified (principal)
CPT/HCPCS: 36415; 80048

== ENCOUNTER 2023-10-09 09:51 | Outpatient (AMB) | payer OTHER, SELFPAY ==
--- NOTE | 2023-10-09 09:53 | MHC.OFFVIS ---
Vital Signs 10/09/23 09:54 Height 5 ft 11 in Weight 190 lb 7.67 oz BMI 26.6 BP 90/50 L Blood Pressure Location Lt brachial Position Sitting Pulse 98 Pulse Source Pulse Oximeter Intake Visit Reasons: f/u [facility] [place] Compliance Representative Required: No Compliance Representative Services: Compliance Representative Present Compliance Representative Name: Oliverio Accompanied by: Daughter Allergies No Known Allergies Allergy (Verified 09/18/23 15:29) Medication List - Last Reconciled 10/09/23 by JAMAR Tejeda aspirin 81 mg PO DAILY atorvastatin 80 mg PO DAILY blood sugar diagnostic (FreeStyle Lite Strips) CHECK BLOOD SUGAR 3-4X/DAY blood-glucose meter (FreeStyle [place] Lite kit) check BS 1-2x/day ferrous sulfate 325 mg PO DAILY furosemide (Lasix) 40 mg PO DAILY insulin glargine (Lantus Solostar U-100 Insulin) 21 units subcut BEDTIME lancets (FreeStyle Lancets) check BS 3-4x/day metformin 1,000 mg PO BID pen needle, diabetic (BD Ultra-Fine Micro Pen Needle) As directed sacubitril-valsartan 24-26 mg (Entresto) 1 tab PO BID ticagrelor (Brilinta) 90 mg PO BID HPI HPI f/u [facility] [place]: Details: Jhoan is a 58-year-old male with past medical history hypertension, hyperlipidemia, diabetes, inferior posterior STEMI July 2023 with emergent cardiac catheterization showing dominant circumflex artery 99% stenosis, CYNTHIA placed. Also noted to have [employer] of the LAD and RCA with collaterals from circumflex. Post intervention he had cardiogenic shock requiring intra-aortic balloon pump and vasopressor therapy. Echocardiogram showed EF 20-25% with wall motion abnormality. His insurance did not cover outpatient follow-up at [facility] and he was seen here by Dr. Triana on 09/18/2023. At that visit he was noted to have evidence of decompensated heart failure and he was admitted and diuresed with Lasix drip. His condition had improved by the following day and he was discharged on Lasix 40 mg b.i.d. according to the discharge summary. Today he presents for follow-up. Today he reports that he has been having shortness of breath daily with any physical activity since the day of his hospital discharge, 7/3. He does not feel that his breathing is worsening but he is noticing a frequent cough. He says he is up all night coughing and has not been sleeping well. When he does sleep he is able to use only 1 pillow. No chest discomfort at rest or with activity. No heart palpitations, lightheadedness, presyncope, syncope, falls. He has some mild swelling around his ankles. He has been taking his meds as directed however his daughter who is present states the furosemide bottle says take 1 tablet daily. He has been taking Entresto, aspirin, Brilinta, atorvastatin as directed. Daughter assisting with Qatari translation at their request. Permit signed. [facility] Medical History Acute CHF (congestive heart failure) Acute on chronic systolic (congestive) heart failure Essential hypertension Endogenous depression Peripheral vascular disease due to secondary diabetes Newly diagnosed diabetes Hyperglycemia No known health problems Surgical History History of heart artery stent Family History Sister History of artificial heart valve Brother Myocardial infarct Social History Household Members: Family Housing: House Do you presently have visiting nurse or other home services: No Alcohol intake: never Patient Tobacco Use Status: Never used Tobacco e-Cigarette/Vaping Use: Never Used Second Hand Smoke Exposure: No Advance Directives Date on File: 09/03/23 service: No Current occupational status: unemployed Current occupation: right hand dominant Cognitive needs: No Hearing needs: No Vision needs: Yes (reading reading) Review of Systems Const All systems reviewed & are unremarkable except as noted in HPI and below Denies chills, Denies fatigue, Denies fever(s), Denies weight gain and Denies weight loss ENT Denies dizziness Card Denies chest pain, Denies leg edema, Denies lightheadedness, Denies palpitations, Reports dyspnea, Reports dyspnea on exertion, Reports orthopnea and Denies other Resp Reports cough, Reports dyspnea and Reports dyspnea on exertion GI Denies hematochezia and Denies change in stool character Musc Denies abnormal gait, Denies muscle weakness, Denies numbness, Denies radiating pain into limb and Denies tingling Neuro Denies abnormal gait, Denies dizziness, Denies numbness and Denies tingling Endo Denies fatigue and Denies palpitations Ahyder/Lymph Reports easy bruising Physical Exam Vital Signs: Last Vital Signs Pulse 98 10/09/23 09:54 BP 90/50 L 10/09/23 09:54 BMI result Body Mass Index 26.6 Const General: cooperative Orientation/consciousness: patient oriented x3 Neck Neck: Yes normal visual inspection and Yes no JVD Chest Chest palpation & inspection: normal inspection of the chest Resp Other: noted to have increased work of breathing during appnt. Broken speech after walking up and down hallway - no hypoxia. Auscultation: clear to auscultation bilaterally, no rales, no rhonchi and no wheezes Cardio Jugular venous distension: no JVD Rate: regular rate Rhythm: regular rhythm Heart sounds: S1 normal heart sound present, S2 normal heart sound present, no gallops, no murmurs and no rubs GI Inspection: Yes normal to inspection Skin General skin exam: no rashes or lesions noted Neuro General: patient oriented x3 Extrem Other: trace edema around ankle bones General: Yes normal to inspection, No no pedal edema and No calf tenderness Psych Appearance: grossly normal Mental Status: mental status grossly normal Speech and movement: Normal speech and movement present Assessment & Plan Assessment & Plan (1) Acute on chronic systolic (congestive) heart failure: Code(s): I50.23 - Acute on chronic systolic (congestive) heart failure Category: Medical Plan: Patient presented to [place] [id number] with chest discomfort, found to have acute inferior posterior STEMI and was emergently transferred to [facility] where he underwent emergent cardiac catheterization. This revealed culprit stenosis in dominant circumflex artery with a 99% stenosis although was also noted to have chronic total occlusion of the LAD as well as the RCA with collaterals from the circumflex system. Patient post intervention developed cardiogenic shock and required intra-aortic balloon pump as well as vasopressor therapy. An echocardiogram had shown EF 20-25% with wall motion abnormality in the LAD and RCA territory. He was not able to follow as an outpatient at [facility] due to his insurance. He was seen last in our office 09/18/2023 and had evidence of decompensated heart failure. He was admitted and was diuresed, amount unclear based on notes, with clinical improvement and discharged the following day. He now presents here for follow-up post hospital discharge with report of ongoing shortness of breath with any physical activity. Tells me it takes him 10 minutes to recover after doing normal ADLs. He is having PND, orthopnea, trace edema. No rales noted on examination. NYHA class 3. I ambulated him in the hallway using sat monitor and he became short of breath, pulse up to 106, oxygen saturation 99%. He is currently taking Lasix 40 mg daily, and Entresto. His blood pressure is low initially at 90/50. Recheck done by me with him sitting 76/40, standing for 3 minutes blood pressure 102/60. Unable to further titrate Entresto or add beta-peyman at this time. Will check stat labs today including BMP and BNP. Will check stat echo, being done tomorrow. He will need a viability study (has not been ordered yet) to assess his RCA and LAD territories. If viable he may benefit from surgical revascularization. Instructed on only light physical activity. Instructed on home blood pressure and weight monitoring. He did have VNA services in the weeks following his [place] but no longer does. Continue on aspirin indefinitely, continue Brilinta 90 mg b.i.d., continue high-dose atorvastatin. Cardiology follow-up 1-2 weeks for clinical re-evaluation and further med titration. Emergency care if needed for any worsening of his symptoms. (2) STEMI (ST elevation myocardial infarction): Comment: 07/27/2023 Code(s): I21.3 - ST elevation (STEMI) myocardial infarction of unspecified site Category: Medical Plan: As above (3) Ischemic cardiomyopathy: Code(s): I25.5 - Ischemic cardiomyopathy Category: Medical Plan: As above (4) Coronary artery disease: Code(s): I25.10 - Atherosclerotic heart disease of [place] coronary artery without angina pectoris Category: Medical Qualifiers: Associated angina: without angina Coronary Disease-Associated Artery/Lesion type: [place] artery [place] vs. transplanted heart: [place] heart Qualified Code(s): I25.10 - Atherosclerotic heart disease of [place] coronary artery without angina pectoris Plan: As above (5) Essential hypertension: Code(s): I10 - Essential (primary) hypertension Category: Medical Plan: As above (6) S/P cardiac cath: Comment: 07/27/2023, Dr. Rodriguez, left main mild luminal irregularities, lad proximal 100% stenosis, [employer], proximal LAD distal subsection 95% stenosis, RIKKI 1 flow, left circumflex mid 99% stenosis, high risk, PCI performed, CYNTHIA placed, 2nd OM mid 80% stenosis, RCA mid 100% stenosis, [employer], collaterals from the distal circumflex to the right PAV, collaterals from 2nd OM to the 1st diagonal, collateral from the 1st AC marginal to the distal LAD Code(s): Z98.890 - Other specified postprocedural states Category: Surgical Plan: As above (7) Hospital discharge follow-up: Code(s): Z09 - Encounter for follow-up examination after completed treatment for conditions other than malignant neoplasm Category: Medical Plan: [facility] admission 09/17 - 09/19/23 Plan Time spent on chart review, documentation, interview and assessment Orders: Orders Basic Metabolic Panel Today I50.9 - Heart failure, unspecified Complete Blood Count Auto Diff Today I50.9 - Heart failure, unspecified CA echo transthoracic complete Today I25.5 - Ischemic cardiomyopathy, I50.9 - Heart failure, unspecified B Type Natriuretic Peptide Today I50.9 - Heart failure, unspecified Coding Level of Care Code Est Pt Level 4 (66900) Diagnoses Acute on chronic systolic (congestive) heart failure I50.23 STEMI (ST elevation myocardial infarction) I21.3 Ischemic cardiomyopathy I25.5 Coronary artery disease involving [place] coronary artery of [place] heart without angina pectoris I25.10 Associated angina: without angina Coronary Disease-Associated Artery/Lesion type: [place] artery [place] vs. transplanted heart: [place] heart Essential hypertension I10 S/P cardiac cath Z98.890 Hospital discharge follow-up Z09 Time Spent (min) 36
[2023-10-09 09:54] VITALS: BP 90/50; PULSE 98; BMI 26.6
== END 2023-10-09 10:55 | disposition home or self-care (01) ==
PROVIDERS: PCP Internal Medicine; Visit Provider Nurse Practitioner Family
DX: I50.23 Acute on chronic systolic (congestive) heart failure (principal); I21.3 ST elevation (STEMI) myocardial infarction of unspecified site; I25.5 Ischemic cardiomyopathy; I25.10 Atherosclerotic heart disease of native coronary artery without angina pectoris; I10 Essential (primary) hypertension; Z98.890 Other specified postprocedural states; Z09 Encounter for follow-up examination after completed treatment for conditions other than malignant neoplasm
CPT/HCPCS: 99214

== ENCOUNTER → 2023-10-09 09:51 | Outpatient (BNVA) | payer OTHER, SELFPAY | PROVIDERS: PCP Internal Medicine; Visit Provider Nurse Practitioner Family | DX: I11.0 Hypertensive heart disease with heart failure (principal); I50.23 Acute on chronic systolic (congestive) heart failure; I25.5 Ischemic cardiomyopathy; I25.10 Atherosclerotic heart disease of native coronary artery without angina pectoris; I25.2 Old myocardial infarction | CPT/HCPCS: 99212 ==

== ENCOUNTER → 2023-10-10 07:44 | Outpatient (REF) | payer OTHER, SELFPAY ==
--- NOTE | 2023-10-10 08:14 | CA_ITS ---
Transthoracic Echocardiogram Patient (Last, First, Middle): Jhoan Alicea, Gender: Male Date of : 1965 Age: 58 Procedure Date: 10/10/2023 Procedure Type: Transthoracic Echocardiogram Location: OP Height: 180.34 cm Weight: 86.18 kg BSA: 2.06 m2 Heart Rate: 87 bpm BP: 102 / 60 mmHg Carton Machine Operator: SB Referring MD: Dana Dunn C++ QUANT DEVELOPEREmilieC Symptoms: I25.5 - Ischemic cardiomyopathy Study Quality: Adequate ECG Rhythm: Sinus Conclusions: - The left ventricular systolic function is severely decreased. The visually estimated ejection fraction is between 25-30%. - The apex, basal inferior, apical lateral, apical septum, mid anterolateral, mid inferoseptal, mid anteroseptal, and mid inferolateral segments are akinetic. - The mid inferior and basal inferolateral segments are hypokinetic. - No obvious valvular pathology seen on this study. Findings Left Ventricle Mildly increased left ventricular cavity size. The left ventricular systolic function is severely decreased. The visually estimated ejection fraction is between 25-30%. There is evidence of regional wall motion abnormalities. Evidence suggests grade III (severe) diastolic dysfunction. Wall Motion Rest Echo Findings The mid inferior and basal inferolateral segments are hypokinetic. The apex, basal inferior, apical lateral, apical septum, mid anterolateral, mid inferoseptal, mid anteroseptal, and mid inferolateral segments are akinetic. Right Ventricle Normal right ventricular cavity size. There is low normal right ventricular systolic function. Atria Both atria are normal in size. Aortic Valve There is a normal trileaflet aortic valve. There is no aortic valve stenosis. There is trace (trivial) aortic valve regurgitation. Mitral Valve The mitral valve appears normal. There is mild mitral valve regurgitation. There is no mitral valve stenosis. Pulmonic Valve There is trace pulmonic valve regurgitation. Tricuspid Valve Normal tricuspid valve structure. There is trace tricuspid valve regurgitation. There is no evidence of pulmonary hypertension. Great Vessels The asc aorta is normal in size. Venous The inferior vena cava is normal in size and collapses greater than 50% with inspiration. Pericardium/Pleural There is no evidence of pericardial effusion. Prior Study Comparison No prior study available for comparison. Recommendations, Care & Conclusions No obvious valvular pathology seen on this study. Measurements 2D Linear Measurements IVSd: 1.20 0.6-0.9/0.6-1.0 cm LVIDd: 5.79 3.9-5.3/4.2-5.9 cm LVIDd Index: 2.81 2.4-3.2/2.2-3.1 cm/m2 LVIDs: 5.14 2.0-3.6 cm LVPWd: 0.70 0.7-1.1 cm LA Diam: 4.10 2.7-3.8/3.0-4.0 cm LAIDs Index: 1.99 1.5-2.3 cm/m2 LV Mass: 271.45 67-162/88-224 g LV Mass Index: 131.77 43-95/49-115 g/m2 LVOT Diam: 2.10 3.0+(-)1.3 cm 2D Systolic Function EF 4C: 32.00 >55% EF 2C: 42.60 >55% EF BiP: 36.90 >55% Mitral Valve MV Pk E: 1.08 MV PK A: 0.33 MV Decel Time: 117.00 E/A: 3.30 E'Medial: 3.48 E/E' Med: 31.00 PHT: 34.00 MVA PHT: 6.47 Decel [place]: 9.23 MR VTI: 1.04 Aortic Valve AoV Pk Yonis: 0.82 AoV Pk Grad: 3.00 JULIANNE: 3.62 LVOT LVOT Pk Yonis: 0.88 LVOT Mn Yonis: 0.65 LVOT VTI: 0.15 LVOT Pk Grad: 3.00 LVOT Mn Grad: 2.00 LVOT Diam: 2.10 LVOT Area: 3.46 Diastolic Function MV Pk E: 1.08 MV Pk A: 0.33 E/A: 3.30 E'Medial: 3.48 E/E' Med: 31.00 Right Ventricle TAPSE (mm): 18.00 Tricuspid Valve TR Pk Yonis: 2.35 TR Pk Grad: 22.00 RA Press: 3.00 RVSP: 25.00 Great Vessels Aorta Sinus of Valsalva: 3.50 2.0-3.5 cm Ao Asc: 3.00 2.1-3.4 cm Pulmonary Valve PV Pk Yonis: 0.77 Peak PV Grad: 2.00 Updated in Other Vendor System with Status of Final Erasmo Gilliam MD electronically signed on 10/12/2023 10:30:45 AM with status of Final
[2023-10-10 08:58] LABS: MANUAL DIFF FLAG NO
[2023-10-10 09:03] LABS: Basophils Absolute Auto 0.1 X10*3/uL (0.0-0.2); Basophils Percent Auto 0.9 % (0-2); Eosinophils Absolute Auto 0.1 X10*3/uL (0.0-0.4); Eosinophils Percent Auto 2.4 % (0-4); Hematocrit 36.8 % (42.0-52.0); Hemoglobin 11.6 g/dl (14.0-18.0); Imm Gran Abs Auto 0.01 X10*3/uL (0.00-0.03); Imm Gran Pct Auto 0.2 % (0.0-0.4); Lymphocytes Absolute Auto 2.1 X10*3/uL (1.2-4.9); Lymphocytes Percent Auto 35.9 % (20-40); Mean Corpuscular HGB Conc 31.5 g/dl (31.0-36.0); Mean Corpuscular Hemoglobin 26.2 pg (27.0-33.0); Mean Corpuscular Volume 83.3 fL (80.0-98.0); Mean Platelet Volume 9.5 fL (9.4-12.4); Monocytes Absolute Auto 0.7 X10*3/uL (0.1-1.2); Monocytes Percent Auto 12.1 % (2-11); Neutrophils Absolute Auto 2.8 x10*3/uL (2.0-8.3); Neutrophils Percent Auto 48.5 % (45-73); Platelet Count 206 X10*3/uL (160-400); Red Blood Count 4.42 X10*6/uL (4.60-5.80); Red Cell Distribution Width 15.5 % (11.0-16.0); White Blood Count 5.8 X10*3/uL (4.8-10.8)
[2023-10-10 09:29] LABS: Anion Gap 13 (12-20); Blood Urea Nitrogen 12 mg/dL (9-16); Carbon Dioxide 24 mmol/L (22-29); Chloride 107 mmol/L (96-108); Estimated Glomerular Filt Rate > 60; Glucose Random 122 mg/dL (60-115); Potassium 3.6 mmol/L (3.3-5.1); Sodium 140 mmol/L (135-145)
[2023-10-10 09:36] LABS: B Type Natriuretic Peptide 398 pg/mL (<100)
== END ==
LOC: HO.CARD 07:44
PROVIDERS: PCP Internal Medicine; Visit Provider Nurse Practitioner Family
DX: I25.5 Ischemic cardiomyopathy (principal); I50.9 Heart failure, unspecified
CPT/HCPCS: 36415; 80048; 83880; 85025; 93306

== ENCOUNTER → 2023-10-10 08:14 | Outpatient (BNV) | payer OTHER, SELFPAY | PROVIDERS: PCP Internal Medicine; Visit Provider Internal Medicine | DX: I34.0 Nonrheumatic mitral (valve) insufficiency (principal); I51.89 Other ill-defined heart diseases | CPT/HCPCS: 93306 ==

== ENCOUNTER 2023-10-15 10:17 | Outpatient (AMB) | payer OTHER, SELFPAY ==
--- NOTE | 2023-10-15 10:27 | A.OFFVIS_ITS ---
Vital Signs 10/15/23 10:28 Height 5 ft 11 in Weight 189 lb 9.561 oz BMI 26.4 BP 102/66 Blood Pressure Location Lt brachial Position Sitting Pulse 92 Intake Visit Reasons: 3 mth f/up Intake Note: 1 week follow-up after labs Turn Down Man Required: Yes Turn Down Man Services: Turn Down Man Present Turn Down Man Name: daughter Allergies No Known Allergies Allergy (Verified 09/18/23 15:29) Medication List - Last Reconciled 10/15/23 by Toni Triana MD aspirin 81 mg PO DAILY atorvastatin 80 mg PO DAILY blood sugar diagnostic (FreeStyle Lite Strips) CHECK BLOOD SUGAR 3-4X/DAY blood-glucose meter (FreeStyle [place] Lite kit) check BS 1-2x/day ferrous sulfate 325 mg PO DAILY furosemide (Lasix) 40 mg PO DAILY insulin glargine (Lantus Solostar U-100 Insulin) 21 units subcut BEDTIME lancets (FreeStyle Lancets) check BS 3-4x/day metformin 1,000 mg PO BID pen needle, diabetic (BD Ultra-Fine Micro Pen Needle) As directed sacubitril-valsartan 24-26 mg (Entresto) 1 tab PO BID ticagrelor (Brilinta) 90 mg PO BID HPI Comments Details: Jhoan comes for follow-up. Patient was recently hospitalized after coming to the office and was noted to be heart failure. Subsequent BNP now in the 380 range. Continues to be exertional short of breath NYHA class 3. He said when walking across the parking lot he was short of breath. Denies any orthopnea, PN D, leg edema. Complains of pain in both his feet and the legs. Not always with walking. They almost constantly present. Also complains of bruising. No lightheadedness, syncope. He is measuring his blood pressure at home and says mostly in the 90s. Denies any chest discomfort. He is currently not on any metoprolol therapy question related to low blood pressure. His most recent echocardiogram shows persistent severe LV systolic dysfunction with multiple regional wall motion abnormality with LVEF of 25-30%. He has not undergone viability study as yet. Takes all other medications including Entresto. He is current diuretic dose at Lasix 40 mg daily. [facility] Medical History Heart failure with reduced ejection fraction Acute CHF (congestive heart failure) Acute on chronic systolic (congestive) heart failure Essential hypertension Endogenous depression Peripheral vascular disease due to secondary diabetes Newly diagnosed diabetes Hyperglycemia No known health problems Surgical History History of heart artery stent Family History Sister History of artificial heart valve Brother Myocardial infarct Social History Household Members: Family Housing: House Do you presently have visiting nurse or other home services: No Alcohol intake: never Patient Tobacco Use Status: Never used Tobacco e-Cigarette/Vaping Use: Never Used Second Hand Smoke Exposure: No Advance Directives Date on File: 09/03/23 service: No Current occupational status: unemployed Current occupation: right hand dominant Cognitive needs: No Hearing needs: No Vision needs: Yes (reading reading) Review of Systems Const Denies chills, Denies fatigue, Denies fever(s), Denies frequent falls, Denies weakness, Denies weight gain and Denies weight loss ENT Denies dizziness Card Denies chest pain, Denies leg edema, Denies lightheadedness, Denies palpitations, Denies dyspnea, Denies dyspnea on exertion, Denies orthopnea and Denies other (loss of consciousness) Resp Denies cough, Denies dyspnea and Denies dyspnea on exertion GI Denies hematochezia and Denies change in stool character Musc Denies abnormal gait, Denies muscle weakness, Denies numbness, Denies radiating pain into limb and Denies tingling Neuro Denies abnormal gait, Denies dizziness, Denies frequent falls, Denies numbness, Denies tingling and Denies weakness Endo Denies fatigue and Denies palpitations Physical Exam Vital Signs: Last Vital Signs Pulse 92 10/15/23 10:28 BP 102/66 10/15/23 10:28 BMI result Body Mass Index 26.4 Const General: cooperative Orientation/consciousness: patient oriented x3 Neck Neck: Yes normal visual inspection and Yes no JVD Chest Chest palpation & inspection: normal inspection of the chest Resp Other: noted to have increased work of breathing during appnt. Broken speech after walking up and down hallway - no hypoxia. Auscultation: clear to auscultation bilaterally, no rales, no rhonchi and no wheezes Cardio Jugular venous distension: no JVD Palpation: abnormal PMI displaced PMI Rate: regular rate Rhythm: regular rhythm Heart sounds: S1 normal heart sound present, S2 normal heart sound present, no gallops, no murmurs and no rubs GI Inspection: Yes normal to inspection Skin General skin exam: no rashes or lesions noted Neuro General: patient oriented x3 Extrem Other: trace edema around ankle bones General: Yes normal to inspection, No no pedal edema and No calf tenderness Psych Appearance: grossly normal Mental Status: mental status grossly normal Speech and movement: Normal speech and movement present Office Procedures EKG Details: EKG shows normal sinus rhythm with Q-waves in lead [address] as diffuse ST and T-wave changes inferior lead with poor R-wave progression and nonspecific anterolateral ST changes [id number], Complete Assessment & Plan Assessment & Plan (1) Heart failure with reduced ejection fraction: Code(s): I50.20 - Unspecified systolic (congestive) heart failure Category: Medical Plan: Heart failure with reduced ejection fraction with persistent severe LV systolic dysfunction despite circumflex stenting. He has known chronic total occlusion of RCA and LAD with collaterals. Possible nonviable myocardium given wall motion abnormalities. However this needs to be tested. Clinically appears to be euvolemic and well compensated. I do not think additional diuretic doses need at this point time. He needs further optimization neurohormonal modulation. Will add metoprolol 25 mg to his regimen and also add Jardiance 10 mg to his regimen. Continue current diuretic dose. Importance of daily weight monitoring avoidance of salt loading was discussed. Strongly recommend phase 2 cardiac rehabilitation which will be scheduled for him. Will set him up for cardiac MRI for assessment of myocardial viability. Continue Entresto at current dose. Advised to monitor blood pressure at home maintain a log. It is possible that further uptitration neurohormonal modulation will be difficult given his low blood pressure issues. We discussed about management of heart failure in details. Overall prognosis is guarded. Will continue maximize his medical therapy and follow him closely. Given his severe LV systolic dysfunction persistent and if there is nonviable myocardium would benefit from ICD placement for primary prevention. This was discussed with him. He wants to think about it. Have given him literature to read about it. Can evaluate for subcutaneous ICD given his age. (2) Coronary artery disease: Code(s): I25.10 - Atherosclerotic heart disease of [place] coronary artery without angina pectoris Category: Medical Qualifiers: Associated angina: without angina Coronary Disease-Associated Artery/Lesion type: [place] artery [place] vs. transplanted heart: [place] heart Qualified Code(s): I25.10 - Atherosclerotic heart disease of [place] coronary artery without angina pectoris Plan: CAD with stenting of the circumflex artery for inferior STEMI with chronic total occlusion of RCA and LAD with faint collaterals to the LAD. Continue aggressive risk factor modification. Continue dual antiplatelet therapy till July of 2024. Importance of this was discussed with him. Continue aggressive diabetes management goal hemoglobin A1c less than 7%. Continue high-intensity statin therapy. Target goal LDL closer to 60 mg/dL. Advised lipid panel in near future. Phase 2 cardiac rehabilitation as above. Greater than 40 minutes was spent in managing his complex can provide him with all the education material. Will follow up in the clinic in 3 months time Orders: Orders Cardiac Rehab Today I50.20 - Unspecified systolic (congestive) heart failure Lipid Panel Today I25.10 - Atherosclerotic heart disease of [place] coronary artery without angina pectoris MR cardiac morph fnct w con 1 Week I25.5 - Ischemic cardiomyopathy Medications: New metoprolol succinate ER (Toprol XL) 25 mg PO DAILY 30 tabs 5RF empagliflozin (Jardiance) 10 mg PO DAILY 30 tabs 5RF Coding Level of Care Code Est Pt Level 5 (52176) Diagnoses Heart failure with reduced ejection fraction I50.20 Coronary artery disease involving [place] coronary artery of [place] heart without angina pectoris I25.10 Associated angina: without angina Coronary Disease-Associated Artery/Lesion type: [place] artery [place] vs. transplanted heart: [place] heart CPT Codes EKG - CPT: 51560-[id number], Complete ([id number])
[2023-10-15 10:28] VITALS: BP 102/66; PULSE 92; BMI 26.4
== END 2023-10-15 10:59 | disposition home or self-care (01) ==
PROVIDERS: PCP Internal Medicine; Visit Provider Internal Medicine Cardiovascular Disease
DX: I50.20 Unspecified systolic (congestive) heart failure (principal); I25.10 Atherosclerotic heart disease of native coronary artery without angina pectoris; R94.31 Abnormal electrocardiogram [ECG] [EKG]
CPT/HCPCS: 93010; 99215

== ENCOUNTER → 2023-10-15 10:17 | Outpatient (BNVA) | payer OTHER, SELFPAY | PROVIDERS: PCP Internal Medicine; Visit Provider Internal Medicine Cardiovascular Disease | DX: I50.20 Unspecified systolic (congestive) heart failure (principal); I25.10 Atherosclerotic heart disease of native coronary artery without angina pectoris; R94.31 Abnormal electrocardiogram [ECG] [EKG] | CPT/HCPCS: 93005; 99212 ==

== ENCOUNTER 2023-10-16 06:59 | Outpatient (REF) | payer OTHER, SELFPAY ==
[2023-10-16 08:36] LABS: Cholesterol 120 mg/dL (<200); HDL Cholesterol 42 mg/dL (>40); LDL Cholesterol Calculated 62 mg/dL (<100); Triglycerides 82 mg/dL (<150)
== END 2023-10-16 07:00 | disposition home or self-care (01) ==
LOC: HO.LAB 06:59
PROVIDERS: PCP Internal Medicine; Visit Provider Internal Medicine Cardiovascular Disease
DX: I25.10 Atherosclerotic heart disease of native coronary artery without angina pectoris (principal)
CPT/HCPCS: 36415; 80061

== ENCOUNTER 2023-11-28 08:13 | Outpatient (AMB) | payer OTHER, SELFPAY ==
--- NOTE | 2023-11-28 08:40 | MHC.PC.OV ---
Vital Signs 11/28/23 08:42 Height 5 ft 11 in Weight 192 lb 4 oz BMI 26.8 BP 120/68 Blood Pressure Location Rt brachial Position Sitting Pulse 94 Pulse Source Pulse Oximeter Pulse Oximetry (%) 96 Oxygen Delivery Method Room Air Intake Visit Reasons: 3 month f/u Intake Note: Patient is here to follow up on DM, HTN, CHF, CAD. Mine Manager Required: No Diesel Roller Operator: Not Required per policy Accompanied by: Self / Same As Patient Allergies No Known Allergies Allergy (Verified 11/28/23 09:20) Medication List - Last Reconciled 11/28/23 by Everardo Mohan MD aspirin 81 mg PO DAILY atorvastatin 80 mg PO DAILY blood sugar diagnostic (FreeStyle Lite Strips) CHECK BLOOD SUGAR 3-4X/DAY blood-glucose meter (FreeStyle [place] Lite kit) check BS 1-2x/day empagliflozin (Jardiance) 10 mg PO DAILY ferrous sulfate 325 mg PO DAILY furosemide (Lasix) 40 mg PO DAILY insulin glargine (Lantus Solostar U-100 Insulin) 21 units subcut BEDTIME lancets (FreeStyle Lancets) check BS 3-4x/day metformin 1,000 mg PO BID metoprolol succinate ER (Toprol XL) 25 mg PO DAILY pen needle, diabetic (BD Ultra-Fine Micro Pen Needle) As directed sacubitril-valsartan 24-26 mg (Entresto) 1 tab PO BID ticagrelor (Brilinta) 90 mg PO BID Tobacco use date assessed: 11/28/23 Dental Screening Dental Screen Date: 03/22/23 HPI 3 month f/u HPI Details 58-year-old male presents to the office for a follow-up on his medical condition. He comes to the office alone. Patient is at baseline state of health. Continues to have shortness of breath when he climbs stairs. No recent gain in weight. Blood sugars have been stable. Patient has not been taking metformin or Jardiance in the last 2 days. Had a small episode of bleeding from the nose. The condition has now resolved. [facility], [facility] Medical History Heart failure with reduced ejection fraction Acute CHF (congestive heart failure) Acute on chronic systolic (congestive) heart failure Essential hypertension Endogenous depression Peripheral vascular disease due to secondary diabetes Newly diagnosed diabetes Hyperglycemia No known health problems Surgical History History of heart artery stent Family History Sister History of artificial heart valve Brother Myocardial infarct Social History Household Members: Family Housing: House Do you presently have visiting nurse or other home services: No Alcohol intake: never Patient Tobacco Use Status: Never used Tobacco e-Cigarette/Vaping Use: Never Used Second Hand Smoke Exposure: No Advance Directives Date on File: 09/03/23 service: No Current occupational status: unemployed Current occupation: right hand dominant Cognitive needs: No Hearing needs: No Vision needs: Yes (reading reading) Questionnaire Thrive Questionnaire Date Thrive assessed: 09/19/23 AUDIT C Alcohol Use Questionnaire (AUDIT-C) 3. How often do you have six or more drinks on one occasion?: Never Total Score: 0 JOHN-7 AMB Questionnaire JOHN-7 Date JOHN - 7 assessed: 03/22/23 Source: Developed by Drs. Balaji Lockwood, Bere Mann, Nirmal Marin and colleagues, with an educational osmel from [employer]. Physical exam (Primary Care) Vital Signs: Last Vital Signs Pulse 94 11/28/23 08:42 BP 120/68 11/28/23 08:42 Pulse Ox 96 11/28/23 08:42 Oxygen Delivery Method Room Air 11/28/23 08:42 BMI result Body Mass Index 26.8 Tobacco/Smoking Status: Tobacco use Status Tobacco use date assessed 11/28/23 11/28/23 08:52 Patient Tobacco Use Status Never used Tobacco 11/28/23 08:52 e-Cigarette/Vaping Use Never Used 11/28/23 08:52 Thrive Assessment: Date of Thrive Assessment Date Thrive assessed 09/19/23 11/28/23 08:52 Const General: cooperative and healthy appearing Nutritional Appearance: well nourished Orientation/consciousness: patient oriented x3 Limitations: no limitations HENMT Head: Yes normal to inspection Eyes General: appearance normal, both eyes and all related structures Neck Neck: Yes normal visual inspection Chest Chest palpation & inspection: normal palpation of entire chest wall Resp Effort & Inspection: normal respiratory effort Neuro General: patient oriented x3 Results AMB Hemoglobin A1c AMB Hemoglobin A1c 6.0 % Last Edit by ALIZE Marcus on 11/28/23 08:54 Results Reviewed Results Reviewed: Laboratory Last Values Hgb A1c (Clinic) 6.0 % (4.0-6.0) 11/28/23 08:40 Assessment and Plan Assessment & Plan (1) Diabetes mellitus with neuropathy: Code(s): E11.40 - Type 2 diabetes mellitus with diabetic neuropathy, unspecified Plan: Patient was advised to restart the metformin and Jardiance. A1c is in range. (2) Acute on chronic systolic (congestive) heart failure: Code(s): I50.23 - Acute on chronic systolic (congestive) heart failure Plan: Symptoms are stable. (3) Screening for colon cancer: Code(s): Z12.11 - Encounter for screening for malignant neoplasm of colon Plan: Patient declines a screening colonoscopy or Cologuard. He understands the risk of not getting the procedure done. Orders: Orders AMB Hemoglobin A1c Today E11.40 - Type 2 diabetes mellitus with diabetic neuropathy, unspecified Coding Level of Care Code Est Pt Level 4 (37940) Complex EM visit Add On G2211 Diagnoses Diabetes mellitus with neuropathy E11.40 Acute on chronic systolic (congestive) heart failure I50.23 Screening for colon cancer Z12.11
[2023-11-28 08:42] VITALS: BP 120/68; PULSE 94; O2SAT 96; BMI 26.8
== END 2023-11-28 09:45 | disposition home or self-care (01) ==
PROVIDERS: PCP Internal Medicine; Visit Provider Internal Medicine
DX: E11.40 Type 2 diabetes mellitus with diabetic neuropathy, unspecified (principal); I50.23 Acute on chronic systolic (congestive) heart failure; Z12.11 Encounter for screening for malignant neoplasm of colon
CPT/HCPCS: 83036; 99214; G2211

== ENCOUNTER 2023-12-20 08:05 | Outpatient (AMB) | payer OTHER, SELFPAY ==
--- NOTE | 2023-12-20 08:37 | MHC.PC.OV ---
Vital Signs 12/20/23 08:38 Height 5 ft 11 in Weight 188 lb 8 oz BMI 26.3 BP 110/70 Blood Pressure Location Lt brachial Position Sitting Pulse 92 Pulse Source Pulse Oximeter Pulse Oximetry (%) 97 Oxygen Delivery Method Room Air Intake Visit Reasons: Annual Exam Intake Note: Patient is here today for a physical. Computer Hardware Engineer Required: No Qc Analyst: Not Required per policy Accompanied by: Self / Same As Patient Allergies No Known Allergies Allergy (Verified 12/20/23 09:27) Medication List - Last Reconciled 12/20/23 by Everardo Mohan MD aspirin 81 mg PO DAILY atorvastatin 80 mg PO DAILY blood sugar diagnostic (FreeStyle Lite Strips) CHECK BLOOD SUGAR 3-4X/DAY blood-glucose meter (FreeStyle [place] Lite kit) check BS 1-2x/day empagliflozin (Jardiance) 10 mg PO DAILY ferrous sulfate 325 mg PO DAILY furosemide (Lasix) 40 mg PO DAILY insulin glargine (Lantus Solostar U-100 Insulin) 21 units subcut BEDTIME lancets (FreeStyle Lancets) check BS 3-4x/day metformin 1,000 mg PO BID metoprolol succinate ER (Toprol XL) 25 mg PO DAILY pen needle, diabetic (BD Ultra-Fine Micro Pen Needle) As directed sacubitril-valsartan 24-26 mg (Entresto) 1 tab PO BID ticagrelor (Brilinta) 90 mg PO BID Tobacco use date assessed: 12/20/23 Dental Screening Dental Screen Date: 03/22/23 HPI Annual Exam HPI Details 58-year-old male presents to the office requesting an annual physical. He is at baseline state of health. Patient continues to decline colonoscopy or Cologuard. Patient is also declining flu vaccine. FORMERLY [facility], [facility] Medical History Heart failure with reduced ejection fraction Acute CHF (congestive heart failure) Acute on chronic systolic (congestive) heart failure Essential hypertension Endogenous depression Peripheral vascular disease due to secondary diabetes Newly diagnosed diabetes Hyperglycemia No known health problems Surgical History History of heart artery stent Family History Sister History of artificial heart valve Brother Myocardial infarct Social History Household Members: Family Housing: House Do you presently have visiting nurse or other home services: No Alcohol intake: never Patient Tobacco Use Status: Never used Tobacco e-Cigarette/Vaping Use: Never Used Second Hand Smoke Exposure: No Advance Directives Date on File: 09/03/23 service: No Current occupational status: unemployed Current occupation: right hand dominant Cognitive needs: No Hearing needs: No Vision needs: Yes (reading reading) Questionnaire PHQ-9 Over the last 2 weeks, how often have you been bothered by any of the following problems? 1. Little interest or pleasure in doing things: not at all 2. Feeling down, depressed, or hopeless: not at all 3. Trouble falling or staying asleep, or sleeping too much: not at all 4. Feeling tired or having little energy: not at all 5. Poor appetite or overeating: not at all 6. Feeling bad about yourself - or that you are a failure or have let yourself or your family down: not at all 7. Trouble concentrating on things, such as reading the newspaper or watching television: not at all 8. Moving or speaking so slowly that other people could have noticed. Or the opposite - being so fidgety or restless that you have been moving around a lot more than usual: not at all 9. Thoughts that you would be better off or of hurting yourself in some way: not at all Total score: 0 Depression Screening Interpretation: Negative Depression Screening Done: Yes Source: Developed by Drs. Balaji Lockwood, Bere Mann, Nirmal Marin and colleagues, with an educational osmel from [employer]. Thrive Questionnaire Date Thrive assessed: 09/19/23 JOHN-7 AMB Questionnaire JOHN-7 Date JOHN - 7 assessed: 12/20/23 Feeling nervous, anxious, or on edge: 0 = Not at all Not being able to stop or control worryin = Not at all Worrying too much about different things: 0 = Not at all Trouble relaxin = Not at all Being so restless that it is hard to sit still: 0 = Not at all Becoming easily annoyed or irritable: 0 = Not at all Feeling afraid as if something awful might happen: 0 = Not at all Total JOHN-7 score (0-4 normal; 5-9 mild; 10-14 moderate; 15-21 severe): 0 Source: Developed by Drs. Balaji Lockwood, Bere Mann, Nirmal Marin and colleagues, with an educational oseml from [employer]. Physical exam (Primary Care) Vital Signs: Last Vital Signs Pulse 92 12/20/23 08:38 BP 110/70 12/20/23 08:38 Pulse Ox 97 12/20/23 08:38 Oxygen Delivery Method Room Air 12/20/23 08:38 BMI result Body Mass Index 26.3 Tobacco/Smoking Status: Tobacco use Status Tobacco use date assessed 12/20/23 12/20/23 08:41 Patient Tobacco Use Status Never used Tobacco 12/20/23 08:41 e-Cigarette/Vaping Use Never Used 12/20/23 08:41 PHQ-9: PHQ-9 Score PHQ-9: Total score 0 12/20/23 08:41 Depression Screening Interpretation: Negative Thrive Assessment: Date of Thrive Assessment Date Thrive assessed 09/19/23 12/20/23 08:41 Const General: cooperative and healthy appearing Nutritional Appearance: well nourished Orientation/consciousness: patient oriented x3 Limitations: no limitations HENMT Head: Yes normal to inspection Eyes General: appearance normal, both eyes and all related structures Neck Neck: Yes normal visual inspection Chest Chest palpation & inspection: normal palpation of entire chest wall Resp Effort & Inspection: normal respiratory effort Neuro General: patient oriented x3 Coding Level of Care Code Est Pt Prev Care 40-64y([id number]) Diagnoses Peripheral vascular disease due to secondary diabetes E13.51 Annual physical exam Z00.00 Assessment & Plan Assessment & Plan (1) Peripheral vascular disease due to secondary diabetes: Code(s): E13.51 - Other specified diabetes mellitus with diabetic peripheral angiopathy without gangrene Category: Medical Plan: Patient is stable. (2) Annual physical exam: Code(s): Z00.00 - Encounter for general adult medical examination without abnormal findings Plan: Continues to decline colonoscopy and flu vaccinations. Medications: Refilled lancets (FreeStyle Lancets) check BS 3-4x/day 100 ea 0RF E11.9 - Type 2 diabetes mellitus without complications
[2023-12-20 08:38] VITALS: BP 110/70; PULSE 92; O2SAT 97; BMI 26.3
== END 2023-12-20 09:27 | disposition home or self-care (01) ==
PROVIDERS: PCP Internal Medicine; Visit Provider Internal Medicine
DX: E13.51 Other specified diabetes mellitus with diabetic peripheral angiopathy without gangrene (principal); Z00.00 Encounter for general adult medical examination without abnormal findings

== ENCOUNTER → 2023-12-20 08:05 | Outpatient (BNVA) | payer OTHER, SELFPAY | PROVIDERS: PCP Internal Medicine; Visit Provider Internal Medicine | DX: Z00.01 Encounter for general adult medical examination with abnormal findings (principal); E13.51 Other specified diabetes mellitus with diabetic peripheral angiopathy without gangrene | CPT/HCPCS: 96127; 99396 ==

== ENCOUNTER 2024-02-06 07:00 | Outpatient (RCR) | payer OTHER, SELFPAY ==
[2024-01-23 07:21] LABS: Glucose, Whole Blood 131 mg/dL (60-115)
== END 2024-02-13 13:52 | disposition home or self-care (01) ==
LOC: HO.CR 07:00
PROVIDERS: PCP Internal Medicine; Visit Provider Internal Medicine Cardiovascular Disease
DX: I50.20 Unspecified systolic (congestive) heart failure (principal)
CPT/HCPCS: 82947; 93798

== ENCOUNTER 2024-03-26 09:10 | Outpatient (AMB) | payer OTHER, SELFPAY ==
--- NOTE | 2024-03-26 09:33 | A.OFFPC_ITS ---
Vital Signs 03/26/24 09:35 Height 5 ft 11 in Weight 192 lb 6 oz BMI 26.8 BP 110/60 Blood Pressure Location Lt brachial Position Sitting Pulse 85 Pulse Source Pulse Oximeter Pulse Oximetry (%) 97 Oxygen Delivery Method Room Air Intake Visit Reasons: 3mth f/u Intake Note: Patient is here to follow up on DM, HTN, CHF. Skatesman Required: No Overlock Elastic Attacher: Present Accompanied by: Daughter Allergies No Known Allergies Allergy (Verified 03/26/24 16:35) Medication List - Last Reconciled 03/26/24 by Kendra Mata PA-C aspirin 81 mg PO DAILY atorvastatin 80 mg PO DAILY blood pressure monitor (Blood Pressure Kit) As directed blood sugar diagnostic (FreeStyle Lite Strips) CHECK BLOOD SUGAR 3-4X/DAY blood-glucose meter (FreeStyle Calypso Lite kit) check BS 1-2x/day blood-glucose meter,continuous (FreeStyle Loretta 3 [place]) As directed blood-glucose sensor (FreeStyle Loretta 3 Plus Sensor device) As directed citalopram 10 mg PO DAILY empagliflozin (Jardiance) 10 mg PO DAILY ferrous sulfate 325 mg PO DAILY food supplemt, lactose-reduced (Ensure Active [employer] oral liquid) 1 ea PO DAILY furosemide (Lasix) 40 mg PO DAILY insulin glargine (Lantus Solostar U-100 Insulin) 21 units subcut BEDTIME lancets (FreeStyle Lancets) check BS 3-4x/day metformin 1,000 mg PO BID metoprolol succinate ER (Toprol XL) 25 mg PO DAILY pen needle, diabetic (BD Ultra-Fine Micro Pen Needle) As directed sacubitril-valsartan 24-26 mg (Entresto) 1 tab PO BID 90 days ticagrelor (Brilinta) 90 mg PO BID Tobacco use date assessed: 03/26/24 Dental Screening Dental Screen Date: 03/26/24 Did you have a dental visit in the last 12 months?: No Did you have a dental problem in the last 6 months where you did not have access to dental care?: No Was dental information given to patient?: No HPI 3mth f/u HPI Details 58-year-old male with a past medical his tory of CHF with echocardiogram revealed persistent severe LV systolic dysfunction with multiple regional wall motion abnormality with LVEF of 25-30% being followed by Dr. Triana in Cardiology last appointment was in September of 2023 who is presenting to the primary care clinic for three-month follow-up. Patient also has a history of hypertension, depression, PVD and diabetes. Patient's daughter is at bedside. Patient presents today reporting that he continues to have generalized fatigue, malaise, shortness of breath, dyspnea on exertion, orthopnea with any activity. Reports that he does not have any VNA or RESIDENTIAL SALES ASSOCIATE services at this time. He currently lives with his daughter. His daughter usually drops him off to his other daughter that is at bedside every day and she takes care of him. This is why his daughter is unable to work while she is taking care of him. Patient reports he has [employer] and is in between receiving SSI benefits. He reports the [employer]ense does not cover any VNA or RESIDENTIAL SALES ASSOCIATE services and he is trying to change his insurance although when he attempted to try to change his insurance they told him that due to being in between of receiving SSI benefits that he will need to wait until these benefits are in place to changes insurance. He reports he is unable to work. Upon reviewing the patient's medication list patient reports he is not currently on metoprolol due to he was told in the past that he should not be taking this although and Dr. Triana's last no in September of 2023 he recommended patient to be on this medication actually sent the script to the patient's pharmacy. Therefore I discussed this with the patient explained to him that he should restart this medication. Dr. Triana also recommended cardiac MRI which patient has scheduled for 04/14/2024. Dr. Triana although recommended cardiac rehab patient reports he attended a proximally 4-5 times and had to discontinue due to worsening fatigue, shortness of breath and symptoms and has not gone back. Dr. Triana also discussed ICD to be placed although patient very hesitant about this and is declining at this time. He will discuss this again when he follows up with Dr. Triana. He reports he does not have an appointment scheduled with Dr. Triana the medical education manager therefore his daughter will walk over today and make a follow-up appointment with Dr. Triana for the earliest appointment they can have. Patient is requesting a walker to get around his house and do activities of daily living. He reports he is able to dress himself after his daughter gives him his clothes. He is able to bathe himself. He is unable to do his own grocery shopping or laundry his daughters take care of this for him. Patient is declining colonoscopy at this time. Patient declining flu vaccine at this time. Patient denies any other symptoms complaints or concerns at this time. [facility] Medical History Heart failure with reduced ejection fraction Acute CHF (congestive heart failure) Acute on chronic systolic (congestive) heart failure Essential hypertension Endogenous depression Peripheral vascular disease due to secondary diabetes Newly diagnosed diabetes Hyperglycemia No known health problems Surgical History History of heart artery stent Family History Sister History of artificial heart valve Brother Myocardial infarct Social History Household Members: Family Housing: House (Lives with Daughter) Do you presently have visiting nurse or other home services: No Alcohol intake: never Patient Tobacco Use Status: Never used Tobacco e-Cigarette/Vaping Use: Never Used Second Hand Smoke Exposure: No Advance Directives Date on File: 09/03/23 service: No Current occupational status: unemployed Current occupation: right hand dominant Cognitive needs: No Hearing needs: No Vision needs: Yes (reading reading) Questionnaire PHQ-9 Over the last 2 weeks, how often have you been bothered by any of the following problems? 1. Little interest or pleasure in doing things: more than half the days 2. Feeling down, depressed, or hopeless: nearly every day 3. Trouble falling or staying asleep, or sleeping too much: several days 4. Feeling tired or having little energy: several days 5. Poor appetite or overeating: not at all 6. Feeling bad about yourself - or that you are a failure or have let yourself or your family down: several days 7. Trouble concentrating on things, such as reading the newspaper or watching television: not at all 8. Moving or speaking so slowly that other people could have noticed. Or the opposite - being so fidgety or restless that you have been moving around a lot more than usual: not at all 9. Thoughts that you would be better off or of hurting yourself in some way: not at all Total score: 8 Depression Screening Interpretation: Positive Depression Screening Follow-up: Existing condition (Patient will be started on citalopram 10 mg daily. Patient to return in 1 month for re-evaluation. Patient declined therapist or psychiatrist at this time.) Depression Screening Done: Yes Source: Developed by Drs. Balaji Lockwood, Bere Mann, Nirmal Marin and colleagues, with an educational osmel from [employer]. Thrive Questionnaire Date Thrive assessed: 03/26/24 I am a: Patient What is your living situation today?: I have a steady place to live Within the past 12 months, did the food you bought not last and you didn't have the money to get more?: Never true Within the past 12 months, did you worry whether your food would run out before you got money to buy more?: Never true Do you have trouble paying for medicines?: No Do you have trouble getting transportation to medical appointments?: No Do you have trouble paying your heating and electricity bill?: No Do you have trouble taking care of your child, family member or friend?: No Do you have trouble with day-to-day activities such as bathing, preparing meals, shopping, managing finances, etc.?: No Are you currently unemployed and looking for a job?: No Are you interested in more education?: No Currently or been in a relationship where the following occur: No concerns reported THRIVE Score: 0 AUDIT C Alcohol Use Questionnaire (AUDIT-C) 1. How often do you have a drink containing alcohol?: Never Total Score: 0 Score Reviewed/Action Taken: Yes JOHN-7 AMB Questionnaire JOHN-7 Date JOHN - 7 assessed: 03/26/24 Feeling nervous, anxious, or on edge: 2 = More than half the days Not being able to stop or control worryin = More than half the days Worrying too much about different things: 2 = More than half the days Trouble relaxin = Several days Being so restless that it is hard to sit still: 0 = Not at all Becoming easily annoyed or irritable: 0 = Not at all Feeling afraid as if something awful might happen: 1 = Several days Total JOHN-7 score (0-4 normal; 5-9 mild; 10-14 moderate; 15-21 severe): 8 Source: Developed by Drs. Balaji Lockwood, Bere Mann, Nirmal Marin and colleagues, with an educational osmel from [employer]. JOHN-7 Assessment Billing JONH-7 Assessment Tool: JOHN-7 Assessment 25248 Physical exam (Primary Care) Vital Signs: Last Vital Signs Pulse 85 03/26/24 09:35 BP 110/60 03/26/24 09:35 Pulse Ox 97 03/26/24 09:35 Oxygen Delivery Method Room Air 03/26/24 09:35 Care Plan Goal for BP management: 116/60 at today visit. Will continue current antihypertensive regimen BMI result Body Mass Index 26.8 BMI Assessment/Plan discussion: Low (Will send ensure for the patient.) BMI Low, Plan discussed: lifestyle, increase calorie intake and dietary Tobacco/Smoking Status: Tobacco use Status Tobacco use date assessed 03/26/24 03/26/24 09:48 Patient Tobacco Use Status Never used Tobacco 03/26/24 09:48 e-Cigarette/Vaping Use Never Used 03/26/24 09:48 PHQ-9: PHQ-9 Score PHQ-9: Total score 8 03/26/24 10:16 Depression Screening Interpretation: Positive Depression Screening Follow-up: Existing condition (Patient will be started on citalopram 10 mg daily. Patient to return in 1 month for re-evaluation. Patient declined therapist or psychiatrist at this time.) Thrive Assessment: Date of Thrive Assessment Date Thrive assessed 03/26/24 03/26/24 09:48 Currently or been in a relationship where the following occur: No concerns reported Const Other: Appearance: Alert. Oriented X3. No acute distress. Head: Normal external exam. Normocephalic. Atraumatic. Eyes: Conjunctiva and sclera normal. Eyelids normal. ENT: MMM. Normal voice. Neck: Normal inspection. Neck supple. FROM. No adenopathy. Thyroid Normal. No meningeal signs. No neck mass noted. CVS: Normal heart rate and rhythm. Heart sound normal. Pulses normal throughout. No murmurs/rales/gallops. Respiratory: No respiratory distress. Painless inspiration. Breath sounds normal. No wheezes/rales/rhonchi noted. Chest nontender. No crepitus is noted. No accessory muscle usage noted or decreased air movement noted. No signs of trauma. Abdomen: Soft and nontender. Nondistended. No guarding. No rigidity. Bowel sounds normal in all 4 quadrants. No distention noted. No organomegaly noted. No visible injury noted. No rebound tenderness. Back: Full range of motion noted. Skin: Skin warm and dry. Normal skin color. Normal skin turgor. No rashes/lesions/lacerations noted. Extremities: No lower extremity edema. No calf tenderness is noted. Extremities exhibit normal range of motion and nontender. Neuro: Oriented X 3. Moving all extremities. Normal steady gait. No focal neuro deficits noted. Vascular: + radial pulses b/l. Normal cap refill. No cyanosis noted. Results AMB Hemoglobin A1c AMB Hemoglobin A1c 5.6 % Last Edit by ALIZE Marcus on 03/26/24 09:55 Results Reviewed Results Reviewed: Laboratory Last Values Hgb A1c (Clinic) 5.6 % (4.0-6.0) 03/26/24 09:25 Coding Level of Care Code Est Pt Level 4 (31296) Complex EM visit Add On G2211 Diagnoses Follow-up exam, 3-6 months since previous exam Z09 Heart failure with reduced ejection fraction I50.20 STEMI (ST elevation myocardial infarction) I21.3 CHF (congestive heart failure) I50.9 Acute on chronic systolic (congestive) heart failure I50.23 Acute CHF (congestive heart failure) I50.9 Acute on chronic systolic congestive heart failure I50.23 Heart failure type: systolic Endogenous depression F33.2 Peripheral vascular disease due to secondary diabetes E13.51 Diabetes mellitus with neuropathy E11.40 Colon cancer screening declined Z53.20 Additional Codes JOHN-7 Assessment Billing - JOHN-7 Assessment Tool: JOHN-7 Assessment 03808 ([id number]) Assessment & Plan Assessment & Plan (1) Follow-up exam, 3-6 months since previous exam: Code(s): Z09 - Encounter for follow-up examination after completed treatment for conditions other than malignant neoplasm Category: Medical (2) Heart failure with reduced ejection fraction: Code(s): I50.20 - Unspecified systolic (congestive) heart failure Category: Medical Plan: CHF with echocardiogram revealed persistent severe LV systolic dysfunction with multiple regional wall motion abnormality with LVEF of 25-30% being followed by Dr. Triana in Cardiology last appointment was in September of 2023. Patient will restart metoprolol as prescribed, continue take an aspirin, continue furosemide 40 mg daily along with Entresto. Condition is chronic and stable. Will continue to monitor. (3) STEMI (ST elevation myocardial infarction): Comment: 07/27/2023 Code(s): I21.3 - ST elevation (STEMI) myocardial infarction of unspecified site Category: Medical Plan: Prior ST-elevation [place]. Being followed by Cardiology. Condition is stable. Will continue to monitor (4) CHF (congestive heart failure): Code(s): I50.9 - Heart failure, unspecified Category: Medical Plan: Being followed by Cardiology. Condition is stable. See above. Will continue to monitor. (5) Acute on chronic systolic (congestive) heart failure: Code(s): I50.23 - Acute on chronic systolic (congestive) heart failure Category: Medical Plan: Being followed by Cardiology. Condition is stable. See above. Will continue to monitor. (6) Acute CHF (congestive heart failure): Code(s): I50.9 - Heart failure, unspecified Category: Medical Plan: Being followed by Cardiology. Condition is stable. See above. Will continue to monitor. 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 Condition is stable. See above. Will continue to monitor. (8) Endogenous depression: Code(s): F33.2 - Major depressive disorder, recurrent severe without psychotic features Category: Medical Plan: Patient declining referral to therapy or psychiatrist. Patient is positive for PHQ 9 score. I offered the patient citalopram 10 mg daily and patient is agreeable. Patient will be started on citalopram 10 mg daily and follow-up within 2-4 weeks for re-evaluation. Condition is stable. Will continue to monitor. (9) Peripheral vascular disease due to secondary diabetes: Code(s): E13.51 - Other specified diabetes mellitus with diabetic peripheral angiopathy without gangrene Category: Medical Plan: Chronic. Condition is stable. Will continue to monitor. (10) Diabetes mellitus with neuropathy: Code(s): E11.40 - Type 2 diabetes mellitus with diabetic neuropathy, unspecified Category: Medical Plan: A1c level at 5.6 today. Patient currently on metformin 1000 mg p.o. b.i.d. taking as prescribed. Patient currently on Lantus 21 units at bedtime taking as prescribed Condition is stable. Will continue to monitor. (11) Colon cancer screening declined: Code(s): Z53.20 - Procedure and treatment not carried out because of patient's decision for unspecified reasons Category: Medical Plan: Patient declining colon cancer screening with both colonoscopy and Cologuard at this time. He understands the risks and benefits. Plan 1. Fasting blood work will be ordered at this time. 2. Citalopram will be started for anxiety/depression due to positive PHQ-9 score. Patient declining referral to therapy or psychiatrist. 3. Patient declining colonoscopy and Cologuard at this time. For colon cancer screaming understands the risks and benefits. 4. Patient instructed to restart the metoprolol per Cardiology recommendations Dr. Triana. 5. Patient to follow-up with Dr. Triana, to go today to make an appointment with Dr. Triana for his earliest appointment for follow-up 6. Will place community navigation referral to assist patient with insurance issues that he is having along with to attempt to give him RESIDENTIAL SALES ASSOCIATE in [facility] services. 7. A walker was ordered for the patient 8. Patient to return in 1 month for re-evaluation and discuss his depression and how he feels on the citalopram. Patient with daughter at bedside understand agree this plan Orders: Orders AMB Hemoglobin A1c Today Everardo Mohan MD E11.40 - Type 2 diabetes mellitus with diabetic neuropathy, unspecified Complete Blood Count Auto Diff Today Kendra Mata PA-C Z09 - Encounter for follow-up examination after completed treatment for conditions other than malignant neoplasm Liver Panel Today Kendra Mata PA-C Z09 - Encounter for follow-up examination after completed treatment for conditions other than malignant neoplasm Lipid Panel Today Kendra Mata PA-C Z09 - Encounter for follow-up examination after completed treatment for conditions other than malignant neoplasm Magnesium Today Kendra Mata PA-C Z09 - Encounter for follow-up examination after completed treatment for conditions other than malignant neoplasm Vitamin D 25-OH Total Today Kendra Mata PA-C Z09 - Encounter for follow-up examination after completed treatment for conditions other than malignant neoplasm TSH reflex Free T4 Today Kendra Mata PA-C Z09 - Encounter for follow-up examination after completed treatment for conditions other than malignant neoplasm Comprehensive [place]. Panel Fast Today Kendra Mata PA-C Z09 - Encounter for follow-up examination after completed treatment for conditions other than malignant neoplasm Vitamin B12 and Folate Today Kendra Mata PA-C Z09 - Encounter for follow-up examination after completed treatment for conditions other than malignant neoplasm Microalbumin, Random (w Creat) Today Kendra Mata PA-C E11.9 - Type 2 diabetes mellitus without complications Medications: New citalopram 10 mg PO DAILY 90 tabs 1RF depression Kendra Mata PA-C walker As directed 1 ea 0RF Kendra Mata PA-C furosemide (Lasix) 40 mg PO DAILY 90 tabs 1RF Kendra Mata PA-C food supplemt, lactose-reduced (Ensure Active Heart Health oral liquid) 1 ea PO DAILY 948 mL 0RF Kendra aMta PA-C
[2024-03-26 09:35] VITALS: BP 110/60; PULSE 85; O2SAT 97; BMI 26.8
== END 2024-03-26 10:26 | disposition home or self-care (01) ==
PROVIDERS: PCP Internal Medicine; Visit Provider Internal Medicine
DX: E11.40 Type 2 diabetes mellitus with diabetic neuropathy, unspecified (principal)

== ENCOUNTER → 2024-03-26 09:10 | Outpatient (BNVA) | payer OTHER, SELFPAY | PROVIDERS: PCP Internal Medicine; Visit Provider Internal Medicine | DX: I11.0 Hypertensive heart disease with heart failure (principal); I50.20 Unspecified systolic (congestive) heart failure; E11.51 Type 2 diabetes mellitus with diabetic peripheral angiopathy without gangrene; E11.40 Type 2 diabetes mellitus with diabetic neuropathy, unspecified; I21.3 ST elevation (STEMI) myocardial infarction of unspecified site; F33.2 Major depressive disorder, recurrent severe without psychotic features; Z09 Encounter for follow-up examination after completed treatment for conditions other than malignant neoplasm | CPT/HCPCS: 83036; 96127; 99212 ==

== ENCOUNTER 2024-03-27 06:33 | Outpatient (REF) | payer OTHER, SELFPAY ==
[2024-03-27 06:48] LABS: MANUAL DIFF FLAG NO
[2024-03-27 06:52] LABS: Basophils Absolute Auto 0.1 X10*3/uL (0.0-0.2); Basophils Percent Auto 1.1 % (0-2); Eosinophils Absolute Auto 0.2 X10*3/uL (0.0-0.4); Eosinophils Percent Auto 3.6 % (0-4); Hematocrit 35.8 % (42.0-52.0); Imm Gran Abs Auto 0.01 X10*3/uL (0.00-0.03); Imm Gran Pct Auto 0.2 % (0.0-0.4); Lymphocytes Absolute Auto 1.9 X10*3/uL (1.2-4.9); Lymphocytes Percent Auto 33.6 % (20-40); Mean Corpuscular HGB Conc 30.7 g/dl (31.0-36.0); Mean Corpuscular Hemoglobin 23.7 pg (27.0-33.0); Mean Corpuscular Volume 77.2 fL (80.0-98.0); Mean Platelet Volume 8.8 fL (9.4-12.4); Monocytes Absolute Auto 0.6 X10*3/uL (0.1-1.2); Monocytes Percent Auto 11.3 % (2-11); Neutrophils Absolute Auto 2.8 x10*3/uL (2.0-8.3); Neutrophils Percent Auto 50.2 % (45-73); Platelet Count 184 X10*3/uL (160-400); Red Blood Count 4.64 X10*6/uL (4.60-5.80); Red Cell Distribution Width 17.2 % (11.0-16.0); White Blood Count 5.6 X10*3/uL (4.8-10.8)
[2024-03-27 07:15] LABS: Alanine Aminotransferase 44 U/L (0-40); Albumin Level 3.9 g/dL (3.5-5.0); Alkaline Phosphatase 71 U/L (39-117); Anion Gap 13 (12-20); Aspartate Amino Transferase 49 U/L (5-37); Bilirubin Direct 0.2 mg/dL (0.0-0.5); Bilirubin Total 0.5 mg/dL (0.0-1.0); Blood Urea Nitrogen 17 mg/dL (9-16); Calcium 9.5 mg/dL (8.4-10.2); Carbon Dioxide 23 mmol/L (22-29); Chloride 108 mmol/L (96-108); Cholesterol 172 mg/dL (<200); Estimated Glomerular Filt Rate > 60; Glucose Fasting 104 mg/dL (60-99); HDL Cholesterol 39 mg/dL (>40); LDL Cholesterol Calculated 103 mg/dL (<100); Potassium 4.6 mmol/L (3.3-5.1); Sodium 139 mmol/L (135-145); Total Protein 8.2 g/dL (6.5-8.0); Triglycerides 151 mg/dL (<150)
[2024-03-27 07:31] LABS: TSH reflex Free T4 2.38 uIU/mL (0.32-4.0); Vitamin D 25-OH Total 18.1 ng/mL (>30)
[2024-03-27 07:44] LABS: Folate 14.9 ng/mL (> or = 4.0); Vitamin B12 284 pg/mL (200-900)
[2024-03-27 08:10] LABS: Creatinine Urine 92.76 mg/dL; Microalbum/Creatinine Ratio Ur 17.2 ug/mg cr (<30)
== END 2024-03-27 06:34 | disposition home or self-care (01) ==
LOC: HO.LAB 06:33
PROVIDERS: PCP Internal Medicine; Visit Provider Physician Assistant Medical
DX: Z09 Encounter for follow-up examination after completed treatment for conditions other than malignant neoplasm (principal); E11.9 Type 2 diabetes mellitus without complications
CPT/HCPCS: 36415; 80053; 80061; 80076; 82043; 82248; 82306; 82570; 82607; 82746; 83735; 84443; 85025

== ENCOUNTER → 2024-04-23 07:40 | Outpatient (BNV) | payer OTHER, SELFPAY | PROVIDERS: PCP Internal Medicine; Visit Provider Internal Medicine Cardiovascular Disease | DX: I50.20 Unspecified systolic (congestive) heart failure (principal); R93.1 Abnormal findings on diagnostic imaging of heart and coronary circulation | CPT/HCPCS: 93308; 93321; 93356 ==

== ENCOUNTER 2024-05-01 09:13 | Outpatient (AMB) | payer OTHER, SELFPAY ==
[2024-05-01 09:24] VITALS: BP 110/60; PULSE 93; BMI 27.4
--- NOTE | 2024-05-01 09:24 | A.OFFVIS_ITS ---
Vital Signs 05/01/24 09:24 Height 5 ft 11 in Weight 196 lb 10.437 oz BMI 27.4 BP 110/60 Blood Pressure Location Lt brachial Position Sitting Pulse 93 Pulse Source Pulse Oximeter Intake Visit Reasons: follow-up after MRI/Echo ? ICD Intake Note: f/up/ mri/echo Veterinary Manager Required: Yes Veterinary Manager Language: Director [employer] Name: [id number] Accompanied by: Self / Same As Patient Allergies No Known Allergies Allergy (Verified 03/26/24 16:35) Medication List - Last Reconciled 05/01/24 by JAMAR Tejeda aspirin 81 mg PO DAILY atorvastatin 80 mg PO DAILY blood pressure monitor (Blood Pressure Kit) As directed blood sugar diagnostic (FreeStyle Lite Strips) CHECK BLOOD SUGAR 3-4X/DAY blood-glucose meter (FreeStyle Ovid Lite kit) check BS 1-2x/day blood-glucose meter,continuous (FreeStyle Loretta 3 Benezett) As directed blood-glucose sensor (FreeStyle Loretta 3 Plus Sensor device) As directed cholecalciferol (vitamin D3) 1,250 mcg PO QWEEK 3 months citalopram 10 mg PO DAILY empagliflozin (Jardiance) 10 mg PO DAILY ferrous sulfate 325 mg PO DAILY food supplemt, lactose-reduced (Ensure Active Heart Health oral liquid) 1 ea PO DAILY furosemide (Lasix) 40 mg PO DAILY insulin glargine (Lantus Solostar U-100 Insulin) 21 units subcut BEDTIME lancets (FreeStyle Lancets) check BS 3-4x/day metformin 1,000 mg PO BID metoprolol succinate ER (Toprol XL) 25 mg PO DAILY pen needle, diabetic (BD Ultra-Fine Micro Pen Needle) As directed -daily sacubitril-valsartan 24-26 mg (Entresto) 1 tab PO BID 90 days ticagrelor (Brilinta) 90 mg PO BID walker As directed HPI HPI follow-up after MRI/Echo ? ICD: Details: Jhoan is a 58-year-old male with past medical history hypertension, hyperlipidemia, diabetes, inferior posterior STEMI July 2023 with emergent cardiac catheterization showing dominant circumflex artery 99% stenosis, CYNTHIA placed. Also noted to have AQUEDUCT AND RESERVOIR KEEPER of the LAD and RCA with collaterals from circumflex. Post intervention he had cardiogenic shock requiring intra-aortic balloon pump and vasopressor therapy. Echocardiogram showed EF 20-25% with wall motion abnormality. He has been on guideline directed medical therapy which has been limited by low blood pressure readings. He recently had a MRI of the heart and limited echocardiogram and now presents for follow-up. Today he reports that he has shortness of breath with activity such as climbing stairs. He will get chest discomfort if he over exerts. He is able to do only light activities around his house. He was in cardiac rehab tells me he needed to stop because he was getting symptoms. He says there was times they had to monitor him for awhile after therapy before letting him go home. He does not feel his symptoms are worsening with time. No heart palpitations, lightheadedness, presyncope, syncope. No PND, orthopnea or edema. He sleeps with 0-1 pillows. He is coughing occasionally. He has been taking his meds as directed. Daughter is present and assisting with Telugu translation at their request. [facility] Medical History Heart failure with reduced ejection fraction Acute CHF (congestive heart failure) Acute on chronic systolic (congestive) heart failure Essential hypertension Endogenous depression Peripheral vascular disease due to secondary diabetes Newly diagnosed diabetes Hyperglycemia No known health problems Surgical History History of heart artery stent Family History Sister History of artificial heart valve Brother Myocardial infarct Social History Household Members: Family Housing: House (Lives with Daughter) Do you presently have visiting nurse or other home services: No Alcohol intake: never Patient Tobacco Use Status: Never used Tobacco e-Cigarette/Vaping Use: Never Used Second Hand Smoke Exposure: No Advance Directives Date on File: 09/03/23 service: No Current occupational status: unemployed Current occupation: right hand dominant Cognitive needs: No Hearing needs: No Vision needs: Yes (reading reading) Review of Systems Const All systems reviewed & are unremarkable except as noted in HPI and below Denies chills, Denies fatigue, Denies fever(s), Denies frequent falls, Denies weakness, Denies weight gain and Denies weight loss ENT Denies dizziness Card Reports chest pain, Reports chest pain with activity, Denies leg edema, Denies lightheadedness, Denies palpitations, Denies dyspnea and Reports dyspnea on exertion Resp Denies cough, Denies dyspnea and Reports dyspnea on exertion GI Denies hematochezia Musc Denies abnormal gait, Denies muscle weakness, Denies numbness, Denies radiating pain into limb and Denies tingling Neuro Denies abnormal gait, Denies dizziness, Denies frequent falls, Denies numbness, Denies tingling and Denies weakness Endo Denies fatigue and Denies palpitations Physical Exam Vital Signs: Last Vital Signs Pulse 93 05/01/24 09:24 BP 110/60 05/01/24 09:24 BMI result Body Mass Index 27.4 Const General: cooperative, healthy appearing, comfortable and no acute distress Orientation/consciousness: patient oriented x3 Neck Neck: Yes normal visual inspection and Yes no JVD Resp Effort & Inspection: normal respiratory effort Auscultation: clear to auscultation bilaterally, no crackles, no rales, no rhonchi and no wheezes Cardio Jugular venous distension: no JVD Rate: regular rate Rhythm: regular rhythm Heart sounds: S1 normal heart sound present, S2 normal heart sound present, no murmurs and no rubs Neuro General: patient oriented x3 Extrem General: Yes normal to inspection, No no pedal edema and No calf tenderness Psych Appearance: grossly normal Mental Status: mental status grossly normal Speech and movement: Normal speech and movement present Office Procedures EKG Details: Today, read by me, normal sinus rhythm, anterior infarct, T-wave abnormality inferior lateral leads, no significant changes from prior EKG done 10/15/2023, rate 88, QTC 401 millisecond [id number], Complete Assessment & Plan Assessment & Plan (1) Coronary artery disease: Code(s): I25.10 - Atherosclerotic heart disease of [place] coronary artery without angina pectoris Category: Medical Qualifiers: Coronary Disease-Associated Artery/Lesion type: [place] artery [place] vs. transplanted heart: [place] heart Associated angina: without angina Qualified Code(s): I25.10 - Atherosclerotic heart disease of [place] coronary artery without angina pectoris Plan: Patient presented to [facility] 07/27/23 with chest discomfort, found to have acute inferior posterior STEMI and was emergently transferred to [facility] where he underwent emergent cardiac catheterization. This revealed culprit stenosis in dominant circumflex artery with a 99% stenosis, CYNTHIA placed, also with chronic total occlusion of the LAD as well as the RCA with collaterals from the circumflex system. Patient post intervention developed cardiogenic shock and required intra-aortic balloon pump as well as vasopressor therapy. An echocardiogram had shown EF 20-25% with wall motion abnormality in the LAD and RCA territory. He did have issues with heart failure with reduced EF in the weeks following this event. He has been managed medically with guideline directed medical therapy including metoprolol XL, Entresto, Jardiance. He is also on aspirin and Brilinta as well as high-dose atorvastatin. He did undergo a cardiac MRI on 04/14/2024 which did show nonviable areas of the LAD and RCA territory he has. A repeat limited echocardiogram on 04/23/2024 showed EF 25-30% with regional wall motion abnormalities, ischemic cardiomyopathy. Today he reports shortness of breath with mildly exertional activities and intermittent chest discomfort with activity. NYHA class 2-3. EKG today shows normal sinus rhythm, anterior infarct, T-wave abnormality inferior lateral leads, no significant change from last EKG 10/15/23, rate 88. He does not appear fluid overloaded on examination. Blood pressure today 110/60. Will increase metoprolol XL up to 50 mg daily. Continue other meds without change. Test results reviewed with him in detail. Discussed ICD placement for primary prevention and he is agreeable to proceed. Will refer to electrophysiology for ICD placement. Cardiology follow-up following ICD, sooner if needed. (2) Acute on chronic systolic (congestive) heart failure: Code(s): I50.23 - Acute on chronic systolic (congestive) heart failure Category: Medical Plan: NYHA class 2-3. He does not appear fluid overloaded on exam. Weight has been overall stable. Continue Lasix 40 mg daily. Labs done 03/27/2024 showed potassium 4.6, creatinine 0.83 (3) STEMI (ST elevation myocardial infarction): Comment: 07/27/2023 Code(s): I21.3 - ST elevation (STEMI) myocardial infarction of unspecified site Category: Medical Plan: 07/27/2023 -as above (4) Ischemic cardiomyopathy: Code(s): I25.5 - Ischemic cardiomyopathy Category: Medical (5) Essential hypertension: Code(s): I10 - Essential (primary) hypertension Category: Medical Plan: Blood pressure today 110/60. He does run on the low side. I am increasing his metoprolol dose. Continue Entresto. (6) S/P cardiac cath: Comment: 07/27/2023, Dr. Rodriguez, left main mild luminal irregularities, lad proximal 100% stenosis, AQUEDUCT AND RESERVOIR KEEPER, proximal LAD distal subsection 95% stenosis, RIKKI 1 flow, left circumflex mid 99% stenosis, high risk, PCI performed, CYNTHIA placed, 2nd OM mid 80% stenosis, RCA mid 100% stenosis, AQUEDUCT AND RESERVOIR KEEPER, collaterals from the distal circumflex to the right PAV, collaterals from 2nd OM to the 1st diagonal, collateral from the 1st AC marginal to the distal LAD Code(s): Z98.890 - Other specified postprocedural states Category: Surgical Plan Time spent on chart review, documentation, interview and assessment Orders: Referrals Cardiac Electrophysiology Referral I25.5 - Ischemic cardiomyopathy Medications: New aspirin 81 mg PO DAILY 90 tabs 3RF metoprolol succinate ER dose increased 50 mg PO DAILY 90 tabs 3RF ticagrelor (Brilinta) 90 mg PO BID 180 tabs 1RF atorvastatin 80 mg PO DAILY 90 tabs 3RF Discontinued metoprolol succinate ER (Toprol XL) Discontinued Reason: Doctor's Order 25 mg PO DAILY 30 tabs 5RF Coding Level of Care Code Est Pt Level 4 (64933) Complex EM visit Add On G2211 Diagnoses Coronary artery disease involving [place] coronary artery of [place] heart without angina pectoris I25.10 Coronary Disease-Associated Artery/Lesion type: [place] artery [place] vs. transplanted heart: [place] heart Associated angina: without angina Acute on chronic systolic (congestive) heart failure I50.23 STEMI (ST elevation myocardial infarction) I21.3 Ischemic cardiomyopathy I25.5 Essential hypertension I10 S/P cardiac cath Z98.890 CPT Codes EKG - CPT: 40220-[id number], Complete ([id number]) Time Spent (min) 36
== END 2024-05-01 10:09 | disposition home or self-care (01) ==
PROVIDERS: PCP Internal Medicine; Visit Provider Nurse Practitioner Family
DX: I25.10 Atherosclerotic heart disease of native coronary artery without angina pectoris (principal); I50.23 Acute on chronic systolic (congestive) heart failure; I21.3 ST elevation (STEMI) myocardial infarction of unspecified site; I25.5 Ischemic cardiomyopathy; I10 Essential (primary) hypertension; Z98.890 Other specified postprocedural states
CPT/HCPCS: 93010; 99214; G2211

== ENCOUNTER → 2024-05-01 09:13 | Outpatient (BNVA) | payer OTHER, SELFPAY | PROVIDERS: PCP Internal Medicine; Visit Provider Nurse Practitioner Family | DX: I25.2 Old myocardial infarction (principal); I11.0 Hypertensive heart disease with heart failure; I50.23 Acute on chronic systolic (congestive) heart failure; I25.5 Ischemic cardiomyopathy; I25.10 Atherosclerotic heart disease of native coronary artery without angina pectoris; Z98.890 Other specified postprocedural states; R94.31 Abnormal electrocardiogram [ECG] [EKG] | CPT/HCPCS: 93005; 99212 ==

== ENCOUNTER 2024-05-02 09:12 | Outpatient (AMB) | payer OTHER, SELFPAY ==
[2024-05-02 09:16] VITALS: BP 110/70; PULSE 94; O2SAT 98; BMI 27.1
--- NOTE | 2024-05-02 09:16 | A.OFFPC_ITS ---
Vital Signs 05/02/24 09:16 Height 5 ft 11 in Weight 194 lb 4 oz BMI 27.1 BP 110/70 Blood Pressure Location Lt brachial Position Sitting Pulse 94 Pulse Source Pulse Oximeter Pulse Oximetry (%) 98 Oxygen Delivery Method Room Air Intake Visit Reasons: 1mth f/u Accompanied by: Daughter Allergies No Known Allergies Allergy (Verified 05/02/24 09:23) Medication List - Last Reconciled 05/02/24 by Kendra Mata PA-C aspirin 81 mg PO DAILY atorvastatin 80 mg PO DAILY blood pressure monitor (Blood Pressure Kit) As directed blood sugar diagnostic (FreeStyle Lite Strips) CHECK BLOOD SUGAR 3-4X/DAY blood-glucose meter (FreeStyle [place] Lite kit) check BS 1-2x/day blood-glucose meter,continuous (FreeStyle [place] 3 [place]) As directed blood-glucose sensor (FreeStyle [place] 3 Plus Sensor device) As directed cholecalciferol (vitamin D3) 1,250 mcg PO QWEEK 3 months empagliflozin (Jardiance) 10 mg PO DAILY ferrous sulfate 325 mg PO DAILY food supplemt, lactose-reduced (Ensure Active Heart Health oral liquid) 1 ea PO DAILY furosemide (Lasix) 40 mg PO DAILY gabapentin 300 mg PO 3XD insulin glargine (Lantus Solostar U-100 Insulin) 21 units subcut BEDTIME lancets (FreeStyle Lancets) check BS 3-4x/day metformin 1,000 mg PO BID 90 days metoprolol succinate ER 50 mg PO DAILY pen needle, diabetic (BD Ultra-Fine Micro Pen Needle) As directed -daily ranolazine ER 500 mg PO BID sacubitril-valsartan 24-26 mg (Entresto) 1 tab PO BID 90 days ticagrelor (Brilinta) 90 mg PO BID walker As directed Tobacco use date assessed: 05/02/24 Dental Screening Dental Screen Date: 05/02/24 Did you have a dental visit in the last 12 months?: No Did you have a dental problem in the last 6 months where you did not have access to dental care?: No Was dental information given to patient?: Patient declined [facility] Medical History (Updated 05/02/24 @ 11:58 by Kendra Mata PA-C) Overweight (BMI 25.0-29.9) Heart failure with reduced ejection fraction Acute CHF (congestive heart failure) Acute on chronic systolic (congestive) heart failure Essential hypertension Endogenous depression Peripheral vascular disease due to secondary diabetes Newly diagnosed diabetes Hyperglycemia No known health problems Surgical History History of heart artery stent Family History Sister History of artificial heart valve Brother Myocardial infarct Social History Household Members: Family Housing: House Do you presently have visiting nurse or other home services: No Alcohol intake: never Patient Tobacco Use Status: Never used Tobacco e-Cigarette/Vaping Use: Never Used Second Hand Smoke Exposure: No Advance Directives Date on File: 09/03/23 service: No Current occupational status: unemployed Current occupation: right hand dominant Cognitive needs: No Hearing needs: No Vision needs: Yes (reading reading) Questionnaire PHQ-9 Over the last 2 weeks, how often have you been bothered by any of the following problems? 1. Little interest or pleasure in doing things: more than half the days 2. Feeling down, depressed, or hopeless: nearly every day 3. Trouble falling or staying asleep, or sleeping too much: several days 4. Feeling tired or having little energy: several days 5. Poor appetite or overeating: not at all 6. Feeling bad about yourself - or that you are a failure or have let yourself or your family down: several days 7. Trouble concentrating on things, such as reading the newspaper or watching television: not at all 8. Moving or speaking so slowly that other people could have noticed. Or the opposite - being so fidgety or restless that you have been moving around a lot more than usual: not at all 9. Thoughts that you would be better off or of hurting yourself in some way: not at all Total score: 8 Depression Screening Interpretation: Positive Depression Screening Follow-up: Existing condition (Patient will be started on citalopram 10 mg daily. Patient to return in 1 month for re-evaluation. Patient declined therapist or psychiatrist at this time.) Depression Screening Done: Yes 59160 - PHQ-9 Billing: Yes Source: Developed by Drs. Balaji L. Bere Lockwood Kurt Kroenke and colleagues, with an educational osmel from [employer]. Thrive Questionnaire Date Thrive assessed: 03/26/24 I am a: Patient What is your living situation today?: I have a steady place to live Within the past 12 months, did the food you bought not last and you didn't have the money to get more?: Never true Within the past 12 months, did you worry whether your food would run out before you got money to buy more?: Never true Do you have trouble paying for medicines?: No Do you have trouble getting transportation to medical appointments?: No Do you have trouble paying your heating and electricity bill?: No Do you have trouble taking care of your child, family member or friend?: No Do you have trouble with day-to-day activities such as bathing, preparing meals, shopping, managing finances, etc.?: No Are you currently unemployed and looking for a job?: No Are you interested in more education?: No Currently or been in a relationship where the following occur: No concerns reported THRIVE Score: 0 AUDIT C Alcohol Use Questionnaire (AUDIT-C) 1. How often do you have a drink containing alcohol?: Never 3. How often do you have six or more drinks on one occasion?: Never Total Score: 0 Score Reviewed/Action Taken: Yes JOHN-7 AMB Questionnaire JOHN-7 Date JOHN - 7 assessed: 03/26/24 Feeling nervous, anxious, or on edge: 2 = More than half the days Not being able to stop or control worryin = More than half the days Worrying too much about different things: 2 = More than half the days Trouble relaxin = Several days Being so restless that it is hard to sit still: 0 = Not at all Becoming easily annoyed or irritable: 0 = Not at all Feeling afraid as if something awful might happen: 1 = Several days Total JOHN-7 score (0-4 normal; 5-9 mild; 10-14 moderate; 15-21 severe): 8 Source: Developed by Bere Saldana Kurt Kroenke and colleagues, with an educational osmel from [employer]. JOHN-7 Assessment Billing JOHN-7 Assessment Tool: JOHN-7 Assessment 72149 Physical exam (Primary Care) Vital Signs: Last Vital Signs Pulse 94 05/02/24 09:16 BP 110/70 05/02/24 09:16 Pulse Ox 98 05/02/24 09:16 Oxygen Delivery Method Room Air 05/02/24 09:16 BMI result Body Mass Index 27.1 Tobacco/Smoking Status: Tobacco use Status Tobacco use date assessed 05/02/24 05/02/24 09:25 Patient Tobacco Use Status Never used Tobacco 05/02/24 09:16 e-Cigarette/Vaping Use Never Used 05/02/24 09:16 PHQ-9: PHQ-9 Score PHQ-9: Total score 8 05/02/24 09:25 Depression Screening Interpretation: Positive Depression Screening Follow-up: Existing condition (Patient will be started on citalopram 10 mg daily. Patient to return in 1 month for re-evaluation. Patient declined therapist or psychiatrist at this time.) Thrive Assessment: Date of Thrive Assessment Date Thrive assessed 03/26/24 05/02/24 09:16 Currently or been in a relationship where the following occur: No concerns reported Coding Level of Care Code Est Pt Level 4 (59079) Complex EM visit Add On G2211 Diagnoses CHF (congestive heart failure) I50.9 Coronary artery disease involving [place] coronary artery of [place] heart without angina pectoris I25.10 Associated angina: without angina Coronary Disease-Associated Artery/Lesion type: [place] artery [place] vs. transplanted heart: [place] heart Endogenous depression F33.2 Diabetes mellitus with neuropathy E11.40 Occlusion of LAD (left anterior descending) artery I24.0 RCA occlusion I24.0 Heart failure with reduced ejection fraction I50.20 STEMI (ST elevation myocardial infarction) I21.3 S/P cardiac cath Z98.890 Ischemic cardiomyopathy I25.5 Overweight (BMI 25.0-29.9) E66.3 Additional Codes JOHN-7 Assessment Billing - JOHN-7 Assessment Tool: JOHN-7 Assessment 56722 ([id number]) PHQ-9 - 61947 - PHQ-9 Billing: Yes ([id number]) Assessment & Plan Assessment & Plan (1) CHF (congestive heart failure): Code(s): I50.9 - Heart failure, unspecified Category: Medical Plan: Patient being followed by cardiology. Patient has ejection fraction of 25%. Cardiology is referring to [facility] in [place]. Patient currently on aspirin 81 mg, atorvastatin 80 mg, furosemide 40 mg daily, metoprolol extended release 50 mg daily, Ranolazine extended release 500 mg p.o. daily, sucubitril- valsartan 24-26 mg p.o. b.i.d., Brilinta 90 mg. Taking as prescribed has a follow-up appointment with Cardiology today. Condition is chronic and stable continue to monitor. (2) Coronary artery disease: Code(s): I25.10 - Atherosclerotic heart disease of [place] coronary artery without angina pectoris Category: Medical Qualifiers: Associated angina: without angina Coronary Disease-Associated Artery/Lesion type: [place] artery [place] vs. transplanted heart: [place] heart Qualified Code(s): I25.10 - Atherosclerotic heart disease of [place] coronary artery without angina pectoris Plan: See above. Condition is chronic and stable continue to monitor. (3) Endogenous depression: Code(s): F33.2 - Major depressive disorder, recurrent severe without psychotic features Category: Medical Plan: Condition is chronic and stable pre-existing will continue to monitor. (4) Diabetes mellitus with neuropathy: Code(s): E11.40 - Type 2 diabetes mellitus with diabetic neuropathy, unspecified Category: Medical Plan: Patient currently on atorvastatin 80 mg daily, Jardiance 10 mg daily, Lantus 21 units at bedtime, metformin 1000 mg p.o. b.i.d. daily. A1c level on 03/26/2024 was 5.6. Condition is chronic and stable continue to monitor. (5) Occlusion of LAD (left anterior descending) artery: Code(s): I24.0 - Acute coronary thrombosis not resulting in myocardial infarction Category: Medical Plan: Being followed by Cardiology. Condition is chronic and stable continue to monitor. (6) RCA occlusion: Code(s): I24.0 - Acute coronary thrombosis not resulting in myocardial infarction Category: Medical Plan: Being followed by Cardiology. Condition is chronic and stable continue to monitor. (7) Heart failure with reduced ejection fraction: Code(s): I50.20 - Unspecified systolic (congestive) heart failure Category: Medical Plan: Being followed by Cardiology. Condition is chronic and stable continue to monitor. (8) STEMI (ST elevation myocardial infarction): Comment: 07/27/2023 Code(s): I21.3 - ST elevation (STEMI) myocardial infarction of unspecified site Category: Medical Plan: Being followed by Cardiology. Condition is chronic and stable continue to monitor. (9) S/P cardiac cath: Comment: 07/27/2023, Dr. Rodriguez, left main mild luminal irregularities, lad proximal 100% stenosis, HEEL TOP LIFT SPLITTER, proximal LAD distal subsection 95% stenosis, RIKKI 1 flow, left circumflex mid 99% stenosis, high risk, PCI performed, CYNTHIA placed, 2nd OM mid 80% stenosis, RCA mid 100% stenosis, HEEL TOP LIFT SPLITTER, collaterals from the distal circumflex to the right PAV, collaterals from 2nd OM to the 1st diagonal, collateral from the 1st AC marginal to the distal LAD Code(s): Z98.890 - Other specified postprocedural states Category: Surgical Plan: Being followed by Cardiology. Condition is chronic and stable continue to monitor. (10) Ischemic cardiomyopathy: Code(s): I25.5 - Ischemic cardiomyopathy Category: Medical Plan: Being followed by Cardiology. Condition is chronic and stable continue to monitor. (11) Overweight (BMI 25.0-29.9): Code(s): E66.3 - Overweight Category: Medical Plan: Condition is chronic and stable continue to monitor. Plan Plan - Continue current management for congestive heart failure. Discuss with the patient the importance of adherence to prescribed furosemide, Metoprolol, and atorvastatin. - Review the potential for a subcutaneous implantable cardioverter-defibrillator ICD) placement for arrhythmia management. - Reinforce current diabetes management with metformin and Jardiance, ensuring adherence to the 90-days supply refill strategy. - Ensure supplementation adherence to address vitamin D deficiency. - Facilitate connection to community services to discuss transportation options for medical appointments. - Coordinate follow-up appointments, ideally with the evaluation specialist and the heart failure clinic. - Referrals and ongoing discussions with a community navigator or social work administrator for supportive health services, including potential visiting nurse assistance. Orders: Referrals Nurse Navigator Referral E11.40 - Type 2 diabetes mellitus with diabetic neuropathy, unspecified, F33.2 - Major depressive disorder, recurrent severe without psychotic features, I24.0 - Acute coronary thrombosis not resulting in myocardial infarction, I25.10 - Atherosclerotic heart disease of [place] coronary artery without angina pectoris, I50.9 - Heart failure, unspecified Medications: Changed From metformin 1,000 mg PO BID 90 tabs 0RF To metformin 1,000 mg PO BID 90 days 180 tabs 2RF Patient Instructions: Patient Instructions - Continue taking all prescribed medications as directed. - Attend the scheduled meeting at 10:30 AM regarding the ICD procedure. - Ensure consistency in taking vitamin D supplements. - Monitor for any changes in symptoms, particularly increased fatigue or leg swelling, and report these immediately. - Engage with provided resources for transportation assistance to medical appointments. - Plan follow-up appointments with the evaluation specialist and heart failure clinic. - Exercise caution with activity levels given persistent fatigue. Scribe Plan - Not visible on output: History of Present Illness The patient is a 58-year-old male presenting with a follow-up for congestive heart failure and cardiomyopathy. The patient has a history of dilated cardiomyopathy with a significantly reduced ejection fraction of 25%, as identified in a previous echocardiogram and MRI of heart. This condition has led to discussions about the need for a subcutaneous implantable cardioverter- defibrillator (ICD), a procedure that was to be further discussed during an appointment at 10:30 AM today with a evaluation specialist. The patient has ongoing concerns about the transportation for his appointments, particularly for those referred to the [facility]. His daughter at bedside reports he does not have any transportation issues that he is just concerned about having surgery. His etiology of heart failure involves dilated left ventricular dysfunction. The evaluation specialist's plan includes a medication regimen for heart failure, notably furosemide for fluid management, atorvastatin for hyperlipidemia, and Metoprolol with a recent increase to 50 mg for cardiac rhythm control. Diabetes and hyperlipidemia are being managed with metformin, prescribed with a 90 days supply. The patient also reports a consistently low vitamin D level, for which supplements are prescribed. The evaluation specialist previously prescribed Jardiance, which has been a constant component of his diabetes management regimen. He experiences fatigue, which remains unchanged despite consistent medication adherence. Social History - Reports difficulty with transportation to medical appointments. - Has considerations for moving back to [place], affecting willingness for medical procedures. - Dependent on family support for attending medical appointments. Review of Systems - Cardiovascular: Reports fatigue. - Endocrine: Denies symptomatic changes with diabetes management. - Musculoskeletal: Denies leg edema. - Respiratory: Denies respiratory distress or difficulties. - General: Reports persistent tiredness. Physical Exam Appearance: Alert. Oriented X3. No acute distress. Head: Normal external exam. Normocephalic. Atraumatic. Eyes: Pupils are equal, round, and reactive to light. Extraocular movements intact. Conjunctiva and sclera normal. Eyelids normal. Ears: External auditory canal normal. Throat: Pharynx normal. Uvula midline. Moist mucous membranes. Neck: Normal inspection. Neck supple. Full range of motion. Cardiovascular: Normal heart rate and rhythm. Heart sound normal. Pulses normal throughout. Respiratory: No respiratory distress. Painless inspiration. Breath sounds normal. No wheezes/rales/rhonchi noted. No accessory muscle usage noted or decreased air movement noted. Abdomen: Soft and nontender. Bowel sounds normal in all 4 quadrants. No distention noted. No organomegaly noted. No visible injury noted. Back: No costovertebral angle tenderness. Full range of motion noted. Skin: Skin warm and dry. Normal skin color. Normal skin turgor. No rashes/lesions/lacerations noted. Extremities: No lower extremity edema. Extremities exhibit normal range of motion. Extremities nontender. Neuro: Oriented X 3. No motor deficit. No sensory deficit. Reflexes normal. Results - Tests: Echocardiogram demonstrated left ventricular dilation and an ejection fraction of 25%. - Labs: Previous blood work indicated an A1c of 5.6, indicating good glycemic control. Liver enzymes were slightly elevated. Cholesterol levels were elevated. Plan - Continue current management for congestive heart failure. Discuss with the patient the importance of adherence to prescribed furosemide, Metoprolol, and atorvastatin. - Review the potential for a subcutaneous implantable cardioverter-defibrillator ICD) placement for arrhythmia management. - Reinforce current diabetes management with metformin and Jardiance, ensuring adherence to the 90-days supply refill strategy. - Ensure supplementation adherence to address vitamin D deficiency. - Facilitate connection to community services to discuss transportation options for medical appointments. - Coordinate follow-up appointments, ideally with the evaluation specialist and the heart failure clinic. - Referrals and ongoing discussions with a community navigator or social work administrator for supportive health services, including potential visiting nurse assistance. Patient was informed and verbally consented to the use of an ambient scribe for clinic note documentation during this visit. Discussion Notes I discussed with the patient the status of his dilated cardiomyopathy and the significance of his reduced ejection fraction. We reviewed the indications for a subcutaneous implantable cardioverter-defibrillator (ICD) and the benefit of potentially stabilizing cardiac risks associated with severe cardiomyopathy. Specific instructions were given on medication adherence and maintaining current regimens for diabetes and heart failure management. Further discussions were focused on navigating logistical concerns about his healthcare access, particularly transportation for specialist consultations, and the potential benefit of community health aids. Patient Instructions - Continue taking all prescribed medications as directed. - Attend the scheduled meeting at 10:30 AM regarding the ICD procedure. - Ensure consistency in taking vitamin D supplements. - Monitor for any changes in symptoms, particularly increased fatigue or leg swelling, and report these immediately. - Engage with provided resources for transportation assistance to medical appointments. - Plan follow-up appointments with the evaluation specialist and heart failure clinic. - Exercise caution with activity levels given persistent fatigue.
== END 2024-05-02 09:59 | disposition home or self-care (01) ==
PROVIDERS: PCP Internal Medicine; Visit Provider Physician Assistant Medical
DX: I50.9 Heart failure, unspecified (principal); E11.40 Type 2 diabetes mellitus with diabetic neuropathy, unspecified; F33.2 Major depressive disorder, recurrent severe without psychotic features; I24.0 Acute coronary thrombosis not resulting in myocardial infarction; I21.3 ST elevation (STEMI) myocardial infarction of unspecified site; I50.20 Unspecified systolic (congestive) heart failure; I25.10 Atherosclerotic heart disease of native coronary artery without angina pectoris; Z98.890 Other specified postprocedural states; I25.5 Ischemic cardiomyopathy; E66.3 Overweight

== ENCOUNTER → 2024-05-02 09:12 | Outpatient (BNVA) | payer OTHER, SELFPAY | PROVIDERS: PCP Internal Medicine; Visit Provider Physician Assistant Medical | DX: I50.9 Heart failure, unspecified (principal); I25.10 Atherosclerotic heart disease of native coronary artery without angina pectoris; F33.2 Major depressive disorder, recurrent severe without psychotic features; E11.40 Type 2 diabetes mellitus with diabetic neuropathy, unspecified; I21.3 ST elevation (STEMI) myocardial infarction of unspecified site; I25.5 Ischemic cardiomyopathy; E66.3 Overweight; Z98.890 Other specified postprocedural states | CPT/HCPCS: 96127; 99212 ==

== ENCOUNTER → 2024-05-23 09:21 | Outpatient (BNVA) | payer OTHER, SELFPAY | PROVIDERS: PCP Internal Medicine; Visit Provider Nurse Practitioner Family ==

== ENCOUNTER → 2024-06-12 15:55 | Outpatient (BNVA) | payer OTHER, SELFPAY | PROVIDERS: PCP Internal Medicine ==

== ENCOUNTER 2024-07-31 09:15 | Outpatient (AMB) | payer OTHER, SELFPAY ==
[2024-07-31 09:26] VITALS: BP 88/58; PULSE 78; BMI 28.1
--- NOTE | 2024-07-31 09:26 | MHC.OFFVIS ---
Vital Signs 07/31/24 09:26 Height 5 ft 11 in Weight 201 lb 8.04 oz BMI 28.1 BP 88/58 L Blood Pressure Location Lt brachial Position Sitting Pulse 78 Pulse Source Pulse Oximeter Intake Visit Reasons: 3m follow up Crane Service Technician Required: No Director Of Brand Marketing: Director Of Brand Marketing Present Allergies No Known Allergies Allergy (Verified 07/31/24 09:28) Medication List - Last Reconciled 07/31/24 by JAMAR Tejeda aspirin 81 mg PO DAILY atorvastatin 80 mg PO DAILY blood pressure monitor (Blood Pressure Kit) As directed blood sugar diagnostic (FreeStyle Lite Strips) CHECK BLOOD SUGAR 3-4X/DAY blood-glucose meter (FreeStyle [place] Lite kit) check BS 1-2x/day blood-glucose sensor (FreeStyle [place]oretta 3 Plus Sensor device) As directed blood-glucose,communications designer,cont (FreeStyle Loretta 3 Lesage) As directed cholecalciferol (vitamin D3) 1,250 mcg PO QWEEK 3 months empagliflozin (Jardiance) 10 mg PO DAILY ferrous sulfate 325 mg PO DAILY food supplemt, lactose-reduced (Ensure Active PerfectServe Health oral liquid) 1 ea PO DAILY gabapentin 300 mg PO 3XD insulin glargine-yfgn 21 units (0.21 mL) subcut BEDTIME lancets (FreeStyle Lancets) check BS 3-4x/day metformin 1,000 mg PO BID 90 days metoprolol succinate ER 25 mg PO DAILY pen needle, diabetic (BD Ultra-Fine Micro Pen Needle) As directed -daily ranolazine ER 500 mg PO BID sacubitril-valsartan 24-26 mg (Entresto) 1 tab PO BID 90 days ticagrelor (Brilinta) 90 mg PO BID walker As directed HPI HPI 3m follow up: Details: Jhoan is a 59-year-old male with past medical history hypertension, hyperlipidemia, diabetes, inferior posterior STEMI July 2023 with emergent cardiac catheterization showing dominant circumflex artery 99% stenosis, CYNTHIA placed. Also noted to have WIRE COATING MACHINE OPERATOR of the LAD and RCA with collaterals from circumflex. Post intervention he had cardiogenic shock requiring intra-aortic balloon pump and vasopressor therapy. Echocardiogram showed EF 20-25% with wall motion abnormality. He has been on guideline directed medical therapy which has been limited by low blood pressure readings. A recent echocardiogram continued to show EF low to 30%. He was referred for a subcutaneous ICD which he then declined. He was also referred to [facility] and he then declined due to inability to travel to [place] for appointments. Today he reports that he ongoing fatigue and shortness of breath with activity. For this reason he does only very light physical activities around the house. He is denying any recent chest discomfort. In the past he reported chest discomfort if he over exerts. He does not feel his symptoms are worsening with time. No heart palpitations, lightheadedness, presyncope, syncope. No PND, orthopnea or edema. He sleeps with 0-1 pillows. He has been taking his meds as directed. Daughter is present and assisting with Serbian translation at their request. [facility] Medical History Overweight (BMI 25.0-29.9) Heart failure with reduced ejection fraction Acute CHF (congestive heart failure) Acute on chronic systolic (congestive) heart failure Essential hypertension Endogenous depression Peripheral vascular disease due to secondary diabetes Newly diagnosed diabetes Hyperglycemia No known health problems Surgical History History of heart artery stent Family History Sister History of artificial heart valve Brother Myocardial infarct Social History Household Members: Family Housing: House Do you presently have visiting nurse or other home services: No Alcohol intake: never Patient Tobacco Use Status: Never used Tobacco e-Cigarette/Vaping Use: Never Used Second Hand Smoke Exposure: No Advance Directives Date on File: 09/03/23 service: No Current occupational status: unemployed Current occupation: right hand dominant Cognitive needs: No Hearing needs: No Vision needs: Yes (reading reading) Review of Systems Const All systems reviewed & are unremarkable except as noted in HPI and below Reports fatigue and Reports lethargy Card Denies chest pain, Denies chest pain at rest, Denies chest pain with activity, Denies rapid heart rate, Denies irregular heart rhythm, Reports dyspnea, Reports dyspnea on exertion and Denies orthopnea Resp Reports dyspnea and Reports dyspnea on exertion GI Denies no additional complaints Musc Denies no additional complaints and Denies abnormal gait Neuro Denies Neuro-related abnormal movements, Denies Abnormal speech present and Denies abnormal gait Endo Reports fatigue Physical Exam Vital Signs: Last Vital Signs Pulse 78 07/31/24 09:26 BP 88/58 L 07/31/24 09:26 BMI result Body Mass Index 28.1 Const General: cooperative, healthy appearing, comfortable and no acute distress Orientation/consciousness: patient oriented x3 Neck Neck: Yes normal visual inspection and Yes no JVD Resp Effort & Inspection: normal respiratory effort Auscultation: clear to auscultation bilaterally, no crackles, no rales, no rhonchi and no wheezes Cardio Jugular venous distension: no JVD Rate: regular rate Rhythm: regular rhythm Heart sounds: S1 normal heart sound present, S2 normal heart sound present, no murmurs and no rubs Neuro General: patient oriented x3 Speech: No Abnormal speech present Extrem General: Yes normal to inspection, No no pedal edema and No calf tenderness Psych Appearance: grossly normal Mental Status: mental status grossly normal Speech and movement: Normal speech and movement present Assessment & Plan Assessment & Plan (1) Coronary artery disease: Code(s): I25.10 - Atherosclerotic heart disease of [place] coronary artery without angina pectoris Category: Medical Qualifiers: Associated angina: without angina Coronary Disease-Associated Artery/Lesion type: [place] artery [place] vs. transplanted heart: [place] heart Qualified Code(s): I25.10 - Atherosclerotic heart disease of [place] coronary artery without angina pectoris Plan: Patient presented to [facility] 07/27/23 with chest discomfort, found to have acute inferior posterior STEMI and was emergently transferred to [facility] where he underwent emergent cardiac catheterization. This revealed culprit stenosis in dominant circumflex artery with a 99% stenosis, CYNTHIA placed, also with chronic total occlusion of the LAD as well as the RCA with collaterals from the circumflex system. An echocardiogram had shown EF 20-25% with wall motion abnormality in the LAD and RCA territory. He did have issues with heart failure with reduced EF in the weeks following this event and has done generally well since that time. NYHA class 2-3. He has been managed medically with guideline directed medical therapy including metoprolol XL, Entresto, Jardiance. He is on dual antiplatelet therapy with aspirin and Brilinta. He is also on high-dose atorvastatin. He did undergo a cardiac MRI on 04/14/2024 which did show nonviable areas of the LAD and RCA territory. A repeat limited echocardiogram on 04/23/2024 showed EF 25-30% with regional wall motion abnormalities, ischemic cardiomyopathy. Subcutaneous ICD ordered last visit. He initially agreed then declined the procedure. He is not able to travel to [place] for advanced care due to transportation issues. Signs and symptoms of heart failure, angina reviewed with him. At this time it has been a year since stent was placed. Will reduce Brilinta down to 60 mg b.i.d.. No other med changes made. Cardiology follow-up in 3 months, sooner if needed. (2) Acute on chronic systolic (congestive) heart failure: Code(s): I50.23 - Acute on chronic systolic (congestive) heart failure Category: Medical Plan: NYHA class 2-3. He does not appear fluid overloaded on exam. Weight has been overall stable. Labs done 03/27/2024 showed potassium 4.6, creatinine 0.83 (3) STEMI (ST elevation myocardial infarction): Comment: 07/27/2023 Code(s): I21.3 - ST elevation (STEMI) myocardial infarction of unspecified site Category: Medical Plan: 07/27/2023 -as above (4) Ischemic cardiomyopathy: Code(s): I25.5 - Ischemic cardiomyopathy Category: Medical Plan: as above - continues to decline ICD placement (5) Essential hypertension: Code(s): I10 - Essential (primary) hypertension Category: Medical Plan: Blood pressure goal less than 130/80. His blood pressure runs on the low side, currently 88/58, asymptomatic. Continue metoprolol XL, Entresto. (6) S/P cardiac cath: Comment: 07/27/2023, Dr. Rodriguez, left main mild luminal irregularities, lad proximal 100% stenosis, WIRE COATING MACHINE OPERATOR, proximal LAD distal subsection 95% stenosis, RIKKI 1 flow, left circumflex mid 99% stenosis, high risk, PCI performed, CYNTHIA placed, 2nd OM mid 80% stenosis, RCA mid 100% stenosis, WIRE COATING MACHINE OPERATOR, collaterals from the distal circumflex to the right PAV, collaterals from 2nd OM to the 1st diagonal, collateral from the 1st AC marginal to the distal LAD Code(s): Z98.890 - Other specified postprocedural states Category: Surgical Plan: as above Plan Time spent on chart review, documentation, interview and assessment Patient was informed and verbally consented to the use of an ambient scribe for clinic note documentation during this visit. During the session, I provided comprehensive information regarding the cardioprotective role of ICD insertion, specifically the subcutaneous type, outlining that it corrects life-threatening arrhythmias without affecting blood pressure. I addressed the patient's understandable concerns about hypotensive episodes, explaining the ICD?s function in arrhythmia detection rather than hemodynamic alteration. I emphasized the need for ECG monitoring to assess arrhythmia potential, and we discussed the potential for syncope and the importance of reconsidering a defibrillator. Consent remains patient-directed, with the need for informed decision-making stressed. I recommended revisiting the [facility] insurance eligibility to ensure essential care and monitoring. Patient Instructions: - Consider ICD in the future for arrhythmia protection. - Reduce Brilinta dose as directed by the provider. - Continue all other medications as directed - Monitor for shortness of breath, leg swelling, and other symptoms of heart failure. - Discuss diabetes management pre-procedures to avoid fasting complications. Coding Level of Care Code Est Pt Level 4 (61430) Complex EM visit Add On G2211 Diagnoses Coronary artery disease involving [place] coronary artery of [place] heart without angina pectoris I25.10 Associated angina: without angina Coronary Disease-Associated Artery/Lesion type: [place] artery [place] vs. transplanted heart: [place] heart Acute on chronic systolic (congestive) heart failure I50.23 STEMI (ST elevation myocardial infarction) I21.3 Ischemic cardiomyopathy I25.5 Essential hypertension I10 S/P cardiac cath Z98.890 Time Spent (min) 30
== END 2024-07-31 10:28 | disposition home or self-care (01) ==
LOC: HO.HCS 09:15
PROVIDERS: PCP Internal Medicine; Visit Provider Nurse Practitioner Family
DX: I25.10 Atherosclerotic heart disease of native coronary artery without angina pectoris (principal); I50.23 Acute on chronic systolic (congestive) heart failure; I21.3 ST elevation (STEMI) myocardial infarction of unspecified site; I25.5 Ischemic cardiomyopathy; I10 Essential (primary) hypertension; Z98.890 Other specified postprocedural states
CPT/HCPCS: 99214; G2211

== ENCOUNTER → 2024-07-31 09:15 | Outpatient (BNVA) | payer OTHER, SELFPAY | PROVIDERS: PCP Internal Medicine; Visit Provider Nurse Practitioner Family | DX: I25.10 Atherosclerotic heart disease of native coronary artery without angina pectoris (principal); I50.23 Acute on chronic systolic (congestive) heart failure; I25.2 Old myocardial infarction; I25.5 Ischemic cardiomyopathy; I10 Essential (primary) hypertension; Z98.890 Other specified postprocedural states | CPT/HCPCS: 99212 ==

== ENCOUNTER 2024-08-07 10:39 | Outpatient (AMB) | payer OTHER, SELFPAY ==
--- NOTE | 2024-08-07 10:42 | MHC.PC.OV ---
Vital Signs 08/07/24 10:46 Height 5 ft 11 in Weight 200 lb BMI 27.9 BP 110/80 Blood Pressure Location Lt brachial Position Sitting Pulse 69 Pulse Source Pulse Oximeter Temp 97.3 F Temp Source Temporal Artery Scan Pulse Oximetry (%) 97 Oxygen Delivery Method Room Air Intake Visit Reasons: 3 month fu Intake Note: Patient here for a 3 month follow up Grinder Hand Required: No Accompanied by: Self / Same As Patient Allergies No Known Allergies Allergy (Verified 08/07/24 10:54) Medication List - Last Reconciled 08/07/24 by Kendra Mata PA-C aspirin 81 mg PO DAILY atorvastatin 80 mg PO DAILY blood pressure monitor (Blood Pressure Kit) As directed blood sugar diagnostic (FreeStyle Lite Strips) CHECK BLOOD SUGAR 3-4X/DAY blood-glucose meter (FreeStyle [place] Lite kit) check BS 1-2x/day blood-glucose sensor (FreeStyle Loretta 3 Plus Sensor device) As directed blood-glucose,stiff neck loader,cont (FreeStyle Loretta 3 [place]) As directed cholecalciferol (vitamin D3) 1,250 mcg PO QWEEK 3 months empagliflozin (Jardiance) 10 mg PO DAILY ferrous sulfate 325 mg PO DAILY food supplemt, lactose-reduced (Ensure Active Heart Health oral liquid) 1 ea PO DAILY gabapentin 300 mg PO 3XD insulin glargine-yfgn 21 units (0.21 mL) subcut BEDTIME lancets (FreeStyle Lancets) check BS 3-4x/day metformin 1,000 mg PO BID 90 days metoprolol succinate ER 25 mg PO DAILY pen needle, diabetic (BD Ultra-Fine Micro Pen Needle) As directed -daily ranolazine ER 500 mg PO BID sacubitril-valsartan 24-26 mg (Entresto) 1 tab PO BID 90 days ticagrelor (Brilinta) 90 mg PO BID walker As directed Tobacco use date assessed: 05/02/24 Dental Screening Dental Screen Date: 05/02/24 HPI 3 month fu HPI Details The patient is a 59-year-old male presenting with a three-month follow-up. The patient reported no recent falls and noted past incidences where the use of medication could have contributed to unexplained bruising. Anxiety and depression remain crucial issues for the patient, as he shared his reluctance to engage socially, citing fears of negative judgment from others, resulting in him experiencing more depressive symptoms. His emotional state was once positively affected by participation in community activities, suggesting potential benefit from reengagement. [facility] was attending [facility] in [place] although he transferred to [facility] in [place] and it was not a good fit for him. He is attempting to try to get back into [facility] in [place] although it is taking over 3 weeks and patient is getting really depressed about this. psychotherapist social worker called at this time and they reported they are working on the patient's transfer and he can start going there once the transverse completed. Patient was advised. Patient reports otherwise he does not need to speak to a therapist or psychiatrist at this time he reports going back to the program will make him feel better interacting with others and doing the activities that they do. Regarding metabolic health, the patient has chronic anemia and recently completed tests showing cholesterol elevations, specifically a slight elevation in triglyceride and LDL levels. However, diabetes management seems controlled with a hemoglobin A1c of 5.8%. The last test also highlighted a vitamin D deficiency. His blood pressure remained a point of concern due to previously noted low readings, and it was suggested that medications may have exacerbated this. Social History - The patient mentioned past engagements in community activities, which reportedly improved his mood and social interactions. - Currently dealing with anxiety and depression, affecting his willingness and ability to participate in social activities. [facility] Medical History (Updated 08/07/24 @ 11:19 by Kendra Mata PA-C) Hyperlipidemia LDL goal <70 Vitamin D deficiency Chronic anemia Depression Anxiety Overweight (BMI 25.0-29.9) Heart failure with reduced ejection fraction Acute CHF (congestive heart failure) Acute on chronic systolic (congestive) heart failure Essential hypertension Endogenous depression Peripheral vascular disease due to secondary diabetes Newly diagnosed diabetes Hyperglycemia No known health problems Surgical History History of heart artery stent Family History Sister History of artificial heart valve Brother Myocardial infarct Social History Household Members: Family Housing: House Do you presently have visiting nurse or other home services: No Alcohol intake: never Patient Tobacco Use Status: Never used Tobacco e-Cigarette/Vaping Use: Never Used Second Hand Smoke Exposure: No Advance Directives Date on File: 09/03/23 service: No Current occupational status: unemployed Current occupation: right hand dominant Cognitive needs: No Hearing needs: No Vision needs: Yes (reading reading) Questionnaire PHQ-9 Over the last 2 weeks, how often have you been bothered by any of the following problems? 1. Little interest or pleasure in doing things: more than half the days 2. Feeling down, depressed, or hopeless: several days 3. Trouble falling or staying asleep, or sleeping too much: more than half the days 4. Feeling tired or having little energy: more than half the days 5. Poor appetite or overeating: not at all 6. Feeling bad about yourself - or that you are a failure or have let yourself or your family down: several days 7. Trouble concentrating on things, such as reading the newspaper or watching television: several days 8. Moving or speaking so slowly that other people could have noticed. Or the opposite - being so fidgety or restless that you have been moving around a lot more than usual: not at all 9. Thoughts that you would be better off or of hurting yourself in some way: not at all Total score: 9 Depression Screening Interpretation: Positive Depression Screening Follow-up: Existing condition and Declines treatment Depression Screening Done: Yes 54481 - PHQ-9 Billing: Patient declined-do not bill Source: Developed by Drs. Balaji Lockwood, Bere Mann, Nirmal Marin and colleagues, with an educational osmel from [employer]. Thrive Questionnaire Date Thrive assessed: 08/07/24 I am a: Patient What is your living situation today?: I have a place to live, but I am worried about losing it in the future Within the past 12 months, did the food you bought not last and you didn't have the money to get more?: Often true Within the past 12 months, did you worry whether your food would run out before you got money to buy more?: Often true Do you have trouble paying for medicines?: No Do you have trouble getting transportation to medical appointments?: No Do you have trouble paying your heating and electricity bill?: No Do you have trouble taking care of your child, family member or friend?: No Do you have trouble with day-to-day activities such as bathing, preparing meals, shopping, managing finances, etc.?: No Are you currently unemployed and looking for a job?: No Are you interested in more education?: No Please select the resources that you would like help with: None THRIVE Score: 3 JOHN-7 AMB Questionnaire JOHN-7 Date JOHN - 7 assessed: 03/26/24 Source: Developed by Drs. Balaji Lockwood, Bere Mann, Nirmal Marin and colleagues, with an educational osmel from [employer]. Review of Systems Const Details: - General: Denies recent falls. - Psychiatric: Reports anxiety and depression, with a reluctance to engage socially. Physical exam (Primary Care) Vital Signs: Last Vital Signs Temp 97.3 F 08/07/24 10:46 Pulse 69 08/07/24 10:46 BP 110/80 08/07/24 10:46 Pulse Ox 97 08/07/24 10:46 Oxygen Delivery Method Room Air 08/07/24 10:46 Care Plan Goal for BP management: <140/90 at Goal BMI result Body Mass Index 27.9 BMI Assessment/Plan discussion: High BMI High, discussed plan: lifestyle, weight reduction, dietary, physical activity and alcohol moderation Tobacco/Smoking Status: Tobacco use Status Tobacco use date assessed 05/02/24 08/07/24 10:42 Patient Tobacco Use Status Never used Tobacco 08/07/24 10:42 e-Cigarette/Vaping Use Never Used 08/07/24 10:42 PHQ-9: PHQ-9 Score PHQ-9: Total score 9 08/07/24 10:52 Depression Screening Interpretation: Positive Depression Screening Follow-up: Existing condition and Declines treatment Thrive Assessment: Date of Thrive Assessment Date Thrive assessed 08/07/24 08/07/24 10:42 Const Other: Appearance: Alert. Oriented X3. No acute distress. Head: Normal external exam. Normocephalic. Atraumatic. Eyes: Swollen gland noted. Pupils are equal, round, and reactive to light. Extraocular movements intact. Conjunctiva and sclera normal. Eyelids normal. Ears: External auditory canal normal. Tympanic membranes normal. Throat: Pharynx normal. Uvula midline. Moist mucous membranes. Neck: Normal inspection. Neck supple. Full range of motion. No adenopathy. Thyroid Normal. No meningeal signs. No neck mass noted. Cardiovascular: Normal heart rate and rhythm. Heart sound normal. No murmurs noted. Pulses normal throughout. Respiratory: No respiratory distress. Painless inspiration. Breath sounds normal. No wheezes/rales/rhonchi noted. Chest nontender. No accessory muscle usage noted or decreased air movement noted. Abdomen: Soft and nontender. Bowel sounds normal in all 4 quadrants. No distention noted. No organomegaly noted. No visible injury noted. Back: No costovertebral angle tenderness. Full range of motion noted. Skin: Skin warm and dry. Normal skin color. Normal skin turgor. Bruise noted on chest. No rashes/lesions/lacerations noted. Extremities: No lower extremity edema. Extremities exhibit normal range of motion. Extremities nontender. Neuro: Oriented X 3. No motor deficit. No sensory deficit. Reflexes normal. Results AMB Hemoglobin A1c AMB Hemoglobin A1c 5.8 % Last Edit by ALIZE Kilgore on 08/07/24 10:54 Results Reviewed Results Reviewed: - Labs: Hemoglobin A1c 5.8%, Triglycerides 151 mg/dL, LDL 103 mg/dL, Vitamin D deficiency. Coding Level of Care Code Est Pt Level 4 (79298) Complex EM visit Add On G2211 Diagnoses Anxiety F41.9 Depression F32.A Chronic anemia D64.9 Vitamin D deficiency E55.9 Hyperlipidemia LDL goal <70 E78.5 Diabetes mellitus with neuropathy E11.40 Assessment & Plan Assessment & Plan (1) Anxiety: Code(s): F41.9 - Anxiety disorder, unspecified Category: Medical Plan: Plan involves monitoring symptoms and encouraging social interaction if comfortable. Consider counseling if symptoms do not improve. Condition is chronic and stable will continue to monitor. (2) Depression: Code(s): F32.A - Depression, unspecified Category: Medical Plan: Emphasis on monitoring and potential benefit from counseling if symptoms persist. Condition is chronic and stable continue to monitor (3) Chronic anemia: Code(s): D64.9 - Anemia, unspecified Category: Medical Plan: Continue current management and monitor for symptom exacerbation. Condition is chronic and stable will continue to monitor. (4) Vitamin D deficiency: Code(s): E55.9 - Vitamin D deficiency, unspecified Category: Medical Plan: Initiate vitamin D supplementation as discussed. Condition is chronic and stable continue to monitor. (5) Hyperlipidemia LDL goal <70: Code(s): E78.5 - Hyperlipidemia, unspecified Category: Medical Plan: Patient to continue atorvastatin 80 mg at bedtime daily. Address through lifestyle changes, including diet and exercise. Condition is chronic and stable will continue to monitor. (6) Diabetes mellitus with neuropathy: Code(s): E11.40 - Type 2 diabetes mellitus with diabetic neuropathy, unspecified Category: Medical Plan: A1c level 5.8. Condition is chronic and stable while on metformin 1000 mg p.o. b.i.d., glargine 21 units at bedtime, Jardiance 10 mg daily will continue current regimen. Plan Plan Patient was informed and verbally consented to the use of an ambient scribe for clinic note documentation during this visit. 1. Anxiety Disorder Plan involves monitoring symptoms and encouraging social interaction if comfortable. Consider counseling if symptoms do not improve. 2. Depression Emphasis on monitoring and potential benefit from counseling if symptoms persist. 3. Anemia Continue current management and monitor for symptom exacerbation. 4. Vitamin D Deficiency Initiate vitamin D supplementation as discussed. 5. Hyperlipidemia Address through lifestyle changes, including diet and exercise. During this follow-up visit, we discussed management of the patient?s anxiety and depression. I emphasized his condition's significant potential benefit through reengagement in community centers known to provide positive support. In terms of anemia and hyperlipidemia, we discussed ongoing management. Additionally, the importance of vitamin D supplementation to address the deficiency was highlighted. Follow-up care will include regular monitoring, with a planned return in three months. Orders: Orders AMB Hemoglobin A1c Today E11.40 - Type 2 diabetes mellitus with diabetic neuropathy, unspecified Patient Instructions: - Consider rejoining community activities to help manage anxiety and depression. - Begin vitamin D supplements as discussed. - Maintain a heart-healthy diet and physical activity to manage cholesterol levels. - Monitor for any worsening symptoms of anemia. - Return for follow-up in three months for ongoing care and evaluation.
[2024-08-07 10:46] VITALS: BP 110/80; PULSE 69; TEMP 36.3; O2SAT 97; BMI 27.9
== END 2024-08-07 11:11 | disposition home or self-care (01) ==
LOC: HO.HMCH 10:39
PROVIDERS: PCP Internal Medicine; Visit Provider Physician Assistant Medical
DX: F41.9 Anxiety disorder, unspecified (principal); E11.40 Type 2 diabetes mellitus with diabetic neuropathy, unspecified; F32.A Depression, unspecified; D64.9 Anemia, unspecified; E55.9 Vitamin D deficiency, unspecified; E78.5 Hyperlipidemia, unspecified

== ENCOUNTER → 2024-08-07 10:39 | Outpatient (BNVA) | payer OTHER, SELFPAY | PROVIDERS: PCP Internal Medicine; Visit Provider Physician Assistant Medical | DX: I10 Essential (primary) hypertension (principal); F41.9 Anxiety disorder, unspecified; F32.A Depression, unspecified; D64.9 Anemia, unspecified; E55.9 Vitamin D deficiency, unspecified; E78.5 Hyperlipidemia, unspecified; E11.40 Type 2 diabetes mellitus with diabetic neuropathy, unspecified | CPT/HCPCS: 83036; 99212 ==

== ENCOUNTER 2024-11-04 13:16 | Outpatient (AMB) | payer OTHER, SELFPAY ==
[2024-11-04 13:30] VITALS: BP 104/62; PULSE 74; BMI 27.7
--- NOTE | 2024-11-04 13:30 | A.OFFVIS_ITS ---
Vital Signs 11/04/24 13:30 Height 5 ft 11 in Weight 198 lb 6.656 oz BMI 27.7 BP 104/62 Blood Pressure Location Lt brachial Position Sitting Pulse 74 Intake Visit Reasons: follow-up Intake Note: 6 month follow-up c/o sob with activity Civil Rights Representative Required: No Allergies No Known Allergies Allergy (Verified 08/07/24 10:54) Medication List - Last Reconciled 11/04/24 by Toni Triana MD aspirin 81 mg PO DAILY atorvastatin 80 mg PO DAILY blood pressure monitor (Blood Pressure Kit) As directed blood sugar diagnostic (FreeStyle Lite Strips) CHECK BLOOD SUGAR 3-4X/DAY blood-glucose meter (FreeStyle [place] Lite kit) check BS 1-2x/day blood-glucose sensor (FreeStyle Loretta 3 Plus Sensor device) As directed blood-glucose,marine erector,cont (FreeStyle Loretta 3 [place]) As directed cholecalciferol (vitamin D3) 1,250 mcg PO QWEEK 3 months empagliflozin (Jardiance) 10 mg PO DAILY ferrous sulfate 325 mg PO DAILY food supplemt, lactose-reduced (Ensure Active [employer] oral liquid) 1 ea PO DAILY gabapentin 300 mg PO 3XD insulin glargine-yfgn 21 units (0.21 mL) subcut BEDTIME lancets (FreeStyle Lancets) check BS 3-4x/day metformin 1,000 mg PO BID 90 days metoprolol succinate ER 25 mg PO DAILY pen needle, diabetic (BD Ultra-Fine Micro Pen Needle) As directed -daily ranolazine ER 500 mg PO BID sacubitril-valsartan 24-26 mg (Entresto) 1 tab PO BID 90 days ticagrelor 60 mg PO BID walker As directed HPI Comments Details: Jhoan comes for a regular 3 month follow-up. He said over the last month or more he has been getting symptoms of orthopnea. He said he can not lay flat and has to get up because he started wheezing and gets short of breath. He said when he is upright or in his semi reclining position he is fine. He also notices shortness of breath with walking about 2 blocks and then has to stop and catch his breath for about 5 minutes. He has been taking all his medications including the diuretics which he says he has been taking twice a day although I do not see a loop diuretic in his regimen. He is currently taking Entresto twice a day as well as Brilinta twice a day, soon not sure if he is confused with Entresto as his diuretic regimen. He denies any palpitations, lightheadedness, syncope. Denies any chest pain. He has declined ICD placement in the past [facility] Medical History Hyperlipidemia LDL goal <70 Vitamin D deficiency Chronic anemia Depression Anxiety Overweight (BMI 25.0-29.9) Heart failure with reduced ejection fraction Acute CHF (congestive heart failure) Acute on chronic systolic (congestive) heart failure Essential hypertension Endogenous depression Peripheral vascular disease due to secondary diabetes Newly diagnosed diabetes Hyperglycemia No known health problems Surgical History History of heart artery stent Family History Sister History of artificial heart valve Brother Myocardial infarct Social History Household Members: Family Housing: House Do you presently have visiting nurse or other home services: No Alcohol intake: never Patient Tobacco Use Status: Never used Tobacco e-Cigarette/Vaping Use: Never Used Second Hand Smoke Exposure: No Advance Directives Date on File: 09/03/23 service: No Current occupational status: unemployed Current occupation: right hand dominant Cognitive needs: No Hearing needs: No Vision needs: Yes (reading reading) Review of Systems Const Denies chills, Denies fatigue, Denies fever(s), Denies frequent falls, Denies weakness, Denies weight gain and Denies weight loss ENT Denies dizziness Card Denies chest pain, Denies leg edema, Denies lightheadedness, Denies palpitations, Denies dyspnea, Denies dyspnea on exertion, Denies orthopnea and Denies other (loss of consciousness) Resp Denies cough, Denies dyspnea and Denies dyspnea on exertion GI Denies hematochezia and Denies change in stool character Musc Denies abnormal gait, Denies muscle weakness, Denies numbness, Denies radiating pain into limb and Denies tingling Neuro Denies abnormal gait, Denies dizziness, Denies frequent falls, Denies numbness, Denies tingling and Denies weakness Endo Denies fatigue and Denies palpitations Physical Exam Vital Signs: Last Vital Signs Pulse 74 11/04/24 13:30 BP 104/62 11/04/24 13:30 BMI result Body Mass Index 27.7 Const General: cooperative, alert, awake and in distress mild and respiratory Nutritional Appearance: average body habitus Orientation/consciousness: patient oriented x3 Neck Neck: Yes trachea midline, Yes supple and Yes JVD Resp Effort & Inspection: normal respiratory effort Auscultation: crackles bilateral at the base Cardio Jugular venous distension: JVD Rate: regular rate Rhythm: regular rhythm Heart sounds: S1 normal heart sound present, S2 normal heart sound present, no click, Gallop heart sound present S4 gallop and no murmurs GI Auscultation: normal bowel sounds Skin General skin exam: no rashes or lesions noted Neuro General: patient oriented x3 and no focal motor deficits Extrem General: No clubbing, No cyanosis and Yes edema Assessment & Plan Assessment & Plan (1) Acute on chronic systolic (congestive) heart failure: Code(s): I50.23 - Acute on chronic systolic (congestive) heart failure Category: Medical Plan: Patient appears to be in decompensated congestive heart failure with worsening symptoms and clinical evidence of mild fluid overload. He is currently not on loop diuretic for unclear reasons. He is currently on Entresto, metoprolol and Jardiance therapy which she has for neurohormonal modulation. I think he needs to come in to inpatient therapy with IV diuresis. This was discussed with him. He is agreeable. Discussed the findings with ED attending Dr. Brambila who will see him in the emergency room. He will need regular blood work in the emergency room. Meanwhile strict intake and output chart needs to be pursued. Heart failure management was discussed. Discussed with him to continue aspirin and high-intensity statin therapy. Will follow with him as inpatient Coding Level of Care Code Est Pt Level 4 (63760) Complex EM visit Add On G2211 Diagnoses Acute on chronic systolic (congestive) heart failure I50.23
== END 2024-11-04 14:23 | disposition home or self-care (01) ==
LOC: HO.HCS 13:17
PROVIDERS: PCP Internal Medicine; Visit Provider Internal Medicine Cardiovascular Disease
DX: I50.23 Acute on chronic systolic (congestive) heart failure (principal)
CPT/HCPCS: 99214

== ENCOUNTER 2024-11-04 13:56 | Observation (INO) | payer OTHER, SELFPAY ==
--- NOTE | ~2024-11-04 | XR_ITS ---
EXAMINATION: XR CHEST CLINICAL INFORMATION: sob ? fluid overload COMPARISON: 09/18/2023, 08/29/2023. TECHNIQUE: 2 views of the chest were obtained. FINDINGS: Cardiac silhouette is borderline enlarged. Mediastinal and hilar contours appear normal. Lungs are well inspired bilaterally. There is similar prominence of the background bronchovascular markings without overt CHF present. No definite [place] lines seen. No consolidations. There is no pneumothorax or pleural effusion. There is no focal osseous or soft tissue abnormality. XR/XR chest 2V IMPRESSION: Mild prominence of the background bronchovascular markings without overt CHF identified. Electronically signed by: Allen Sanchez MD 11/04/2024 02:45 PM EDT
[2024-11-04 14:22] VITALS: BP 96/56; PULSE 73; RESP 18; TEMP 36.6; O2SAT 99; BMI 27.6
--- NOTE | 2024-11-04 14:23 | ED.GENADULT ---
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 He notes no new med changes and normal diet. He has been having increasing dyspnea at night cannot lay on his side wakes up coughing, has leg edema, no weight gain. No CP, no sputum. He has not had a fever. He denies any black or bloody stools. He saw Dr. Triana today in clinic who called ED and advised admission for IV diuresis. MD complaint: CHF Onset (ago): week(s) Location: chest Radiation: non-radiation Severity: moderate Relieving factors: rest Exacerbating factors: other (exertion and laying flat) Associated symptoms: cough and shortness of breath Treatments prior to arrival: none Related Data Home Medications ?Medication ?Instructions ?Recorded ?Confirmed ferrous sulfate 325 mg (65 mg 325 mg PO DAILY 08/29/23 11/04/24 iron) tablet,delayed release gabapentin 300 mg capsule 300 mg PO 3XD 05/02/24 11/04/24 Previous Rx's ?Medication ?Instructions ?Recorded blood-glucose meter (FreeStyle #1 ea 07/08/21 Harmony Lite kit) blood sugar diagnostic (FreeStyle #100 strips 11/08/22 Lite Strips) lancets 28 gauge (FreeStyle #100 ea 12/20/23 Lancets) sacubitril 24 mg-valsartan 26 mg 1 tab PO BID 90 days #180 tabs 12/20/23 tablet (Entresto) blood pressure monitor (Blood #1 ea 02/03/24 Pressure Kit) blood-glucose,capacitor inspector,cont #1 ea 02/03/24 (FreeStyle Loretta 3 [place]) blood-glucose sensor (FreeStyle #2 ea 02/06/24 Olretta 3 Plus Sensor device) food supplemt, lactose-reduced 1 ea PO DAILY #948 mL 03/26/24 (Ensure Active Heart Health oral liquid) walker #1 ea 03/26/24 pen needle, diabetic 32 gauge x #100 ea 04/09/2403/22 (BD Ultra-Fine Micro Pen Needle) empagliflozin 10 mg tablet 10 mg PO DAILY #90 tabs 04/28/24 (Jardiance) aspirin 81 mg tablet,delayed 81 mg PO DAILY #90 tabs 05/01/24 release atorvastatin 80 mg tablet 80 mg PO DAILY #90 tabs 05/01/24 metformin 1,000 mg tablet 1,000 mg PO BID 90 days #180 tabs 05/02/24 metoprolol succinate 25 mg 25 mg PO DAILY #90 tabs 05/09/24 tablet,extended release 24 hr cholecalciferol (vitamin D3) 1,250 1,250 mcg PO QWEEK vit d 09/22/24 mcg (50,000 unit) capsule deficiency 3 months #13 caps insulin glargine-yfgn 100 unit/mL 21 unit (0.21 mL) subcut BEDTIME 09/22/24 (3 mL) subcutaneous pen #15 mL ticagrelor 60 mg tablet 60 mg PO BID #180 tabs 09/22/24 ranolazine 500 mg tablet,extended 500 mg PO BID #180 tabs 10/27/24 release,12 hr Allergies Allergy/AdvReac Type Severity Reaction Status Date / Time No Known Allergies Allergy Verified 11/04/24 14:23 Review of Systems Review of Systems: Constitutional : No Fever, No Chills ENT/Mouth : No sore throat, No Rhinorrhea, No Swallowing Difficulty Eyes: No Eye Pain, No Swelling, No Redness Cardiovascular : No Chest Pain, positive SOB, pos Orthopnea, positive Edema Respiratory : No Cough, No Sputum, No Wheezing, positive dyspnea Gastrointestinal : No Nausea, No Vomiting, No Diarrhea, No abdominal Pain, No Hematochezia, No Melena Genitourinary : No Dysuria, No Urinary Frequency, No Hematuria Musculoskeletal : No joint pain, No Myalgias Skin : No Skin Lesions, No rash Neuro : No Weakness, No Numbness, No Dizziness, No Headache All other systems reviewed and are negative [facility] Past Medical History Attestation statement: The following information was validated with the patient. Source: old records reviewed Medical History Hyperlipidemia LDL goal <70 Vitamin D deficiency Chronic anemia Depression Anxiety Overweight (BMI 25.0-29.9) Heart failure with reduced ejection fraction Acute CHF (congestive heart failure) Acute on chronic systolic (congestive) heart failure Essential hypertension Endogenous depression Peripheral vascular disease due to secondary diabetes Newly diagnosed diabetes Hyperglycemia No known health problems Surgical History History of heart artery stent Family History Family History Sister History of artificial heart valve Brother Myocardial infarct Social History Social History Household Members: Family Housing: House Do you presently have visiting nurse or other home services: No Alcohol intake: never Patient Tobacco Use Status: Never used Tobacco Smoked in Last 30 Days: No e-Cigarette/Vaping Use: Never Used Second Hand Smoke Exposure: No Use of substances other than those prescribed or required for medical reasons: No Advance Directives: Yes Advance Directives on File: Yes Advance Directives Date on File: 09/03/23 Do you have a plan to hurt others: No Plan service: No Current occupational status: unemployed Current occupation: right hand dominant Cognitive needs: No Hearing needs: No Vision needs: Yes (reading reading) Physical Exam ED Vital Signs: Vital Signs - 24 hr 11/04/24 14:22 11/04/24 17:21 Temperature 98 F 97.4 F Pulse Rate 73 83 Respiratory Rate 18 20 Blood Pressure 96/56 L 109/77 Pulse Oximetry 99 98 Oxygen Delivery Method Room Air Room Air BMI result Body Mass Index 27.6 Appearance: Alert. Oriented X3. No acute distress. Eyes: Pupils equal, round and reactive to light. ENT: Pharynx normal. Neck: Normal inspection. + JVD CVS: Normal heart rate and rhythm. Pulses normal. Respiratory: No respiratory distress. Breath sounds both bases diminished Abdomen: Soft and nontender. Skin: Skin warm and dry. Normal skin color. Normal skin turgor. Extremities: No lower extremity edema. No calf ttp Neuro: Oriented X 3. No motor deficit. No sensory deficit. CN2-12 intact Course Course Course Narrative: This is a Rapid Medical Examination (RME) performed by Alejandra Chow PA-C in triage. Full HPI, ROS, assessment and treatment plan per primary provider in the Main ED. 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 dr. triana evaluated patient today, noted concern for decompensated CHF with worsening symptoms. This is unclear patient is compliant with his diuretic. Dr. Triana advised to come to the ED for admission for IV diuresis. PE/vitals: Hypotensive, satting 99% on room air. Crackles to bilateral lung bases. Plan: Labs, chest x-ray, EKG Medical Decision Making Medical Decision Making [facility] Narrative: 59 yo male with 3v CAD s/p CYNTHIA to L Circ July 2023 following STEMI he is on aspirin and brilinta, HTN, HLD, CHF is 25-30% now here with WU, orthopnea, denies URI symptoms denies GIB at this time referred by cardiology for IV diuresis. Planned admit. Obtain labs, trop, CXR, EKG IV lasix ordered Differential Diagnosis Differential Diagnoses: The differential diagnosis associated with the presentation includes anemia, CHF, fatigue Admission/Observation Consideration of admission/observation: Escalation of care including admission/observation considered admit for IV diuresis Consult Healthcare Provider Management of the patient was discussed with: Hospitalist (will admit) Lab Data [facility] Lab Attestation statement: I reviewed the patient's lab results. 11/04/24 15:28 11/04/24 15:28 Labs: Lab Results 11/04/24 Range/Units 15:28 WBC 4.3 L (4.8-10.8) X10*3/uL RBC 3.78 L (4.60-5.80) X10*6/uL Hgb 9.3 L (14.0-18.0) g/dl Hct 31.1 L (42.0-52.0) % MCV 82.3 (80.0-98.0) fL MCH 24.6 L (27.0-33.0) pg MCHC 29.9 L (31.0-36.0) g/dl RDW 19.9 H (11.0-16.0) % Plt Count 136 L D (160-400) X10*3/uL MPV 9.3 L (9.4-12.4) fL Immature Gran % (Auto) 0.0 (0.0-0.4) % Neut % (Auto) 53.9 (45-73) % Lymph % (Auto) 29.8 (20-40) % [place] % (Auto) 12.2 H (2-11) % Eos % (Auto) 3.2 (0-4) % Baso % (Auto) 0.9 (0-2) % Lymph # (Auto) 1.3 (1.2-4.9) X10*3/uL [place] # (Auto) 0.5 (0.1-1.2) X10*3/uL Eos # (Auto) 0.1 (0.0-0.4) X10*3/uL Baso # (Auto) 0.0 (0.0-0.2) X10*3/uL Abs Immat Gran (auto) 0.00 (0.00-0.03) X10*3/uL Absolute Neuts (auto) 2.3 (2.0-8.3) x10*3/uL Absolute Nucleated RBC 0.000 (0.0-0.012) X10*3/uL Nucleated RBC % (auto) 0.0 (0.0-0.2) /100WBC Sodium 140 (135-145) mmol/L Potassium 3.9 (3.3-5.1) mmol/L Chloride 107 (96-108) mmol/L Carbon Dioxide 24 (22-29) mmol/L Anion Gap 13 (12-20) BUN 16 (9-16) mg/dL Creatinine 0.96 (0.5-1.4) mg/dL Estim Creat Clear Calc 86.0 Estimated GFR > 60 Random Glucose 121 H (60-115) mg/dL Calcium 9.3 (8.4-10.2) mg/dL Magnesium 1.8 (1.6-2.6) mg/dL Total Bilirubin 0.5 (0.0-1.0) mg/dL AST 37 (5-37) U/L ALT 20 (0-40) U/L Alkaline Phosphatase 79 (39-117) U/L Troponin I High Sens 11.1 (<3.5-35.0) ng/L B-Natriuretic Peptide 979 H (<100) pg/mL Total Protein 8.4 H (6.5-8.0) g/dL Albumin 3.9 (3.5-5.0) g/dL Independent Interpretation I performed an independent interpretation of an: EKG and Plain X-Ray (no edema) Interpretation: Rate: 72 Rhythm: NSR [place]: left, LVH Normal P waves. Normal TAB. Normal QRS complex. ST T wave : no [place], inverted t waves V1 and V3, qTC: 433 prior studies: no sig change from priors The study has been interpreted contemporaneously by me. . Radiology Impression Discussion of test interpretation with radiology: I have reviewed the radiologist's reading. Independent Historian Clinical information obtained from an independent historian. History obtained from or confirmed by: EMS External Record Review External record reviewed: Outpatient record, Prior outpatient labs and Prior outpatient radiology Discharge Plan Discharge Clinical Impression: CHF (congestive heart failure), Pancytopenia Patient Disposition: Admitted As Inpatient Print Language: Liberian
--- NOTE | 2024-11-04 14:26 | ECG_ITS ---
Test Reason : sob Blood Pressure : */* mmHG Vent. Rate : 72 BPM Atrial Rate : 72 BPM P-R Int : 228 ms QRS Dur : 88 ms QT Int : 396 ms P-R-T Axes : 24 -13 -40 degrees QTcB Int : 433 ms Sinus rhythm with 1st degree A-V block Possible Left atrial enlargement Left ventricular hypertrophy ( R in aVL , Srini product ) Inferior infarct (cited on or before 18-Sep-2023) Abnormal ECG When compared with ECG of 18-Sep-2023 15:17, Premature ventricular complexes are no longer Present VA interval has increased Referred By: Fela Chow Electronically Signed By: JACK BOWMAN MD
[2024-11-04 15:35] LABS: MANUAL DIFF FLAG NO
[2024-11-04 15:44] LABS: Hematocrit 31.1 % (42.0-52.0); Hemoglobin 9.3 g/dl (14.0-18.0); Imm Gran Abs Auto 0.00 X10*3/uL (0.00-0.03); Imm Gran Pct Auto 0.0 % (0.0-0.4); Lymphocytes Absolute Auto 1.3 X10*3/uL (1.2-4.9); Mean Corpuscular HGB Conc 29.9 g/dl (31.0-36.0); Mean Corpuscular Hemoglobin 24.6 pg (27.0-33.0); Mean Corpuscular Volume 82.3 fL (80.0-98.0); NRBC Abs Auto 0.000 X10*3/uL (0.0-0.012); NRBC Pct Auto 0.0 /100WBC (0.0-0.2); Platelet Count 136 X10*3/uL (160-400); Red Blood Count 3.78 X10*6/uL (4.60-5.80); White Blood Count 4.3 X10*3/uL (4.8-10.8)
[2024-11-04 15:50] LABS: Alanine Aminotransferase 20 U/L (0-40); Albumin Level 3.9 g/dL (3.5-5.0); Alkaline Phosphatase 79 U/L (39-117); Anion Gap 13 (12-20); Aspartate Amino Transferase 37 U/L (5-37); Blood Urea Nitrogen 16 mg/dL (9-16); Calcium 9.3 mg/dL (8.4-10.2); Carbon Dioxide 24 mmol/L (22-29); Chloride 107 mmol/L (96-108); Creatinine Clr Calc Pharmacy 86.0; Estimated Glomerular Filt Rate > 60; Magnesium 1.8 mg/dL (1.6-2.6); Potassium 3.9 mmol/L (3.3-5.1); Sodium 140 mmol/L (135-145); Total Protein 8.4 g/dL (6.5-8.0)
[2024-11-04 15:57] LABS: B Type Natriuretic Peptide 979 pg/mL (<100); Troponin-I High Sensitivity 11.1 ng/L (<3.5-35.0)
[2024-11-04 17:21] VITALS: BP 109/77; PULSE 83; RESP 20; TEMP 36.3; O2SAT 98
[2024-11-04 18:18] VITALS: BP 108/69
[2024-11-04] MEDS: Furosemide 40 MG/4 ML VIAL IVPUSH (18:18)
--- NOTE | 2024-11-04 18:24 | PM.IMHP ---
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 Patient presented to outpatient cardiology office for his three-month follow-up, noting worsening exertional dyspnea over the past month, as well as orthopnea. Noted a decrease in regular activity and exertional capacity. Endorses intermittent dizziness along with exertional dyspnea. Patient denies palpitations, chest pain, radiating chest pressure, sweating, loss of consciousness. He reports no new significant change in his regimen. He is compliant with his medications. In the emergency room, noting stable vitals, O2 saturation 99%. Lab work revealing pancytopenia, normal creatinine and chemistry, elevated BNP 979, normal LFTs. Chest x-ray revealing mild prominence of the background bronchovascular markings without overt CHF Review of Systems Review of Systems: Yes all other systems are reviewed and are negative Constitutional: Constitutional: Reports as per HPI Eyes: Eyes: Reports as per HPI [facility] Medical History Hyperlipidemia LDL goal <70 Vitamin D deficiency Chronic anemia Depression Anxiety Overweight (BMI 25.0-29.9) Heart failure with reduced ejection fraction Acute CHF (congestive heart failure) Acute on chronic systolic (congestive) heart failure Essential hypertension Endogenous depression Peripheral vascular disease due to secondary diabetes Newly diagnosed diabetes Hyperglycemia No known health problems Family History Sister History of artificial heart valve Brother Myocardial infarct Surgical History History of heart artery stent Social History Household Members: Family Housing: House Do you presently have visiting nurse or other home services: No Alcohol intake: never Patient Tobacco Use Status: Never used Tobacco Smoked in Last 30 Days: No e-Cigarette/Vaping Use: Never Used Second Hand Smoke Exposure: No Use of substances other than those prescribed or required for medical reasons: No Advance Directives: Yes Advance Directives on File: Yes Advance Directives Date on File: 09/03/23 Do you have a plan to hurt others: No Plan service: No Current occupational status: unemployed Current occupation: right hand dominant Cognitive needs: No Hearing needs: No Vision needs: Yes (reading reading) Meds Allergies Allergy/AdvReac Type Severity Reaction Status Date / Time No Known Allergies Allergy Verified 11/04/24 14:23 Home Medications ?Medication ?Instructions ?Recorded ?Confirmed ?Last Taken ?Type ferrous sulfate 325 mg (65 mg 325 mg PO DAILY 08/29/23 11/04/24 09/18/23 07:00 History iron) tablet,delayed release gabapentin 300 mg capsule 300 mg PO 3XD 05/02/24 11/04/24 Unknown History citalopram 10 mg tablet 10 mg PO DAILY depressive disorder 11/04/24 Unknown History insulin glargine 100 unit/mL (3 21 unit subcut BEDTIME 11/04/24 Unknown History mL) subcutaneous pen (Lantus Solostar U-100 Insulin) ticagrelor 60 mg tablet (Brilinta) 60 mg PO BID 11/04/24 Unknown History Physical Exam Vital Signs and Narrative: Vital Signs: Last Vital Signs Temp 97.4 F 11/04/24 17:21 Pulse 83 11/04/24 17:21 Resp 20 11/04/24 17:21 BP 108/69 11/04/24 18:18 Pulse Ox 98 11/04/24 17:21 O2 Del Method Room Air 11/04/24 17:21 BMI result Body Mass Index 27.6 General: A&O x3, oriented to time place person and situation, comfortable, no pain Cardiac: S1, S2 auscultated with no S3/4, no MRG. Cold peripheries. Respiratory: Dyspnea while performing physical examination. Bibasilar crepitations auscultated with decreased breath sounds at the bases and mid zones bilaterally. GI/ : No abdominal pain on palpation, no masses or distentions. MSK: Normal ambulation without pain at bony prominences or musculature Neurological: Normal neurological examination on overview, without obvious CN II-XII abnormalities. Results Labs 11/04/24 15:28 11/04/24 15:28 Labs: Laboratory Results - last 24 hr 11/04/24 15:28 MCV 82.3 MCH 24.6 L MCHC 29.9 L RDW 19.9 H Plt Count 136 L D MPV 9.3 L Immature Gran % (Auto) 0.0 Neut % (Auto) 53.9 Lymph % (Auto) 29.8 Keith % (Auto) 12.2 H Eos % (Auto) 3.2 Baso % (Auto) 0.9 Lymph # (Auto) 1.3 Keith # (Auto) 0.5 Eos # (Auto) 0.1 Baso # (Auto) 0.0 Abs Immat Gran (auto) 0.00 Absolute Neuts (auto) 2.3 Absolute Nucleated RBC 0.000 Nucleated RBC % (auto) 0.0 Anion Gap 13 Estim Creat Clear Calc 86.0 Estimated GFR > 60 Random Glucose 121 H Calcium 9.3 Magnesium 1.8 Total Bilirubin 0.5 AST 37 ALT 20 Alkaline Phosphatase 79 B-Natriuretic Peptide 979 H Total Protein 8.4 H Albumin 3.9 Imaging Radiologist's Impressions: Impressions Chest X-Ray 11/04/24 14:30 IMPRESSION: Mild prominence of the background bronchovascular markings without overt CHF identified. Electronically signed by: Allen Sanchez MD 11/04/2024 02:45 PM EDT Assessment and Plan (1) Acute on chronic systolic (congestive) heart failure: Status: Acute (2) Ischemic cardiomyopathy: Status: Acute (3) Heart failure with reduced ejection fraction: Status: Acute (4) Coronary artery disease: Qualifiers: Coronary Disease-Associated Artery/Lesion type: [place] artery [place] vs. transplanted heart: [place] heart Associated angina: without angina Qualified Code(s): I25.10 - Atherosclerotic heart disease of [place] coronary artery without angina pectoris Status: Acute (5) Stented coronary artery: Status: Acute (6) Diabetes mellitus with neuropathy: Qualifiers: Diabetes mellitus type: type 2 Diabetes mellitus residential insulin use: with residential use Qualified Code(s): E11.40 - Type 2 diabetes mellitus with diabetic neuropathy, unspecified; Z79.4 - FPC (current) use of insulin Status: Acute (7) Peripheral vascular disease due to secondary diabetes: Status: Acute (8) Pancytopenia: Status: Acute Plan 59-year-old male, with a history of HLD, HTN, PVD, type 2 diabetes mellitus, ischemic cardiomyopathy with reduced ejection fraction 25-30%, CAD STEMI s/p CYNTHIA to left circumflex July 2023 (ASA Brilinta), 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 Acute on chronic CHF exacerbation Ischemic cardiomyopathy rEF 25-30% STEMI s/p CYNTHIA left circumflex July 2023 Hypertension Hyperlipidemia Evidence of mild acute CHF exacerbation. BNP elevated, chest x-ray revealing mild increase in bronchovascular markings. Patient has EF 25-30%; has refused AICD in the past. Physical examination revealing minimal lower extremity edema, however has bibasilar crepitations. Received IV furosemide in emergency room. PLAN - IV furosemide 40 mg b.i.d. IV - continue metoprolol 25 mg b.i.d. p.o. - continue Entresto 24/26 b.i.d. p.o. - continue Brilinta - continue aspirin - continue atorvastatin 80 mg ODT p.o. - cardiology consultation (Dr. Triana) - consider repeat echocardiography if not done in outpatient office - strict I&O q.6 hourly - daily weights Pancytopenia Noting leukopenia, anemia and thrombocytopenia on evaluation a blood work. Initial screening blood work will be ordered for evaluation. Can be followed up in the outpatient setting with referral to hematology oncology service Type 2 diabetes mellitus Patient's POC glucose is reasonably well-controlled 90-120 mg/dL. He is compliant with his medications and only intermittently uses injectable insulin PLAN - continue empagliflozin 10 mg ODT p.o. - continue metformin a 1000 mg b.i.d. p.o. - POC glucose t.i.d. and nocte Insomnia Restless leg syndrome Lower extremity paresthesia PLAN - continue gabapentin 300 mg t.i.d. - continue trazodone 50 mg at night QUALITY [employer] - VTE: Low risk - mechanical SCDs - CODE STATUS: Full code - DIET: Cardiac Quality Stroke Does the patient have a stroke diagnosis?: No VTE Prior VTE?: No VTE Risk Level:: Medical - low VTE Device Contraindication: Treatment Not Indicated VTE Drug Contraindication: Treatment Not Indicated
[2024-11-04 20:40] VITALS: BP 101/68; PULSE 81; RESP 18; TEMP 36.8; O2SAT 97
--- NOTE | 2024-11-04 22:34 | PHA.MEDREC ---
Addendum entered by Pedro Segura, PharmD 11/04/24 22:53: MED REC CHECKED BY [facility] Original Note: Pharmacy Consult ? Medication Reconciliation Pharmacy has completed the medication reconciliation. Spoke with pt and he was a poor historian; he confirmed his Lantus injecting 21 units at bedtime. I spoke with pt daughter (Daryl [phone]) and she confirmed the pt medications. Pt suppose to start the Ranolazine but daughter states the pt is finishing the Brillinta tablets first then going to start the Ranolzaine. Per daughter pt not taking Citalopram anymore and has not in a few months ; I spoke with pt and he is not aware of taking Citalopram or anything for depression at this time.
[2024-11-05] VITALS (9 sets, daily range): BP systolic 96–106; BP diastolic 56–68; PULSE 70–81; RESP 14–20; TEMP 36.2–36.9; O2SAT 96–100; BMI 25.9; BMI 27.1
[2024-11-05 04:51] LABS: MANUAL DIFF FLAG NO
[2024-11-05 04:56] LABS: Hematocrit 29.2 % (42.0-52.0); Hemoglobin 8.9 g/dl (14.0-18.0); Imm Gran Abs Auto 0.01 X10*3/uL (0.00-0.03); Imm Gran Pct Auto 0.3 % (0.0-0.4); Lymphocytes Absolute Auto 1.2 X10*3/uL (1.2-4.9); Mean Corpuscular HGB Conc 30.5 g/dl (31.0-36.0); Mean Corpuscular Hemoglobin 24.7 pg (27.0-33.0); Mean Corpuscular Volume 81.1 fL (80.0-98.0); NRBC Abs Auto 0.000 X10*3/uL (0.0-0.012); NRBC Pct Auto 0.0 /100WBC (0.0-0.2); Platelet Count 115 X10*3/uL (160-400); Red Blood Count 3.60 X10*6/uL (4.60-5.80); White Blood Count 3.5 X10*3/uL (4.8-10.8)
[2024-11-05 05:26] LABS: Anion Gap 12 (12-20); Blood Urea Nitrogen 17 mg/dL (9-16); Calcium 9.1 mg/dL (8.4-10.2); Carbon Dioxide 26 mmol/L (22-29); Chloride 108 mmol/L (96-108); Creatinine Clr Calc Pharmacy 85.1; Estimated Glomerular Filt Rate > 60; Magnesium 1.9 mg/dL (1.6-2.6); Potassium 4.1 mmol/L (3.3-5.1); Sodium 142 mmol/L (135-145)
[2024-11-05 05:30] LABS: B Type Natriuretic Peptide 888 pg/mL (<100)
[2024-11-05 05:35] LABS: Thyroid Stimulating Hormone 2.21 uIU/mL (0.32-4.0)
--- NOTE | 2024-11-05 06:55 | PC.NURSE ---
Patient able to ambulate to the bathroom and make needs known. Rested comfortably throughout the shift, vital signs remaining soft, patient reports vitals are always on the soft side. Resipriations unlabored, equal chest rise and fall. Patient using call evans appropriately. No complaints of pain or discomfort throughout the shift. Patient alert and oriented.
--- NOTE | 2024-11-05 07:13 | PC.NURSE ---
Resumed care of pt at 0700, he was ambulating the the BR at this time. On arrival back to bed, pt educated that the MD wants to monitor strict I&Os, pt given urinal at this time, in verbal agreement to start measuring urine output. Pt given breakfast tray at this time. Remains A/Ox4, on RA, denies CP or SOB. Daily weight obtained,k call evans within reach, awaiting bed assignment at this time.
[2024-11-05] MEDS: Furosemide 40 MG/4 ML VIAL IVPUSH ×2 (08:10→17:17)
[2024-11-05] MEDS: Metoprolol Succinate ER 25 MG TAB.ER.24H PO (08:10)
[2024-11-05] MEDS: Sacubitril/Valsartan 24/26 1 TAB TABLET PO (08:10)
[2024-11-05] MEDS: 0.9 % Sodium Chloride Flush 3 ML SYRINGE IVFLUSH ×3 (08:11→21:40)
[2024-11-05] MEDS: Aspirin Enteric Coated 81 MG TABLET.DR PO (08:11)
--- NOTE | 2024-11-05 09:39 | MHC.CM.PN ---
CM spoke with Daughter/HCP/Radha @ [phone] and addressed HILL with her; original will be mailed to Daughter and a copy will be placed on the chart. Patient lives with Radha and her children in an Adult Foster Care Program and he attends Adult Day Care @ [facility]. Home/resume said services is the goal and CM has initiated and will follow for dc planning. PCP is Dr. Mohan and one of his Daughters will transport to home. No DME, but Patient relies on his Daughters for assist; he is never left alone.
--- NOTE | 2024-11-05 15:41 | P.PNIM_ITS ---
Subjective Subjective Date of Service: 11/05/24 Interval History: FEELS SIGNIFICANTLY IMPROVED COMPARED TO YESTERDAY. BREATHING HAS IMPROVED, WELL LOWER EXTREMITY EDEMA. PATIENT HAS MORE ENERGY IS COMPARED TO PRIOR Physical Exam 2 Exam: Exam: General: A&O x3, oriented to time place person and situation, comfortable, no pain Cardiac: S1, S2 auscultated with no S3/4, no MRG. Cold peripheries. Respiratory: Bibasilar crepitations auscultated with decreased breath sounds at the bases and mid zones bilaterally. Improved overall GI/ : No abdominal pain on palpation, no masses or distentions. MSK: Normal ambulation without pain at bony prominences or musculature Neurological: Normal neurological examination on overview, without obvious CN II-XII abnormalities. Vital Signs: Vital Signs: Last Vital Signs Temp 97.1 F 11/05/24 12:12 Pulse 75 11/05/24 12:12 Resp 14 11/05/24 12:12 BP 101/68 11/05/24 12:12 Pulse Ox 96 11/05/24 12:12 O2 Del Method Room Air 11/05/24 12:12 BMI result Body Mass Index 25.9 Objective Data Active Medications Acetaminophen (Acetaminophen 325 Mg Tablet) 650 mg PO Q6H PRN PRN Reason: Pain, Mild 1-3,fever,headache Aspirin (Aspirin Enteric Coated 81 Mg Tablet.) 81 mg PO DAILY [facility] Last Admin: 11/05/24 08:11 Dose: 81 mg Documented By: DAVIS Atorvastatin Calcium (Atorvastatin Calcium 80 Mg Tablet) 80 mg PO DAILY [facility] Last Admin: 11/05/24 08:11 Dose: 80 mg Documented By: DAVIS Calcium Carbonate (Calcium Carbonate 750 Mg Tab.Chew) 750 mg PO Q4H PRN PRN Reason: Heartburn Empagliflozin (Empagliflozin 10 Mg Tablet) 10 mg PO DAILY [facility] Last Admin: 11/05/24 08:11 Dose: 10 mg Documented By: DAVIS Furosemide (Furosemide 40 Mg/4 Ml Vial) 40 mg IVPUSH BIDWM [facility]; Protocol Last Admin: 11/05/24 08:10 Dose: 40 mg Documented By: DAVIS Magnesium Hydroxide (Milk Of Magnesia 30 Ml Oral.Susp) 30 ml PO DAILY PRN PRN Reason: Constipation Melatonin (Melatonin 3 Mg Tablet) 6 mg PO BEDTIME PRN PRN Reason: Insomnia Metoprolol Succinate (Metoprolol Succinate Er 25 Mg Tab.Er.24h) 25 mg PO DAILY [facility]; Protocol Last Admin: 11/05/24 08:10 Dose: 25 mg Documented By: DAVIS Non-Formulary Medication (Ticagrelor [Brilinta]) 60 mg PO BID [facility] Sacubitril/Valsartan (Sacubitril/Valsartan 1 Tab Tablet) 1 tab PO DAILY [facility]; Protocol Last Admin: 11/05/24 08:10 Dose: 1 tab Documented By: DAVIS Sodium Chloride (0.9 % Sodium Chloride Flush 3 Ml Syringe) 3 ml IVFLUSH QSHIFT [facility] Last Admin: 11/05/24 08:11 Dose: 3 ml Documented By: DAVIS Trazodone HCl (Trazodone Hcl 50 Mg Tablet) 50 mg PO BEDTIME PRN PRN Reason: Insomnia Labs 11/05/24 04:18 11/05/24 04:18 Labs: Laboratory Results - last 24 hr 11/04/24 11/04/24 11/05/24 15:28 19:20 04:18 MCV 82.3 81.1 MCH 24.6 L 24.7 L MCHC 29.9 L 30.5 L RDW 19.9 H 19.6 H Plt Count 136 L D 115 L MPV 9.3 L 9.3 L Immature Gran % (Auto) 0.0 0.3 Neut % (Auto) 53.9 44.0 L Lymph % (Auto) 29.8 34.9 [place] % (Auto) 12.2 H 15.6 H Eos % (Auto) 3.2 4.3 H Baso % (Auto) 0.9 0.9 Lymph # (Auto) 1.3 1.2 [place] # (Auto) 0.5 0.5 Eos # (Auto) 0.1 0.2 Baso # (Auto) 0.0 0.0 Abs Immat Gran (auto) 0.00 0.01 Absolute Neuts (auto) 2.3 1.5 L Absolute Nucleated RBC 0.000 0.000 Nucleated RBC % (auto) 0.0 0.0 Anion Gap 13 12 Estim Creat Clear Calc 86.0 85.1 Estimated GFR > 60 > 60 Random Glucose 121 H 110 Calcium 9.3 9.1 Magnesium 1.8 1.9 Total Bilirubin 0.5 AST 37 ALT 20 Alkaline Phosphatase 79 B-Natriuretic Peptide 979 H 888 H Total Protein 8.4 H Albumin 3.9 TSH 2.21 Blood Type A Positive Antibody Screen NEGATIVE Assessment and Plan (1) Ischemic cardiomyopathy: Status: Acute (2) Acute on chronic congestive heart failure: Status: Acute (3) Stented coronary artery: Status: Acute (4) Diabetes mellitus with neuropathy: Status: Acute Plan 59-year-old male, with a history of HLD, HTN, PVD, type 2 diabetes mellitus, ischemic cardiomyopathy with reduced ejection fraction 25-30%, CAD STEMI s/p CYNTHIA to left circumflex July 2023 (ASA Brilinta), 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 Acute on chronic CHF exacerbation Ischemic cardiomyopathy rEF 25-30% STEMI s/p CYNTHIA left circumflex July 2023 Hypertension Hyperlipidemia Evidence of mild acute CHF exacerbation. BNP elevated, chest x-ray revealing mild increase in bronchovascular markings. Patient has EF 25-30%; has refused AICD in the past. Physical examination revealing minimal lower extremity edema, however has bibasilar crepitations. Received IV furosemide in emergency room. PLAN - IV furosemide 40 mg b.i.d. IV - continue metoprolol 25 mg b.i.d. p.o. - continue Entresto / b.i.d. p.o. - continue Brilinta - continue aspirin - continue atorvastatin 80 mg ODT p.o. - cardiology consultation (Dr. Triana) - consider repeat echocardiography if not done in outpatient office - strict I&O q.6 hourly - daily weights Pancytopenia Noting leukopenia, anemia and thrombocytopenia on evaluation a blood work. Initial screening blood work will be ordered for evaluation. Can be followed up in the outpatient setting with referral to hematology oncology service Type 2 diabetes mellitus Patient's POC glucose is reasonably well-controlled 90-120 mg/dL. He is compliant with his medications and only intermittently uses injectable insulin PLAN - continue empagliflozin 10 mg ODT p.o. - continue metformin a 1000 mg b.i.d. p.o. - POC glucose t.i.d. and nocte Insomnia Restless leg syndrome Lower extremity paresthesia PLAN - continue gabapentin 300 mg t.i.d. - continue trazodone 50 mg at night QUALITY [employer] - VTE: Low risk - mechanical SCDs - CODE STATUS: Full code - DIET: Cardiac Total time managing care of this patient today: 35 minutes. Quality Stroke Does the patient have a stroke diagnosis?: No VTE Prior VTE?: No VTE Risk Level:: Medical - low VTE Device Contraindication: Treatment Not Indicated VTE Drug Contraindication: Treatment Not Indicated
[2024-11-06 03:25] VITALS: BP 98/52; PULSE 70; RESP 18; TEMP 36.8; O2SAT 98
[2024-11-06 06:00] VITALS: BMI 26.7
[2024-11-06 06:27] LABS: MANUAL DIFF FLAG NO
[2024-11-06 06:31] LABS: Hematocrit 32.1 % (42.0-52.0); Hemoglobin 10.2 g/dl (14.0-18.0); Imm Gran Abs Auto 0.01 X10*3/uL (0.00-0.03); Imm Gran Pct Auto 0.2 % (0.0-0.4); Lymphocytes Absolute Auto 1.6 X10*3/uL (1.2-4.9); Mean Corpuscular HGB Conc 31.8 g/dl (31.0-36.0); Mean Corpuscular Hemoglobin 25.1 pg (27.0-33.0); Mean Corpuscular Volume 79.1 fL (80.0-98.0); NRBC Abs Auto 0.000 X10*3/uL (0.0-0.012); NRBC Pct Auto 0.0 /100WBC (0.0-0.2); Platelet Count 135 X10*3/uL (160-400); Red Blood Count 4.06 X10*6/uL (4.60-5.80); White Blood Count 4.8 X10*3/uL (4.8-10.8)
[2024-11-06 06:47] LABS: Anion Gap 14 (12-20); Blood Urea Nitrogen 18 mg/dL (9-16); Calcium 8.8 mg/dL (8.4-10.2); Carbon Dioxide 22 mmol/L (22-29); Chloride 108 mmol/L (96-108); Creatinine Clr Calc Pharmacy 87.8; Estimated Glomerular Filt Rate > 60; Magnesium 2.1 mg/dL (1.6-2.6); Potassium 3.9 mmol/L (3.3-5.1); Sodium 140 mmol/L (135-145)
[2024-11-06 06:53] LABS: B Type Natriuretic Peptide 721 pg/mL (<100)
[2024-11-06 07:16] VITALS: BP 96/58; PULSE 71; RESP 16; TEMP 36.1; O2SAT 98
[2024-11-06] MEDS: Sacubitril/Valsartan 24/26 1 TAB TABLET PO (08:22)
[2024-11-06] MEDS: Metoprolol Succinate ER 25 MG TAB.ER.24H PO (08:22)
[2024-11-06] MEDS: Aspirin Enteric Coated 81 MG TABLET.DR PO (08:22)
[2024-11-06] MEDS: Furosemide 40 MG/4 ML VIAL IVPUSH (08:23)
[2024-11-06] MEDS: 0.9 % Sodium Chloride Flush 3 ML SYRINGE IVFLUSH (08:23)
--- NOTE | 2024-11-06 09:27 | MHC.CM.PN ---
Patient has been medically cleared for dc to home today, self care.
--- NOTE | 2024-11-06 13:50 | PM.DS ---
DS: Providers Provider Date of Service: 11/04/24 Date of admission: 11/04/24 18:39 Date of discharge: 11/06/24 Primary care physician: Everardo Mohan MD Attending physician on admission: Sherri Haq Attending physician on discharge: Sherri Haq DS: Diagnosis Discharge Diagnosis (1) Ischemic cardiomyopathy: Status: Acute (2) Acute on chronic congestive heart failure: Status: Acute (3) Stented coronary artery: Status: Acute (4) Diabetes mellitus with neuropathy: Status: Acute DS: Summary Hospital Course Hospital Course: 59-year-old male, with a history of HLD, HTN, PVD, type 2 diabetes mellitus, ischemic cardiomyopathy with reduced ejection fraction 25-30%, CAD STEMI s/p CYNTHIA to left circumflex July 2023 (ASA Brilinta), 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 Patient presented to outpatient cardiology office for his three-month follow-up, noting worsening exertional dyspnea over the past month, as well as orthopnea. Noted a decrease in regular activity and exertional capacity. Endorses intermittent dizziness along with exertional dyspnea. Patient denies palpitations, chest pain, radiating chest pressure, sweating, loss of consciousness. He reports no new significant change in his regimen. He is compliant with his medications. In the emergency room, noting stable vitals, O2 saturation 99%. Lab work revealing pancytopenia, normal creatinine and chemistry, elevated BNP 979, normal LFTs. Chest x-ray revealing mild prominence of the background bronchovascular markings without overt CHF Patient was diuresed to euvolemia. Was discharged home. Status at Discharge Functional status at discharge: independent ambulation Overall status at discharge: patient is back to baseline Time Attestation Total time managing care of this patient today: 35 mintues. Discharge Coordination Time (in mins): 15 Quality: Safe Use of Opioids Does Pt have an Active Cancer Diagnosis on the Problem List?: No Quality: Stroke Does the patient have a stroke diagnosis?: No Physical Exam Exam: Exam: General: A&O x3, oriented to time place person and situation, comfortable, no pain Cardiac: S1, S2 auscultated with no S3/4, no MRG. Well perfused. Respiratory: Normal breath sounds auscultated throughout all lung zones, without wheezing, rales. Normal rate. GI/ : No abdominal pain on palpation, no masses or distentions. MSK: Normal ambulation without pain at bony prominences or musculature Neurological: Normal neurological examination on overview, without obvious CN II-XII abnormalities. Vital Signs: Vital Signs: Last Vital Signs Temp 97.0 F 11/06/24 07:16 Pulse 71 11/06/24 07:16 Resp 16 11/06/24 07:16 BP 96/58 L 11/06/24 07:16 Pulse Ox 98 11/06/24 07:16 O2 Del Method Room Air 11/06/24 07:16 BMI result Body Mass Index 26.7 DS: Data Data Completed and Pending Completed studies during hospitalization [Text1]: Procedures Introduction of Remdesivir Anti-infective into Peripheral Vein, Percutaneous Approach, [employer] 5 (08/31/20) Labs on day of discharge: Laboratory Results - last 24 hr 11/06/24 06:13 WBC 4.8 RBC 4.06 L Hgb 10.2 L Hct 32.1 L MCV 79.1 L MCH 25.1 L MCHC 31.8 RDW 19.2 H Plt Count 135 L MPV 9.1 L Immature Gran % (Auto) 0.2 Neut % (Auto) 47.8 Lymph % (Auto) 32.6 [place] % (Auto) 14.1 H Eos % (Auto) 4.2 H Baso % (Auto) 1.1 Lymph # (Auto) 1.6 [place] # (Auto) 0.7 Eos # (Auto) 0.2 Baso # (Auto) 0.1 Abs Immat Gran (auto) 0.01 Absolute Neuts (auto) 2.3 Absolute Nucleated RBC 0.000 Nucleated RBC % (auto) 0.0 Sodium 140 Potassium 3.9 Chloride 108 Carbon Dioxide 22 Anion Gap 14 BUN 18 H Creatinine 0.94 Estim Creat Clear Calc 87.8 Estimated GFR > 60 Random Glucose 109 Calcium 8.8 Magnesium 2.1 B-Natriuretic Peptide 721 H Discharge Plan Discharge Anticipated Discharge Date/Time: 11/06/24 09:18 Patient Disposition: Home, Self-Care Referrals: Everardo Mohan MD [Primary Care Provider, Internal Medicine] - 1 Week Discharge Medications: Continued (DME) FreeStyle Lite Strips Strip See Rx Instructions .ROUTE .COMPLEX Qty: 100 3RF Dose Instruction: CHECK BLOOD SUGAR 3-4X/DAY Rx Instructions: CHECK BLOOD SUGAR 3-4X/DAY Entresto 24-26 mg tablet 1 tab PO BID 90 Days Qty: 180 3RF (DME) FreeStyle [place]oret[place] 3 Bertrand Misc See Rx Instructions .Route Qty: 1 3RF Rx Instructions: As directed (DME) blood pressure monitor [Blood Pressure Kit] Kit See Rx Instructions .Route Qty: 1 0RF Rx Instructions: As directed (DME) FreeStyle [place] 3 Plus Sensor Device See Rx Instructions .Route Qty: 2 0RF Rx Instructions: As directed (DME) pen needle, diabetic [BD Ultra-Fine Micro Pen Needle] 32 gauge x 1/4 needle See Rx Instructions .Route Qty: 100 0RF Rx Instructions: As directed -daily Jardiance 10 mg tablet 10 mg PO DAILY Qty: 90 3RF metoprolol succinate 25 mg tablet extended release 24 hr 25 mg PO DAILY Qty: 90 1RF Rx Instructions: dose decreased insulin glargine [Lantus Solostar U-100 Insulin] 100 unit/mL (3 mL) insulin pen 21 unit subcut BEDTIME ticagrelor [Brilinta] 60 mg tablet 60 mg PO BID Rx Instructions: Dose lowered from 90mg to 60mg. atorvastatin 80 mg tablet 80 mg PO BEDTIME furosemide 40 mg tablet 40 mg PO DAILY ergocalciferol (vitamin D2) 1,250 mcg (50,000 unit) capsule 1,250 mcg PO MO (DME) blood-glucose meter [FreeStyle [place] Lite] Kit See Rx Instructions .Route Qty: 1 0RF Rx Instructions: check BS 1-2x/day (DME) walker Misc See Rx Instructions .Route Qty: 1 0RF Rx Instructions: As directed metformin 1,000 mg tablet 1,000 mg PO BID 90 Days Qty: 180 2RF aspirin 81 mg tablet,delayed release (DR/EC) 81 mg PO DAILY Qty: 90 3RF (DME) lancets [FreeStyle Lancets] 28 gauge misc See Rx Instructions .Route Qty: 100 0RF Rx Instructions: check BS 3-4x/day Discharge Orders: Discharge Order (Routine); Ordered 11/06/24 Ordered By: Sherri Haq Activity on Discharge: As tolerated Stand Alone Forms: Patient Portal Discharge page Print Language: Citizen Of [place] Care Plan Goals: Follow-up PCP Follow up Cardiology Continue medications as prescribed Health Concerns: CHF exacerbation with EF 20% Type 2 diabetes mellitus with neuropathy Plan of Treatment: As above Assessment: Hemodynamically stable, back to clinical baseline Patient Instructions: Heart Failure (DC) Discharge Date/Time: 11/06/24 11:08
== END 2024-11-06 11:08 | disposition home or self-care (01) ==
LOC: HO.ED 18:24 → HO.EDOVER 18:47 → HO.IMC 11-05 14:37
PROVIDERS: Physician Assistant Medical; Admitting Provider Hospitalist; Emergency Provider Emergency Medicine; PCP Internal Medicine; Visit Provider Hospitalist
DX: I25.10 Atherosclerotic heart disease of native coronary artery without angina pectoris (principal); I50.23 Acute on chronic systolic (congestive) heart failure; I25.5 Ischemic cardiomyopathy; R05.9 Cough, unspecified; D61.818 Other pancytopenia; E11.40 Type 2 diabetes mellitus with diabetic neuropathy, unspecified; R06.02 Shortness of breath; R60.9 Edema, unspecified; G25.81 Restless legs syndrome; G47.00 Insomnia, unspecified; Z95.5 Presence of coronary angioplasty implant and graft; Z79.4 Long term (current) use of insulin
CPT/HCPCS: 36415; 71046; 80048; 80053; 83735; 83880; 84443; 84484; 85025; 86850; 86900; 86901; 93005; 96374; 96376; 99212; 99222; 99285; J1938

== ENCOUNTER → 2024-11-04 14:26 | Outpatient (BNV) | payer OTHER, SELFPAY | PROVIDERS: PCP Internal Medicine; Visit Provider Radiology Diagnostic Radiology | DX: R06.02 Shortness of breath (principal) | CPT/HCPCS: 71046 ==

== ENCOUNTER → 2024-11-04 18:39 | Outpatient (BNV) | payer OTHER, SELFPAY | PROVIDERS: Admitting Provider Hospitalist; Emergency Provider Emergency Medicine; PCP Internal Medicine; Visit Provider Hospitalist | DX: I50.23 Acute on chronic systolic (congestive) heart failure (principal); I25.5 Ischemic cardiomyopathy; Z95.5 Presence of coronary angioplasty implant and graft; E11.40 Type 2 diabetes mellitus with diabetic neuropathy, unspecified; Z79.4 Long term (current) use of insulin | CPT/HCPCS: 99222; 99232 ==

== ENCOUNTER 2024-11-12 11:23 | Outpatient (AMB) | payer OTHER, SELFPAY ==
--- NOTE | 2024-11-12 11:45 | MHC.PC.OV ---
Vital Signs 11/12/24 11:47 Height 5 ft 11 in Weight 193 lb BMI 26.9 BP 90/60 Blood Pressure Location Lt brachial Position Sitting Pulse 79 Pulse Source Pulse Oximeter Temp 97.1 F Temp Source Temporal Artery Scan Pulse Oximetry (%) 98 Oxygen Delivery Method Room Air Intake Visit Reasons: 3mth f/u - see comments Intake Note: Patient is here to follow up on DM, HLD, CHF, HTN. 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: Not Required per policy Accompanied by: Self / Same As Patient Allergies No Known Allergies Allergy (Verified 11/12/24 11:47) Tobacco use date assessed: 11/12/24 Dental Screening Dental Screen Date: 05/02/24 [facility] Medical History Hyperlipidemia LDL goal <70 Vitamin D deficiency Chronic anemia Depression Anxiety Overweight (BMI 25.0-29.9) Heart failure with reduced ejection fraction Acute CHF (congestive heart failure) Acute on chronic systolic (congestive) heart failure Essential hypertension Endogenous depression Peripheral vascular disease due to secondary diabetes Newly diagnosed diabetes Hyperglycemia No known health problems Surgical History History of heart artery stent Family History Sister History of artificial heart valve Brother Myocardial infarct Social History Household Members: Children Housing: House Do you presently have visiting nurse or other home services: No Alcohol intake: never Patient Tobacco Use Status: Never used Tobacco e-Cigarette/Vaping Use: Never Used Second Hand Smoke Exposure: No Advance Directives Date on File: 09/03/23 service: No Current occupational status: unemployed Current occupation: right hand dominant Cognitive needs: No Hearing needs: No Vision needs: Yes (reading reading) Questionnaire Thrive Questionnaire Date Thrive assessed: 11/05/24 I am a: Patient What is your living situation today?: I have a place to live, but I am worried about losing it in the future Within the past 12 months, did the food you bought not last and you didn't have the money to get more?: Often true Within the past 12 months, did you worry whether your food would run out before you got money to buy more?: Often true Do you have trouble paying for medicines?: No Do you have trouble getting transportation to medical appointments?: No Do you have trouble paying your heating and electricity bill?: No Do you have trouble taking care of your child, family member or friend?: No Do you have trouble with day-to-day activities such as bathing, preparing meals, shopping, managing finances, etc.?: No Are you currently unemployed and looking for a job?: No Are you interested in more education?: No Please select the resources that you would like help with: None Currently or been in a relationship where the following occur: I choose not to answer THRIVE Score: 3 AUDIT C Alcohol Use Questionnaire (AUDIT-C) 1. How often do you have a drink containing alcohol?: Never Total Score: 0 JOHN-7 AMB Questionnaire JOHN-7 Date JOHN - 7 assessed: 03/26/24 Feeling nervous, anxious, or on edge: 0 = Not at all Not being able to stop or control worryin = Not at all Worrying too much about different things: 0 = Not at all Trouble relaxin = Not at all Being so restless that it is hard to sit still: 0 = Not at all Becoming easily annoyed or irritable: 0 = Not at all Feeling afraid as if something awful might happen: 0 = Not at all Total JOHN-7 score (0-4 normal; 5-9 mild; 10-14 moderate; 15-21 severe): 0 Source: Developed by Drs. Balaji Lockwood, Bere Mann, Nirmal Marin and colleagues, with an educational osmel from [employer]. Physical exam (Primary Care) Tobacco/Smoking Status: Tobacco use Status Tobacco use date assessed 05/02/24 08/07/24 10:42 Patient Tobacco Use Status Never used Tobacco 11/04/24 22:06 e-Cigarette/Vaping Use Never Used 08/07/24 10:42 Thrive Assessment: Date of Thrive Assessment Date Thrive assessed 11/05/24 11/05/24 09:44 Currently or been in a relationship where the following occur: I choose not to answer Results AMB Hemoglobin A1c AMB Hemoglobin A1c 5.6 % Last Edit by ALIZE Marcus on 11/12/24 12:00 Coding Assessment & Plan Assessment & Plan Orders: Orders AMB Hemoglobin A1c Today E11.40 - Type 2 diabetes mellitus with diabetic neuropathy, unspecified, Z79.4 - [facility] (current) use of insulin
[2024-11-12 11:47] VITALS: BP 90/60; PULSE 79; TEMP 36.2; O2SAT 98; BMI 26.9
== END 2024-11-12 12:09 | disposition home or self-care (01) ==
LOC: HO.HMCH 11:24
PROVIDERS: PCP Internal Medicine; Visit Provider Internal Medicine
DX: E11.40 Type 2 diabetes mellitus with diabetic neuropathy, unspecified (principal); Z79.4 Long term (current) use of insulin

== ENCOUNTER → 2024-11-12 11:23 | Outpatient (BNVA) | payer OTHER, SELFPAY | PROVIDERS: PCP Internal Medicine; Visit Provider Internal Medicine | DX: I11.0 Hypertensive heart disease with heart failure (principal); I50.9 Heart failure, unspecified; E78.5 Hyperlipidemia, unspecified; E11.40 Type 2 diabetes mellitus with diabetic neuropathy, unspecified; Z79.4 Long term (current) use of insulin | CPT/HCPCS: 83036; 99212 ==

== ENCOUNTER 2025-01-07 08:16 | Outpatient (AMB) | payer OTHER, SELFPAY ==
--- NOTE | 2025-01-07 08:25 | MHC.PC.OV ---
Vital Signs 01/07/25 08:30 Height 5 ft 11 in Weight 198 lb 2 oz BMI 27.6 BP 100/62 Blood Pressure Location Lt brachial Position Sitting Pulse 77 Pulse Source Pulse Oximeter Temp 96.9 F Temp Source Temporal Artery Scan Pulse Oximetry (%) 98 Oxygen Delivery Method Room Air Intake Visit Reasons: annual exam Intake Note: Patient is here today for a physical. 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 Accompanied by: Spouse Allergies No Known Allergies Allergy (Verified 01/07/25 08:30) Tobacco use date assessed: 01/07/25 Dental Screening Dental Screen Date: 05/02/24 [facility] Medical History Hyperlipidemia LDL goal <70 Vitamin D deficiency Chronic anemia Depression Anxiety Overweight (BMI 25.0-29.9) Heart failure with reduced ejection fraction Acute CHF (congestive heart failure) Acute on chronic systolic (congestive) heart failure Essential hypertension Endogenous depression Peripheral vascular disease due to secondary diabetes Newly diagnosed diabetes Hyperglycemia No known health problems Surgical History History of heart artery stent Family History Sister History of artificial heart valve Brother Myocardial infarct Social History Household Members: Children Housing: House Do you presently have visiting nurse or other home services: No Alcohol intake: never Patient Tobacco Use Status: Never used Tobacco e-Cigarette/Vaping Use: Never Used Second Hand Smoke Exposure: No Advance Directives Date on File: 09/03/23 service: No Current occupational status: unemployed Current occupation: right hand dominant Cognitive needs: No Hearing needs: No Vision needs: Yes (reading reading) Questionnaire Thrive Questionnaire Date Thrive assessed: 08/07/24 I am a: Patient What is your living situation today?: I have a place to live, but I am worried about losing it in the future Within the past 12 months, did the food you bought not last and you didn't have the money to get more?: Often true Within the past 12 months, did you worry whether your food would run out before you got money to buy more?: Often true Do you have trouble paying for medicines?: No Do you have trouble getting transportation to medical appointments?: No Do you have trouble paying your heating and electricity bill?: No Do you have trouble taking care of your child, family member or friend?: No Do you have trouble with day-to-day activities such as bathing, preparing meals, shopping, managing finances, etc.?: No Are you currently unemployed and looking for a job?: No Are you interested in more education?: No Please select the resources that you would like help with: None Currently or been in a relationship where the following occur: I choose not to answer THRIVE Score: 3 JOHN-7 AMB Questionnaire JOHN-7 Date JOHN - 7 assessed: 03/26/24 Source: Developed by Drs. Balaji Lockwood, Bere Mann, Nirmal Marin and colleagues, with an educational osmel from [employer]. Physical exam (Primary Care) Vital Signs: Last Vital Signs Temp 96.9 F 01/07/25 08:30 Pulse 77 01/07/25 08:30 BP 100/62 01/07/25 08:30 Pulse Ox 98 01/07/25 08:30 Oxygen Delivery Method Room Air 01/07/25 08:30 BMI result Body Mass Index 27.6 Tobacco/Smoking Status: Tobacco use Status Tobacco use date assessed 01/07/25 01/07/25 08:33 Patient Tobacco Use Status Never used Tobacco 01/07/25 08:25 e-Cigarette/Vaping Use Never Used 01/07/25 08:25 Thrive Assessment: Date of Thrive Assessment Date Thrive assessed 08/07/24 01/07/25 08:25 Currently or been in a relationship where the following occur: I choose not to answer Coding Level of Care Code Est Pt Prev Care 40-64y(03751) Diagnoses Annual physical exam Z00.00 Assessment & Plan Assessment & Plan (1) Annual physical exam: Code(s): Z00.00 - Encounter for general adult medical examination without abnormal findings Plan: History of Present Illness - The patient is a 59-year-old male presenting for a physical examination and concerns regarding erectile dysfunction. - Heart failure: The patient has a history of heart failure and is concerned about the use of medications like Viagra due to potential cardiovascular risks. - Erectile dysfunction: The patient is exploring non-pharmacological options due to contraindications with his heart condition. - Preventative care: The patient has declined flu vaccination and colonoscopy but is considering Cologuard for colon cancer screening. Social History - The patient spends time at an adult care center and uses a computer for leisure activities. Review of Systems - Cardiovascular: Denies chest pain, reports improved breathing and functional status. - Gastrointestinal: Denies abdominal pain. - Neurological: Reports difficulty sleeping. - Ophthalmologic: Reports good vision with glasses for reading. - Auditory: Reports good hearing. Physical Exam General: Cooperative and healthy appearing Nutritional Appearance: Well nourished Orientation/consciousness: Patient oriented x3 Limitations: No limitations Head: Normal to inspection General: Appearance normal, both eyes and all related structures Neck: Normal visual inspection Chest: Normal palpation of entire chest wall Respiratory: Improved, patient able to function and walk without problems. ormal respiratory effort Neurology: Patient oriented x3. Results - Labs: Hemoglobin slightly low, other blood work within normal limits. Plan - Discussed the risks of using phosphodiesterase inhibitors like Viagra due to the patient's heart failure. - Recommended non-pharmacological options for erectile dysfunction, such as penile rings and oral stimulation. - Advised considering Cologuard for colon cancer screening as an alternative to colonoscopy. Discussion Notes I discussed with the patient the potential cardiovascular risks associated with using Viagra due to his existing heart failure. We explored alternative non-pharmacological options for managing erectile dysfunction, such as penile rings and oral stimulation. Additionally, I recommended considering Cologuard for colon cancer screening, given his reluctance to undergo a colonoscopy. Patient Instructions - Avoid using Viagra or similar medications due to heart condition risks. - Consider non-medication options for erectile dysfunction, such as penile rings. - Think about using Cologuard for colon cancer screening.
[2025-01-07 08:30] VITALS: BP 100/62; PULSE 77; TEMP 36.1; O2SAT 98; BMI 27.6
== END 2025-01-07 09:01 | disposition home or self-care (01) ==
LOC: HO.HMCH 08:18
PROVIDERS: PCP Internal Medicine; Visit Provider Internal Medicine
DX: Z00.00 Encounter for general adult medical examination without abnormal findings (principal)

== ENCOUNTER → 2025-01-07 08:16 | Outpatient (BNVA) | payer OTHER, SELFPAY | PROVIDERS: PCP Internal Medicine; Visit Provider Internal Medicine | DX: Z00.00 Encounter for general adult medical examination without abnormal findings (principal); N52.9 Male erectile dysfunction, unspecified; I50.9 Heart failure, unspecified | CPT/HCPCS: 99396 ==

== ENCOUNTER 2025-02-23 12:39 | Outpatient (AMB) | payer OTHER, SELFPAY ==
--- NOTE | 2025-02-23 13:08 | A.OFFPC_ITS ---
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 Required: No Accompanied by: Self / Same As Patient Allergies No Known Allergies Allergy (Verified 02/23/25 13:08) Tobacco use date assessed: 02/23/25 Dental Screening Dental Screen Date: 02/23/25 Did you have a dental visit in the last 12 months?: Yes Did you have a dental problem in the last 6 months where you did not have access to dental care?: No PFSH Medical History Hyperlipidemia LDL goal <70 Vitamin D deficiency Chronic anemia Depression Anxiety Overweight (BMI 25.0-29.9) Heart failure with reduced ejection fraction Acute CHF (congestive heart failure) Acute on chronic systolic (congestive) heart failure Essential hypertension Endogenous depression Peripheral vascular disease due to secondary diabetes Newly diagnosed diabetes Hyperglycemia No known health problems Surgical History History of heart artery stent Family History Sister History of artificial heart valve Brother Myocardial infarct Social History Household Members: Children Housing: House Do you presently have visiting nurse or other home services: No Alcohol intake: never Patient Tobacco Use Status: Never used Tobacco e-Cigarette/Vaping Use: Never Used Second Hand Smoke Exposure: No Advance Directives Date on File: 09/03/23 service: No Current occupational status: unemployed Current occupation: right hand dominant Cognitive needs: No Hearing needs: No Vision needs: Yes (reading reading) Questionnaire Thrive Questionnaire Date Thrive assessed: 08/07/24 I am a: Patient What is your living situation today?: I have a place to live, but I am worried about losing it in the future Within the past 12 months, did the food you bought not last and you didn't have the money to get more?: Often true Within the past 12 months, did you worry whether your food would run out before you got money to buy more?: Often true Do you have trouble paying for medicines?: No Do you have trouble getting transportation to medical appointments?: No Do you have trouble paying your heating and electricity bill?: No Do you have trouble taking care of your child, family member or friend?: No Do you have trouble with day-to-day activities such as bathing, preparing meals, shopping, managing finances, etc.?: No Are you currently unemployed and looking for a job?: No Are you interested in more education?: No Please select the resources that you would like help with: None Currently or been in a relationship where the following occur: I choose not to answer THRIVE Score: 3 JOHN-7 AMB Questionnaire JOHN-7 Date JOHN - 7 assessed: 03/26/24 Source: Developed by Drs. Balaji Lockwood, Bere Mann, Nirmal Marin and colleagues, with an educational osmel from [employer]. Physical exam (Primary Care) Tobacco/Smoking Status: Tobacco use Status Tobacco use date assessed 02/23/25 02/23/25 13:09 Patient Tobacco Use Status Never used Tobacco 02/23/25 13:09 e-Cigarette/Vaping Use Never Used 02/23/25 13:09 Thrive Assessment: Date of Thrive Assessment Date Thrive assessed 08/07/24 02/23/25 13:09 Currently or been in a relationship where the following occur: I choose not to answer Office Meds tuberculin PPD 5 tub. unit/0.1 mL intradermal injection solution Performing Provider: Everardo Mohan MD Performing Location: [facility] [place] [facility] Administered by: Elidia Ceballos LPN on 02/23/25 13:15 Dose Route Admin Location Dispensed Lot Number Expiration Date [facility] Applications System Analyst 0.1 mL intradermal left forearm 0.1 mL [id number] 05/16/26 [id number] [facility] [place] [employer] Total Dispensed Waste 0.1 mL 0 % Coding Assessment & Plan Assessment & Plan Orders: Orders AMB PPD Planted Today Z11.1 - Encounter for screening for respiratory tuberculosis
== END 2025-02-23 13:19 | disposition home or self-care (01) ==
LOC: HO.HMCH 12:40
PROVIDERS: PCP Internal Medicine; Visit Provider Internal Medicine
DX: Z11.1 Encounter for screening for respiratory tuberculosis (principal)

== ENCOUNTER → 2025-02-23 12:39 | Outpatient (BNVA) | payer OTHER, SELFPAY | PROVIDERS: PCP Internal Medicine; Visit Provider Internal Medicine | DX: Z11.1 Encounter for screening for respiratory tuberculosis (principal) | CPT/HCPCS: 86580 ==

== ENCOUNTER 2025-03-16 08:39 | Outpatient (AMB) | payer OTHER, SELFPAY ==
--- NOTE | 2025-03-16 08:56 | MHC.OFFVIS ---
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: No Accompanied by: Self / Same As Patient Allergies No Known Allergies Allergy (Verified 02/23/25 13:08) Medication List - Last Reconciled 03/16/25 by JAMAR Tejeda aspirin 81 mg PO DAILY atorvastatin 80 mg PO BEDTIME blood pressure monitor (Blood Pressure Kit) As directed blood sugar diagnostic (FreeStyle Lite Strips) CHECK BLOOD SUGAR 3-4X/DAY blood-glucose meter (FreeStyle [place] Lite kit) check BS 1-2x/day blood-glucose sensor (FreeStyle Loretta 3 Plus Sensor device) As directed blood-glucose,research mechanic,cont (FreeStyle Loretta 3 [place]) As directed citalopram 10 mg PO DAILY empagliflozin (Jardiance) 10 mg PO DAILY ergocalciferol (vitamin D2) 1,250 mcg PO QWEEK furosemide 40 mg PO DAILY insulin glargine (Lantus Solostar U-100 Insulin) 21 units subcut BEDTIME lancets (FreeStyle Lancets) check BS 3-4x/day metformin 1,000 mg PO BID 90 days metoprolol succinate ER 25 mg PO DAILY pen needle, diabetic (BD Ultra-Fine Micro Pen Needle) As directed -daily sacubitril-valsartan 24-26 mg (Entresto) 1 tab PO BID 90 days ticagrelor (Brilinta) 60 mg PO BID walker As directed HPI HPI 4m follow up: Details: Jhoan is a 59-year-old male with past medical history hypertension, hyperlipidemia, diabetes, inferior posterior STEMI July 2023 with emergent cardiac catheterization showing dominant circumflex artery 99% stenosis, CYNTHIA placed. Also noted to have PROGRAMS ASSISTANT of the LAD and RCA with collaterals from circumflex. Post intervention he had cardiogenic shock requiring intra-aortic balloon pump and vasopressor therapy. Echocardiogram showed EF 20-25% with wall motion abnormality. He has been on guideline directed medical therapy which has been limited by low blood pressure readings. A recent echocardiogram continued to show EF 25- 30%. He was referred for a subcutaneous ICD which he then declined. He was also referred to [facility] and he then declined due to inability to travel to [place] for appointments. He was hospitalized in October with acute on chronic HFrEF. Today he reports that he continues to have fatigue and shortness of breath with activity. For this reason he does only very light physical activities around the house. He has some URI symptoms of nasal congestion and intermittent cough. No PND, orthopnea or edema. He sleeps with 0-1 pillows. He is denying any recent chest discomfort. In the past he reported chest discomfort if he over exerts. He does not feel his symptoms are worsening with time. No heart palpitations, lightheadedness, presyncope, syncope. . He has been taking his meds as directed. [facility] Medical History Hyperlipidemia LDL goal <70 Vitamin D deficiency Chronic anemia Depression Anxiety Overweight (BMI 25.0-29.9) Heart failure with reduced ejection fraction Acute CHF (congestive heart failure) Acute on chronic systolic (congestive) heart failure Essential hypertension Endogenous depression Peripheral vascular disease due to secondary diabetes Newly diagnosed diabetes Hyperglycemia No known health problems Surgical History History of heart artery stent Family History Sister History of artificial heart valve Brother Myocardial infarct Social History Household Members: Children Housing: House Do you presently have visiting nurse or other home services: No Alcohol intake: never Patient Tobacco Use Status: Never used Tobacco e-Cigarette/Vaping Use: Never Used Second Hand Smoke Exposure: No Advance Directives Date on File: 09/03/23 service: No Current occupational status: unemployed Current occupation: right hand dominant Cognitive needs: No Hearing needs: No Vision needs: Yes (reading reading) Review of Systems Const All systems reviewed & are unremarkable except as noted in HPI and below Denies chills, Reports fatigue, Denies fever(s), Denies frequent falls, Denies weakness, Denies weight gain and Denies weight loss ENT Details: Nasal congestion, intermittent cough Denies dizziness Card Denies chest pain, Denies leg edema, Denies lightheadedness, Denies palpitations, Denies dyspnea and Denies dyspnea on exertion Resp Denies cough, Denies dyspnea and Denies dyspnea on exertion GI Denies hematochezia Musc Denies abnormal gait, Denies muscle weakness, Denies numbness, Denies radiating pain into limb and Denies tingling Neuro Denies abnormal gait, Denies dizziness, Denies frequent falls, Denies numbness, Denies tingling and Denies weakness Endo Reports fatigue and Denies palpitations Physical Exam Vital Signs: Last Vital Signs Pulse 73 03/16/25 08:57 BP 110/70 03/16/25 08:57 BMI result Body Mass Index 27.7 Const Other: Pale skin tone General: cooperative, comfortable and no acute distress Orientation/consciousness: patient oriented x3 Neck Other: No noted JVD Neck: Yes normal visual inspection Resp Effort & Inspection: normal respiratory effort Auscultation: clear to auscultation bilaterally, rales (Each lung base), no rhonchi and no wheezes Cardio Rate: regular rate Rhythm: regular rhythm Heart sounds: S1 normal heart sound present, S2 normal heart sound present, no gallops, no murmurs and no rubs Neuro General: patient oriented x3 Extrem Other: No pitting edema General: Yes normal to inspection, No no pedal edema and No calf tenderness Psych Appearance: grossly normal Mental Status: mental status grossly normal Speech and movement: Normal speech and movement present Assessment & Plan Assessment & Plan (1) Coronary artery disease: Code(s): I25.10 - Atherosclerotic heart disease of [place] coronary artery without angina pectoris Category: Medical Qualifiers: Associated angina: without angina Coronary Disease-Associated Artery/Lesion type: [place] artery [place] vs. transplanted heart: [place] heart Qualified Code(s): I25.10 - Atherosclerotic heart disease of [place] coronary artery without angina pectoris Plan: Patient presented to [facility] 07/27/23 with chest discomfort, found to have acute inferior posterior STEMI and was emergently transferred to [facility] where he underwent emergent cardiac catheterization. This revealed culprit stenosis in dominant circumflex artery with a 99% stenosis, CYNTHIA placed, also with chronic total occlusion of the LAD as well as the RCA with collaterals from the circumflex system. An echocardiogram had shown EF 20-25% with wall motion abnormality in the LAD and RCA territory. He has had issues with heart failure with reduced EF, NYHA class 2-3. He has been managed medically with guideline directed medical therapy including metoprolol XL, Entresto, Jardiance. He is on dual antiplatelet therapy with aspirin and Brilinta. He is also on high-dose atorvastatin. He did undergo a cardiac MRI on 04/14/2024 which did show nonviable areas of the LAD and RCA territory. A repeat limited echocardiogram on 04/23/2024 showed EF 25-30% with regional wall motion abnormalities, ischemic cardiomyopathy. Subcutaneous ICD ordered. He initially agreed then declined the procedure and continues to refuse. He is not able to travel to [place] for advanced care due to transportation issues. Signs and symptoms of heart failure, angina reviewed with him. Will check labs today including CBC, CMP, BNP. Cardiology follow-up in 3 months, sooner if needed. (2) Acute on chronic systolic (congestive) heart failure: Code(s): I50.23 - Acute on chronic systolic (congestive) heart failure Category: Medical Plan: NYHA class 2-3. He has rales on examination otherwise does not appear fluid overloaded. Weight has been overall stable. Checking labs today. May need higher dose diuretic. (3) STEMI (ST elevation myocardial infarction): Comment: 07/27/2023 Code(s): I21.3 - ST elevation (STEMI) myocardial infarction of unspecified site Category: Medical Plan: 07/27/2023 -as above (4) Ischemic cardiomyopathy: Code(s): I25.5 - Ischemic cardiomyopathy Category: Medical Plan: as above - continues to decline ICD placement (5) Essential hypertension: Code(s): I10 - Essential (primary) hypertension Category: Medical Plan: Blood pressure goal less than 130/80. His blood pressure runs on the low side, currently 110/70. Continue metoprolol XL, Entresto. (6) S/P cardiac cath: Comment: 07/27/2023, Dr. Rodriguez, left main mild luminal irregularities, lad proximal 100% stenosis, PROGRAMS ASSISTANT, proximal LAD distal subsection 95% stenosis, RIKKI 1 flow, left circumflex mid 99% stenosis, high risk, PCI performed, CYNTHIA placed, 2nd OM mid 80% stenosis, RCA mid 100% stenosis, PROGRAMS ASSISTANT, collaterals from the distal circumflex to the right PAV, collaterals from 2nd OM to the 1st diagonal, collateral from the 1st AC marginal to the distal LAD Code(s): Z98.890 - Other specified postprocedural states Category: Surgical Plan: as above (7) Hospital discharge follow-up: Code(s): Z09 - Encounter for follow-up examination after completed treatment for conditions other than malignant neoplasm Category: Medical Plan: Last [facility] discharge reviewed Plan I explained to the patient that his current symptoms of cough and nasal congestion are likely from a viral illness and not related to his heart, as cardiac issues would not cause sinus congestion. In response to his query about a pump, I clarified that such inhalers are for conditions like asthma or COPD and would not help his shortness of breath, which is caused by his weak heart muscle. We revisited the recommendation for a subcutaneous defibrillator, and he again stated that he does not want to proceed with any such procedure. I informed him that I hear some fluid in his lungs and plan to increase his water pill, but first, we need to get blood work today to check his kidney function and blood counts to ensure it is safe. I discussed finding an advanced heart failure specialist for him closer to home, in [place], to explore other treatment options, and he was agreeable to this. I advised him that we would call him with any medication changes after the lab results are back and that he should follow up in the office in three months, or sooner if his symptoms worsen. Orders: Orders NT Pro B Type Natriuretic Pept Today I50.9 - Heart failure, unspecified Complete Blood Count Auto Diff Today I50.9 - Heart failure, unspecified Comprehensive Met. Panel Today I50.9 - Heart failure, unspecified Patient Instructions: - Please go to the laboratory today to have your blood drawn. - We will call you with your lab results and to let you know about any changes to your medications. - We will look for an advanced operations specialist for you to see in [place] and will contact you with that information. - Schedule a follow-up appointment in our office in three months. - If you feel worse or have any new concerns before your next appointment, please call our office. Patient was informed and verbally consented to the use of an ambient scribe for clinic note documentation during this visit. Visit time spent on chart review, interview, assessment, orders, documentation. Coding Level of Care Code Est Pt Level 4 (29824) Add On Problem Visit Only Diagnoses Coronary artery disease involving [place] coronary artery of [place] heart without angina pectoris I25.10 Associated angina: without angina Coronary Disease-Associated Artery/Lesion type: [place] artery [place] vs. transplanted heart: [place] heart Acute on chronic systolic (congestive) heart failure I50.23 STEMI (ST elevation myocardial infarction) I21.3 Ischemic cardiomyopathy I25.5 Essential hypertension I10 S/P cardiac cath Z98.890 Hospital discharge follow-up Z09 Time Spent (min) 32
[2025-03-16 08:57] VITALS: BP 110/70; PULSE 73; BMI 27.7
== END 2025-03-16 09:30 | disposition home or self-care (01) ==
LOC: HO.HCS 08:40
PROVIDERS: PCP Internal Medicine; Visit Provider Nurse Practitioner Family
DX: I25.10 Atherosclerotic heart disease of native coronary artery without angina pectoris (principal); I50.23 Acute on chronic systolic (congestive) heart failure; I21.3 ST elevation (STEMI) myocardial infarction of unspecified site; I25.5 Ischemic cardiomyopathy; I10 Essential (primary) hypertension; Z98.890 Other specified postprocedural states; Z09 Encounter for follow-up examination after completed treatment for conditions other than malignant neoplasm
CPT/HCPCS: 99214

== ENCOUNTER 2025-03-16 08:39 | Outpatient (REF) | payer OTHER, SELFPAY ==
[2025-03-16 09:52] LABS: MANUAL DIFF FLAG NO
[2025-03-16 10:44] LABS: Hematocrit 34.5 % (42.0-52.0); Hemoglobin 10.3 g/dl (14.0-18.0); Imm Gran Abs Auto 0.01 X10*3/uL (0.00-0.03); Imm Gran Pct Auto 0.1 % (0.0-0.4); Lymphocytes Absolute Auto 1.9 X10*3/uL (1.2-4.9); Mean Corpuscular HGB Conc 29.9 g/dl (31.0-36.0); Mean Corpuscular Hemoglobin 22.4 pg (27.0-33.0); Mean Corpuscular Volume 75.2 fL (80.0-98.0); NRBC Abs Auto 0.000 X10*3/uL (0.0-0.012); NRBC Pct Auto 0.0 /100WBC (0.0-0.2); Platelet Count 176 X10*3/uL (160-400); Red Blood Count 4.59 X10*6/uL (4.60-5.80); White Blood Count 6.8 X10*3/uL (4.8-10.8)
[2025-03-16 11:00] LABS: Alanine Aminotransferase 39 U/L (0-40); Albumin Level 3.6 g/dL (3.5-5.0); Alkaline Phosphatase 104 U/L (39-117); Anion Gap 10 (12-20); Aspartate Amino Transferase 59 U/L (5-37); Blood Urea Nitrogen 11 mg/dL (9-16); Calcium 8.6 mg/dL (8.4-10.2); Carbon Dioxide 22 mmol/L (22-29); Chloride 111 mmol/L (96-108); Estimated Glomerular Filt Rate > 60; Potassium 3.9 mmol/L (3.3-5.1); Sodium 139 mmol/L (135-145); Total Protein 7.8 g/dL (6.5-8.0)
== END 2025-03-16 08:40 | disposition home or self-care (01) ==
LOC: HO.LAB 08:39
PROVIDERS: PCP Internal Medicine; Visit Provider Nurse Practitioner Family
DX: I25.10 Atherosclerotic heart disease of native coronary artery without angina pectoris (principal); I50.23 Acute on chronic systolic (congestive) heart failure; I21.3 ST elevation (STEMI) myocardial infarction of unspecified site; I25.5 Ischemic cardiomyopathy; I11.0 Hypertensive heart disease with heart failure; Z98.890 Other specified postprocedural states; Z09 Encounter for follow-up examination after completed treatment for conditions other than malignant neoplasm; Z79.899 Other long term (current) drug therapy
CPT/HCPCS: 36415; 80053; 83880; 85025; 99212